=== PATIENT | male | born 1970 | race Caucasian/White ===

== ENCOUNTER 2017-10-13 10:59 | Emergency (ER) | payer MEDICAID, SELFPAY ==
[2017-10-13 10:59] VITALS: BP 132/72; PULSE 47; RESP 15; TEMP 36.8; BMI 32.5
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
[2017-10-13] MEDS: Naproxen 250 MG Tablet 500 MG PO (11:35)
== END 2017-10-13 11:52 | disposition home or self-care (01) ==
LOC: ED 11:39
PROVIDERS: Emergency Provider Emergency Medicine; Family Provider Internal Medicine; PCP Internal Medicine
DX: S09.90XA Unspecified injury of head, initial encounter (principal); W22.8XXA Striking against or struck by other objects, initial encounter; Y93.89 Activity, other specified; Y92.009 Unspecified place in unspecified non-institutional (private) residence as the place of occurrence of the external cause; Z72.0 Tobacco use
CPT/HCPCS: 99281

== ENCOUNTER 2018-04-18 11:22 | Emergency (ER) | payer MEDICAID, SELFPAY ==
[2018-04-18 11:24] VITALS: BP 104/76; PULSE 90; RESP 16; TEMP 36.3; O2SAT 92; BMI 29.8
[2018-04-18 12:11] LABS: Absolute Neutrophil Count 13.9 X10^3/uL (2.0-7.7); Basophil# 0.01 X10^3/uL; Basophil% 0.1 % (0-1); Hemoglobin 16.1 g/dl (13.0-16.5); Lymphocyte % 1.4 % (19-41); Mean Corp Hgb Conc 34.3 g/gl (32-36); Mean Corpuscular Hgb 33.6 pg (27.0-32.0); Mean Corpuscular Volume 98.1 fL (80-94); Mean Platelet Vol. 10.5 fl (6.2-12.0); Monocyte# 0.43 X10^3/uL; Neutrophil # 13.88 X10^3/uL (2.7-7.7); Neutrophil % 95.4 % (47-70); Platelet Count 58 K/mm3 (150-450); RBC Distribution Width CV 13.5 % (11.6-14.6); RBC Distribution Width SD 48.1 fl (35.1-43.9); Red Blood Count 4.79 M/mm3 (4.6-6.2); White Blood Count 14.5 K/mm3 (4.4-11.0)
[2018-04-18 12:14] LABS: Differential Indicated SCAN CRITERIA MET; POSITIVE COUNT NO; POSITIVE DIFFERENTIAL YES; POSITIVE MORPHOLOGY NO
[2018-04-18] MEDS: 0.9% Normal Saline 1,000 ML 1000 ML IV (12:15)
[2018-04-18] MEDS: Morphine 4 MG/ML Syringe IV ×2 (12:15→16:47)
[2018-04-18] MEDS: Ondansetron 4 MG/2 ML Vial IV (12:15)
[2018-04-18] MEDS: Diphth,Pertuss(Acell),Tet Vac 0.5 ML Vial IM (12:17)
[2018-04-18] MEDS: Cefazolin 1 GM/50 ML BAG IV (12:23)
[2018-04-18 12:25] LABS: Anion Gap 12 (5-15); BUN 7 mg/dL (7-18); BUN/Creat Ratio 6.7 RATIO (10-20); Calcium,Total 7.9 mg/dL (8.5-10.1); Chloride 101 mmol/L (98-107); Creatinine, Serum 1.04 mg/dL (0.70-1.30); EST Glomerular Filtration Rate 81 mL/min (>60); Est Glom Filt Rate - Afr Amer 98 mL/min (>60); Estimated Creatinine Clearance 79.24 ml/min; Glucose 283 mg/dL (74-106); Sodium Level 135 mmol/L (136-145)
[2018-04-18 13:04] LABS: Amphetamine Urine VISTA NEGATIVE (<1000 ng/mL); Barbiturate Urine VISTA NEGATIVE (< 200 ng/mL); Benzodiazepine Urine VISTA NEGATIVE (< 200 ng/mL); Cocaine Urine VISTA NEGATIVE (< 300 ng/mL); Ecstacy Urine VISTA NEGATIVE (< 500 ng/mL); Methadone Urine VISTA NEGATIVE (< 300 ng/mL); PCP Urine VISTA NEGATIVE (< 25 ng/mL); THC Urine VISTA POSITIVE (< 50 ng/mL); Vista UDS pH Range 7
--- NOTE | 2018-04-18 14:55 | ED.RN ---
THIS RN TALKED WITH FRIEND JOHN WHO STATES SHE WILL PROVIDE PT A RIDE HOME FROM [place] UPON DISCHARGE. PT MADE AWARE AND AGREES TO TRANSFER
[2018-04-18 14:56] VITALS: BP 138/70; PULSE 78; RESP 18; O2SAT 99
--- NOTE | 2018-04-18 15:07 | NURSING ---
CALLED [facility] FOR TRANSPORT. ETA IS 30 MIN
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
[2018-04-18 15:22] VITALS: BP 138/74; PULSE 80; RESP 18; O2SAT 99
[2018-04-18 16:34] VITALS: BP 113/77; RESP 18; O2SAT 94
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
== END 2018-04-18 16:54 | disposition designated cancer center or children's hospital (05) ==
PROVIDERS: Emergency Provider Emergency Medicine; Family Provider Internal Medicine; PCP Internal Medicine
DX: T21.24XA Burn of second degree of lower back, initial encounter (principal); T21.25XA Burn of second degree of buttock, initial encounter; T22.221A Burn of second degree of right elbow, initial encounter; T31.10 Burns involving 10-19% of body surface with 0% to 9% third degree burns; X08.8XXA Exposure to other specified smoke, fire and flames, initial encounter; Y93.9 Activity, unspecified; Y92.9 Unspecified place or not applicable; Z72.0 Tobacco use; Z72.89 Other problems related to lifestyle
CPT/HCPCS: 80048; 80307; 80320; 85025; 90715; 96374; 96375; 96376; 99284; J7030; A4216; G0480; J2405

== ENCOUNTER 2018-07-01 18:31 | Emergency (ER) | payer MEDICAID, SELFPAY ==
[2018-07-01 18:32] VITALS: BP 120/55; PULSE 74; RESP 18; TEMP 37.3; O2SAT 100; BMI 27.3
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
[2018-07-01] MEDS: LORazepam 1 MG Tablet PO (19:34)
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
== END 2018-07-01 21:08 | disposition home or self-care (01) ==
PROVIDERS: Emergency Provider Emergency Medicine
DX: S01.312A Laceration without foreign body of left ear, initial encounter (principal); W07.XXXA Fall from chair, initial encounter; Y04.8XXA Assault by other bodily force, initial encounter; Y93.89 Activity, other specified; F10.129 Alcohol abuse with intoxication, unspecified; Y90.9 Presence of alcohol in blood, level not specified
CPT/HCPCS: 12011; 70450; 99283

== ENCOUNTER 2019-01-01 19:06 | Emergency (ER) | payer MEDICAID, SELFPAY ==
[2019-01-01 19:06] VITALS: BMI 32.5
[2019-01-01 19:08] VITALS: BP 104/79; PULSE 83; RESP 16; TEMP 36.9; O2SAT 94; BMI 27.1
--- NOTE | 2019-01-01 19:13 | CT_ITS ---
STUDY: CT BRAIN WITHOUT CONTRAST REASON FOR EXAM: Male, 48 years old. Fall with head injury RADIATION DOSAGE (If Supplied By Facility): CTDIvol = ( 44.99 ) mGy, DLP = ( 829.85 ) mGycm TECHNIQUE: Transaxial CT imaging of the brain was performed without administration of intravenous contrast material. Individualized dose optimization techniques were used for this CT. COMPARISON: 07/01/2018 FINDINGS: Small scalp injury overlying the left occiput. Normal calvarium. Normal size ventricles and extra-axial spaces for the patient's age. Normal white matter tracts of the cerebral hemispheres. Normal basal ganglia and thalami. Normal brainstem. Normal cerebellum. There is no intracranial hemorrhage. There are no findings of an acute ischemic infarction. Normal visualized paranasal sinuses. CT/Brain/Head without Contrast IMPRESSION: No acute intracranial pathology. Posterior scalp injury Electronically Signed: David Peraza DO at 20:30 EDT Tel , Service support ,
--- NOTE | 2019-01-01 19:15 | ED.VIS.GEN ---
History of Present Illness Chief Complaint: Fall Informant: Patient Onset: Today Context: Sudden Onset Timing: Continuous Quality: Fall striking back of his head against a pole Location: Drinking establishment Current Severity: - - Unable to determine Maximum Severity: - - Unable to determine Worsened by: Alcohol use Relieved by: Nothing Associated Symptoms: Patient has no complaints Narrative: Patient is a middle-aged male who presents with laceration back of his head. Apparently been drinking this afternoon. He states he drinks minimum 6 beers. He fell. He struck his head on a pole. He said the pole did not give. He does complain of headache. He apparently had loss of conscious. He denies neck pain. He denies paresthesia, anesthesia motors. He denies cardiac respiratory symptoms. No GI symptoms. He has no other complaints. Review of old records reveals patient has history of alcoholism and hepatitis. Tetanus status unknown. Prior similar symptoms: Yes Recent Illness/Hospitalization: No - Past Medical History (1) Alcohol abuse Status: Chronic (2) Malnutrition Status: Chronic (3) Tobacco dependence Status: Chronic Past Medical History - Allergies and Home Meds Allergies/Adverse Reactions: Allergies No Known Allergies Allergy (Verified 01/01/19 19:11) Primary Care Physician: Karrie Vaughan [NON-STAFF] - 10 Day for suture removal Care Physician,No Primary [Primary Care Provider] - Prior records reviewed: Yes Surgical History: noncontributory Lives: Alone Smoking Status: Current every day smoker Alcohol: Heavy Drugs: None - Family History Maternal Family History: Reports: Renal Disease Paternal Family History: Reports: Cancer Review of Systems General: Denies: Chills, Fever, Sweats Eyes: Denies: Visual changes - bilaterally, Blurred Vision - bilaterally, Diplopia ENT: Denies: Rhinorrhea, Sore throat Cardiovascular: Denies: Chest pain, Palpitations Respiratory: Denies: Dyspnea, Cough, Dyspnea on exertion Gastrointestinal: Denies: Abdominal pain, Nausea, Vomiting, Diarrhea, Melena, Hematochezia Genitourinary: Denies: Dysuria, Hematuria, Frequency Musculoskeletal: Denies: Back pain, Extremity Pain Skin: Denies: Rash, Wounds Neurological: Denies: Headache, Weakness, Parasthesia, Numbness Hematologic: Denies: Easy bruising, Easy bleeding Allergy: Denies: Uticaria, Swelling of the mouth Physical Exam Vital Signs/Narrative: Vital Signs Temp Pulse Resp BP Pulse Ox 01/01/19 19:08 98.4 F 83 16 104/79 94 Inital Vital Signs reviewed: Yes General: Well nourished, Well developed, Unkempt, No Acute Distress Head: Normocephalic, Trauma, Tenderness - There is tenderness to palpation over the occiput. There is no palpable depression. There is no clinical findings of basilar skull fracture. Eyes: Perrl, EOMI. Negative for: Pale conjunctiva, Scleral icterus ENT: Moist mucous membranes, No rhinorrhea, TM's clear Neck: Supple, Nontender Cardiovascular: Regular rate, Regular rhythm, No murmurs, Normal S1, Normal S2 Respiratory: No distress, CTA bilaterally, Chest nontender Abdomen: Soft, Nontender, Nondistended, Normal bowel sounds Rectal: Deferred Back: Nontender, Normal Inspection. Negative for: CVA tenderness, Spinal tenderness Extremities: Nontender, No edema Skin: Normal color, No rash, Trauma - Scalp laceration occiput Neurological: Oriented x3, Cranial nerves II-XII grossly intact, Normal Strength, Normal Sensation, Normal DTR - There was no clonus or Babinski sign., - - Patient had difficulty performing finger-nose to finger.. Negative for: Alert Psychological: - - Patient is clinically inebriated. Diagnostic/Tx/Re-eval Impressions Brain CT 01/01/19 19:13 IMPRESSION: No acute intracranial pathology. Posterior scalp injury Electronically Signed: David Peraza DO at 20:30 EDT Tel , Service support , 01/01/19 19:13 Brain/Head without Contrast [CT] Stat Laboratory Results 01/01/19 01/01/19 19:30 19:30 PT 13.8 INR 1.1 Ethyl Alcohol 412.0 H* - Medical Decision Making With history of alcoholism, head trauma and loss of conscious will obtain CT of the head to evaluate for bleed. His laceration will require repair. Please read procedure note. Because he is an alcoholic PT/INR was obtained to assess liver function. Alcohol level was obtained as well. Patient significant other was contacted. She is not willing to get him from the hospital. Patient's been informed since he has an alcohol level greater than 400 he will need to stay in the ER until he is sober or has a reliable person who is willing to get him from the emergency department. Patient has attempted to flee the department more than once. He has been verbally redirected. He states he needs to go to the restroom when he attempts to leave. He was found in the back call. He then stated he did not know where the bathroom was. He was found to be smoking in the bathroom. Patient states he wants to be arrested. Patient was informed because he is intoxicated with staggered gait and concerned that he may fall he did sustain his bed. He is not being cooperative. He is not redirectable. Reluctant and concerned giving him anti-anxiolytics or any medications may cause more problems i.e. depressed respirations and with history of alcoholism concern for seizure if Haldol is given since Haldol is known to decrease his seizure threshold. [employer] police were contacted. Plan is restraints since patient is not redirectable and there is concern for adverse reaction and significant complications if medications are administered. Procedures - Lacerations No standard instances Length: 1.06 in Depth: Sub Q Shape: Irregular laceration with contusion Prep: Sterile Conditions, Damaris Laceration repair: Irrigated, Lidocaine - She Irrigated (ml): 100 Number of Sutures/Cindy: 4 - [place] Comment: Patient tolerated procedure well. ED Disposition - Plan for ED Patient: Disposition: Home or Assisted Living Diagnosis: Head injury, closed, with brief LOC, Alcohol intoxication, Occipital scalp laceration Instructions: ED Concussion, ED Alcohol Intoxication, ED Laceration Scalp Stitch Or Stap Referrals: Care Physician,No Primary [Primary Care Provider] - Karrie Vaughan [NON-STAFF] - 10 Day for suture removal
[2019-01-01] MEDS: Diphth,Pertuss(Acell),Tet Vac 0.5 ML Vial IM (19:34)
[2019-01-01 20:45] LABS: International Normalized Ratio 1.1; Prothrombin Time (Protime)PT. 13.8 SECONDS (11.7-14.9)
--- NOTE | 2019-01-01 22:36 | ED.RN ---
THIS PT WAS BEING UNCOOPERATIVE WITH STAFF, PT RIPPED OUT IV AND RIPPED OFF MONITOR CORDS, PT CONTINUED TO KEEP TRYING TO LEAVE THE UNIT, PT WAS IN RESTROOM FOR APPROX 15 MINS AND WHEN STAFF WOULD KNOCK PT WOULD NOT RESPOND, STAFF THEN PROCEEDED TO UNLOCK AND OPEN THE BATHROOM DOOR. WHEN THE DOOR WAS OPEN THE BATHROOM WAS SMOKEY AND SMELLED LIKE CIGARETTE SMOKE, PT ADMITTED TO SMOKING IN THE BATHROOM AND STATED HE THREW HIS CIGARETTE DOWN THE TOILET. THE PT WAS DIRECTED BACK TO HIS ROOM WHERE HE CONTINUED TO TRY TO LEAVE. PD WAS CALLED TO HELP ASSIST WITH GETTING PT UNDER CONTROL AND DUE TO THE PD OFFICER KNOWING PT AND FAMILY, PD OFFICER TOOK PT HOME.
== END 2019-01-01 22:43 | disposition home or self-care (01) ==
PROVIDERS: Emergency Provider Emergency Medicine
DX: S01.01XA Laceration without foreign body of scalp, initial encounter (principal); W19.XXXA Unspecified fall, initial encounter; Y93.89 Activity, other specified; Y92.9 Unspecified place or not applicable; F10.229 Alcohol dependence with intoxication, unspecified; K70.10 Alcoholic hepatitis without ascites; Y90.8 Blood alcohol level of 240 mg/100 ml or more; F17.200 Nicotine dependence, unspecified, uncomplicated
CPT/HCPCS: 12001; 70450; 80320; 85610; 90715; 99285; A4216; G0480

== ENCOUNTER 2019-01-09 10:11 | Emergency (ER) | payer MEDICAID, SELFPAY ==
[2019-01-09 10:12] VITALS: BP 143/77; PULSE 75; RESP 18; TEMP 36.6; O2SAT 98; BMI 29.0
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
--- NOTE | 2019-01-09 10:34 | ED.DCSUM_ITS ---
History of Present Illness Chief Complaint: Wound Check Informant: Patient Onset: Days - 8 days ago per old records Context: Sudden Onset Timing: Continuous Quality: Scalp laceration Location: Right parietal occipital region Current Severity: None Maximum Severity: None Worsened by: Nothing Relieved by: Nothing Associated Symptoms: No associated symptoms Narrative: Patient was seen in the emergency department 8 days ago. He had a laceration finger to fall. 4 varsha were placed. He presents for removal of the varsha. He denies headache, he denies nausea or vomiting. He denies visual, ocular auditory symptoms. He has no complaints. Prior similar symptoms: Yes Recent Illness/Hospitalization: Yes - Past Medical History (1) Alcohol abuse Status: Chronic (2) Malnutrition Status: Chronic (3) Tobacco dependence Status: Chronic Past Medical History - Allergies and Home Meds Allergies/Adverse Reactions: Allergies No Known Allergies Allergy (Verified 01/09/19 10:14) Primary Care Physician: Care Physician,No Primary [Primary Care Provider] - Prior records reviewed: Yes - Reviewed prior ER visit Surgical History: noncontributory Lives: Alone Smoking Status: Current every day smoker - Family History Maternal Family History: Reports: Renal Disease Paternal Family History: Reports: Cancer Review of Systems General: Denies: Chills, Fever, Sweats Eyes: Denies: Visual changes - bilaterally, Blurred Vision - bilaterally, Diplopia ENT: Denies: Bilateral ear pain, Rhinorrhea, Sore throat Gastrointestinal: Denies: Nausea, Vomiting Skin: Reports: Wounds - Healing scalp laceration. Denies: Rash, Abscess, Abrasions Neurological: Denies: Headache, Weakness, Parasthesia, Numbness, -, - Hematologic: Denies: Easy bruising, Easy bleeding Physical Exam Vital Signs/Narrative: Vital Signs Temp Pulse Resp BP Pulse Ox 01/09/19 10:12 98 F 75 18 143/77 H 98 Inital Vital Signs reviewed: Yes General: Well developed, No Acute Distress. Negative for: Well nourished Head: Normocephalic, Trauma - Varsha in place Eyes: Perrl, EOMI ENT: Moist mucous membranes, No rhinorrhea Cardiovascular: Regular rate, Regular rhythm Skin: Normal color, No rash, Trauma - Well-healed scalp laceration without evidence of infection. Neurological: Alert, Oriented x3, Cranial nerves II-XII grossly intact, Normal Strength, Normal Sensation Psychological: Normal affect, Normal Mood Diagnostic/Tx/Re-eval - Medical Decision Making 4 varsha were reviewed by me. Patient was discharged with appropriate home- going instructions ED Disposition - Plan for ED Patient: Disposition: Home or Assisted Living Diagnosis: Encounter for staple removal, Encounter for evaluation of wound Instructions: ED Wound Check Post Op No Infec Referrals: Care Physician,No Primary [Primary Care Provider] -
== END 2019-01-09 11:25 | disposition home or self-care (01) ==
PROVIDERS: Emergency Provider Emergency Medicine
DX: Z48.02 Encounter for removal of sutures (principal); F10.10 Alcohol abuse, uncomplicated; F17.200 Nicotine dependence, unspecified, uncomplicated
CPT/HCPCS: 99282

== ENCOUNTER 2019-06-04 20:13 | Emergency (ER) | payer MEDICAID, SELFPAY ==
[2019-06-04 20:14] VITALS: BP 148/95; PULSE 64; RESP 18; TEMP 36.2; O2SAT 96; BMI 24.3
--- NOTE | 2019-06-04 23:07 | CT_ITS ---
STUDY: CT BRAIN WITHOUT CONTRAST REASON FOR EXAM: Male, 48 years old. Fall, hematoma. RADIATION DOSAGE (If Supplied By Facility): CTDIvol = ( 44.99 ) mGy, DLP = ( 846.73 ) mGycm TECHNIQUE: Transaxial CT imaging of the brain was performed without administration of intravenous contrast material. Individualized dose optimization techniques were used for this CT. COMPARISON: 01/01/2019. FINDINGS: Normal soft tissue structures. Normal calvarium. There is moderate cerebral atrophy with widening of the extra-axial spaces and ventricular dilatation. There are areas of decreased attenuation within the white matter tracts of the supratentorial brain, consistent with microvascular disease changes. There is no intracranial hemorrhage. There are no findings of an acute ischemic infarction. Normal visualized paranasal sinuses. CT/Brain/Head without Contrast IMPRESSION: 1. No acute findings. 2. Microvascular ischemic changes. Atrophy. Electronically Signed: Ana Laura Schmitz MD at 23:46 EDT Tel , Service support ,
--- NOTE | 2019-06-04 23:08 | RAD_ITS ---
HISTORY: PT STATES HE FELLRIGHT WRIST PAININTOXICATED COMPARISON: None FINDINGS: # of images incl. paperwork: 3 XR Wrist Min 3 Views : No fracture or subluxation. No osseous or soft tissue abnormality. The carpal bones have a normal appearance. The distal radius and ulna are unremarkable. No evidence of radiopaque foreign body. RAD/Wrist min 3 Views IMPRESSION: Normal right wrist. at 0011 Reported and signed by: Cj Murillo MD Electronically Signed: Cj Murillo MD at 0:10 EDT Tel , Service support ,
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
[2019-06-05 00:24] VITALS: RESP 16
== END 2019-06-05 01:07 | disposition home or self-care (01) ==
PROVIDERS: Emergency Provider Emergency Medicine
DX: S09.90XA Unspecified injury of head, initial encounter (principal); S50.11XA Contusion of right forearm, initial encounter; S20.211A Contusion of right front wall of thorax, initial encounter; S80.812A Abrasion, left lower leg, initial encounter; W18.39XA Other fall on same level, initial encounter; Y93.89 Activity, other specified; F10.129 Alcohol abuse with intoxication, unspecified; Y90.9 Presence of alcohol in blood, level not specified; Z72.0 Tobacco use
CPT/HCPCS: 70450; 73090; 73110; 99282

== ENCOUNTER 2019-06-09 13:17 | Inpatient (IN) | payer MEDICAID, SELFPAY ==
[2019-06-09] VITALS (21 sets, daily range): BP systolic 101–132; BP diastolic 64–88; PULSE 69–156; RESP 18–39; TEMP 36.5–37.9; O2SAT 87–97; BMI 32.0; BMI 29.7
--- NOTE | 2019-06-09 13:32 | EKG12_ITS ---
Test Reason : CP Blood Pressure : / mmHG Vent. Rate : 155 BPM Atrial Rate : 155 BPM P-R Int : 112 ms QRS Dur : 080 ms QT Int : 324 ms P-R-T Axes : 000 038 036 degrees QTc Int : 520 ms Sinus tachycardia Low voltage QRS (Limb Leads) Borderline ECG Confirmed by PERNELL BAEZ, TARA ([id number]), material expeditor ANNALISE MARTIN ([id number]) on 06/11/2019 3:09:45 PM Referred By: Roxane Silva Confirmed By:TARA GIMENEZ MD
--- NOTE | 2019-06-09 13:32 | RAD_ITS ---
STUDY: X-RAY CHEST REASON FOR EXAM: Male, 48 years old. Right chest pain. TECHNIQUE: AP upright portable view. COMPARISON: 03/31/2016. FINDINGS: Confluent infiltrates in the right lower lobe and right pleural fluid. No left pleural fluid. Cardiac size is probably normal. Normal mediastinum and maryam. Normal visualized pulmonary arteries. Normal visualized aortic arch and descending thoracic aorta. Normal visualized thoracic spine. Normal visualized ribs, clavicles, and shoulders. There is no demonstrated abnormality of the visualized soft tissue structures of the upper abdomen. RAD/Chest 1 View (Portable) IMPRESSION: Right lower lobe pneumonia and right pleural fluid. Electronically Signed: Victorino Watkins MD at 14:32 EDT , Service support ,
[2019-06-09] MEDS: 0.9% Normal Saline 1,000 ML 999 ML IV ×2 (13:37→18:48)
[2019-06-09] MEDS: Acetaminophen 500 MG Tablet 1000 MG PO (13:39)
[2019-06-09 13:44] LABS: Absolute Lymphocyte Count 0.38 X10^3/uL (0.83-4.51); Absolute Neutrophil Count 8.9 X10^3/uL (2.0-7.7); Basophil# 0.02 X10^3/uL; Basophil% 0.2 % (0-1); Eosinophil# 0.01 X10^3/uL; Eosinophils% 0.1 % (0-5); Hematocrit 41.3 % (40-54); Hemoglobin 14.4 g/dL (13.0-16.5); Lymphocyte # 0.38 X10^3/ul (4.0); Mean Corp Hgb Conc 34.9 g/dL (32-36); Mean Corpuscular Volume 97.4 fL (80-94); Mean Platelet Vol. 10.8 fl (6.2-12.0); Monocyte# 0.22 X10^3/uL; Monocyte% 2.3 % (0-10); NRBC Flagged by Analyzer 0 % (0-5); Neutrophil # 8.92 X10^3/uL (2.7-7.7); Neutrophil % 92.8 % (47-70); POSITIVE DIFFERENTIAL YES; Platelet Count 140 K/mm3 (150-450); RBC Distribution Width SD 46.5 fl (35.1-43.9); Red Blood Count 4.24 M/mm3 (4.6-6.2); White Blood Count 9.6 K/mm3 (4.4-11.0)
[2019-06-09 13:46] LABS: Differential Indicated SCAN CRITERIA MET
[2019-06-09 13:53] LABS: International Normalized Ratio 1.2; Prothrombin Time (Protime)PT. 15.2 SECONDS (11.7-14.9)
[2019-06-09 13:54] LABS: Partial Thromboplast Time 25.2 Seconds (24.1-36.2)
[2019-06-09 14:04] LABS: ALB/GLOB Ratio 0.7 RATIO (0.9-2.4); AST(SGOT) 87 U/L (15-37); Alanine Aminotransfer ALT/SGPT 66 U/L (16-61); Albumin, Serum 3.1 g/dL (3.2-5.0); Alkaline Phosphatase 119 U/L (45-117); Anion Gap 12 (5-15); BUN 10 mg/dL (7-18); BUN/Creat Ratio 14.1 RATIO (10-20); Calcium,Total 8.2 mg/dL (8.5-10.1); Chloride 108 mmol/L (98-107); Creatinine, Serum 0.71 mg/dL (0.70-1.30); EST Glomerular Filtration Rate 126 mL/min (>60); Est Glom Filt Rate - Afr Amer 152 mL/min (>60); Estimated Creatinine Clearance 114.82 ml/min; Globulin 4.3 g/dL (2.2-4.2); Glucose 128 mg/dL (74-106); Potassium 3.5 mmol/L (3.5-5.1); Protein, Total 7.4 g/dL (6.4-8.2); Sodium Level 139 mmol/L (136-145)
[2019-06-09 14:06] LABS: Differential Comment SCANNED
[2019-06-09 14:07] LABS: Lactic Acid 2.9 mmol/L (0.4-2.0)
--- NOTE | 2019-06-09 14:22 | CT_ITS ---
STUDY: CTA CHEST REASON FOR EXAM: Male, 48 years old. Dyspnea. RADIATION DOSAGE (If Supplied By Facility): CTDIvol = ( 15.38 ) mGy, DLP = ( 433.08 ) mGycm TECHNIQUE: The examination was performed with the intravenous administration of IV 100mL [id number]-370 100. Post-processing of the angiographic images was performed, with multiplanar reformation and 3D reconstruction. Individualized dose optimization techniques were used for this CT. COMPARISON: None. FINDINGS: There is dense airspace opacity in the right lower lobe which is consistent with an infiltrate. There is mild patchy opacity in the right upper lobe and right middle lobe which is also likely infectious in etiology. The left lung is clear. There are no pleural effusions. There is no pneumothorax. There is no evidence of pulmonary embolus. There is no evidence of thoracic aortic aneurysm or dissection. The heart is normal in size. There are coronary artery calcifications noted. There is no thoracic lymphadenopathy. There is a small hiatal hernia noted. Images through the upper abdomen demonstrate a cirrhotic liver. There is a moderate compression deformity of the T11 vertebral body which is stable when compared with the abdominal CT dated 12/14/2016. CT/CTA Chest W/WO Contrast IMPRESSION: No evidence of pulmonary embolus. No evidence of thoracic aortic aneurysm or dissection. Right lower lobe infiltrate. Mild patchy opacity in the right middle lobe and right upper lobe, also likely infectious in etiology. Coronary artery disease. Small hiatal hernia. Cirrhosis. Electronically Signed: Jaison Calle, at 15:33 EDT Tel , Service support ,
[2019-06-09] MEDS: Albuterol 2.5 MG/3 ML VIAL.NEB. INHALATION ×2 (14:25→14:27)
--- NOTE | 2019-06-09 14:46 | ED.VISSUMM ---
- ER Visit Summary Date of Service: 06/09/19 Chief Complaint: Shortness of breath History of Present Illness: The patient is a 48 M who tells me that 5 days ago sustained a fall strike his head and his wrist. He was seen in the emergency department the next day had a negative head CT negative wrist x-rays. He also states that he hit his chest. He has developed shortness of breath cough sputum production chills and fever generalized myalgias. He is a long-term smoker. Otherwise he denies significant medical problems. Physical Examination: Febrile 100.2 temporal. EMS reported 102. Heart rate 154 respirations are 38 blood pressure 111/64 pulse ox is 86% on room air Gen: Well-nourished well-developed Head: Normocephalic atraumatic Eyes: Perrl EOMI ENT: TMs clear no rhinorrhea moist mucous membranes Neck: Supple no lymphadenopathy no JVD nontender CVS: Regular rate tachycardic rhythm no murmurs normal S1-S2 Respiratory: Patient is tachypneic. He has rhonchorous lung sounds on the right and they are diminished there. Chest minimally tender anterior chest on the right Abdomen: Soft nontender nondistended normal bowel sounds no masses Back: Nontender Extremity: Nontender no edema Skin: Normal color no rash Neuro: alert orientated ?3 CN II-XII intact normal strength Psych: Anxious Test Results: EKG shows a sinus tachycardia at a rate of 155. Chest x-ray shows infiltrate and possible effusion on the right lower side. White count is normal. Lactic acid elevated 2.9. CTA of the chest demonstrates infiltrates of the right lower lobe but also of the right middle and upper lobes. No pulmonary embolism no pneumothorax. Emergency Department Course and Treatment: She received IV fluids and Tylenol. He also received Rocephin and azithromycin and breathing treatments. His heart rate is improved down into the 120s. His respiratory rate is improved. Patient will require admission to the hospital and we will plan on admitting to ICU. Impression: 1. Multi lobar pneumonia 2. Sepsis This note was generated with [employer] dictation software. It may contain incorrect words, spelling, and punctuation that were not noted in review of the chart prior to signing ED Disposition - Plan for ED Patient: Referrals: Care Physician,No Primary [Primary Care Provider] -
[2019-06-09 14:47] LABS: Bacteria 0 SEEN /hpf (None Seen); Mucous, Urine 0 SEEN /hpf (<or=2+); Red Blood Cells-Urine 0 SEEN /hpf (0-5); Squamous Epithelial Cells - UA 0 SEEN /hpf (0-5); White Blood Cells 0 SEEN /hpf (0-5)
[2019-06-09 14:51] LABS: Color, Urine Yellow (Yellow); Glucose, Dipstick Normal (Normal); Ketone-Dipstick Negative (Negative); Leukocyte Esterase-Dipstick 25 /ul (Negative); Nitrite-Dipstick Negative (Negative); Occult Blood-Urine Negative /ul (Negative); Protein-Dipstick Negative (Negative); Urine Bilirubin Dipstick Negative (Negative); Urine Clarity Clear (Clear); Urine Urobilinogen 4 mg/dl (Normal)
[2019-06-09] MEDS: 0.9% Normal Saline 1,000 ML 150 ML IV ×2 (14:59→23:18)
--- NOTE | 2019-06-09 15:48 | HP.PCM_ITS ---
History of Present Illness Date of Admission: 06/09/19 Chief Complaint: shortness of breath The patient is a 48 year old M with past medical history as listed which includes chronic alcohol and nicotine dependence. He was admitted to the ED on 06/09/2019 with a complaint of worsening shortness of breath for 5 days. Patient states he fell about 5 days ago after he tripped over the stairs and thinks he passed out for about 10 minutes until he came around. He sustained some bruises over his lips and lower extremities which are resolving. However after that patient started having right-sided chest pain which he thought was due to the fall. He started becoming short of breath which gradually worsened and peaked today. He also thinks he had a fever but did not check his temperature at home is chronic to how high it was and he also had chills. He denied any palpitations or dizziness, diarrhea or vomiting. He drinks about a 12 pack daily and also smokes about 1 pack daily. On admission in the ED he was tachypneic and tachycardic with respiratory rate in the 30s and pulse rate going as high as the 150s though at time of review in the ED it was down to about 112. Chemistry showed bicarb of 19 with lactic acid of 2.9 and total bilirubin of 1.4 as well as mildly elevated AST and ALT as well as ALP. Initial troponin was negative. He was saturating around 87% on admission in the ED and required up to 4 L to be saturating in the mid 90s. CBC showed no leukocytosis with white cell count of 9.6 and hemoglobin of 14.4+ platelets of 140. Chest x-ray showed right lower lobe pneumonia and right pleural fluid he had a CTA which showed no evidence of pulmonary embolus but showed a right lower lobe infiltrate and mid to opacity in the right middle lobe and right upper lobe also likely infectious in etiology. He is been admitted to be managed for sepsis due to pneumonia likely aspiration, acute hypoxic respiratory insufficiency and lactic acidosis. [] Past Medical History Past Medical History (Chronic Problems): Chronic Problems Alcohol abuse (Chronic) Insomnia (Chronic) Tobacco dependence (Chronic) Open wound of knee, leg, and ankle, complicated (Chronic) Wound healing, delayed (Chronic) Malnutrition (Chronic) Ulcer of right lower extremity (Chronic) Alcohol intoxication delirium (Chronic) Allergies No Known Allergies Allergy (Verified 06/04/19 22:31) Home Medications: Ambulatory Orders Medication Instructions Recorded NK 07/01/18 Surgical History: noncontributory Psychiatric History: No pertinent psych hx Lives: Friends Smoking Status: Current every day smoker Tobacco Use: Cigarettes Alcohol: Heavy - drinks ~ 12 pack daily Drugs: None - *Family History Maternal History Items: Renal Disease Paternal History Items: Cancer Review of Systems Constitutional: Reports: Chills, Fever, Malaise, Weakness, Fatigue. Denies: Anorexia Eyes: Denies: Blurred vision HEENT: Denies: Head Aches, Sinus Congestion, Sinus Drainage Cardiovascular: Reports: Chest Pain - from mechanical fall. Denies: Chest Pressure, Light Headedness, Orthopnea, Palpitations Respiratory: Reports: Cough, Shortness of Breath, Shortness of breath at rest, Sputum production - yellowish sputum. Denies: Pleuritic Pain, Shortness of breath upon exertion Gastrointestinal: Denies: Abdominal Pain, Nausea, Vomiting Genitourinary: Denies: Dysuria Musculoskeletal: Denies: Joint Pain, Joint Tenderness Skin: Reports: Rash, Skin Changes - healing superficial excoriations on lips and shins Neurological: Denies: Numbness, Tingling, Focal weakness Psychiatric: Denies: Anxiety, Depression, Homicidal Ideations, Suicidal Ideations Hematologic/ Lymphatic: Denies: Easy Bruising, Easy Bleeding VTE Information - Inpt Only VTE Present on Admission: No VTE Pharm Prophylaxis ordered?: Yes - Physical Exam General: Alert, Oriented x3, Cooperative, Lethargic HEENT: Atraumatic, PERRLA, EOMI, Normocephalic Oral: Dry Mucosa Neck: Supple, No JVD, Negative Carotid Bruits Lungs: Tachypneic, - - markedly diminished breath sounds in right lower and mid lung barros; no wheezes or crackles. Cardiovascular: No murmurs, Tachycardic Abdomen: Bowel Sounds Present, Soft, Non Tender Extremities: No edema, Capillary Refill Less than 3 Seconds Skin: No rashes, No breakdown Musculoskeletal: No Tenderness to Palpation of Joints or Extremities Lymphatic: No Cervical, Supraclavicular, or Inguinal Adenopathy Neurological: Cranial nerves II-XII grossly intact, Neuro grossly intact, Motor Exam 5/5 strength throughout Psych/Mental Status: Normal Affect, Appropriate, Alert and oriented to time, place, person, mood and affect Vital Signs Temp Pulse Resp BP Pulse Ox 98.5 F 112 H 33 H 130/75 H 95 06/09/19 15:06 06/09/19 15:06 06/09/19 15:06 06/09/19 15:06 06/09/19 15:06 Oxygen Flow Rate (L/min) 4 Oxygen Delivery Method Nasal Cannula Weight: 198 lb 6.656 oz Body Mass Index (BMI) 32.0 Intake and Output for Last 24 Hours 06/07/19 06/08/19 06/09/19 23:59 23:59 23:59 Intake Total 1000 / 1000 Balance 1000 / 1000 Laboratory Tests Past 24 Hrs 06/09/19 06/09/19 06/09/19 13:20 13:20 13:20 WBC 9.6 RBC 4.24 L Hgb 14.4 Hct 41.3 MCV 97.4 H MCH 34.0 H MCHC 34.9 RDW Std Deviation 46.5 H RDW Coeff of Lesvia 13.0 Plt Count 140 L MPV 10.8 Immature Gran % (Auto) 0.600 Neut % (Auto) 92.8 H Lymph % (Auto) 4.0 L [place] % (Auto) 2.3 Eos % (Auto) 0.1 Baso % (Auto) 0.2 Absolute Neuts (auto) 8.9 H Absolute Lymphs (auto) 0.38 L Nucleated RBC % 0 Differential Comment SCANNED PT 15.2 H INR 1.2 APTT 25.2 Sodium 139 Potassium 3.5 Chloride 108 H Carbon Dioxide 19.0 L Anion Gap 12 BUN 10 Creatinine 0.71 Estim Creat Clear Calc 114.82 Est GFR (MDRD) Af Amer 152 Est GFR (MDRD) Non-Af 126 BUN/Creatinine Ratio 14.1 Glucose 128 H Lactic Acid Calcium 8.2 L Total Bilirubin 1.40 H AST 87 H ALT 66 H Alkaline Phosphatase 119 H Troponin I < 0.015 Total Protein 7.4 Albumin 3.1 L Globulin 4.3 H Albumin/Globulin Ratio 0.7 L Urine Color Urine Clarity Urine pH Ur Specific [place] Urine Protein Urine Glucose (UA) Urine Ketones Urine Occult Blood Urine Nitrite Urine Bilirubin Urine Urobilinogen Ur Leukocyte Esterase Urine RBC Urine WBC Ur Squamous Epith Cells Urine Bacteria Urine Mucus 06/09/19 06/09/19 13:20 14:35 WBC RBC Hgb Hct MCV MCH MCHC RDW Std Deviation RDW Coeff of Lesvia Plt Count MPV Immature Gran % (Auto) Neut % (Auto) Lymph % (Auto) [place] % (Auto) Eos % (Auto) Baso % (Auto) Absolute Neuts (auto) Absolute Lymphs (auto) Nucleated RBC % Differential Comment PT INR APTT Sodium Potassium Chloride Carbon Dioxide Anion Gap BUN Creatinine Estim Creat Clear Calc Est GFR (MDRD) Af Amer Est GFR (MDRD) Non-Af BUN/Creatinine Ratio Glucose Lactic Acid 2.9 H Calcium Total Bilirubin AST ALT Alkaline Phosphatase Troponin I Total Protein Albumin Globulin Albumin/Globulin Ratio Urine Color Yellow Urine Clarity Clear Urine pH 8.0 Ur Specific [place] 1.010 Urine Protein Negative Urine Glucose (UA) Normal Urine Ketones Negative Urine Occult Blood Negative Urine Nitrite Negative Urine Bilirubin Negative Urine Urobilinogen 4 H Ur Leukocyte Esterase 25 H Urine RBC 0 SEEN Urine WBC 0 SEEN Ur Squamous Epith Cells 0 SEEN Urine Bacteria 0 SEEN Urine Mucus 0 SEEN Diagnostic Data Chest X-Ray 06/09/19 13:32 IMPRESSION: Right lower lobe pneumonia and right pleural fluid. Electronically Signed: Victorino Watkins MD at 14:32 EDT , Service support , Chest CTA 06/09/19 14:22 IMPRESSION: No evidence of pulmonary embolus. No evidence of thoracic aortic aneurysm or dissection. Right lower lobe infiltrate. Mild patchy opacity in the right middle lobe and right upper lobe, also likely infectious in etiology. Coronary artery disease. Small hiatal hernia. Cirrhosis. Electronically Signed: Jaison Calle, at 15:33 EDT Tel , Service support , Assessment/Plan All Active Problems Cellulitis and abscess of leg (Resolved) Ulcer of right lower leg (Acute) Ulcer of left lower leg (Acute) 48-year-old male admitted with complaint of shortness of breath 1. Sepsis due to pneumonia, likely aspiration * admit to ICu with telemetry * SIRS criteria- tachypnea and tachycardia * also had a mild fever of 100.2F * patient received IV ceftriaxone and azithromycin in ED; however, considering his history of falling down the stairs, passing out and some episodes of vomiting, as well as history of chronic heavy alcohol abuse,. I think he likely aspirated * will hydrate with IVF per sepsis protocol * IV zosyn; will give one dose of IV vancomycin * blood cultures, sputum cultures, check urine for strep and legionella * Tylenol as needed. * Consult critical care * 2. Lactic acidosis: Likely due to sepsis. Lactic acid was 2.9. Will hydrate with IV fluid per sepsis protocol and repeat lactic acid per sepsis protocol. 3. Acute hypoxic respiratory failure due to aspiration pneumonia * Patient was breathing in the mid 30s and is also very tachycardic with heart rate going as high as the 150s. * EKG showed sinus tachycardia and initial troponin was negative. * BG is requested and results are pending. * Admit to ICU. Currently on 4 L of oxygen. Titrate oxygen to maintain saturation above 90%. If tachypnea persists, will switch to BiPAP. * Breathing treatments as needed * 4. Elevated liver enzymes: * Total bilirubin is 1.4 and AST/ALT of 87/66. ALP is also 119. * This is likely due to chronic alcohol abuse. Will trend enzymes. * 5. Chronic alcohol abuse: At risk of withdrawal. We will put on alcohol withdrawal protocol. 6. Continue dependence: Counseled to quit. Nicotine patch 21 mg daily. DVT prophylaxis: Lovenox CODE STATUS: Full code * Patient counseled extensively about different types of CODE STATUS including full code, DNR CCA and DNR CCA. Patient elects to be full code. Total [id number] time 16 minutes. Code Visit Inpatient E&M: 32241 Init Hosp L3 Procedures: 00533 Critial Care 1st Hr - advance planing first 30 mins- [id number]
--- NOTE | 2019-06-09 15:52 | NURSING ---
ICU ACUTE HYPOXIC RESP FAILURE, SEPSIS CLINT
--- NOTE | 2019-06-09 16:04 | NURSING ---
ICU5
[2019-06-09 16:26] LABS: Allen Test POS; Base Excess -6 mmol/L (-2 to +2); Bicarbonate 17.7 mmol/L (22-26); Blood Gas Specimen Type ART; O2 Delivery Device Nasal Can; PO2 76 mmHG (75-100); SITE R Radial; SO2 96 % (95-99); Time Given 1605; Total Carbon Dioxide 19 mmol/L; pCO2 26.1 mmHg (35-45); pH 7.44 (7.35-7.45)
[2019-06-09 17:36] LABS: Reflex Lactate? Y
[2019-06-09 17:59] LABS: Magnesium 1.3 mg/dL (1.6-2.6)
[2019-06-09 18:21] LABS: Amphetamine Urine VISTA NEGATIVE (<1000 ng/mL); Barbiturate Urine VISTA NEGATIVE (< 200 ng/mL); Benzodiazepine Urine VISTA NEGATIVE (< 200 ng/mL); Cocaine Urine VISTA NEGATIVE (< 300 ng/mL); Ecstacy Urine VISTA NEGATIVE (< 500 ng/mL); Methadone Urine VISTA NEGATIVE (< 300 ng/mL); PCP Urine VISTA NEGATIVE (< 25 ng/mL); THC Urine VISTA NEGATIVE (< 50 ng/mL); Vista UDS pH Range 7
[2019-06-09 18:21] LABS: Lactic Acid 3.2 mmol/L (0.4-2.0)
--- NOTE | 2019-06-09 18:24 | ED.RN ---
LAB CALLED WITH LACTIC ACID 7
--- NOTE | 2019-06-09 18:25 | ED.RN ---
LAB CALLED WITH LACTIC ACID 3.2. PT WAS ADMITTED TO ICU. THIS NURSE CALLED [facility], AND INFORMED OF SAME.
--- NOTE | 2019-06-09 18:35 | PCM.RX.CS ---
Consult Pharmacy has been consulted to manage selected antiobiotic: Vancomycin Type of Consult: New start Suspected Infection: Pneumonia Prior Doses of Antibiotics Received/Current Regimen: None Labs: Sodium 139 mmol/L (136-145) 06/09/19 13:20 Potassium 3.5 mmol/L (3.5-5.1) 06/09/19 13:20 Chloride 108 mmol/L (98-107) H 06/09/19 13:20 Carbon Dioxide 19.0 mmol/L (21.0-32.0) L 06/09/19 13:20 Anion Gap 12 (5-15) 06/09/19 13:20 BUN 10 mg/dL (7-18) 06/09/19 13:20 Creatinine 0.71 mg/dL (0.70-1.30) 06/09/19 13:20 Est GFR (MDRD) Af Amer 152 mL/min (>60) 06/09/19 13:20 Est GFR (MDRD) Non-Af 126 mL/min (>60) 06/09/19 13:20 BUN/Creatinine Ratio 14.1 RATIO (10-20) 06/09/19 13:20 Glucose 128 mg/dL (74-106) H 06/09/19 13:20 Microbiology: Microbiology 06/09/19 14:50 Sputum, Expectorated/Coughed Gram Stain - Final Weight used for dosin kg Estimated Creatinine Clearance: 114ml/min Goal Trough: 15-20 mcg/mL Pharmacy Plan for Drug Dosing: Pt admitted to ICU for Pneumonia and sepsis. Ordered goal trough is 15-20. Pt received a 25mg/kg loading dose (2000mg) of Vancomycin IV x1, which was given 06/09/19. Initial recommendation is for pt to receive Vancomycin 1000mg IV q8h starting 8 hours after the loading dose. Trough will be drawn before the 4th total dose, 06/10/19 at 1730. Pharmacy Service will continue to monitor and adjust dosing as required. Follow-Up Labs: Trough Vancomycin - 06/10/19 at 1730
[2019-06-09] MEDS: Magnesium Sulfate 4gm/100mL 4 GM/100 ML IV.SOLN. IV (21:10)
[2019-06-09] MEDS: LORazepam 2 MG/ML Syringe IV (21:28)
[2019-06-09] MEDS: 0.9% NaCl Peripheral Flush Adult/Peds IV (21:29)
[2019-06-09 21:49] LABS: Lactic Acid 2.5 mmol/L (0.4-2.0)
[2019-06-10] VITALS (18 sets, daily range): BP systolic 101–147; BP diastolic 57–83; PULSE 59–103; RESP 16–35; TEMP 36.6–37.2; O2SAT 94–98
--- NOTE | 2019-06-10 01:00 | NURSING ---
refused a second IV to be placed
[2019-06-10 01:19] LABS: Reflex Lactate? Y
[2019-06-10 02:11] LABS: Lactic Acid 2.1 mmol/L (0.4-2.0)
[2019-06-10] MEDS: Vancomycin IV 1,000 MG/200 ML BAG 200 MG IV ×3 (03:37→17:35)
[2019-06-10 04:09] LABS: Anion Gap 7 (5-15); BUN 7 mg/dL (7-18); BUN/Creat Ratio 10.2 RATIO (10-20); Chloride 106 mmol/L (98-107); Creatinine, Serum 0.68 mg/dL (0.70-1.30); EST Glomerular Filtration Rate 131 mL/min (>60); Est Glom Filt Rate - Afr Amer 159 mL/min (>60); Estimated Creatinine Clearance 119.89 ml/min; Glucose 147 mg/dL (74-106); Potassium 3.2 mmol/L (3.5-5.1); Sodium Level 137 mmol/L (136-145)
[2019-06-10 04:19] LABS: Absolute Lymphocyte Count 1.02 X10^3/uL (0.83-4.51); Absolute Neutrophil Count 10.2 X10^3/uL (2.0-7.7); Basophil# 0.03 X10^3/uL; Basophil% 0.2 % (0-1); Eosinophil# 0.01 X10^3/uL; Eosinophils% 0.1 % (0-5); Hematocrit 36.4 % (40-54); Hemoglobin 12.5 g/dL (13.0-16.5); Lymphocyte # 1.02 X10^3/ul (4.0); Lymphocyte % 8.4 % (19-41); Mean Corp Hgb Conc 34.3 g/dL (32-36); Mean Corpuscular Hgb 33.8 pg (27.0-32.0); Mean Corpuscular Volume 98.4 fL (80-94); Mean Platelet Vol. 11.3 fl (6.2-12.0); Monocyte# 0.78 X10^3/uL; Monocyte% 6.4 % (0-10); NRBC Flagged by Analyzer 0 % (0-5); Neutrophil # 10.19 X10^3/uL (2.7-7.7); Neutrophil % 84.3 % (47-70); Platelet Count 91 K/mm3 (150-450); RBC Distribution Width CV 13.1 % (11.6-14.6); RBC Distribution Width SD 46.7 fl (35.1-43.9); White Blood Count 12.1 K/mm3 (4.4-11.0)
[2019-06-10 05:17] LABS: Differential Comment SCANNED
--- NOTE | 2019-06-10 06:24 | PCM.CON.CC ---
Reason for Consult Date of Consultation: 06/10/19 Reason for Consultation: Sepsis, aspiration pneumonia History of Present Illness: The patient is a 48-year-old male, with a history as outlined below, who presented to the emergency department on June 09 with complaints of shortness of breath. The patient has a history of chronic alcohol and nicotine dependency, drinking on average 12 beers per day and smoking 1 pack of cigarettes. In addition to the aforementioned, the patient also reports the presence of a cough which has been productive of sputum. The patient's last drink was last evening. He does report having gone through alcohol withdrawal with cessation of intake. The patient does not currently utilize supplemental oxygen at his baseline, nor does he utilize any inhalers. On presentation to the emergency department, the patient was noted to be afebrile, tachycardic with heart rates in the 150s and tachypneic. Initial laboratory evaluation revealed no evidence of a leukocytosis. There was evidence of thrombocytopenia with a platelet count of 140,000. Coagulation profile was within normal limits. Chemistry profile was notable for a bicarbonate of 19 with normal creatinine. Lactate was mildly elevated to 2.9. Total bili was increased to 1.4 with an AST of 87 and ALT of 66. Alkaline phosphatase was increased to 119. Troponin was negative. Magnesium was low at 1.3. UA was negative for the presence of infection. Toxicology screen was negative. Serum alcohol level was noted to be 8.0. Plain film chest x-ray revealed findings concerning for a right lower lobe pneumonia. A follow-up CTA chest was obtained which revealed an airspace density in the right lower lobe along with patchy opacity in the right middle and upper lobes. There is no evidence for PE. Limited imaging through the abdomen revealed what appeared to be a cirrhotic liver. The patient received supplemental IV fluids and was started on antimicrobials. He was subsequently admitted to the medical intensive care unit for further management. Overnight, the patient had a T-max noted to be 100.2 ?F. The patient has remained hemodynamically stable and is currently maintaining appropriate oxygen saturations on room air. Potassium is low this morning at 3.2. Past Medical History Past Medical History (Chronic Problems): Chronic Problems Alcohol abuse (Chronic) Insomnia (Chronic) Tobacco dependence (Chronic) Open wound of knee, leg, and ankle, complicated (Chronic) Wound healing, delayed (Chronic) Malnutrition (Chronic) Ulcer of right lower extremity (Chronic) Alcohol intoxication delirium (Chronic) Allergies No Known Allergies Allergy (Verified 06/04/19 22:31) Home Medications: Ambulatory Orders Medication Instructions Recorded NK 07/01/18 Surgical History: noncontributory Psychiatric History: No pertinent psych hx Lives: Friends Smoking Status: Current every day smoker Tobacco Use: Cigarettes Alcohol: Heavy - drinks ~ 12 pack daily Drugs: None - *Family History Maternal History Items: Renal Disease Paternal History Items: Cancer Review of Systems Constitutional: Denies: Chills, Fever Eyes: Denies: Blurred vision, Double vision HEENT: Denies: Head Aches, Sinus Congestion, Sinus Drainage Cardiovascular: Reports: Chest Pain. Denies: Chest Tightness Respiratory: Reports: Cough, Shortness of Breath, Sputum production Gastrointestinal: Denies: Abdominal Pain, Nausea, Vomiting Genitourinary: Denies: Dysuria Musculoskeletal: Denies: Joint Pain, Joint Tenderness Skin: Denies: Rash, Wounds Neurological: Denies: Numbness, Tingling, Focal weakness Psychiatric: Reports: - - Alcohol dependency Hematologic/ Lymphatic: Reports: Anemia Objective: The patient's most recent lab work, culture data and imaging studies have all been personally reviewed. Blood, urine and sputum cultures are pending. Respiratory viral panel is pending. - Physical Exam General: Alert, Cooperative, No apparent distress HEENT: Atraumatic, PERRLA, Normocephalic Oral: No Gingival or Mucosal Lesions/ Ulcerations Neck: Supple, No Nodes, Trachea Midline Lungs: Diminished, - - Rales present in the right lung base Cardiovascular: Regular rate, Regular Rhythm, Normal S1, Normal S2, No murmurs Abdomen: Bowel Sounds Present, Soft, Non Tender, Non-Distended Extremities: No clubbing, No cyanosis, No edema Skin: - - Multiple tattoos. Multiple wounds present over lower extremities in various stages of healing. Musculoskeletal: No Tenderness to Palpation of Joints or Extremities Lymphatic: No Cervical, Supraclavicular, or Inguinal Adenopathy Neurological: - - No focal neurological deficits. Psych/Mental Status: Normal Affect, Appropriate Vital Signs Temp Pulse Resp BP Pulse Ox 98.9 F 96 23 H 127/78 H 95 06/10/19 05:00 06/10/19 05:00 06/10/19 05:00 06/10/19 05:00 06/10/19 05:19 Oxygen Flow Rate (L/min) 3 Oxygen Delivery Method Room Air Weight: 187 lb 13.341 oz Body Mass Index (BMI) 29.7 Intake and Output for Last 24 Hours 06/08/19 06/09/19 06/10/19 23:59 23:59 23:59 Intake Total 4165.00 / 4165.00 1237.5 / 1237.5 Output Total 275 / 275 950 / 950 Balance 3890.00 / 3890.00 287.5 / 287.5 Microbiology Past 72 Hours 06/09/19 14:50 Gram Stain - Final Sputum, Expectorated/Coughed Laboratory Tests Past 24 Hrs 06/09/19 06/09/19 06/09/19 13:20 13:20 13:20 WBC 9.6 RBC 4.24 L Hgb 14.4 Hct 41.3 MCV 97.4 H MCH 34.0 H MCHC 34.9 RDW Std Deviation 46.5 H RDW Coeff of Lesvia 13.0 Plt Count 140 L MPV 10.8 Immature Gran % (Auto) 0.600 Neut % (Auto) 92.8 H Lymph % (Auto) 4.0 L [place] % (Auto) 2.3 Eos % (Auto) 0.1 Baso % (Auto) 0.2 Absolute Neuts (auto) 8.9 H Absolute Lymphs (auto) 0.38 L Nucleated RBC % 0 Differential Comment SCANNED PT 15.2 H INR 1.2 APTT 25.2 Specimen Type Sample Site pH Bicarbonate Actual POC Total CO2 Base Excess O2 Saturation ABG pCO2 ABG pO2 Raphael Test O2 Delivery Device Liter Flow Blood Gas Notified Whom Blood Gas Notified Time Sodium 139 Potassium 3.5 Chloride 108 H Carbon Dioxide 19.0 L Anion Gap 12 BUN 10 Creatinine 0.71 Estim Creat Clear Calc 114.82 Est GFR (MDRD) Af Amer 152 Est GFR (MDRD) Non-Af 126 BUN/Creatinine Ratio 14.1 Glucose 128 H Lactic Acid Calcium 8.2 L Magnesium Total Bilirubin 1.40 H AST 87 H ALT 66 H Alkaline Phosphatase 119 H Troponin I < 0.015 Total Protein 7.4 Albumin 3.1 L Globulin 4.3 H Albumin/Globulin Ratio 0.7 L Urine Color Urine Clarity Urine pH Ur Specific [place] Urine Protein Urine Glucose (UA) Urine Ketones Urine Occult Blood Urine Nitrite Urine Bilirubin Urine Urobilinogen Ur Leukocyte Esterase Urine RBC Urine WBC Ur Squamous Epith Cells Urine Bacteria Urine Mucus Urine Opiates Screen Urine Methadone Screen Ur Barbiturates Screen Ur Phencyclidine Scrn Ur Amphetamines Screen U Methamphetamin-MDMA U Benzodiazepines Scrn Urine Cocaine Screen U Cannabinoids Screen Ur Drug Screen Comment Ethyl Alcohol 06/09/19 06/09/19 06/09/19 13:20 14:35 14:35 WBC RBC Hgb Hct MCV MCH MCHC RDW Std Deviation RDW Coeff of Lesvia Plt Count MPV Immature Gran % (Auto) Neut % (Auto) Lymph % (Auto) [place] % (Auto) Eos % (Auto) Baso % (Auto) Absolute Neuts (auto) Absolute Lymphs (auto) Nucleated RBC % Differential Comment PT INR APTT Specimen Type Sample Site pH Bicarbonate Actual POC Total CO2 Base Excess O2 Saturation ABG pCO2 ABG pO2 Raphael Test O2 Delivery Device Liter Flow Blood Gas Notified Whom Blood Gas Notified Time Sodium Potassium Chloride Carbon Dioxide Anion Gap BUN Creatinine Estim Creat Clear Calc Est GFR (MDRD) Af Amer Est GFR (MDRD) Non-Af BUN/Creatinine Ratio Glucose Lactic Acid 2.9 H Calcium Magnesium Total Bilirubin AST ALT Alkaline Phosphatase Troponin I Total Protein Albumin Globulin Albumin/Globulin Ratio Urine Color Yellow Urine Clarity Clear Urine pH 8.0 Ur Specific [place] 1.010 Urine Protein Negative Urine Glucose (UA) Normal Urine Ketones Negative Urine Occult Blood Negative Urine Nitrite Negative Urine Bilirubin Negative Urine Urobilinogen 4 H Ur Leukocyte Esterase 25 H Urine RBC 0 SEEN Urine WBC 0 SEEN Ur Squamous Epith Cells 0 SEEN Urine Bacteria 0 SEEN Urine Mucus 0 SEEN Urine Opiates Screen NEGATIVE Urine Methadone Screen NEGATIVE Ur Barbiturates Screen NEGATIVE Ur Phencyclidine Scrn NEGATIVE Ur Amphetamines Screen NEGATIVE U Methamphetamin-MDMA NEGATIVE U Benzodiazepines Scrn NEGATIVE Urine Cocaine Screen NEGATIVE U Cannabinoids Screen NEGATIVE Ur Drug Screen Comment Ethyl Alcohol 06/09/19 06/09/19 06/09/19 16:21 17:35 17:35 WBC RBC Hgb Hct MCV MCH MCHC RDW Std Deviation RDW Coeff of Lesvia Plt Count MPV Immature Gran % (Auto) Neut % (Auto) Lymph % (Auto) [place] % (Auto) Eos % (Auto) Baso % (Auto) Absolute Neuts (auto) Absolute Lymphs (auto) Nucleated RBC % Differential Comment PT INR APTT Specimen Type ART Sample Site R Radial pH 7.44 Bicarbonate Actual 17.7 L POC Total CO2 19 Base Excess -6 L O2 Saturation 96 ABG pCO2 26.1 L ABG pO2 76 Raphael Test POS O2 Delivery Device Nasal Can Liter Flow 3.0 Blood Gas Notified Whom ED MD Blood Gas Notified Time 1605 Sodium Potassium Chloride Carbon Dioxide Anion Gap BUN Creatinine Estim Creat Clear Calc Est GFR (MDRD) Af Amer Est GFR (MDRD) Non-Af BUN/Creatinine Ratio Glucose Lactic Acid Calcium Magnesium 1.3 L Total Bilirubin AST ALT Alkaline Phosphatase Troponin I Total Protein Albumin Globulin Albumin/Globulin Ratio Urine Color Urine Clarity Urine pH Ur Specific [place] Urine Protein Urine Glucose (UA) Urine Ketones Urine Occult Blood Urine Nitrite Urine Bilirubin Urine Urobilinogen Ur Leukocyte Esterase Urine RBC Urine WBC Ur Squamous Epith Cells Urine Bacteria Urine Mucus Urine Opiates Screen Urine Methadone Screen Ur Barbiturates Screen Ur Phencyclidine Scrn Ur Amphetamines Screen U Methamphetamin-MDMA U Benzodiazepines Scrn Urine Cocaine Screen U Cannabinoids Screen Ur Drug Screen Comment Ethyl Alcohol 8.0 06/09/19 06/09/19 06/10/19 17:35 21:15 01:30 WBC RBC Hgb Hct MCV MCH MCHC RDW Std Deviation RDW Coeff of Lesvia Plt Count MPV Immature Gran % (Auto) Neut % (Auto) Lymph % (Auto) [place] % (Auto) Eos % (Auto) Baso % (Auto) Absolute Neuts (auto) Absolute Lymphs (auto) Nucleated RBC % Differential Comment PT INR APTT Specimen Type Sample Site pH Bicarbonate Actual POC Total CO2 Base Excess O2 Saturation ABG pCO2 ABG pO2 Raphael Test O2 Delivery Device Liter Flow Blood Gas Notified Whom Blood Gas Notified Time Sodium Potassium Chloride Carbon Dioxide Anion Gap BUN Creatinine Estim Creat Clear Calc Est GFR (MDRD) Af Amer Est GFR (MDRD) Non-Af BUN/Creatinine Ratio Glucose Lactic Acid 3.2 H 2.5 H 2.1 H Calcium Magnesium Total Bilirubin AST ALT Alkaline Phosphatase Troponin I Total Protein Albumin Globulin Albumin/Globulin Ratio Urine Color Urine Clarity Urine pH Ur Specific [place] Urine Protein Urine Glucose (UA) Urine Ketones Urine Occult Blood Urine Nitrite Urine Bilirubin Urine Urobilinogen Ur Leukocyte Esterase Urine RBC Urine WBC Ur Squamous Epith Cells Urine Bacteria Urine Mucus Urine Opiates Screen Urine Methadone Screen Ur Barbiturates Screen Ur Phencyclidine Scrn Ur Amphetamines Screen U Methamphetamin-MDMA U Benzodiazepines Scrn Urine Cocaine Screen U Cannabinoids Screen Ur Drug Screen Comment Ethyl Alcohol 06/10/19 06/10/19 03:40 03:40 WBC 12.1 H RBC 3.70 L Hgb 12.5 L Hct 36.4 L MCV 98.4 H MCH 33.8 H MCHC 34.3 RDW Std Deviation 46.7 H RDW Coeff of Lesvia 13.1 Plt Count 91 L MPV 11.3 Immature Gran % (Auto) 0.600 Neut % (Auto) 84.3 H Lymph % (Auto) 8.4 L [place] % (Auto) 6.4 Eos % (Auto) 0.1 Baso % (Auto) 0.2 Absolute Neuts (auto) 10.2 H Absolute Lymphs (auto) 1.02 Nucleated RBC % 0 Differential Comment SCANNED PT INR APTT Specimen Type Sample Site pH Bicarbonate Actual POC Total CO2 Base Excess O2 Saturation ABG pCO2 ABG pO2 Raphael Test O2 Delivery Device Liter Flow Blood Gas Notified Whom Blood Gas Notified Time Sodium 137 Potassium 3.2 L Chloride 106 Carbon Dioxide 24.0 Anion Gap 7 BUN 7 Creatinine 0.68 L Estim Creat Clear Calc 119.89 Est GFR (MDRD) Af Amer 159 Est GFR (MDRD) Non-Af 131 BUN/Creatinine Ratio 10.2 Glucose 147 H Lactic Acid Calcium 8.0 L Magnesium Total Bilirubin AST ALT Alkaline Phosphatase Troponin I Total Protein Albumin Globulin Albumin/Globulin Ratio Urine Color Urine Clarity Urine pH Ur Specific [place] Urine Protein Urine Glucose (UA) Urine Ketones Urine Occult Blood Urine Nitrite Urine Bilirubin Urine Urobilinogen Ur Leukocyte Esterase Urine RBC Urine WBC Ur Squamous Epith Cells Urine Bacteria Urine Mucus Urine Opiates Screen Urine Methadone Screen Ur Barbiturates Screen Ur Phencyclidine Scrn Ur Amphetamines Screen U Methamphetamin-MDMA U Benzodiazepines Scrn Urine Cocaine Screen U Cannabinoids Screen Ur Drug Screen Comment Ethyl Alcohol Clinical Impression(s) from Imaging Studies Chest X-Ray 06/09/19 13:32 IMPRESSION: Right lower lobe pneumonia and right pleural fluid. Electronically Signed: Victorino Watkins MD at 14:32 EDT , Service support , Chest CTA 06/09/19 14:22 IMPRESSION: No evidence of pulmonary embolus. No evidence of thoracic aortic aneurysm or dissection. Right lower lobe infiltrate. Mild patchy opacity in the right middle lobe and right upper lobe, also likely infectious in etiology. Coronary artery disease. Small hiatal hernia. Cirrhosis. Electronically Signed: Jaison Calle, at 15:33 EDT Tel , Service support , Assessment/Plan RECOMMENDATIONS: 1. Continue broad-spectrum antimicrobial coverage, pending infectious work-up. 2. Check MRSA screen. 3. Encourage incentive spirometer use while in bed. Mobilize patient as tolerated. 4. Start as needed bronchodilators. 5. Check respiratory viral panel. 6. Continue thiamine, folate and as needed Ativan for alcohol withdrawal symptoms. IMPRESSIONS: 1. Acute hypoxemic respiratory insufficiency The patient initially presented to the hospital requiring supplemental oxygen, which is new for him. He does have evidence of a significant right lower lobe pneumonia. Clinical concern for aspiration pneumonia, especially in light of the patient's alcohol dependency. Over the course of the evening, the patient has been weaned to room air. The patient will remain on broad-spectrum antimicrobial coverage, pending infectious work-up. Continue bronchopulmonary hygiene with PEP and incentive spirometer. Mobilize patient as tolerated. I do suspect that the patient may have a component of obstructive lung disease, given his long-standing history of tobacco abuse. As needed aerosol treatments can be utilized. 2. Hypokalemia/hypomagnesemia Electrolyte repletion as indicated. Recheck levels in the morning. 3. History of alcohol and tobacco dependency Continue thiamine and folate along with as needed Ativan for alcohol withdrawal symptoms. Monitoring per CIWA protocol. The patient declined transdermal nicotine replacement therapy. This note was generated with [employer] dictation software. It may contain incorrect words, spelling, and punctuation that were not noted in checking the note before signing. DISPOSITION: The patient is medically stable for transfer out of the intensive care unit. Code Visit Inpatient E&M: 30798 Init Hosp L3
[2019-06-10 08:12] LABS: M R Staph aureus DNA By PCR Negative (Negative); Probe Check PASS; Specimen Processing Control PASS
[2019-06-10] MEDS: Multivitamins,Ther W-Minerals Tablet 1 TABLET PO (09:19)
[2019-06-10] MEDS: Folic Acid 1 MG Tablet PO (09:19)
[2019-06-10] MEDS: Thiamine Hydrochloride 100 MG Tablet PO ×2 (09:19→17:01)
[2019-06-10] MEDS: Potassium Chloride 10mEq/100mL 10 MEQ/100 ML IV.SOLN. 100 MEQ IV BOLUS ×4 (09:20→13:01)
[2019-06-10] MEDS: chlordiazePOXIDE 25 MG Capsule PO ×3 (11:21→22:52)
[2019-06-10] MEDS: Methocarbamol 750 MG Tablet PO ×2 (11:21→21:04)
[2019-06-10] MEDS: Ipratropium/Albuterol Sulfate 3 ML AMPUL.NEB INHALATION ×2 (12:36→19:36)
[2019-06-10] MEDS: LORazepam 1 MG Tablet 2 MG PO ×4 (13:08→22:52)
--- NOTE | 2019-06-10 15:15 | PN_ITS ---
Subjective: Patient was seen and examined today in ICU, he is currently on room air, he does not complain of any fevers or chills. I talked briefly with pulmonary medicine about his care, pulmonary medicine felt he was stable to be moved out to a medical floor. - Physical Exam General: Alert, Oriented x3, Cooperative, No apparent distress, Well developed, Well nourished HEENT: Atraumatic, PERRLA, EOMI, Normocephalic Oral: Moist Mucosa Neck: Supple, No Nuchal Rigidity, Trachea Midline, Thyroid Normal Size and Texture Lungs: Normal air movement, No rhonchi, No wheeze, Rales - Inspiratory rales over the right lower lung field Cardiovascular: Regular rate, Regular Rhythm, Normal S1, Normal S2, No murmurs, PMI Normal, No rub noted, No Gallop Abdomen: Bowel Sounds Present, Soft, Non Tender, Non-Distended Extremities: No clubbing, No cyanosis, No edema, Capillary Refill Less than 3 Seconds Skin: No rashes, No breakdown Musculoskeletal: No Tenderness to Palpation of Joints or Extremities Neurological: Cranial nerves II-XII grossly intact, Neuro grossly intact, S ensory exam intact to light touch and pain, Coordination normal Psych/Mental Status: Normal Affect, Appropriate, Alert and oriented to time, place, person, mood and affect Vital Signs Temp Pulse Resp BP Pulse Ox 97.8 F 103 H 16 101/63 95 06/10/19 13:06 06/10/19 13:06 06/10/19 13:06 06/10/19 13:06 06/10/19 13:06 Oxygen Flow Rate (L/min) 3 Oxygen Delivery Method Room Air Weight: 85.2 kg Body Mass Index (BMI) 29.7 Intake and Output for Last 24 Hours 06/08/19 06/09/19 06/10/19 23:59 23:59 23:59 Intake Total 4165.00 / 4165.00 2692.0 / 2692.0 Output Total 275 / 275 950 / 950 Balance 3890.00 / 3890.00 1742.0 / 1742.0 Microbiology Past 72 Hours 06/09/19 14:50 Gram Stain - Final Sputum, Expectorated/Coughed Respiratory Culture - Preliminary Appears to be normal respiratory bertin. Further studies to follow. 06/09/19 14:35 Urine Culture - Preliminary Urine, Clean Catch Culture exhibits no growth. 06/10/19 07:00 Respiratory Panel (PCR) - Final Mucosa - Nose Laboratory Tests Past 24 Hrs 06/09/19 06/09/19 06/09/19 14:35 16:21 17:35 WBC RBC Hgb Hct MCV MCH MCHC RDW Std Deviation RDW Coeff of Lesvia Plt Count MPV Immature Gran % (Auto) Neut % (Auto) Lymph % (Auto) [place] % (Auto) Eos % (Auto) Baso % (Auto) Absolute Neuts (auto) Absolute Lymphs (auto) Nucleated RBC % Differential Comment Specimen Type ART Sample Site R Radial pH 7.44 Bicarbonate Actual 17.7 L POC Total CO2 19 Base Excess -6 L O2 Saturation 96 ABG pCO2 26.1 L ABG pO2 76 Raphael Test POS O2 Delivery Device Nasal Can Liter Flow 3.0 Blood Gas Notified Whom ED MD Blood Gas Notified Time 1605 Sodium Potassium Chloride Carbon Dioxide Anion Gap BUN Creatinine Estim Creat Clear Calc Est GFR (MDRD) Af Amer Est GFR (MDRD) Non-Af BUN/Creatinine Ratio Glucose Lactic Acid Calcium Magnesium Urine Opiates Screen NEGATIVE Urine Methadone Screen NEGATIVE Ur Barbiturates Screen NEGATIVE Ur Phencyclidine Scrn NEGATIVE Ur Amphetamines Screen NEGATIVE U Methamphetamin-MDMA NEGATIVE U Benzodiazepines Scrn NEGATIVE Urine Cocaine Screen NEGATIVE U Cannabinoids Screen NEGATIVE Ur Drug Screen Comment Ethyl Alcohol 8.0 MRSA (PCR) 06/09/19 06/09/19 06/09/19 17:35 17:35 21:15 WBC RBC Hgb Hct MCV MCH MCHC RDW Std Deviation RDW Coeff of Lesvia Plt Count MPV Immature Gran % (Auto) Neut % (Auto) Lymph % (Auto) [place] % (Auto) Eos % (Auto) Baso % (Auto) Absolute Neuts (auto) Absolute Lymphs (auto) Nucleated RBC % Differential Comment Specimen Type Sample Site pH Bicarbonate Actual POC Total CO2 Base Excess O2 Saturation ABG pCO2 ABG pO2 Raphael Test O2 Delivery Device Liter Flow Blood Gas Notified Whom Blood Gas Notified Time Sodium Potassium Chloride Carbon Dioxide Anion Gap BUN Creatinine Estim Creat Clear Calc Est GFR (MDRD) Af Amer Est GFR (MDRD) Non-Af BUN/Creatinine Ratio Glucose Lactic Acid 3.2 H 2.5 H Calcium Magnesium 1.3 L Urine Opiates Screen Urine Methadone Screen Ur Barbiturates Screen Ur Phencyclidine Scrn Ur Amphetamines Screen U Methamphetamin-MDMA U Benzodiazepines Scrn Urine Cocaine Screen U Cannabinoids Screen Ur Drug Screen Comment Ethyl Alcohol MRSA (PCR) 06/10/19 06/10/19 06/10/19 01:30 03:40 03:40 WBC 12.1 H RBC 3.70 L Hgb 12.5 L Hct 36.4 L MCV 98.4 H MCH 33.8 H MCHC 34.3 RDW Std Deviation 46.7 H RDW Coeff of Lesvia 13.1 Plt Count 91 L MPV 11.3 Immature Gran % (Auto) 0.600 Neut % (Auto) 84.3 H Lymph % (Auto) 8.4 L [place] % (Auto) 6.4 Eos % (Auto) 0.1 Baso % (Auto) 0.2 Absolute Neuts (auto) 10.2 H Absolute Lymphs (auto) 1.02 Nucleated RBC % 0 Differential Comment SCANNED Specimen Type Sample Site pH Bicarbonate Actual POC Total CO2 Base Excess O2 Saturation ABG pCO2 ABG pO2 Raphael Test O2 Delivery Device Liter Flow Blood Gas Notified Whom Blood Gas Notified Time Sodium 137 Potassium 3.2 L Chloride 106 Carbon Dioxide 24.0 Anion Gap 7 BUN 7 Creatinine 0.68 L Estim Creat Clear Calc 119.89 Est GFR (MDRD) Af Amer 159 Est GFR (MDRD) Non-Af 131 BUN/Creatinine Ratio 10.2 Glucose 147 H Lactic Acid 2.1 H Calcium 8.0 L Magnesium Urine Opiates Screen Urine Methadone Screen Ur Barbiturates Screen Ur Phencyclidine Scrn Ur Amphetamines Screen U Methamphetamin-MDMA U Benzodiazepines Scrn Urine Cocaine Screen U Cannabinoids Screen Ur Drug Screen Comment Ethyl Alcohol MRSA (PCR) 06/10/19 06:45 WBC RBC Hgb Hct MCV MCH MCHC RDW Std Deviation RDW Coeff of Lesvia Plt Count MPV Immature Gran % (Auto) Neut % (Auto) Lymph % (Auto) [place] % (Auto) Eos % (Auto) Baso % (Auto) Absolute Neuts (auto) Absolute Lymphs (auto) Nucleated RBC % Differential Comment Specimen Type Sample Site pH Bicarbonate Actual POC Total CO2 Base Excess O2 Saturation ABG pCO2 ABG pO2 Raphael Test O2 Delivery Device Liter Flow Blood Gas Notified Whom Blood Gas Notified Time Sodium Potassium Chloride Carbon Dioxide Anion Gap BUN Creatinine Estim Creat Clear Calc Est GFR (MDRD) Af Amer Est GFR (MDRD) Non-Af BUN/Creatinine Ratio Glucose Lactic Acid Calcium Magnesium Urine Opiates Screen Urine Methadone Screen Ur Barbiturates Screen Ur Phencyclidine Scrn Ur Amphetamines Screen U Methamphetamin-MDMA U Benzodiazepines Scrn Urine Cocaine Screen U Cannabinoids Screen Ur Drug Screen Comment Ethyl Alcohol MRSA (PCR) Negative Medical Necessity - Tobacco Use Smoking Status: Current every day smoker Tobacco Use: Cigarettes Assessment/Plan All Active Problems Cellulitis and abscess of leg (Resolved) Ulcer of right lower leg (Resolved) Ulcer of left lower leg (Resolved) #1 severe sepsis secondary to aspiration pneumonia-patient appears stable for transfer to [facility], I will change the antibiotic coverage to Unasyn, labs will be monitored, patient will receive aerosol treatments #2 acute aspiration pneumonia-again patient is now on Unasyn #3 hypoxia-secondary to aspiration pneumonia-currently patient is on room air #4 chronic alcoholism-patient was placed on a Librium taper, patient states he is not sure he wants to stop drinking-he would not give me a direct answer concerning this today, I believe it is probable the patient will continue to drink ethanol after he is discharged. Code Visit Inpatient E&M: 36569 Subs Hosp L2
[2019-06-10] MEDS: 0.9% NaCl Peripheral Flush Adult/Peds IV (22:52)
[2019-06-11] VITALS (11 sets, daily range): BP systolic 122–145; BP diastolic 74–95; PULSE 54–87; RESP 16–20; TEMP 36.4–37.1; O2SAT 95–100
--- NOTE | 2019-06-11 00:10 | NURSING ---
pt keeps setting off bed exit not using his call light. has been given meds, toileted multiple times, snacks, drinks, unable to remember to call for help. pt moved to [id number] to be closer to nursing station for safety, explained to pt.
[2019-06-11] MEDS: LORazepam 1 MG Tablet 2 MG PO ×4 (02:42→18:03)
[2019-06-11] MEDS: Methocarbamol 750 MG Tablet PO (02:43)
--- NOTE | 2019-06-11 02:52 | NURSING ---
pt set off bed exit rn in to assist pt voiding on floor would not allow rn to assist with urinal. pt finished and returned to bed. cleaned up urine and called housekeeping. new gown and slippers on pt
[2019-06-11] MEDS: chlordiazePOXIDE 25 MG Capsule PO ×3 (04:57→18:41)
[2019-06-11] MEDS: 0.9% NaCl Peripheral Flush Adult/Peds IV ×5 (04:58→21:26)
--- NOTE | 2019-06-11 05:55 | RAD_ITS ---
STUDY: X-RAY CHEST REASON FOR EXAM: Male, 48 years old. Shortness of breath and dyspnea. TECHNIQUE: PA and lateral views of the chest. COMPARISON: Comparison is made with prior study dated June 09, 2013. FINDINGS: Persistent right lower lobe infiltration with a small right pleural effusion. This is unchanged. Normal size heart. Normal mediastinum and maryam. Normal visualized pulmonary arteries. Normal visualized aortic arch and descending thoracic aorta. Normal visualized thoracic spine. Normal visualized ribs, clavicles, and shoulders. There is no demonstrated abnormality of the visualized soft tissue structures of the upper abdomen. RAD/Chest PA and Lateral IMPRESSION: Persistent right lower lobe infiltration and small right pleural effusion. This is essentially unchanged. Electronically Signed: Suleiman Sagastume, at 10:44 EDT , Service support ,
[2019-06-11 06:25] LABS: Anion Gap 8 (5-15); BUN 10 mg/dL (7-18); BUN/Creat Ratio 18.1 RATIO (10-20); Calcium,Total 8.6 mg/dL (8.5-10.1); Chloride 107 mmol/L (98-107); Creatinine, Serum 0.55 mg/dL (0.70-1.30); EST Glomerular Filtration Rate 167 mL/min (>60); Est Glom Filt Rate - Afr Amer 202 mL/min (>60); Estimated Creatinine Clearance 148.22 ml/min; Glucose 96 mg/dL (74-106); Potassium 3.5 mmol/L (3.5-5.1); Sodium Level 137 mmol/L (136-145)
[2019-06-11] MEDS: Ipratropium/Albuterol Sulfate 3 ML AMPUL.NEB INHALATION ×3 (06:49→19:45)
[2019-06-11 06:55] LABS: Absolute Lymphocyte Count 1.32 X10^3/uL (0.83-4.51); Absolute Neutrophil Count 10.7 X10^3/uL (2.0-7.7); Basophil# 0.03 X10^3/uL; Basophil% 0.2 % (0-1); Eosinophil# 0.08 X10^3/uL; Eosinophils% 0.6 % (0-5); Hematocrit 37.9 % (40-54); Hemoglobin 13.1 g/dL (13.0-16.5); Lymphocyte # 1.32 X10^3/ul (4.0); Lymphocyte % 10.1 % (19-41); Mean Corp Hgb Conc 34.6 g/dL (32-36); Mean Corpuscular Hgb 34.3 pg (27.0-32.0); Mean Corpuscular Volume 99.2 fL (80-94); Mean Platelet Vol. 11.3 fl (6.2-12.0); Monocyte# 0.68 X10^3/uL; Monocyte% 5.2 % (0-10); NRBC Flagged by Analyzer 0 % (0-5); Neutrophil # 10.74 X10^3/uL (2.7-7.7); Neutrophil % 82.4 % (47-70); Platelet Count 100 K/mm3 (150-450); RBC Distribution Width CV 12.7 % (11.6-14.6); RBC Distribution Width SD 45.9 fl (35.1-43.9); Red Blood Count 3.82 M/mm3 (4.6-6.2); White Blood Count 13.1 K/mm3 (4.4-11.0)
[2019-06-11] MEDS: Folic Acid 1 MG Tablet PO ×2 (08:09)
[2019-06-11] MEDS: Multivitamins,Ther W-Minerals Tablet 1 TABLET PO (08:09)
[2019-06-11] MEDS: Thiamine Hydrochloride 100 MG Tablet PO ×2 (08:10→15:50)
--- NOTE | 2019-06-11 12:16 | CASEMGMT ---
Social Work assessment Referral Date: 06/11/2019 Date of Assessment: 06/11/2019 Reason for consult: Alcohol abuse Informant: BATSHEVA Personal Status: SW met with pt to complete initial assessment. Pt is sitting in chair and is alert and orientated x3. SW introduced self and role at [facility]. Pt states that he lives with somebody and was previously independent with ADLs. Pt states that his preferred pharmacy is [facility] and states he has a PCP but can't remember the name. Pt states he has good supportive friends and family. Mental Health Hx: Pt denied Substance Abuse Hx: Pt admits to drinking alcohol and smoking cigarettes. Pt states that he drinks a 12 pack couple times a week. Per H+P, pt admitted to drinking a 12 pack daily. Pt also admits to smoking cigarettes and states he smokes close to a pack a day. SW offered to provide resources for pt for alcohol abuse and pt denied. Pt states he plans on returning home at discharge and denied additional needs or concerns at this time. Henna Lai SENIOR PRODUCT DEVELOPMENT SCIENTIST, AIR DIRECTOR
--- NOTE | 2019-06-11 13:56 | PN_ITS ---
Subjective: Patient did okay overnight. No acute issues were reported. Patient feels subjectively unchanged compared to previous. Patient has been on room air throughout the evening. Patient is reporting an achy type sensation at the right base. - Physical Exam General: Alert, Oriented x3, Cooperative, No apparent distress, - - Appears older than stated age. Speaking in full sentences. HEENT: Atraumatic, PERRLA, EOMI, Normocephalic, - - Slight scleral injection without icterus Oral: Moist Mucosa, No Gingival or Mucosal Lesions/ Ulcerations Neck: Supple, No JVD, No Nodes, Trachea Midline Lungs: No wheeze, No rales, Rhonchi - Right base Cardiovascular: Regular rate, Regular Rhythm, Normal S1, Normal S2, No murmurs, No rub noted, No Gallop Abdomen: Bowel Sounds Present, Soft, Non Tender, Non-Distended Extremities: No clubbing, No cyanosis, No edema Skin: No rashes, No breakdown, - - Multiple tattoos and superficial ulcerations at various stages of healing. Musculoskeletal: No Tenderness to Palpation of Joints or Extremities Lymphatic: No Cervical, Supraclavicular, or Inguinal Adenopathy Neurological: Cranial nerves II-XII grossly intact, Neuro grossly intact, Motor Exam 5/5 strength throughout Psych/Mental Status: Flat Affect, Restless Vital Signs Temp Pulse Resp BP Pulse Ox 36.9 C 70 16 136/81 H 97 06/11/19 08:22 06/11/19 13:14 06/11/19 13:14 06/11/19 08:22 06/11/19 08:29 Oxygen Flow Rate (L/min) 3 Oxygen Delivery Method Room Air Weight: 85.2 kg Body Mass Index (BMI) 29.7 Intake and Output for Last 24 Hours 06/09/19 06/10/19 06/11/19 23:59 23:59 23:59 Intake Total 4165.00 / 4165.00 3304.0 / 3304.0 512 / 512 Output Total 275 / 275 2675 / 2675 900 / 900 Balance 3890.00 / 3890.00 629.0 / 629.0 -388 / -388 Microbiology Past 72 Hours 06/09/19 14:50 Gram Stain - Final Sputum, Expectorated/Coughed Respiratory Culture - Preliminary Streptococcus pneumoniae 06/09/19 14:35 Urine Culture - Preliminary Urine, Clean Catch Culture exhibits no growth. 06/10/19 07:00 Respiratory Panel (PCR) - Final Mucosa - Nose Laboratory Tests Past 24 Hrs 06/11/19 06/11/19 05:40 05:40 WBC 13.1 H RBC 3.82 L Hgb 13.1 Hct 37.9 L MCV 99.2 H MCH 34.3 H MCHC 34.6 RDW Std Deviation 45.9 H RDW Coeff of Lesvia 12.7 Plt Count 100 L MPV 11.3 Immature Gran % (Auto) 1.500 H Neut % (Auto) 82.4 H Lymph % (Auto) 10.1 L [place] % (Auto) 5.2 Eos % (Auto) 0.6 Baso % (Auto) 0.2 Absolute Neuts (auto) 10.7 H Absolute Lymphs (auto) 1.32 Nucleated RBC % 0 Sodium 137 Potassium 3.5 Chloride 107 Carbon Dioxide 22.0 Anion Gap 8 BUN 10 Creatinine 0.55 L Estim Creat Clear Calc 148.22 Est GFR (MDRD) Af Amer 202 Est GFR (MDRD) Non-Af 167 BUN/Creatinine Ratio 18.1 Glucose 96 Calcium 8.6 Clinical Impression(s) from Imaging Studies Chest X-Ray 06/11/19 05:55 IMPRESSION: Persistent right lower lobe infiltration and small right pleural effusion. This is essentially unchanged. Electronically Signed: Suleiman Sagastume, at 10:44 EDT , Service support , Medical Necessity - Tobacco Use Smoking Status: Current every day smoker Tobacco Use: Cigarettes Assessment/Plan All Active Problems Cellulitis and abscess of leg (Resolved) Ulcer of right lower leg (Resolved) Ulcer of left lower leg (Resolved) RECOMMENDATIONS: 1. Consider narrowing antibiotic spectrum given pneumococcal pneumonia 2. Courage incentive spirometer and mobilize as tolerated 3. Okay to continue as needed bronchodilators 4. Monitor for signs and symptoms of withdrawal 5. Continue thiamine, folate and as needed Ativan for alcohol withdrawal symptoms. 6. Hemodynamically stable on room air. Will sign off from a pulmonary perspective IMPRESSIONS: 1. Acute hypoxemic respiratory insufficiency Patient's x-ray continues to show right lower lobe pneumonia. Sputum culture is positive for pneumococcal pneumonia. Likely okay to wean antibiotic spectrum from my perspective. Patient will need to be encouraged to continue with pulmonary hygiene. Patient likely has an element of underlying obstructive lung disease I can be evaluated as an outpatient if patient is open for work-up. 2. Hypokalemia/hypomagnesemia Continue to monitor as indicated. No signs or symptoms of complications. 3. History of alcohol and tobacco dependency Continue thiamine and folate along with as needed Ativan for alcohol withdrawal symptoms. Monitoring per [facility] protocol. The patient declined transdermal nicotine replacement therapy. Code Visit Inpatient E&M: 22892 Subs Hosp L2
--- NOTE | 2019-06-11 14:32 | CASEMGMT ---
RN CM Assessment Introduced role of RN CM to patient.? Patient is sitting up in chair, alert, oriented and able?to participate in RN CM Assessment. ?Appeared slightly slow with response and or understanding of questions asked. Care providers, pharmacy, and demographics verified-see issue below. Presentation: Fall, hitting head, wrist and chest-was seen in ED and had neg CT and wrist XR. C/o SOB, Cough, General Myalgias Admit Dx: Acute Hypoxic Respiratory Failure, Sepsis Re-Admit: No Barriers/Issues: Patient appears forgetful or not knowing/forthcoming with information such as address and PCP. Appears with slight flat affect. States that the address listed on demographics is old and that he does not kow his current address, however does confirm he does have a residence that he lives at. States his Aunt just signed him up with a PCP but does not know PCP name or when his first appointment is, PCP list provided to patient. PCP: None-see issue Specialists: None Preferred Pharmacy: [facility] Insurance: [facility] Community Plan GAGE Rx Benefit:?Yes ?LNOK: Friend Candi Mckeon LW/HPOA: States thinks he has both, aware not on file with [facility]. States HPOA Aunt Kristin but does not remember her last name as she got . Denies wanting information or services with LW. Living Arrangements:?Lives with other adults in a 2 story home, Bedroom on upper [address]. 3 steps to enter home. ADL?s: Independent with ambulation and ADLs Transportation: Walks or friends DME: None HHC: None SNF: None Goal: Home and does not think will have any needs. Denies any questions, concerns, or issues with DC planning at this time. Aware CM remains available for any emerging needs. DC PLAN: Home with no anticipated needs identified at this time. JULIEN Holland
--- NOTE | 2019-06-11 15:09 | PCM.PN.HOSP ---
Subjective: Patient is lethargic. He complain of right-sided chest pain mainly on coughing and deep inspiration. Patient has admitted in ICU and transferred to floor. Found to have pneumococcal pneumonia. Seen by cold meat chef. No fever last 24 hours. Admitted with fever 100.2 Fahrenheit. No tachypnea or hypoxia. Vitals/I&O's: Vital Signs Temp Pulse Resp BP Pulse Ox 98.4 F 87 16 122/74 H 96 06/11/19 14:11 06/11/19 14:11 06/11/19 14:11 06/11/19 14:11 06/11/19 14:11 Oxygen Flow Rate (L/min) 3 Oxygen Delivery Method Room Air Weight: 187 lb 13.341 oz Body Mass Index (BMI) 29.7 Intake and Output for Last 24 Hours 06/09/19 06/10/19 06/11/19 23:59 23:59 23:59 Intake Total 4165.00 / 4165.00 3304.0 / 3304.0 512 / 512 Output Total 275 / 275 2675 / 2675 900 / 900 Balance 3890.00 / 3890.00 629.0 / 629.0 -388 / -388 General: Oriented x3, Cooperative, Lethargic HEENT: Atraumatic, PERRLA, EOMI, Normocephalic Neck: Supple, No JVD, Negative Carotid Bruits Lungs: Diminished - Air entry is diminished right lower base., Rhonchi Cardiovascular: Regular rate, Regular Rhythm, Normal S1, Normal S2, No murmurs Abdomen: Bowel Sounds Present, Soft, Non Tender, Non-Distended Extremities: No edema, Capillary Refill Less than 3 Seconds Skin: No rashes, No breakdown Musculoskeletal: No Tenderness to Palpation of Joints or Extremities, Muscle Wasting - Mild muscle wasting of extremities. Chronic alcoholism Lymphatic: No Cervical, Supraclavicular, or Inguinal Adenopathy Neurological: Cranial nerves II-XII grossly intact, Deep Tendon Reflexes 2+/4 and Symmetrical, Neuro grossly intact Psych/Mental Status: Normal Affect, Appropriate Microbiology Past 72 Hours 06/09/19 14:50 Sputum, Expectorated/Coughed Gram Stain - Final 06/09/19 14:50 Sputum, Expectorated/Coughed Respiratory Culture - Preliminary Streptococcus pneumoniae 06/09/19 14:35 Urine, Clean Catch Urine Culture - Preliminary Culture exhibits no growth. 06/10/19 07:00 Mucosa - Nose Respiratory Panel (PCR) - Final Laboratory Results 06/11/19 05:40: WBC 13.1 H, RBC 3.82 L, Hgb 13.1, Hct 37.9 L, MCV 99.2 H, MCH 34.3 H, MCHC 34.6, RDW Std Deviation 45.9 H, RDW Coeff of Lesvia 12.7, Plt Count 100 L, MPV 11.3, Immature Gran % (Auto) 1.500 H, Neut % (Auto) 82.4 H, Lymph % (Auto) 10.1 L, O'Brien % (Auto) 5.2, Eos % (Auto) 0.6, Baso % (Auto) 0.2, Absolute Neuts (auto) 10.7 H, Absolute Lymphs (auto) 1.32, Nucleated RBC % 0 06/11/19 05:40: Sodium 137, Potassium 3.5, Chloride 107, Carbon Dioxide 22.0, Anion Gap 8, BUN 10, Creatinine 0.55 L, Estim Creat Clear Calc 148.22, Est GFR (MDRD) Af Amer 202, Est GFR (MDRD) Non-Af 167, BUN/Creatinine Ratio 18.1, Glucose 96, Calcium 8.6 Current Medications Albuterol Sulfate (Ventolin Aerosols) 2.5 mg INHALATION Q2H PRN PRN PRN Reason: SHORTNESS OF BREATH Albuterol/Ipratropium (Duoneb) 3 ml INHALATION Q6HWA.RT [facility] Last Admin: 06/11/19 13:04 Dose: 3 ml Documented by: Chlordiazepoxide (Librium) 50 mg PO Q8H JACQUELYN; Taper Stop: 06/13/19 12:59 Last Admin: 06/11/19 12:15 Dose: 50 mg Documented by: Folic Acid (Folic Acid) 1 mg PO DAILY@0800 JACQUELYN Stop: 06/12/19 08:01 Last Admin: 06/11/19 08:09 Dose: 1 mg Documented by: Folic Acid (Folic Acid) 1 mg PO DAILYCM JACQUELYN Stop: 06/13/19 08:01 Last Admin: 06/11/19 08:09 Dose: 1 mg Documented by: Glucagon () 1 mg IM .X1 PRN PRN Reason: Hypoglycemia Sodium Chloride () 250 mls @ 15 mls/hr IV .[id number] PRN PRN Reason: SALINE FLUSH Ampicillin Sodium/Sulbactam (Sodium 3 gm/ Sodium Chloride) 112 mls @ 150 mls/hr IV Q8 [facility] Last Admin: 06/11/19 13:59 Dose: 150 mls/hr Documented by: Lorazepam (Ativan) 2 mg PO Q2H PRN PRN; Protocol PRN Reason: CIWA score > 8 but <15 Last Admin: 06/11/19 08:08 Dose: 2 mg Documented by: Lorazepam (Ativan) 2 mg PO UD PRN; Protocol PRN Reason: CIWA score >/=15. Lorazepam (Ativan) 2 mg IV Q2H PRN PRN; Protocol PRN Reason: CIWA score > 8 but <15 Last Admin: 06/09/19 21:28 Dose: 2 mg Documented by: Lorazepam (Ativan) 2 mg IV UD PRN; Protocol PRN Reason: CIWA score >/=15. Methocarbamol (Methocarbamol) 750 mg PO Q6H PRN PRN PRN Reason: Muscle Aches Last Admin: 06/11/19 02:43 Dose: 750 mg Documented by: Multivitamins/Minerals (Multivitamin With Minerals) [facility] Last Admin: 06/11/19 08:09 Dose: 1 tablet Documented by: Ondansetron HCl (Zofran) 4 mg IV Q8H PRN PRN PRN Reason: NAUSEA/VOMITING Sodium Chloride () 10 - 40 ml IV UD PRN PRN Reason: SALINE FLUSH Last Admin: 06/11/19 14:10 Dose: 10 ml Documented by: Thiamine HCl (Vitamin B1) 100 [facility] Stop: 06/12/19 08:01 Last Admin: 06/11/19 08:10 Dose: 100 mg Documented by: Medical Necessity - Tobacco Use Smoking Status: Current every day smoker Tobacco Use: Cigarettes Assessment/Plan All Active Problems Cellulitis and abscess of leg (Resolved) Ulcer of right lower leg (Resolved) Ulcer of left lower leg (Resolved) This is a 48-year-old gentleman with history of chronic alcohol and nicotine dependence was admitted with shortness of breath for 5 days and also tripped over stairs passed out for about 10 minutes about 5 days prior to admission as per H&P has bruise over her lips and lower extremities which are getting better. #1 severe sepsis secondary to pneumococcal pneumonia-chest x-ray shows infiltrate and small right pleural effusion. This is unchanged from previous chest x-ray. Earlier chest CTA on 06/09 shows right lower lobe infiltrate, mild patchy opacity in the right middle lobe and right upper lobe. On IV Unasyn. Seen by cold meat chef. #2 acute right-sided pneumococcal pneumonia-urinary antigen is positive of Streptococcus pneumoniae. Electrolyte imbalance: Mild hypokalemia, hypomagnesemia. Potassium and magnesium being replaced. Check BMP, phosphorus and magnesium tomorrow a.m. #3 acute respiratory insufficiency-secondary to aspiration pneumonia-resolved. Currently patient is on room air. He was on 4 L of oxygen at the time of admission. #4 chronic alcoholism and nicotine dependence and possible COPD-patient denies hallucination, seizures but has tremors. Currently on Librium taper the Ativan as needed. He states that he will continue drinking alcohol after discharge. Patient advised to follow-up with Dr. Velazco for PFT as an outpatient Microbiology Past 72 Hours 06/09/19 14:50 Sputum, Expectorated/Coughed Gram Stain - Final 06/09/19 14:50 Sputum, Expectorated/Coughed Respiratory Culture - Preliminary Streptococcus pneumoniae 06/09/19 14:35 Urine, Clean Catch Urine Culture - Preliminary Culture exhibits no growth. 06/10/19 07:00 Mucosa - Nose Respiratory Panel (PCR) - Final Laboratory Results 06/11/19 05:40: WBC 13.1 H, RBC 3.82 L, Hgb 13.1, Hct 37.9 L, MCV 99.2 H, MCH 34.3 H, MCHC 34.6, RDW Std Deviation 45.9 H, RDW Coeff of Lesvia 12.7, Plt Count 100 L, MPV 11.3, Immature Gran % (Auto) 1.500 H, Neut % (Auto) 82.4 H, Lymph % (Auto) 10.1 L, O'Brien % (Auto) 5.2, Eos % (Auto) 0.6, Baso % (Auto) 0.2, Absolute Neuts (auto) 10.7 H, Absolute Lymphs (auto) 1.32, Nucleated RBC % 0 06/11/19 05:40: Sodium 137, Potassium 3.5, Chloride 107, Carbon Dioxide 22.0, Anion Gap 8, BUN 10, Creatinine 0.55 L, Estim Creat Clear Calc 148.22, Est GFR (MDRD) Af Amer 202, Est GFR (MDRD) Non-Af 167, BUN/Creatinine Ratio 18.1, Glucose 96, Calcium 8.6 Clinical Impression(s) from Imaging Studies Chest X-Ray 06/09/19 13:32 IMPRESSION: Right lower lobe pneumonia and right pleural fluid. Chest CTA 06/09/19 14:22 IMPRESSION: No evidence of pulmonary embolus. No evidence of thoracic aortic aneurysm or dissection. Right lower lobe infiltrate. Mild patchy opacity in the right middle lobe and right upper lobe, also likely infectious in etiology. Coronary artery disease. Small hiatal hernia. Cirrhosis. Chest X-Ray 06/11/19 05:55 IMPRESSION: Persistent right lower lobe infiltration and small right pleural effusion. This is essentially unchanged. Code Visit Inpatient E&M: 40573 Subs Hosp L2
[2019-06-11] MEDS: LORazepam 2 MG/ML Syringe IV ×2 (17:08→19:08)
--- NOTE | 2019-06-11 17:19 | PCA ---
pt bed alarm went off, rn assisted pt to chair w chair alarm, pt up and set off chair alarm at closet trying to get clothes on to leave , primary rn at bedside also. pt unsteady on feet.
--- NOTE | 2019-06-11 17:42 | NURSING ---
INTO ROOM CHAIR ALARM GOING OFF. PT FOUND STANDING AT EDGE OF CHAIR ATTEMPTING TO URINATE INTO HIS FULL WATER PITCHER. THIS NURSE GRABBED GLOVES IN ATTEMPTS TO ASSIST PT, PT FEEL BACK AGAINST IV POLE AND SAT ON ARM OF CHAIR. PT CONFUSED, DIFFICULT TO ORIENT STATING HE WANTS TO GO HOME THAT HE DIDN'T DRINK THAT MUCH. GIN FEEDER TO ROOM, X2 ASSIST INTO BATHROOM WHERE HE RAN HIS FOREHEAD INTO THE DOOR ON HIS WAY INTO THE BATHROOM. PT VERY UNSTEADY.PT'S PRIMARY RN CALLED TO ROOM AND INFORMED OF SITUATION. AWARE PRIMARY TO NOTIFY PHYSICIAN. YARD OPERATOR CALLED TO GET SITTER.
--- NOTE | 2019-06-11 19:51 | CT_ITS ---
STUDY: CT BRAIN WITHOUT CONTRAST REASON FOR EXAM: Male, 48 years old. Fall RADIATION DOSAGE (If Supplied By Facility): DLP = ( 846.73 ) mGycm TECHNIQUE: Transaxial CT imaging of the brain was performed without administration of intravenous contrast material. Individualized dose optimization techniques were used for this CT. COMPARISON: CT head June 04, 2019 FINDINGS: There is no acute bleed or infarct. There are normal white matter tracts. The ventricles are normal in configuration. There is no hydrocephalus. The visualized paranasal sinuses are clear. The mastoid air cells are well aerated. There is no skull fracture. Age indeterminate minimally displaced nasal fractures are present. CT/Brain/Head without Contrast IMPRESSION: No acute intracranial abnormality. Age indeterminate minimally displaced nasal fractures. Electronically Signed: Jose Bernardo, at 20:33 EDT Tel , Service support ,
--- NOTE | 2019-06-11 19:53 | PCM.PN.BLA ---
Progress Note Notified by attending MD that reportedly patient has been confused and fell. Nurse confirms that patient has been confused, got up to bathroom and fell hitting head. Sitter in room. At bedside patient was using nebulized inhaler and could be redirected. Per nurse patient has received ativan IV and Librium. Will do CT scan of head since patient fell and hit head. Ativam 1mg IV enroute to CT so patient can lie still for CT. If patient becomes confused and required excessive ativan on top of his librium patient will be transferred to the ICU and started on precedex drip. Discussed with Patient and nurse.
[2019-06-11] MEDS: LORazepam 2 MG/ML Syringe 1 MG IV (20:04)
[2019-06-12] VITALS (12 sets, daily range): BP systolic 107–136; BP diastolic 78–93; PULSE 62–96; RESP 16–20; TEMP 36.4–37.2; O2SAT 92–100
[2019-06-12] MEDS: Haloperidol Lactate 5 MG/ML Vial 2 MG IM ×2 (02:26→15:25)
[2019-06-12] MEDS: 0.9% NaCl Peripheral Flush Adult/Peds IV ×6 (05:36→22:18)
[2019-06-12] MEDS: LORazepam 2 MG/ML Syringe IV ×3 (05:36→13:48)
[2019-06-12] MEDS: chlordiazePOXIDE 25 MG Capsule PO ×2 (05:36→12:48)
[2019-06-12 05:49] LABS: Anion Gap 8 (5-15); BUN 12 mg/dL (7-18); BUN/Creat Ratio 20.2 RATIO (10-20); Calcium,Total 8.8 mg/dL (8.5-10.1); Chloride 107 mmol/L (98-107); Creatinine, Serum 0.59 mg/dL (0.70-1.30); EST Glomerular Filtration Rate 154 mL/min (>60); Est Glom Filt Rate - Afr Amer 187 mL/min (>60); Estimated Creatinine Clearance 138.17 ml/min; Glucose 84 mg/dL (74-106); Sodium Level 137 mmol/L (136-145)
[2019-06-12] MEDS: 0.9% NaCl IVPB Med Flush (250 mL) 15 ML IV (06:22)
--- NOTE | 2019-06-12 07:38 | PCM.PN.HOSP ---
Subjective: Patient was seen and examined. He fell yesterday was trying to get out of bed. He hit his head. CT scan of the brain was negative for any acute intracranial process. Patient denies any headache or dizziness. Received his last dose of Ativan taper at 1 AM. Vitals/I&O's: Vital Signs Temp Pulse Resp BP Pulse Ox 98.4 F 96 18 110/81 H 92 06/12/19 05:33 06/12/19 05:33 06/12/19 05:33 06/12/19 05:33 06/12/19 05:33 Oxygen Flow Rate (L/min) 3 Oxygen Delivery Method Room Air Weight: 85.2 kg Body Mass Index (BMI) 29.7 Intake and Output for Last 24 Hours 06/10/19 06/11/19 06/12/19 23:59 23:59 23:59 Intake Total 3304.0 / 3304.0 956 / 956 724 / 724 Output Total 2675 / 2675 1300 / 1300 Balance 629.0 / 629.0 -344 / -344 724 / 724 General: Alert, Oriented x3, Cooperative, No apparent distress, - HEENT: Atraumatic, PERRLA, EOMI, Normocephalic Oral: Moist Mucosa Neck: Supple Lungs: Clear to auscultation, Normal air movement Cardiovascular: Regular rate, Regular Rhythm, Normal S1, Normal S2, No murmurs Abdomen: Bowel Sounds Present, Soft, Non Tender, Non-Distended, No Hepato-splenomegaly Extremities: No edema Skin: No rashes Musculoskeletal: No Tenderness to Palpation of Joints or Extremities Lymphatic: No Cervical, Supraclavicular, or Inguinal Adenopathy Neurological: Cranial nerves II-XII grossly intact, Neuro grossly intact Psych/Mental Status: Normal Affect, Appropriate Microbiology Past 72 Hours 06/09/19 13:42 Blood Culture (Wb) - Anticubital Left Blood Culture - Preliminary No growth in 48 hours. 06/09/19 13:20 Blood Culture (Wb) - Anticubital Right Blood Culture - Preliminary No growth in 48 hours. 06/09/19 14:50 Sputum, Expectorated/Coughed Gram Stain - Final 06/09/19 14:50 Sputum, Expectorated/Coughed Respiratory Culture - Preliminary Streptococcus pneumoniae 06/09/19 14:35 Urine, Clean Catch Urine Culture - Preliminary Culture exhibits no growth. 06/10/19 07:00 Mucosa - Nose Respiratory Panel (PCR) - Final Laboratory Results 06/12/19 05:16: Sodium 137, Potassium 4.0, Chloride 107, Carbon Dioxide 22.0, Anion Gap 8, BUN 12, Creatinine 0.59 L, Estim Creat Clear Calc 138.17, Est GFR (MDRD) Af Amer 187, Est GFR (MDRD) Non-Af 154, BUN/Creatinine Ratio 20.2 H, Glucose 84, Calcium 8.8, Phosphorus 4.0, Magnesium 2.0 Current Medications Albuterol Sulfate (Ventolin Aerosols) 2.5 mg INHALATION Q2H PRN PRN PRN Reason: SHORTNESS OF BREATH Albuterol/Ipratropium (Duoneb) 3 ml INHALATION Q6HWA.RT [facility] Last Admin: 06/11/19 19:45 Dose: 3 ml Documented by: Chlordiazepoxide (Librium) 50 mg PO Q8H JACQUELYN; Taper Stop: 06/13/19 12:59 Last Admin: 06/12/19 05:36 Dose: 50 mg Documented by: Folic Acid (Folic Acid) 1 mg PO DAILY@0800 [facility] Stop: 06/12/19 08:01 Last Admin: 06/11/19 08:09 Dose: 1 mg Documented by: Folic Acid (Folic Acid) 1 mg PO DAILYCM JACQUELYN Stop: 06/13/19 08:01 Last Admin: 06/11/19 08:09 Dose: 1 mg Documented by: Glucagon () 1 mg IM .X1 PRN PRN Reason: Hypoglycemia Sodium Chloride () 250 mls @ 15 mls/hr IV .[id number] PRN PRN Reason: SALINE FLUSH Last Infusion: 06/12/19 07:10 Dose: 0 mls/hr Documented by: Ampicillin Sodium/Sulbactam (Sodium 3 gm/ Sodium Chloride) 112 mls @ 150 mls/hr IV Q8 JACQUELYN Last Infusion: 06/12/19 06:22 Dose: Infused Documented by: Lorazepam (Ativan) 2 mg PO Q2H PRN PRN; Protocol PRN Reason: CIWA score > 8 but <15 Last Admin: 06/11/19 18:03 Dose: 2 mg Documented by: Lorazepam (Ativan) 2 mg PO UD PRN; Protocol PRN Reason: CIWA score >/=15. Lorazepam (Ativan) 2 mg IV Q2H PRN PRN; Protocol PRN Reason: CIWA score > 8 but <15 Last Admin: 06/12/19 05:36 Dose: 2 mg Documented by: Lorazepam (Ativan) 2 mg IV UD PRN; Protocol PRN Reason: CIWA score >/=15. Methocarbamol (Methocarbamol) 750 mg PO Q6H PRN PRN PRN Reason: Muscle Aches Last Admin: 06/11/19 02:43 Dose: 750 mg Documented by: Multivitamins/Minerals (Multivitamin With Minerals) [facility] Last Admin: 06/11/19 08:09 Dose: 1 tablet Documented by: Ondansetron HCl (Zofran) 4 mg IV Q8H PRN PRN PRN Reason: NAUSEA/VOMITING Potassium Chloride (K-Dur) 40 meq [facility] Stop: 06/13/19 15:21 Last Admin: 06/11/19 15:47 Dose: 40 meq Documented by: Sodium Chloride () 10 - 40 ml IV UD PRN PRN Reason: SALINE FLUSH Last Admin: 06/12/19 05:36 Dose: 10 ml Documented by: Thiamine HCl (Vitamin B1) 100 mg PO BIDCM [facility] Stop: 06/12/19 08:01 Last Admin: 06/11/19 15:50 Dose: 100 mg Documented by: Medical Necessity - Tobacco Use Smoking Status: Current every day smoker Tobacco Use: Cigarettes Assessment/Plan All Active Problems Cellulitis and abscess of leg (Resolved) Ulcer of right lower leg (Resolved) Ulcer of left lower leg (Resolved) 48 y/o male with PMHx of chronic alcohol use disorder and nicotine dependence admitted with progressive shortness of breath and fall. 1. Severe sepsis secondary to pneumococcal pneumonia, on IV Unasyn, day 4 of antibiotics, will aim for total of 7 days Will switch to oral Augmentin from tomorrow. 2. Hypokalemia/hypomagnesemia, replaced 3. Acute alcohol withdrawal in a chronic alcoholic, on librium taper with prn Ativan withdrawal protocol 4. Nicotine dependence, on nicotine replacement 5. Possible COPD, will follow up in the outpatient with pulmonology 6. DVT Prophylaxis with early ambulation Code Visit Inpatient E&M: 44756 [facility] Hosp L2
[2019-06-12] MEDS: Multivitamins,Ther W-Minerals Tablet 1 TABLET PO (08:52)
[2019-06-12] MEDS: Thiamine Hydrochloride 100 MG Tablet PO (08:53)
[2019-06-12] MEDS: Folic Acid 1 MG Tablet PO (08:55)
[2019-06-12] MEDS: LORazepam 1 MG Tablet 2 MG PO ×2 (11:43→23:30)
--- NOTE | 2019-06-12 13:30 | CASEMGMT ---
Social Work Note BATSHEVA updated that pt likely needs inpatient rehab at discharge due to his alcohol use. BATSHEVA updated staff that pt has to be agreeable to go to inpatient rehab and as of yesterday pt didn't want any help or resources with his alcohol use. Pt does have periods of confusion, fell last night and had to be given haldol. BATSHEVA placed a call to pt's friend Candi that is listed as contact for pt. Candi states that pt was living with her until about a week ago when pt decided to move out. Candi says pt didn't like the rules at her house and decided to move out. Pt state pt moved out and down to friends that pt and she knows and pt's address is [address] [place] [address]. Candi states that pt has been a heavy alcoholic for years and pt first got alcohol when he was [age] years old. Candi states that pt's mother and grandparents would give the pt alcohol in his bottle so he would shut up. Candi states that pt has been living with her for about seven years and promised pt's mother that she would take care of pt. Candi states she is a penitentiary friend of pt and his mother and once pt's mother , which has been about 3 years, she promised pt's mother that she would take care of pt. Pt states that pt has been in and out of detox facilities before and nothing works for pt. Pt states that pt has been in and out of snf and correction and everytime pt does go to detox, it is mandated by the court system due to pt being in snf and correction. Candi states pt has never been willing himself to get treatment. Candi states that pt will fall when he is intoxicated and just recently fell the other night on stairs and that is when pt had problems breathing and came to the ED. Candi states that pt is independent with ADL at home and when pt is sober he is able to comprehend and make good decisions but as soon as pt becomes intoxicated pt is not able to comprehend or make good decisions. Candi states pt gets his check the first of the month every month and will pay his rent and then use the rest of his money to buy alcohol. Candi states pt doesn't eat all that much and just drinks alcohol. Candi asked about to go about getting a payee for pt's income. BATSHEVA encouraged Candi that getting a payee will likely have to go through a court or commercial real estate attorney and encouraged Candi to follow up on that. Candi confirms that pt has an Aunt Kristin and her number is [phone]. BATSHEVA placed a call to pt's Aunt Kristin. Kristin confirms that pt is a long time alcoholic and pt really needs to be detoxed. BATSHEVA informed Kristin that pt is getting medical detox while at [facility] but in regards to after care plans, pt will need to be agreeable to detox on an inpatient or outpatient basis. Kristin states pt will never be agreeable to getting treatment and he will aways continue to drink. Kristin confirms that pt moved out of Candi's house last week and is living with friends. Kristin states that it is a constitution party house. Kristin states that no one will rent to him due to his drinking and pt has been kicked out before of [employer]. Kristin confirms that pt's mother about three years ago and pt never had a father figure in his life. Kristin states pt was exposed to trauma in his childhood. Kristin confirms that pt has been to detox before and that pt always goes back to drinking. Kristin states that law has sent him to detox places, pt does well and tell's people what they need to hear, discharges home and goes back to drinking. BATSHEVA asked Kristin if she or Candi has thought about seeking guardianship for pt. Kristin states that they have tried to get guardianship before through the courts and it never went through. Kristin states she wouldn't be able to be a guardian as she is taking care of pt's bother and she finds out July 13 if she will be permanently blind or not. BATSHEVA informed Kristin that Candi could look into guardianship for pt or if they feel pt needs a guardian then the court could appoint guardianship for pt if no family is willing to be a guardian. Kristin states that pt's brother is the same as pt and they both have alcohol problems. Kristin states that when pt is sober he is a good alvina and is able to comprehend and make decisions but once intoxicated, he makes poor decisions. BATSHEVA met with pt to discuss discharge plans. It should be noted that pt didn't come to [facility] for alcohol detox, instead pt was admitted for acute hypoxic respiratory failure. Pt is sitting up in chair and sitter is present in room. Pt is able to tell this worker that he lives on [facility] and he lives with his two friends Jared and Janiya and a dog. Pt confirms that he was living with Candi and moved out about a week ago. SW asked pt why he decided to move out and pt stated it got old. SW again asked pt about detox/counseling at discharge and informed pt that physician is recommending pt go to inpatient detox at discharge before returning home. Pt states he doesn't want to go to inpatient detox and denied wanting information regarding outpatient counseling. SW asked pt if he has been to detox before and pt state he was at a detox facility last year at a [facility] Pt states that he has been back and forth with detox and it doesn't work for him. Pt confirms that he has a Aunt Kristin and denied having any parents. SW asked pt if he plans on resuming his alcohol consumption at discharge and pt does state he does plan on resuming alcohol use at discharge. SW asked pt if he would think about quitting alcohol and pt states I will quit when I hit rock bottom. SW asked pt what he feels is rock bottom and pt states I don't know, I will know when I get there. SW asked pt if his alcohol use has led to him getting in trouble with the law. Pt confirms that he has been to snf seven times all for the same reason. Pt state she gets intoxicated and then will break in to buildings. Pt states the last time he was in snf was in 2012. Pt states that he does have run ins with the local police department. SW again informed pt that going to inpatient detox at discharge would be beneficial for pt and that is what the physician is recommending. Pt again denied wanting to go to inpatient detox and denied additional issues or concerns at this time. Pt states that he will be going home at discharge. At this time pt is his own person and is able to make his own decisions. This worker can not make pt go to inpatient rehab as pt is not agreeable at this time. Pt was able to confirm details that his friend Candi and Kristin informed this worker of and was able to be alert and oriented during this worker's conversation with pt. Henna Lai TAX COMMISSIONER, SOLAR INSTALLATION HELPER
[2019-06-12] MEDS: Methocarbamol 750 MG Tablet PO (15:08)
[2019-06-12] MEDS: Acetaminophen 325 MG Tablet 650 MG PO (16:53)
[2019-06-12] MEDS: Ipratropium/Albuterol Sulfate 3 ML AMPUL.NEB INHALATION (19:38)
[2019-06-13] MEDS: chlordiazePOXIDE 25 MG Capsule PO (01:25)
[2019-06-13] MEDS: Acetaminophen 325 MG Tablet 650 MG PO (01:25)
[2019-06-13 01:45] VITALS: BP 128/86; PULSE 65; RESP 18; TEMP 36.7; O2SAT 99
[2019-06-13] MEDS: 0.9% NaCl Peripheral Flush Adult/Peds IV (06:08)
[2019-06-13] MEDS: Methocarbamol 750 MG Tablet PO (06:08)
[2019-06-13 07:07] VITALS: PULSE 66; RESP 16; O2SAT 96
[2019-06-13] MEDS: Ipratropium/Albuterol Sulfate 3 ML AMPUL.NEB INHALATION (07:07)
[2019-06-13 08:00] VITALS: BP 119/86; PULSE 78; RESP 16; TEMP 36.4; O2SAT 99
[2019-06-13] MEDS: Multivitamins,Ther W-Minerals Tablet 1 TABLET PO (08:11)
--- NOTE | 2019-06-13 08:38 | PCM.DC ---
- Discharge Diagnoses Reason(s) for Visit for Discharge Instructions: Shortness of breath You will use the following diet at home:: Regular Your food should be the consistency of: Regular Your liquids should be the consistency of: Regular/Thin Discharge Activity: Return to Normal Activity Additional Instructions: Complete your antibiotics. You are strongly advised to quit smoking and drinking. Follow-up with your primary care doctor within 1-2 weeks. Follow-up with your outpatient drug rehab program. You are encouraged to continu to follow-up with AA meetings. Allergies/Adverse Reactions: Allergies No Known Allergies Allergy (Verified 06/04/19 22:31) Medications to take at Discharge Amox/Clavulanate Tablet [Augmentin Tablet] 875 mg PO Q12H #6 tab 06/13/19 Multivitamins,Ther W-Minerals [Multivitamin With Minerals] 1 tab PO DAILYCM #30 tab 06/13/19 Nicotine [Nicoderm Cq] 21 mg TRANSDERM. DAILY #30 patch 06/13/19 The following prescriptions were given: Amox/Clavulanate Tablet [Augmentin Tablet] 875 mg PO Q12H #6 tab Transmission Status: Pending to [facility] Multivitamins,Ther W-Minerals [Multivitamin With Minerals] 1 tab PO DAILYCM #30 tab Transmission Status: Pending to [facility] Nicotine [Nicoderm Cq] 21 mg TRANSDERM. DAILY #30 patch Transmission Status: Pending to [facility] Primary Care Physician: Care Physician,No Primary [Primary Care Provider] - Please follow up with your Primary Care Physician in: within 1-2 weeks Test Results: Test results from this visit will be discussed in further detail at your follow-up appointment, if applicable. Proposed Discharge Date: 06/13/19
--- NOTE | 2019-06-13 08:41 | DS.PCM_ITS ---
Discharge Date and Diagnosis Date of Admission: 06/09/19 Date of Discharge: 06/13/19 - Primary Discharge Diagnosis Severe sepsis Acute pneumococcal pneumonia Hypokalemia Hypomagnesemia Acute alcohol withdrawal with delirium Nicotine dependence - Secondary Discharge Diagnosis Chronic Problems Alcohol abuse (Chronic) Insomnia (Chronic) Tobacco dependence (Chronic) Open wound of knee, leg, and ankle, complicated (Chronic) Wound healing, delayed (Chronic) Malnutrition (Chronic) Ulcer of right lower extremity (Chronic) Alcohol intoxication delirium (Chronic) Hospital Course and Treatment Imaging Results: Clinical Impression(s) from Imaging Studies Chest X-Ray 06/09/19 13:32 IMPRESSION: Right lower lobe pneumonia and right pleural fluid. Electronically Signed: Victorino Watkins MD at 14:32 EDT , Service support , Chest CTA 06/09/19 14:22 IMPRESSION: No evidence of pulmonary embolus. No evidence of thoracic aortic aneurysm or dissection. Right lower lobe infiltrate. Mild patchy opacity in the right middle lobe and right upper lobe, also likely infectious in etiology. Coronary artery disease. Small hiatal hernia. Cirrhosis. Electronically Signed: Jaison Calle, at 15:33 EDT Tel , Service support , Chest X-Ray 06/11/19 05:55 IMPRESSION: Persistent right lower lobe infiltration and small right pleural effusion. This is essentially unchanged. Electronically Signed: Suleiman Sagastume, at 10:44 EDT , Service support , Brain CT 06/11/19 19:51 IMPRESSION: No acute intracranial abnormality. Age indeterminate minimally displaced nasal fractures. Electronically Signed: oJse Bernardo, at 20:33 EDT Tel , Service support , Chiropractic Assistant Operations: None Procedures: None Summary of Care Provided: 48 y/o male with PMHx of chronic alcohol use disorder and nicotine dependence admitted with progressive shortness of breath and fall. Patient drinks about 12 packs of beer every day and smokes about 1 pack of cigarettes a day. He said to have tripped and fallen down the stairs 5 days prior to admission. He passed out for about 10 minutes on 20 he came around. Admitted to fever and chills. He was tachycardic and tachypneic with respiratory rate in the 30s in the emergency department. His admitting lactic acid was 2.9. He also had electrolyte imbalances that were replaced. His management has been that of severe sepsis secondary to pneumonia, likely asp iration pneumonia. He initially was on 4L oxygen, and was eventually weaned off. He was started on IV Unasyn, he received aggressive pulmonary toileting. He went into alcohol withdrawal and was started on the Librium taper as well as Ativan as needed. Patient needed multiple doses of sedatives because he became very agitated. He was reevaluated a day before discharge and on the day of discharge and he was found to be alert oriented x3, and found to have medical decision-making capacity. Patient declined going to an inpatient treatment facility. He was discharged home on 3 more days of Augmentin to complete 1 week of treatment. Subjective: The day of discharge, patient was seen and examined. He denies any new complaints. He appears alert and oriented. He had a good night sleep the night before. - Physical Exam General: Alert, Oriented x3, Cooperative HEENT: PERRLA, EOMI, Normocephalic, - - Old blood around the upper lip close to the anterior nares. Oral: Moist Mucosa Neck: Supple Lungs: Clear to auscultation, Normal air movement Cardiovascular: Regular rate, Regular Rhythm, Normal S1, Normal S2, No murmurs Abdomen: Bowel Sounds Present, Soft, Non Tender, Non-Distended, No Hepato- splenomegaly Extremities: No edema Skin: No rashes, No breakdown Musculoskeletal: No Tenderness to Palpation of Joints or Extremities Lymphatic: No Cervical, Supraclavicular, or Inguinal Adenopathy Neurological: Cranial nerves II-XII grossly intact, Neuro grossly intact Psych/Mental Status: Normal Affect, Appropriate Vital Signs Temp Pulse Resp BP Pulse Ox 97.6 F L 78 16 119/86 H 99 06/13/19 08:00 06/13/19 08:00 06/13/19 08:00 06/13/19 08:00 06/13/19 08:00 Oxygen Flow Rate (L/min) 3 Oxygen Delivery Method Room Air Weight: 85.2 kg Body Mass Index (BMI) 29.7 Intake and Output for Last 24 Hours 06/11/19 06/12/19 06/13/19 23:59 23:59 23:59 Intake Total 956 / 956 1448 / 1448 612 / 612 Output Total 1300 / 1300 Balance -344 / -344 1448 / 1448 612 / 612 Microbiology Past 72 Hours 06/09/19 14:35 Urine Culture - Final Urine, Clean Catch Alpha hemolytic organism 06/09/19 14:50 Gram Stain - Final Sputum, Expectorated/Coughed Respiratory Culture - Final Streptococcus pneumoniae 06/09/19 13:42 Blood Culture - Preliminary Blood Culture (Wb) - Anticubital Left No growth in 48 hours. 06/09/19 13:20 Blood Culture - Preliminary Blood Culture (Wb) - Anticubital Right No growth in 48 hours. 06/10/19 07:00 Respiratory Panel (PCR) - Final Mucosa - Nose Discharge Diet: No Restrictions Discharge Activity: Return to Normal Activity Home Medications: Medications to take at Discharge Amox/Clavulanate Tablet [Augmentin Tablet] 875 mg PO Q12H #6 tab 06/13/19 Multivitamins,Ther W-Minerals [Multivitamin With Minerals] 1 tab PO DAILYCM #30 tab 06/13/19 Nicotine [Nicoderm Cq] 21 mg TRANSDERM. DAILY #30 patch 06/13/19 Following Prescrptions Were Given to Patient: Amox/Clavulanate Tablet [Augmentin Tablet] 875 mg PO Q12H #6 tab Transmission Status: Received by [facility] Multivitamins,Ther W-Minerals [Multivitamin With Minerals] 1 tab PO DAILYCM #30 tab Transmission Status: Received by [facility] Nicotine [Nicoderm Cq] 21 mg TRANSDERM. DAILY #30 patch Transmission Status: Received by [facility] Primary Care Physician: Care Physician,No Primary [Primary Care Provider] - Please follow up with your Primary Care Physician in: within 1-2 weeks Disposition: Home Minutes spent on discharge:: 40 Patient Condition:: Stable Medical Necessity - Tobacco Use Smoking Status: Current every day smoker Tobacco Use: Cigarettes Meaningful Use Info Meaningful Use Diagnoses (Choose all that apply): None applicable Code Visit Inpatient E&M: 40469 Disch Hosp
[2019-06-13] MEDS: Amox/Clavulanate 875 MG Tablet PO (10:03)
--- NOTE | 2019-06-14 14:19 | CASEMGMT ---
MAY[facility] CM Discharge Follow-up Phone Call: FILIBERTO: Marquez Strata: 4 Call Date: 06/14/19 Discharge Date: 06/13/19 Time of Call: 1410 Duration: 8 minutes ? Admitting Diagnosis: Sepsis, Pneumococcal pneumonia, ETOH Discharge follow-up call placed to pt's cell phone. Pt answered and stated he has been doing well since discharge. Denies any increased SOB. States he was able to obtain his antibiotic/medications and has been taking them as prescribed. Asked patient about obtaining a PCP and arranging for follow-up as instructed. Pt handed the phone to his friend Candi. Candi states that pt did see Dr. King at one time but was not sure if pt was still established with him. Candi enquired about a [facility] physician who may accept him as a new patient. Informed Candi of Dr. Cano and Dr. Velasco's practice at which she stated she is a patient of Dr. Velasco and has their number to contact. Candi states she will coordinate with the patient's aunt Kristin and ensure pt is seen by a provider either through the [facility], the [facility], or at the [facility] urgent care. No further issues identified or concerns expressed. Elvin Ruby RN
== END 2019-06-13 10:06 | disposition home or self-care (01) | DRG 720 ==
LOC: ED 14:05 → ICU 16:01 → MS3 06-10 10:17
PROVIDERS: Internal Medicine; Internal Medicine Critical Care Medicine; Admitting Provider Student in an Organized Health Care Education/Training Program; Emergency Provider Emergency Medicine; Referring Provider Student in an Organized Health Care Education/Training Program; Visit Provider Internal Medicine
DX: A41.9 Sepsis, unspecified organism (principal); E87.2 Acidosis; J96.01 Acute respiratory failure with hypoxia; F10.231 Alcohol dependence with withdrawal delirium; E83.42 Hypomagnesemia; E87.6 Hypokalemia; R65.20 Severe sepsis without septic shock; J13 Pneumonia due to Streptococcus pneumoniae; F17.210 Nicotine dependence, cigarettes, uncomplicated; Z91.81 History of falling
CPT/HCPCS: 36415; 36600; 70450; 71045; 71046; 71275; 80048; 80053; 80307; 80320; 81001; 82803; 83605; 83735; 84100; 84484; 85025; 85610; 85730; 87040; 87070; 87077; 87086; 87088; 87186; 87205; 87633; 87641; 93005; 94640; 99285; 99406; J7030; J7040; J7050; Q9967; A4216; G0480; J0295; J0696

== ENCOUNTER 2020-01-12 18:47 | Emergency (ER) | payer MEDICAID, SELFPAY ==
[2019-06-09 16:53] VITALS: BMI 29.7
[2020-01-12 18:48] VITALS: BP 125/82; PULSE 77; RESP 16; TEMP 36.9; O2SAT 96
[2020-01-12 18:49] VITALS: BP 125/82; PULSE 75; RESP 18; TEMP 36.8; O2SAT 95; BMI 29.2
--- NOTE | 2020-01-12 19:13 | CT_ITS ---
STUDY: CT ABDOMEN AND PELVIS WITH CONTRAST REASON FOR EXAM: Male, 49 years old. MULTIPLE FALLS AFTER DRINKING,+ LOC,RIB PAIN -- HX:COPD RADIATION DOSAGE (If Supplied By Facility): CTDIvol = ( 20.46 ) mGy, DLP = ( 1421.01 ) mGycm TECHNIQUE: Transaxial images were obtained from the dome of the diaphragm to the symphysis pubis without oral contrast. ISOVUE 300 100ML was administered. Sagittal and coronal images were reconstructed. Individualized dose optimization techniques were used for this CT. COMPARISON: CT abdomen and pelvis without contrast December 14, 2016 FINDINGS: Pneumonic infiltrate in the right lung base on CTA chest June 09, 2013 has cleared. The heart size is normal. There are atherosclerotic calcifications of the coronary arteries. There is decreased attenuation of the liver consistent with steatosis. There is slight lobulation of the liver contour, concerning for cirrhotic change. The patent portal vein diameter is 13 mm. There are stable short gastric varices. There are calcified stones at the neck of the otherwise normal-appearing gallbladder. The diameter of the common bile duct is 4.5 mm. Normal spleen. Normal pancreas. Normal bilateral adrenal glands. Normal right kidney with stable prominent right renal pelvis. Normal left kidney. No hydronephrosis. There is a stable small to moderate size hiatal hernia. Normal small intestine. There are multiple colonic diverticula consistent with diverticulosis. The appendix is visualized and appears normal. There is stable atherosclerotic calcification of the abdominal aorta and, to a lesser degree, the proximal iliac arteries, without a demonstrated aneurysm. Normal inferior vena cava. Normal retroperitoneum. Normal urinary bladder. Normal visualized prostate gland. There is a stable small umbilical hernia containing fat and the caput medusa terminus of the small caliber, recanalized paraumbilical vein. Stable compression fracture deformities of the T11 and T12 vertebrae. Degenerative changes of the lumbar spine most prominent at L5-S1. There are healing or healed bilateral lower rib fractures. CT/Abdomen/Pelvis WITH Contrast IMPRESSION: 1. Stable compression fracture deformities of the T11 and T12 vertebrae. There are also healing or healed lower bilateral rib fractures. See report of CT chest also done today. 2. No CT sign of acute abdominal/pelvic injury. 3. Pneumonic infiltrate noted previously in the right lung base has cleared. 4. Stable findings of hepatic steatosis and probable cirrhotic change with portal hypertension. There are short gastric varices as well as a recanalized, small caliber paraumbilical vein leading to a caput medusa at the stable, small fat filled umbilical hernia. 5. Stable small to moderate size hiatal hernia. 6. Colonic diverticulosis without acute diverticulitis. No sign of bowel obstruction. The appendix is normal. 7. Gallstones again noted. No CT sign of acute cholecystitis or bile duct obstruction. 8. Atherosclerotic vascular calcifications again noted. No aortic aneurysm. Electronically Signed: Tyson Tran MD at 21:38 EDT , Service support ,
--- NOTE | 2020-01-12 19:13 | CT_ITS ---
STUDY: CT CHEST/THORAX WITHOUT CONTRAST REASON FOR EXAM: Male, 49 years old. MULTIPLE FALLS AFTER DRINKING,+ LOC,RIB PAIN -- HX:COPD RADIATION DOSAGE (If Supplied By Facility): CTDIvol = ( 9.73 ) mGy, DLP = ( 588.15 ) mGycm TECHNIQUE: Transaxial imaging was performed without the administration of intravenous contrast material. Multiplanar coronal and sagittal images were reformatted. Individualized dose optimization techniques were used for this CT. COMPARISON: CTA chest June 09, 2019; AP and lateral chest x-ray June 11, 2019 FINDINGS: The lungs are normal. The pneumonic infiltrate seen previously in the right lung base has cleared. There is no demonstrated pleural abnormality. Normal heart size and pericardium. There are calcifications of the coronary arteries. There is a stable to slightly improved 2.0 x 0.8 x 0.9 cm benign-appearing lymph node interposed between the proximal left common carotid artery and main trunk of the left subclavian artery. A few additional nonspecific subcentimeter low mediastinal lymph nodes are also present, but there is no new adenopathy Normal hilar regions. Normal unenhanced pulmonary arteries. There is stable mild atherosclerotic calcification of the aortic arch. Degenerative changes seen in the lower most cervical spine. There is stable, well-corticated invagination of the superior T1 vertebral endplate. Stable moderately severe compression fracture deformity of the T11 vertebra as well as mild depression of the superior T12 vertebral endplate. There is mild to moderate compression deformity of the T8 vertebra that has worsened since previous study. There are numerous healed or healing fractures of the right 3rd through 10th ribs, as well as old healed fractures of the lateral to posterolateral left 7, 8, and 10th ribs. There is a stable small to moderate-sized hiatal hernia. Some ill-defined stranding is seen in the adjacent herniated fatty tissues, and there is a benign-appearing 1.35 cm lymph node along the left anterior margin of the hernia, posterior to the left atrium. There is diffuse decreased attenuation of the liver parenchyma, consistent with fatty infiltration CT/Chest without Contrast IMPRESSION: 1. Worsened compression fracture deformity of the T8 vertebra, while fractures involving the superior T1, T11, T12 vertebral endplates are unchanged. 2. There are numerous bilateral rib fracture deformities, many of which are healed. There are healing nondisplaced fractures of more than one site in the lateral to anterolateral right 6-9 ribs, indicating a flail chest segment. No pneumothorax. 3. The pneumonic infiltrate noted previously in the right lung base has cleared. No new infiltrate or pleural effusion. 4. Atherosclerotic calcifications of coronary arteries again noted. Heart size is normal. 5. Stable small to moderate size hiatal hernia. 6. Incidental note of fatty infiltration of the liver again seen. Electronically Signed: Tyson Tran MD at 21:29 EDT , Service support ,
--- NOTE | 2020-01-12 19:13 | CT_ITS ---
STUDY: CT CERVICAL SPINE WITHOUT CONTRAST REASON FOR EXAM: Male, 49 years old. MULTIPLE FALLS AFTER DRINKING,+ LOC,RIB PAIN -- HX:COPD -- PT MOVING DURING SCAN-REPEATED X 1 RADIATION DOSAGE (If Supplied By Facility): CTDIvol = ( 23.74 ) mGy, DLP = ( 999.37 ) mGycm TECHNIQUE: High resolution transaxial imaging was performed without contrast material. Sagittal and coronal images were reconstructed. Individualized dose optimization techniques were used for this CT. COMPARISON: CT cervical spine October 18, 2016. FINDINGS: Normal craniovertebral junction. Normal anterior atlantoaxial articulation. There is incomplete ossification of the posterior C1 neural arch. Normal odontoid process. Imaging is degraded by some motion artifact. Normal cervical lordosis. There is a 17 degree dextroscoliosis at C4-5. No acute fracture of the vertebral bodies and posterior osseous elements. C2-3: Right posterolateral endplate spurring. Normal disc height and morphology. Stable hypertrophic degenerative arthropathy and moderately severe narrowing of the left facet articulation. Normal right facet joint. Normal central canal and intervertebral neuroforamina. C3-4: Normal endplates. Mild posterior disc height narrowing. Stable moderate narrowing and some periarticular spurring of the left facet articulation. Normal central canal and intervertebral neuroforamina. C4-5: Normal endplates. Normal disc height and morphology. Normal bilateral facet articulations. Normal central canal and intervertebral neuroforamina. C5-6: There is moderately severe narrowing of the bilateral uncovertebral joints. Mildly worsened circumferential endplate spurring/osteophytes. Stable moderate disc height narrowing with mild vacuum phenomenon in the anterior disc space. Normal bilateral facet articulations. There is spurring encroachment on the anterior central canal and intervertebral neuroforamina. C6-7: There is narrowing of the bilateral uncovertebral joints with stable lateral to posterior endplate spurring. Mild anterior degenerative endplate lipping. Moderate to moderately severe disc height narrowing. Early anterior degenerative narrowing of the right facet joint. Mild spur encroachment on the anterior central canal and intervertebral neuroforamina. C7-T1: Stable well-corticated central depression of the superior T1 vertebral endplate. Normal disc height and morphology. There is stable moderate narrowing of the left facet joint and early anterior periarticular degenerative lipping Normal central canal and intervertebral neuroforamina. Normal visualized prevertebral soft tissue structures. There is stable atherosclerotic calcific plaquing of the bilateral carotid artery bifurcations. CT/Spine Cervical without Contras IMPRESSION: 1. No acute fracture of the cervical spine. 2. Stable multilevel degenerative changes, as described above. 3. Atherosclerotic calcifications again seen at the bilateral carotid arteries. Electronically Signed: Tyson Tran MD at 21:17 EDT , Service support ,
--- NOTE | 2020-01-12 19:13 | CT_ITS ---
STUDY: CT BRAIN WITHOUT CONTRAST REASON FOR EXAM: Male, 49 years old. MULTIPLE FALLS AFTER DRINKING,+ LOC,RIB PAIN -- HX:COPD RADIATION DOSAGE (If Supplied By Facility): CTDIvol = ( 44.99 ) mGy, DLP = ( 846.73 ) mGycm TECHNIQUE: Transaxial CT imaging of the brain was performed without administration of intravenous contrast material. Individualized dose optimization techniques were used for this CT. COMPARISON: Noncontrast CT brain June 11, 2019. FINDINGS: Normal soft tissue structures. There is a depressed fracture of the left zygomatic arch age uncertain, but new since prior study. Previously noted nasal bone fractures have healed with slight residual deformity. Normal calvarium. There is stable mild cerebral atrophy with widening of the extra-axial spaces and ventricular dilatation. Normal white matter tracts of the cerebral hemispheres. Normal basal ganglia and thalami. Normal brainstem. There is stable mild cerebellar atrophy. There is no intracranial hemorrhage. There are no findings of an acute ischemic infarction. Normal visualized paranasal sinuses. CT/Brain/Head without Contrast IMPRESSION: 1. Stable chronic involutional changes of the brain. No acute intracranial injury. 2. Depressed fracture deformity left zygomatic arch, age uncertain, but new since previous exam. Previously noted nasal bone fractures have healed. Electronically Signed: Tyson Tran MD at 21:04 EDT , Service support ,
--- NOTE | 2020-01-12 19:15 | ED.DCSUM_ITS ---
History of Present Illness Chief Complaint: Fall Informant: Patient Occurred: Today Mechanism/Context: - - limited info due to intoxication; I fell off a porch Fall from Height (ft): unk Location: head, chest, abd Quality of Pain: Aching Current Severity: Moderate Maximum Severity: Moderate Associated Symptoms: - - blacking out. Negative for: Parasthesias, Weakness, Loss of function, Inability to ambulate Narrative: Patient presents intoxicated, after some type of fall and injury. He states his ribs and chest hurt everywhere, his abdomen hurts, his head hurts, he states he injured it all. He does not know any details, other than falling off of a porch and blacking out. He admits to being a heavy drinker, every day unless I am out of money. - Past Medical History (1) Malnutrition Status: Chronic Past Medical History - Allergies and Home Meds Allergies/Adverse Reactions: Allergies No Known Allergies Allergy (Verified 01/12/20 18:48) Primary Care Physician: Care Physician,No Primary [Primary Care Provider] - Smoking Status: Current every day smoker Alcohol: Heavy - Family History Maternal Family History: Reports: Renal Disease Paternal Family History: Reports: Cancer Review of Systems ROS: Unable to Obtain - limited due to intoxication Cardiovascular: Reports: Chest pain Respiratory: Reports: Dyspnea. Denies: Cough Gastrointestinal: Reports: Abdominal pain. Denies: Nausea Musculoskeletal: Denies: Neck pain, Back pain, Extremity Pain Skin: Denies: Rash, Abscess Neurological: Reports: Headache. Denies: Weakness, Numbness Physical Exam Vital Signs/Narrative: Vital Signs Temp Pulse Resp BP Pulse Ox 01/12/20 18:49 98.2 F 75 18 125/82 H 95 01/12/20 18:48 98.4 F 77 16 125/82 H 96 Inital Vital Signs reviewed: Yes General: Well nourished, Well developed, - - NAD. grossly intoxicated. Head: Normocephalic, Atraumatic Eyes: Perrl, EOMI, - - hoiz nystagmus ENT: TM's clear, No hemotympanum or drainage, No trauma. Negative for: Nasal trauma Neck: Nontender, Full ROM Cardiovascular: Regular rate, Regular rhythm, No murmurs Respiratory: No distress, CTA bilaterally, Chest tenderness - diffusely, bilat, including sternum. no crepitance. equal BS bilat. no splinting on deep inspiration. Abdomen: Soft, Nontender, Nondistended, Normal bowel sounds Back: Nontender - and can sit up w/o difficulty/pain Extremeties: Old scabs on both shins, with minor abrasion to 1 on the left. Full range of motion throughout all 4 extremities without any apparent difficulty or pain. Nontender joints. Skin: Normal color, No rash, No Trauma - Other than minor abrasion left lower extremity as above Neurological: Alert, Oriented x3, Cranial nerves II-XII grossly intact, Normal Strength, Normal Sensation, - - GCS 15 Psychological: - - Grossly intoxicated Diagnostic/Tx/Re-eval Impressions Abdomen/Pelvis CT 01/12/20 19:13 IMPRESSION: 1. Stable compression fracture deformities of the T11 and T12 vertebrae. There are also healing or healed lower bilateral rib fractures. See report of CT chest also done today. 2. No CT sign of acute abdominal/pelvic injury. 3. Pneumonic infiltrate noted previously in the right lung base has cleared. 4. Stable findings of hepatic steatosis and probable cirrhotic change with portal hypertension. There are short gastric varices as well as a recanalized, small caliber paraumbilical vein leading to a caput medusa at the stable, small fat filled umbilical hernia. 5. Stable small to moderate size hiatal hernia. 6. Colonic diverticulosis without acute diverticulitis. No sign of bowel obstruction. The appendix is normal. 7. Gallstones again noted. No CT sign of acute cholecystitis or bile duct obstruction. 8. Atherosclerotic vascular calcifications again noted. No aortic aneurysm. Electronically Signed: Tyson Tran MD at 21:38 EDT , Service support , Brain CT 01/12/20 19:13 IMPRESSION: 1. Stable chronic involutional changes of the brain. No acute intracranial injury. 2. Depressed fracture deformity left zygomatic arch, age uncertain, but new since previous exam. Previously noted nasal bone fractures have healed. Electronically Signed: Tyson Tran MD at 21:04 EDT , Service support , Cervical Spine CT 01/12/20 19:13 IMPRESSION: 1. No acute fracture of the cervical spine. 2. Stable multilevel degenerative changes, as described above. 3. Atherosclerotic calcifications again seen at the bilateral carotid arteries. Electronically Signed: Tyson Tran MD at 21:17 EDT , Service support , Chest CT 01/12/20 19:13 IMPRESSION: 1. Worsened compression fracture deformity of the T8 vertebra, while fractures involving the superior T1, T11, T12 vertebral endplates are unchanged. 2. There are numerous bilateral rib fracture deformities, many of which are healed. There are healing nondisplaced fractures of more than one site in the lateral to anterolateral right 6-9 ribs, indicating a flail chest segment. No pneumothorax. 3. The pneumonic infiltrate noted previously in the right lung base has cleared. No new infiltrate or pleural effusion. 4. Atherosclerotic calcifications of coronary arteries again noted. Heart size is normal. 5. Stable small to moderate size hiatal hernia. 6. Incidental note of fatty infiltration of the liver again seen. Electronically Signed: Tyson Tran MD at 21:29 EDT , Service support , 01/12/20 19:13 Abdomen/Pelvis WITH Contrast [CT] Stat Brain/Head without Contrast [CT] Stat Chest without Contrast [CT] Stat Spine Cervical without Contras [CT] Stat Laboratory Results 01/12/20 01/12/20 01/12/20 19:20 19:20 19:20 WBC 5.6 RBC 4.11 L Hgb 14.2 Hct 40.8 MCV 99.3 H MCH 34.5 H MCHC 34.8 RDW Std Deviation 46.4 H RDW Coeff of Lesvia 12.9 Plt Count 45 L* MPV 11.8 Immature Gran % (Auto) 0.200 Neut % (Auto) 57.7 Lymph % (Auto) 27.9 [place] % (Auto) 12.4 H Eos % (Auto) 1.4 Baso % (Auto) 0.4 Absolute Neuts (auto) 3.2 Absolute Lymphs (auto) 1.55 Nucleated RBC % 0 Differential Comment SCANNED Diff Path Review May foll Platelet Estimate MKD DEC Sodium 138 Potassium 3.3 L Chloride 105 Carbon Dioxide 25.0 Anion Gap 8 BUN 7 Creatinine 0.57 L Estim Creat Clear Calc 141.47 Est GFR (MDRD) Af Amer 196 Est GFR (MDRD) Non-Af 162 BUN/Creatinine Ratio 12.3 Glucose 101 Calcium 8.6 Urine Color Urine Clarity Urine pH Ur Specific [place] Urine Protein Urine Glucose (UA) Urine Ketones Urine Occult Blood Urine Nitrite Urine Bilirubin Urine Urobilinogen Ur Leukocyte Esterase Urine RBC Urine WBC Ur Squamous Epith Cells Urine Bacteria Urine Mucus Ethyl Alcohol 385.0 H* 01/12/20 19:40 WBC RBC Hgb Hct MCV MCH MCHC RDW Std Deviation RDW Coeff of Lesvia Plt Count MPV Immature Gran % (Auto) Neut % (Auto) Lymph % (Auto) [place] % (Auto) Eos % (Auto) Baso % (Auto) Absolute Neuts (auto) Absolute Lymphs (auto) Nucleated RBC % Differential Comment Diff Path Review Platelet Estimate Sodium Potassium Chloride Carbon Dioxide Anion Gap BUN Creatinine Estim Creat Clear Calc Est GFR (MDRD) Af Amer Est GFR (MDRD) Non-Af BUN/Creatinine Ratio Glucose Calcium Urine Color Yellow Urine Clarity Clear Urine pH 7.0 Ur Specific [place] 1.010 Urine Protein Negative Urine Glucose (UA) Normal Urine Ketones Negative Urine Occult Blood Negative Urine Nitrite Negative Urine Bilirubin Negative Urine Urobilinogen Normal Ur Leukocyte Esterase Negative Urine RBC 0 SEEN Urine WBC 0 SEEN Ur Squamous Epith Cells 0 SEEN Urine Bacteria 0 SEEN Urine Mucus 0 SEEN Ethyl Alcohol - Medical Decision Making Given patient's level of intoxication and pain in many different areas, I thought it was safest to march scan him with trauma scans. Findings are above. I discussed the findings of cirrhosis and gallstones with him. He states he knows about that and wants to know if it is bad, I told him it was pretty serious and that he was probably close to turning jaundiced and having ascites develop. I asked him if he was interested in detox, he said he would think about it but not right now. I advised him to follow-up. He has lots of old fractures of his ribs, he does not clinically have a flail chest, and the left zygomatic arch is nontender and he thinks he fractured it in the past. He was observed here for a little while, remained keenly alert without any complications or dyspnea, and advised that he may call for a ride home which he is fine with. ED Disposition - Plan for ED Patient: Disposition: Home or Assisted Living Diagnosis: Fall, Alcohol intoxication, Contusion of ribs, Blunt injury of abdomen, Hepatic cirrhosis, Cholelithiasis Instructions: ED CONTUSION Rib, ED Cirrhosis, ED INTOXICATION Alcohol Referrals: Care Physician,No Primary [Primary Care Provider] - [facility] [STAFF PHYSICIAN] - Ward Greene MD [STAFF PHYSICIAN] -
[2020-01-12 19:33] LABS: Absolute Lymphocyte Count 1.55 X10^3/uL (0.83-4.51); Absolute Neutrophil Count 3.2 X10^3/uL (2.0-7.7); Basophil# 0.02 X10^3/uL; Basophil% 0.4 % (0-1); Eosinophil# 0.08 X10^3/uL; Eosinophils% 1.4 % (0-5); Hematocrit 40.8 % (40-54); Hemoglobin 14.2 g/dL (13.0-16.5); Lymphocyte # 1.55 X10^3/ul (4.0); Lymphocyte % 27.9 % (19-41); Mean Corp Hgb Conc 34.8 g/dL (32-36); Mean Corpuscular Hgb 34.5 pg (27.0-32.0); Mean Corpuscular Volume 99.3 fL (80-94); Mean Platelet Vol. 11.8 fl (6.2-12.0); Monocyte# 0.69 X10^3/uL; Monocyte% 12.4 % (0-10); NRBC Flagged by Analyzer 0 % (0-5); Neutrophil % 57.7 % (47-70); POSITIVE COUNT YES; RBC Distribution Width CV 12.9 % (11.6-14.6); RBC Distribution Width SD 46.4 fl (35.1-43.9); Red Blood Count 4.11 M/mm3 (4.6-6.2); White Blood Count 5.6 K/mm3 (4.4-11.0)
[2020-01-12 19:44] LABS: Anion Gap 8 (5-15); BUN 7 mg/dL (7-18); BUN/Creat Ratio 12.3 RATIO (10-20); Calcium,Total 8.6 mg/dL (8.5-10.1); Chloride 105 mmol/L (98-107); Creatinine, Serum 0.57 mg/dL (0.70-1.30); EST Glomerular Filtration Rate 162 mL/min (>60); Est Glom Filt Rate - Afr Amer 196 mL/min (>60); Estimated Creatinine Clearance 141.47 ml/min; Glucose 101 mg/dL (74-106); Potassium 3.3 mmol/L (3.5-5.1); Sodium Level 138 mmol/L (136-145)
[2020-01-12 19:50] LABS: Bacteria 0 SEEN /hpf (None Seen); Mucous, Urine 0 SEEN /hpf (<or=2+); Red Blood Cells-Urine 0 SEEN /hpf (0-5); Squamous Epithelial Cells - UA 0 SEEN /hpf (0-5); White Blood Cells 0 SEEN /hpf (0-5)
[2020-01-12 19:52] LABS: Color, Urine Yellow (Yellow); Glucose, Dipstick Normal (Normal); Ketone-Dipstick Negative (Negative); Leukocyte Esterase-Dipstick Negative /ul (Negative); Nitrite-Dipstick Negative (Negative); Occult Blood-Urine Negative /ul (Negative); Protein-Dipstick Negative (Negative); Urine Bilirubin Dipstick Negative (Negative); Urine Clarity Clear (Clear); Urine Urobilinogen Normal (Normal)
[2020-01-12] MEDS: 0.9% Normal Saline 1,000 ML 999 ML IV (19:58)
[2020-01-12] MEDS: traMADol 50 MG Tablet PO (19:58)
[2020-01-12 20:04] LABS: Differential Indicated SCAN CRITERIA MET; Platelet Count 45 K/mm3 (150-450)
[2020-01-12 20:05] LABS: Differential Comment SCANNED; Platelet Estimate MKD DEC (ADEQ)
[2020-01-12 22:13] VITALS: BP 134/80; PULSE 80; RESP 16; O2SAT 98
[2020-01-14 11:15] LABS: Pathologist Review Reviewed
== END 2020-01-12 22:17 | disposition home or self-care (01) ==
PROVIDERS: Emergency Provider Emergency Medicine
DX: F10.129 Alcohol abuse with intoxication, unspecified (principal); S39.91XA Unspecified injury of abdomen, initial encounter; K74.60 Unspecified cirrhosis of liver; K80.20 Calculus of gallbladder without cholecystitis without obstruction; F17.200 Nicotine dependence, unspecified, uncomplicated; W17.89XA Other fall from one level to another, initial encounter
CPT/HCPCS: 70450; 71250; 72125; 74177; 80048; 80320; 81001; 85025; 96360; 96361; 99285; J7030; Q9967; A4216; G0480

== ENCOUNTER 2020-03-04 05:02 | Emergency (ER) | payer MEDICAID, SELFPAY ==
[2020-03-04 05:03] VITALS: BP 123/69; PULSE 82; RESP 16; TEMP 36.4; O2SAT 97; BMI 23.6
--- NOTE | 2020-03-04 05:15 | RAD_ITS ---
STUDY: X-RAY - RIGHT ANKLE REASON FOR EXAM: Male, 49 years old. Evaluation. TECHNIQUE: 3 view(s) of the ankle. COMPARISON: 07/19/2015. FINDINGS: Normal visualized distal tibia and fibula. Normal medial and lateral malleoli. Normal tibiotalar articulation and ankle mortise. Normal visualized talus and calcaneus. The visualized subtalar, talonavicular, calcaneocuboid and tarsal articulations are normal. The soft tissue structures are unremarkable. RAD/Ankle min 3 Views IMPRESSION: No acute findings in the ankle. Electronically Signed: Filemon Nguyen MD at 5:49 EDT , Service support ,
--- NOTE | 2020-03-04 05:15 | RAD_ITS ---
STUDY: X-RAY - RIGHT FOOT CLINICAL: Male, 49 years old. Alcohol use. Fall. TECHNIQUE: 3 view(s) of the foot. COMPARISON: None. FINDINGS: Normal talus, calcaneus, and tarsal bones. Normal visualized subtalar, talonavicular, calcaneocuboid, tarsal and tarsometatarsal articulations. Normal metatarsi. Normal metatarsophalangeal joint of the great toe. Normal tibial and fibular sesamoid bones. Normal interphalangeal joint of the great toe. Normal phalanges of the great toe. Normal second through fifth metatarsophalangeal joints. Normal interphalangeal joints and phalanges of the lesser toes. The soft tissue structures are unremarkable. RAD/Foot min 3 Views IMPRESSION: Normal x-ray examination of the foot. Electronically Signed: Filemon Nguyen MD at 5:50 EDT , Service support ,
--- NOTE | 2020-03-04 05:20 | ED.DCSUM_ITS ---
- ER Visit Summary Date of Service: 03/04/20 Chief Complaint: Right ankle injury History of Present Illness: The patient is a 49 M presenting after right foot and ankle injury. Patient states that he tripped earlier today injuring his right foot and ankle. He denies hitting his head or losing consciousness. Denies other injuries. He was drinking tonight. He continued to have persistent pain in the right foot and ankle and called EMS for evaluation. Physical Examination: Vitals are stable. Patient is afebrile. Alert no acute distress. HEENT exam is unremarkable. Neck is nontender Lungs are clear and equal bilaterally. Heart is regular rate and rhythm. Extremities right lateral ankle tenderness with no deformity. Normal pulses. Mild diffuse right foot tenderness. No proximal fibular tenderness. Skin is warm and dry. No focal neurologic deficit. Remainder of exam is unremarkable. Emergency Department Course and Treatment: Right foot xray shows normal x-ray examination of the foot. Right ankle xray shows no acute findings in the ankle. Patient was given an Aircast. He will be discharged when sober. Advised to follow-up with Dr. [employer] for no doctor. Advised return to the ED for worsening complaints. Disposition: Discharge home Impression: Right ankle sprain, alcohol intoxication This note was generated with [employer] dictation software. It may contain incorrect words, spelling, and punctuation that were not noted in review of the chart prior to signing ED Disposition - Plan for ED Patient: Instructions: ED Sprain Ankle W X Ray Referrals: Garfield Rivera MD [NON-STAFF] -
--- NOTE | 2020-03-04 06:09 | ED.DEP ---
ED Disposition - Plan for ED Patient: Instructions: ED Sprain Ankle W X Ray Referrals: Garfield Rivera MD [NON-STAFF] -
[2020-03-04 09:09] VITALS: RESP 16
--- NOTE | 2020-03-04 09:22 | ED.RN ---
PT SLEEPING, AWAKENED AND ASKED IF HE HAD RIDE HOME. PT STATES HE IS ABLE TO CALL FOR RIDE. PT GIVEN PRIVACY FOR CALL. WHEN ASKING PT FOR UPDATE, PT STATES HE WAS ABLE TO CONTACT FRIEND AND THAT THEY WERE ATTEMPTING TO CONTACT ANOTHER FRIEND FOR POSSIBLE RIDE. INFORMED PT THAT HE WAS DISCHARGED AND WILL NEED TO WAIT IN THE WAITING ROOM FOR RIDE. PT DISCHARGED TO WAITING ROOM PENDING RIDE, PT STATES UNABLE TO AMBULATE. PT TAKEN TO WAITING AREA BY WHEELCHAIR.
== END 2020-03-04 09:25 | disposition home or self-care (01) ==
PROVIDERS: Emergency Provider Emergency Medicine
DX: S93.401A Sprain of unspecified ligament of right ankle, initial encounter (principal); W01.0XXA Fall on same level from slipping, tripping and stumbling without subsequent striking against object, initial encounter; Y93.9 Activity, unspecified; Y92.9 Unspecified place or not applicable; F10.129 Alcohol abuse with intoxication, unspecified; Z72.0 Tobacco use
CPT/HCPCS: 73610; 73630; 99283

== ENCOUNTER 2020-04-07 00:56 | Emergency (ER) | payer MEDICAID, SELFPAY ==
[2020-04-07 00:57] VITALS: BP 132/86; PULSE 82; RESP 16; TEMP 36.6; O2SAT 95; BMI 24.6
--- NOTE | 2020-04-07 01:12 | CT_ITS ---
HISTORY: FALL, HIT HEAD, LAC TO BACK OF HEAD, ETOH Technique:CT Head or Brain W/O Contrast Injection Number of Images including paperwork:255 Comparison: Of the patient's 35 previous radiological exams at this institution, the most recent comparison CT scan of the brain is from January 12, 2020 Findings: CT images of the head were obtained without contrast. Periventricular deep and subcortical white matter disease is present. Central posterior parietal scalp contusion is present Paranasal sinuses are clear. The brain is atrophic. Calcific ASCVD involves intracranial arteries. No acute intracranial edema or hemorrhage. No acute abnormality of orbits. Middle ear cavities and mastoid air cells are well aerated. Skull is normal. CT/Brain/Head without Contrast IMPRESSION: No acute intracranial abnormality. Fairly progressive atrophy for a patient of stated age 49 years. Parietal scalp contusion Chronic changes as above. ASPECT 10. Individualized dose optimization techniques were used for this CT. at 0229 Reported and signed by: Cj Murillo MD Electronically Signed: Cj Murillo MD at 2:28 EDT Tel , Service support ,
--- NOTE | 2020-04-07 01:12 | CT_ITS ---
STUDY: CT CERVICAL SPINE WITHOUT CONTRAST REASON FOR EXAM: Male, 49 years old. Fall hitting head. Laceration to back of head. RADIATION DOSAGE (If Supplied By Facility): CTDIvol = ( 16.3 ) mGy, DLP = ( 535.13 ) mGycm TECHNIQUE: High resolution transaxial imaging was performed without contrast material. Sagittal and coronal images were reconstructed. Individualized dose optimization techniques were used for this CT. COMPARISON: January 12, 2020. FINDINGS: Normal craniovertebral junction. Normal anterior atlantoaxial articulation. Normal odontoid process. Smooth midline defect posterior arch of C1 compatible with a normal variant. Normal cervical lordosis. Mild loss of vertebral body height C7 unchanged. C2-3: Normal endplates. Normal disc height and morphology. Normal central canal and intervertebral neuroforamina. C3-4: Normal endplates. Normal disc height and morphology. Normal central canal and intervertebral neuroforamina. C4-5: Normal endplates. Normal disc height and morphology. Normal central canal and intervertebral neuroforamina. C5-6: Normal endplates. Disc space narrowing. Normal central canal. Left neural foramina narrowing. C6-7: Normal endplates. Disc space narrowing. Normal central canal. Mild bilateral neural foramina narrowing. C7-T1: Normal endplates. Normal disc height and morphology. Normal central canal and intervertebral neuroforamina. Normal visualized soft tissue structures. Carotid calcifications. CT/Spine Cervical without Contras IMPRESSION: Degenerative changes of the cervical spine, no acute fracture. Mild old compression fracture C7. Electronically Signed: Filemon Nguyen MD at 2:51 EDT , Service support ,
--- NOTE | 2020-04-07 01:30 | RAD_ITS ---
STUDY: X-RAY - LEFT WRIST REASON FOR EXAM: Male, 49 years old. Pain after fall. TECHNIQUE: 3view(s) of the wrist were obtained. COMPARISON: None. FINDINGS: Normal visualized distal radius and ulna. Normal radiocarpal articulation. Normal distal radioulnar articulation. Normal carpal bones. Normal carpal articulations. Normal carpometacarpal articulation of the thumb. Normal second through fifth carpometacarpal articulations. Normal visualized metacarpal bones. The soft tissue structures are unremarkable. RAD/Wrist min 3 Views IMPRESSION: Normal x-ray examination of the wrist. Electronically Signed: Filemon Nguyen MD at 2:26 EDT , Service support ,
[2020-04-07] MEDS: Diphth,Pertuss(Acell),Tet Vac 0.5 ML Vial IM (03:35)
--- NOTE | 2020-04-07 03:59 | ED.VISSUMM ---
- ER Visit Summary Date of Service: 04/07/20 Chief Complaint: Fall History of Present Illness: The patient is a [address] Greene. He reports he fell today because I am drunk. He did hit his head. He is unsure whether he had a loss of consciousness. He is not on anticoagulants. He reports that his neck is a little sore. He also complains of left wrist pain. He denies any other complaints. Physical Examination: Vitals: Stable. Afebrile. Head: 5 cm vertical laceration in the occiput with minimal active bleeding. Neck: Mild diffuse vertebral tenderness. Full ROM without difficulty. Back: No vertebral tenderness. General: A&O x 3. NAD. Cardiovascular exam: Regular rate and rhythm, no murmur, rub or gallop. Respiratory exam: Chest nontender. No crepitus. Clear to auscultation bilaterally. No wheezes or stridor. Abdominal exam: Soft, nontender, nondistended, normal bowel sounds. No pain in RUQ or LUQ specifically. No peritoneal signs. Extremity: Mild tenderness palpation over the left wrist. No deformity. No pain with range of motion. Test Results: Alcohol is 461. Clinical Impression(s) from Imaging Studies Brain CT 04/07/20 01:12 IMPRESSION: No acute intracranial abnormality. Fairly progressive atrophy for a patient of stated age 49 years. Parietal scalp contusion Chronic changes as above. ASPECT 10. Individualized dose optimization techniques were used for this CT. at 0229 Reported and signed by: Cj Murillo MD Electronically Signed: Cj Murillo MD at 2:28 EDT Tel , Service support , Cervical Spine CT 04/07/20 01:12 IMPRESSION: Degenerative changes of the cervical spine, no acute fracture. Mild old compression fracture C7. Electronically Signed: Filemon Nguyen MD at 2:51 EDT , Service support , Wrist X-Ray 04/07/20 01:30 IMPRESSION: Normal x-ray examination of the wrist. Electronically Signed: Filemon Nguyen MD at 2:26 EDT , Service support , Emergency Department Course and Treatment: Patient had his wounds anesthetized and repaired. He tolerated this well. He was given a dose of Adacel IM. Patient does not want help with his alcohol abuse. Treatment Plan: Patient will be discharged instructions to follow-up Dr. Greene in 10 days for staple removal. Return to the emergency department for any worsening symptoms. Disposition: To home in improved and stable condition. Impression: 1. Alcohol intoxication. 2. Fall. 3. Scalp laceration, 5 cm, repaired. Procedure note: Wound was cleansed with chlorhexidine soap. Anesthetized with 1% lidocaine without epinephrine. Copiously irrigated with normal saline. Wound was explored there is no foreign material present. It was closed with 6 varsha. The patient tolerated it well. This note was generated with [employer] dictation software. It may contain incorrect words, spelling, and punctuation that were not noted in review of the chart prior to signing ED Disposition - Plan for ED Patient: Instructions: ED Laceration Scalp Sutures or [place] Referrals: Ward Greene MD [STAFF PHYSICIAN] - 10 Day for suture removal
[2020-04-07 05:08] VITALS: BP 94/61; PULSE 75; RESP 14; O2SAT 92
[2020-04-07 09:22] VITALS: BP 139/84; PULSE 104; RESP 16; O2SAT 95
== END 2020-04-07 09:23 | disposition home or self-care (01) ==
PROVIDERS: Emergency Provider Emergency Medicine
DX: F10.129 Alcohol abuse with intoxication, unspecified (principal); S01.01XA Laceration without foreign body of scalp, initial encounter; F17.200 Nicotine dependence, unspecified, uncomplicated; W19.XXXA Unspecified fall, initial encounter
CPT/HCPCS: 12002; 70450; 72125; 73110; 80320; 90715; 96372; 99285; J7030; A4216; G0480

== ENCOUNTER 2020-04-28 13:56 | Emergency (ER) | payer MEDICAID, SELFPAY ==
[2020-04-28 13:57] VITALS: BP 127/85; PULSE 71; RESP 16; TEMP 36.2; O2SAT 98; BMI 29.0
--- NOTE | 2020-04-28 14:13 | ED.VIS.GEN ---
History of Present Illness Chief Complaint: Suture Remv Narrative: Presents with desire for suture removal, these were placed a few weeks ago after head injury. He is a daily drinker. He is lucid and coherent today. He got a ride to the emergency department his friend is driving him home. He has no complaints. Past Medical History - Allergies and Home Meds Allergies/Adverse Reactions: Allergies No Known Allergies Allergy (Verified 04/28/20 13:59) Primary Care Physician: Care Physician,No Primary [Primary Care Provider] - Past Medical History: - - Alcoholism-otherwise reviewed and unremarkable Smoking Status: Current every day smoker - Family History Maternal Family History: Reports: Renal Disease Paternal Family History: Reports: Cancer Review of Systems General: Denies: Fever Skin: Reports: Wounds Neurological: Denies: Headache, Weakness Hematologic: Denies: Easy bruising Physical Exam Vital Signs/Narrative: Vital Signs Temp Pulse Resp BP Pulse Ox 04/28/20 13:57 97.2 F L 71 16 127/85 H 98 General: - - Patient appears chronically ill Head: - - Scalp laceration shows 6 varsha, the wound is intact without any signs of infection ENT: Moist mucous membranes Cardiovascular: Regular rate Skin: Normal color Neurological: Alert, Normal Strength, Normal Sensation Diagnostic/Tx/Re-eval - Medical Decision Making Chapman were removed, he does have smell of alcohol on his breath but is lucid and coherent and is not driving home. I will discharge him with wound care instructions. Procedures Procedure(s): Staple removal. 6 varsha were removed with staple remover. No analgesia was used patient tolerated procedure well. ED Disposition - Plan for ED Patient: Disposition: Home or Assisted Living Diagnosis: Alcohol abuse, Removal of staple Instructions: ED Stitches/Staple Removal No Complication, ED Alcohol Abuse Referrals: Care Physician,No Primary [Primary Care Provider] - 3-5 Days Additional Instructions: Consider detox from alcohol with further rehab.
== END 2020-04-28 14:18 | disposition home or self-care (01) ==
PROVIDERS: Emergency Provider Emergency Medicine
DX: F10.10 Alcohol abuse, uncomplicated (principal); Z48.02 Encounter for removal of sutures; F17.200 Nicotine dependence, unspecified, uncomplicated
CPT/HCPCS: 99282

== ENCOUNTER 2020-10-07 13:47 | Emergency (ER) | payer MEDICAID, SELFPAY ==
[2020-10-07] VITALS (10 sets, daily range): BP systolic 94–130; BP diastolic 50–88; PULSE 60–99; RESP 14–18; TEMP 35.5–36.6; O2SAT 92–98; BMI 28.3
--- NOTE | 2020-10-07 14:07 | RAD_ITS ---
STUDY: X-RAY - LEFT TIBIA AND FIBULA REASON FOR EXAM: Male, 50 years old. Ethanol. Legs gave out. TECHNIQUE: 2 view(s) of the tibia and fibula were obtained on 4 images. COMPARISON: None. FINDINGS: Normal visualized tibia. Normal visualized fibula. The soft tissue structures are unremarkable. RAD/Tibia & Fibula 2 Views IMPRESSION: No abnormality of the left tibia or fibula. Electronically Signed: Aniceto Posada MD at 15:35 EST , Service support ,
--- NOTE | 2020-10-07 14:11 | RAD_ITS ---
STUDY: X-RAY - RIGHT TIBIA AND FIBULA REASON FOR EXAM: Male, 50 years old. Ethanol. Legs gave out. TECHNIQUE: 2 view(s) of the tibia and fibula were obtained on 4 images. COMPARISON: None. FINDINGS: Normal visualized tibia. Normal visualized fibula. The soft tissue structures are unremarkable. RAD/Tibia & Fibula 2 Views IMPRESSION: No abnormality of the right tibia or fibula. Electronically Signed: Aniceto Posada MD at 15:35 EST , Service support ,
--- NOTE | 2020-10-07 14:15 | ED.RN ---
Pt seen on the camera at the nurses station to be sitting on the floor in his room. This RN and 2 other staff go to the bedside to assess patient. Pt states he got up to use the urinal and fell. Denies hitting his head. Pt reminded that he has to use his call light that we gave him. Pt denies any new injuries. Dr Vance notified.
[2020-10-07 15:01] LABS: Anion Gap 6 (5-15); BUN 6 mg/dL (7-18); BUN/Creat Ratio 10.3 RATIO (10-20); Calcium,Total 8.1 mg/dL (8.5-10.1); Chloride 107 mmol/L (98-107); Creatinine, Serum 0.58 mg/dL (0.70-1.30); EST Glomerular Filtration Rate 156 mL/min (>60); Est Glom Filt Rate - Afr Amer 189 mL/min (>60); Estimated Creatinine Clearance 152.37 ml/min; Glucose 101 mg/dL (74-106); Potassium 4.3 mmol/L (3.5-5.1); Sodium Level 142 mmol/L (136-145)
--- NOTE | 2020-10-07 15:10 | RAD_ITS ---
STUDY: X-RAY - PELVIS REASON FOR EXAM: Male, 50 years old. Ethanol. Legs gave out. TECHNIQUE: One view of the pelvis was obtained. COMPARISON: None. FINDINGS: There is a non-specific bowel gas pattern. Normal visualized soft tissue structures. Normal bilateral iliac wings, sacroiliac joints and visualized sacrum. Normal visualized bilateral superior and inferior pubic rami. Normal pubic symphysis. Normal ischial tuberosities. Normal visualized right femoral head. Normal right acetabulum. Normal right hip joint. Normal visualized left femoral head. Normal left acetabulum. Normal left hip joint. RAD/Pelvis 1 or 2 Views IMPRESSION: No abnormality of the pelvis. Electronically Signed: Aniceto Posada MD at 15:38 EST , Service support ,
--- NOTE | 2020-10-07 16:25 | ED.VISSUMM ---
- ER Visit Summary Date of Service: 10/07/20 Chief Complaint: Alcohol intoxication History of Present Illness: The patient is a 50 M found on someone's porch passed out. Patient admits to drinking today. He states his legs frequently go out on him and he falls. He states this has been ongoing for the past year. He states he falls frequently. He denies hitting his head today. Complains of bilateral lower leg pain. Denies other complaints. Physical Examination: Vitals are stable. Patient is afebrile. Alert no acute distress. HEENT exam is unremarkable. Neck is nontender Lungs are clear and equal bilaterally. Heart is regular rate and rhythm. Abdomen is soft nontender nondistended. Extremities nontender, normal distal pulses. Skin is warm and dry. No focal neurologic deficit. Normal strength and sensation. He is able to hold both legs off the bed for over 10 seconds. Remainder of exam is unremarkable. Emergency Department Course and Treatment: Alcohol level 391. Chemistry panel unremarkable. Pelvis x-ray, bilateral tib-fib x-rays are unremarkable. CT head will be obtained and is pending at this time. Patient will be checked out to oncoming physician for reevaluation. Disposition: Pending Impression: Alcohol intoxication This note was generated with [employer] dictation software. It may contain incorrect words, spelling, and punctuation that were not noted in review of the chart prior to signing ED Disposition - Plan for ED Patient: Referrals: Care Physician,No Primary [Primary Care Provider] -
--- NOTE | 2020-10-07 16:28 | CT_ITS ---
STUDY: CT BRAIN WITHOUT CONTRAST REASON FOR EXAM: Male, 50 years old. FALL, FOUND DRUNK ON SOMEONES PORCH RADIATION DOSAGE (If Supplied By Facility): CTDIvol = ( 44.99 ) mGy, DLP = ( 796.11 ) mGycm TECHNIQUE: Transaxial CT imaging of the brain was performed without administration of intravenous contrast material. Individualized dose optimization techniques were used for this CT. COMPARISON: Head CT dated JANUARY 12, 2020 FINDINGS: Normal soft tissue structures. Normal calvarium. No visualized fracture. No visualized hemorrhagic contusions. There is mild cerebral atrophy with widening of the extra-axial spaces and ventricular dilatation. There are areas of decreased attenuation within the white matter tracts of the supratentorial brain, consistent with microvascular disease changes. Normal basal ganglia and thalami. Normal brainstem. Normal cerebellum. There is no intracranial hemorrhage. There are no findings of an acute ischemic infarction. Normal visualized paranasal sinuses. CT/Brain/Head without Contrast IMPRESSION: Chronic involutional changes of the brain. Electronically Signed: Alonso Dunne MD at 17:00 EST , Service support ,
[2020-10-08 01:23] VITALS: BP 139/82; PULSE 95; RESP 20; O2SAT 93
[2020-10-08 02:15] VITALS: BP 160/86; PULSE 82; RESP 16; O2SAT 95
[2020-10-08 03:19] VITALS: BP 123/76; PULSE 81; RESP 18; O2SAT 91
--- NOTE | 2020-10-08 04:13 | ED.DCSUM_ITS ---
- ER Visit Summary Date of Service: 10/08/20 This patient was checked out to me with period of observation for alcohol intoxication pending. He denies any suicidal ideation. He does not want help with his alcohol abuse. Test Results: Clinical Impression(s) from Imaging Studies Tibia/Fibula X-Ray 10/07/20 14:07 IMPRESSION: No abnormality of the left tibia or fibula. Electronically Signed: Aniceto Posada MD at 15:35 EST , Service support , Tibia/Fibula X-Ray 10/07/20 14:11 IMPRESSION: No abnormality of the right tibia or fibula. Electronically Signed: Aniceto Posada MD at 15:35 EST , Service support , Pelvis X-Ray 10/07/20 15:10 IMPRESSION: No abnormality of the pelvis. Electronically Signed: Aniceto Posada MD at 15:38 EST , Service support , Brain CT 10/07/20 16:28 IMPRESSION: Chronic involutional changes of the brain. Electronically Signed: Alonso Dunne MD at 17:00 EST , Service support , Emergency Department Course and Treatment: Patient has slept comfortably throughout his stay in the emergency department. Treatment Plan: Patient be discharged instructions follow-up 180 soon as possible. Return to the emergency department for any worsening symptoms. Disposition: To home in improved and stable condition. Impression: 1. Alcohol intoxication. This note was generated with [employer] software. It may contain incorrect words, spelling, and punctuation that were not noted in review of the chart prior to signing ED Disposition - Plan for ED Patient: Instructions: ED Alcohol Intoxication Referrals: [facility] [STAFF PHYSICIAN] - As soon as possible
[2020-10-08 04:31] VITALS: BP 129/73; PULSE 83; RESP 16; O2SAT 91
[2020-10-08 05:30] VITALS: BP 124/59; PULSE 75; RESP 16; O2SAT 91
[2020-10-08 06:14] VITALS: BP 121/54; PULSE 72; RESP 16; O2SAT 91
--- NOTE | 2020-10-08 08:20 | ED.RN ---
LISTED CONTACT- JOHN- CONTACTED, MESSAGE LEFT TO PICK PATIENT UP.
--- NOTE | 2020-10-08 09:46 | RAD_ITS ---
STUDY: X-RAY - RIGHT FOOT CLINICAL: Male, 50 years old. pain right foot and both legs TECHNIQUE: 3 view(s) of the foot. COMPARISON: 03/04/2020. FINDINGS: No acute fracture, dislocation or osseous destruction. Mild joint space narrowing at the distal interphalangeal joints. Healing/remodeling right fourth proximal phalanx base fracture. Healed/remodeled third proximal phalanx head fracture. No significant soft tissue swelling. RAD/Foot min 3 Views IMPRESSION: Healing/remodeling fourth proximal phalanx base fracture Healed/remodeled third proximal phalanx head fracture Mild DIP joint space narrowing Electronically Signed: Masood Zhu DO at 10:15 EST Tel , Service support ,
--- NOTE | 2020-10-08 10:51 | NURSING ---
HIS RIDE, JOHN CRUMP, [phone] IS HERE
--- NOTE | 2020-10-08 11:06 | ED.RN ---
PT REFUSED CRUTCHES.
--- NOTE | 2020-10-08 11:06 | ED.RN ---
DISCHARGE INSTRUCTIONS GIVEN TO PATIENT, PATIENT TO FAMILY VEHICLE VIA WHEELCHAIR.
== END 2020-10-08 11:06 | disposition home or self-care (01) ==
PROVIDERS: Emergency Medicine; Emergency Provider Emergency Medicine
DX: F10.129 Alcohol abuse with intoxication, unspecified (principal); F17.200 Nicotine dependence, unspecified, uncomplicated
CPT/HCPCS: 70450; 72170; 73590; 73630; 80048; 82077; 99284; A4216

== ENCOUNTER 2020-11-24 23:39 | Emergency (ER) | payer MEDICAID, SELFPAY ==
[2020-10-07 13:50] VITALS: BMI 28.3
[2020-11-24 23:40] VITALS: BP 121/108; PULSE 83; RESP 18; TEMP 36.7; O2SAT 98; BMI 28.9
[2020-11-24 23:44] VITALS: BP 121/108; PULSE 83; RESP 18; TEMP 36.7; O2SAT 98
--- NOTE | 2020-11-24 23:57 | EKG12_ITS ---
Test Reason : DYSRHYTHMIA Blood Pressure : / mmHG Vent. Rate : 063 BPM Atrial Rate : 063 BPM P-R Int : 140 ms QRS Dur : 080 ms QT Int : 430 ms P-R-T Axes : -15 022 038 degrees QTc Int : 440 ms Normal sinus rhythm Low voltage QRS Septal infarct , age undetermined Abnormal ECG Confirmed by WILD BAEZ, MARCELA ([id number]), story editor NEHEMIAH VELAZCO ([id number]) on 11/26/2020 9:34:28 AM Referred By: Confirmed By:MARCELA ROME MD
--- NOTE | 2020-11-24 23:59 | ED.DCSUM_ITS ---
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 Symptoms have been present for several days. Also notes that he is chilled but without fever. There is nothing new tonight compared to the past several days other than the people who his basement I was in told me it was a good idea to get checked out. He states that he has not been drinking today but there is probably some leftover in his system from yesterday. It is 2355 hrs. during my H&P. Patient states that his eyes are bloodshot because he has not been sleeping. States he has frequent falls and is not sure why but that is been going on for years and probably related to his alcohol he states. He denies any fever. He denies shortness of breath or chest pains. No abdominal pain. He denies any history of congestive heart failure. He states he sees a doctor but does not know the name because he has not seen that doctor for several years. - Past Medical History (1) Alcohol abuse Status: Chronic (2) Insomnia Status: Chronic (3) Malnutrition Status: Chronic (4) Tobacco dependence Status: Chronic Past Medical History - Allergies and Home Meds Allergies/Adverse Reactions: Allergies No Known Allergies Allergy (Verified 11/24/20 23:50) Primary Care Physician: Care Physician,No Primary [Primary Care Provider] - Surgical History: noncontributory Lives: Alone Smoking Status: Current every day smoker Alcohol: Heavy Drugs: None - Family History Maternal Family History: Reports: Renal Disease Paternal Family History: Reports: Cancer Review of Systems General: Reports: Malaise. Denies: Chills, Fever, Sweats Eyes: Denies: Visual changes - bilaterally, Diplopia ENT: Denies: Rhinorrhea, Sore throat Cardiovascular: Denies: Chest pain, Palpitations Respiratory: Reports: Cough. Denies: Dyspnea, Dyspnea on exertion Gastrointestinal: Denies: Abdominal pain, Nausea, Vomiting, Diarrhea, Melena, Hematochezia Genitourinary: Denies: Dysuria, Hematuria, Frequency Musculoskeletal: Reports: Swelling. Denies: Back pain, Extremity Pain Skin: Denies: Rash, Wounds Neurological: Denies: Headache, Weakness, Numbness Physical Exam Vital Signs/Narrative: Vital Signs Temp Pulse Resp BP Pulse Ox 11/24/20 23:44 98.0 F 83 18 121/108 H 98 11/24/20 23:40 98.0 F 83 18 121/108 H 98 Inital Vital Signs reviewed: Yes General: Well nourished, Well developed, Unkempt, No Acute Distress Head: Normocephalic, Atraumatic Eyes: Perrl, EOMI, - - Bilateral conjunctival injection without exudate ENT: Moist mucous membranes, No rhinorrhea Neck: Supple, Nontender Cardiovascular: Regular rate, Regular rhythm, No murmurs Respiratory: No distress, CTA bilaterally, Chest nontender Abdomen: Soft, Nontender, Nondistended, Normal bowel sounds Back: Nontender, Normal Inspection Extremities: Nontender, Edema - Mild 1+ lower extremity edema to the level of the mid tibia Skin: Normal color, No rash, Trauma - Patient has multiple sites of contusion of various ages of healing Neurological: Alert, Oriented x3, Cranial nerves II-XII grossly intact, Normal Strength, Normal Sensation Psychological: Normal affect, Normal Mood Diagnostic/Tx/Re-eval Clinical Impression(s) from Imaging Studies Chest X-Ray 11/25/20 00:00 IMPRESSION: COPD. Lungs are clear. Electronically Signed: David Karmen at 0:27 EDT Tel , Service support , Laboratory Last Values WBC 3.9 K/mm3 (4.4-11.0) L 11/25/20 00:30 Corrected WBC Cancelled 11/25/20 00:05 RBC 4.10 M/mm3 (4.6-6.2) L 11/25/20 00:30 Hgb 14.5 g/dL (13.0-16.5) 11/25/20 00:30 Hct 41.7 % (40-54) 11/25/20 00:30 MCV 101.7 fL (80-94) H 11/25/20 00:30 MCH 35.4 pg (27.0-32.0) H 11/25/20 00:30 MCHC 34.8 g/dL (32-36) 11/25/20 00:30 RDW Std Deviation 48.6 fl (35.1-43.9) H 11/25/20 00:30 RDW Coeff of Lesvia 13.0 % (11.6-14.6) 11/25/20 00:30 Plt Count 44 K/mm3 (150-450) L* 11/25/20 00:30 MPV 11.0 fl (6.2-12.0) 11/25/20 00:30 Immature Gran % (Auto) 0.000 % (0.0-0.9) 11/25/20 00:30 Neut % (Auto) 45.9 % (47-70) L 11/25/20 00:30 Lymph % (Auto) 41.1 % (19-41) H 11/25/20 00:30 Real % (Auto) 10.2 % (0-10) H 11/25/20 00:30 Eos % (Auto) 2.3 % (0-5) 11/25/20 00:30 Baso % (Auto) 0.5 % (0-1) 11/25/20 00:30 Absolute Neuts (auto) 1.8 X10^3/uL (2.0-7.7) L 11/25/20 00:30 Absolute Lymphs (auto) 1.61 X10^3/uL (0.83-4.51) 11/25/20 00:30 Total Counted Cancelled 11/25/20 00:05 Neutrophils % (Manual) Cancelled 11/25/20 00:05 Band Neutrophils % Cancelled 11/25/20 00:05 Lymphocytes % (Manual) Cancelled 11/25/20 00:05 Monocytes % (Manual) Cancelled 11/25/20 00:05 Eosinophils % (Manual) Cancelled 11/25/20 00:05 Basophils % (Manual) Cancelled 11/25/20 00:05 Metamyelocytes % Cancelled 11/25/20 00:05 Myelocytes % Cancelled 11/25/20 00:05 Promyelocytes % Cancelled 11/25/20 00:05 Blast Cells % Cancelled 11/25/20 00:05 Plasma Cell % (Manual) Cancelled 11/25/20 00:05 Other Cells % Cancelled 11/25/20 00:05 Nucleated RBC % 0 % (0-5) 11/25/20 00:30 Nucleated RBCs/100 WBC Cancelled 11/25/20 00:05 Differential Comment Cancelled 11/25/20 00:05 Diff Path Review May foll 11/25/20 00:30 Hypersegmented Neuts Cancelled 11/25/20 00:05 Atypical Lymphocytes Cancelled 11/25/20 00:05 Reactive Lymphocytes Cancelled 11/25/20 00:05 Smudge Cells Cancelled 11/25/20 00:05 Toxic Granulation Cancelled 11/25/20 00:05 Toxic Vacuolation Cancelled 11/25/20 00:05 Dohle Bodies Cancelled 11/25/20 00:05 Rashmi Rods Cancelled 11/25/20 00:05 Platelet Estimate Cancelled 11/25/20 00:05 Plt Morphology Comment Cancelled 11/25/20 00:05 RBC Morphology Cancelled 11/25/20 00:05 RBC Morphology Cancelled 11/25/20 00:05 Polychromasia Cancelled 11/25/20 00:05 Hypochromasia Cancelled 11/25/20 00:05 Poikilocytosis Cancelled 11/25/20 00:05 Basophilic Stippling Cancelled 11/25/20 00:05 Anisocytosis Cancelled 11/25/20 00:05 Microcytosis Cancelled 11/25/20 00:05 Macrocytosis Cancelled 11/25/20 00:05 Spherocytes Cancelled 11/25/20 00:05 Sickle Cells Cancelled 11/25/20 00:05 Target Cells Cancelled 11/25/20 00:05 Tear Drop Cells Cancelled 11/25/20 00:05 Ovalocytes Cancelled 11/25/20 00:05 Stomatocytes Cancelled 11/25/20 00:05 Green-Jeannette Bodies Cancelled 11/25/20 00:05 Alfonso Cells Cancelled 11/25/20 00:05 Bite Cells Cancelled 11/25/20 00:05 Crenated Cell Cancelled 11/25/20 00:05 Acanthocytes (Spur) Cancelled 11/25/20 00:05 Rouleaux Cancelled 11/25/20 00:05 Schistocytes Cancelled 11/25/20 00:05 PT 15.0 SECONDS (11.7-14.9) H 11/25/20 00:05 INR 1.2 11/25/20 00:05 APTT 26.4 Seconds (24.1-36.2) 11/25/20 00:05 Sodium 140 mmol/L (136-145) 11/25/20 00:05 Potassium 3.9 mmol/L (3.5-5.1) 11/25/20 00:05 Chloride 107 mmol/L (98-107) 11/25/20 00:05 Carbon Dioxide 26.0 mmol/L (21.0-32.0) 11/25/20 00:05 Anion Gap 7 (5-15) 11/25/20 00:05 BUN 5 mg/dL (7-18) L 11/25/20 00:05 Creatinine 0.51 mg/dL (0.70-1.30) L 11/25/20 00:05 Estim Creat Clear Calc 156.37 ml/min 11/25/20 00:05 Est GFR (MDRD) Af Amer 222 mL/min (>60) 11/25/20 00:05 Est GFR (MDRD) Non-Af 184 mL/min (>60) 11/25/20 00:05 BUN/Creatinine Ratio 9.8 RATIO (10-20) L 11/25/20 00:05 Glucose 83 mg/dL (74-106) 11/25/20 00:05 Calcium 8.4 mg/dL (8.5-10.1) L 11/25/20 00:05 Magnesium 1.9 mg/dL (1.6-2.6) 11/25/20 00:40 Total Bilirubin 1.50 mg/dL (0.20-1.00) H 11/25/20 00:05 Direct Bilirubin 0.55 mg/dL (0.00-0.30) H 11/25/20 00:05 AST 63 U/L (15-37) H 11/25/20 00:05 ALT 29 U/L (16-61) 11/25/20 00:05 Alkaline Phosphatase 234 U/L (45-117) H 11/25/20 00:05 Troponin I < 0.015 ng/mL (<0.045) 11/25/20 00:05 B-Natriuretic Peptide 76.6 pg/mL (0-100) 11/25/20 00:30 Total Protein 7.6 g/dL (6.4-8.2) 11/25/20 00:05 Albumin 2.8 g/dL (3.2-5.0) L 11/25/20 00:05 Globulin 4.8 g/dL (2.2-4.2) H 11/25/20 00:05 Lipase 443 U/L (73-393) H 11/25/20 00:05 Ethyl Alcohol 145.0 mg/dL 11/25/20 00:05 - EKG Initial EKG Interpretation: Sinus Rhythm - EKG demonstrates a normal sinus rhythm at a rate of 63. No concerning features of ACS or ectopy noted. - Medical Decision Making Blood work was discussed with the patient. Changes are consistent with long- term alcohol abuse. Is no thrombocytopenia. Slight elevation of AST and elevated bilirubin. His BMP is normal chest x-ray is clear. Covid influenza is negative. Patient is resting comfortably tolerating p.o. fluids. He has normal vital signs. Patient will be given a prescription for Lasix. He was advised that he has to quit smoking he has to seek help for his alcohol addiction and that his lymphedema may in fact become more of a chronic issue due to his long- term abuses. ED Disposition - Plan for ED Patient: Disposition: Home or Assisted Living Diagnosis: Alcohol abuse, Tobacco dependence, Lymphedema, Thrombocytopenia Instructions: ED Lymphedema Prescriptions: Furosemide [Lasix] 40 mg PO DAILY #5 tab Prescription Printed Referrals: Michelle Samuels MD [STAFF PHYSICIAN] - 1 Week [facility] [STAFF PHYSICIAN] - As soon as possible (for alcohol addiction)
--- NOTE | 2020-11-25 | RAD_ITS ---
STUDY: X-RAY CHEST REASON FOR EXAM: Male, 50 years old. cough TECHNIQUE: Single AP portable view of the chest. COMPARISON: 06/11/2019 FINDINGS: There is hyperinflation of the lungs consistent with chronic obstructive lung disease (COPD). Lungs are clear. There is no demonstrated pleural abnormality. Normal size heart. Normal mediastinum and maryam. Normal visualized pulmonary arteries. Normal visualized aortic arch and descending thoracic aorta. Normal visualized thoracic spine. Normal visualized ribs, clavicles, and shoulders. There is no demonstrated abnormality of the visualized soft tissue structures of the upper abdomen. RAD/Chest 1 View (Portable) IMPRESSION: COPD. Lungs are clear. Electronically Signed: David Peraza DO at 0:27 EDT Tel , Service support ,
[2020-11-25 00:11] VITALS: BP 143/88; PULSE 71; RESP 18; O2SAT 98
[2020-11-25 00:22] LABS: International Normalized Ratio 1.2
[2020-11-25 00:24] LABS: Partial Thromboplast Time 26.4 Seconds (24.1-36.2)
[2020-11-25 00:34] LABS: AST(SGOT) 63 U/L (15-37); Alanine Aminotransfer ALT/SGPT 29 U/L (16-61); Albumin, Serum 2.8 g/dL (3.2-5.0); Alkaline Phosphatase 234 U/L (45-117); Anion Gap 7 (5-15); BUN 5 mg/dL (7-18); BUN/Creat Ratio 9.8 RATIO (10-20); Bilirubin, Direct 0.55 mg/dL (0.00-0.30); Calcium,Total 8.4 mg/dL (8.5-10.1); Chloride 107 mmol/L (98-107); Creatinine, Serum 0.51 mg/dL (0.70-1.30); EST Glomerular Filtration Rate 184 mL/min (>60); Est Glom Filt Rate - Afr Amer 222 mL/min (>60); Estimated Creatinine Clearance 156.37 ml/min; Globulin 4.8 g/dL (2.2-4.2); Glucose 83 mg/dL (74-106); Lipase 443 U/L (73-393); Potassium 3.9 mmol/L (3.5-5.1); Protein, Total 7.6 g/dL (6.4-8.2); Sodium Level 140 mmol/L (136-145)
[2020-11-25 00:38] LABS: Absolute Lymphocyte Count 1.61 X10^3/uL (0.83-4.51); Absolute Neutrophil Count 1.8 X10^3/uL (2.0-7.7); Basophil# 0.02 X10^3/uL; Basophil% 0.5 % (0-1); Eosinophil# 0.09 X10^3/uL; Eosinophils% 2.3 % (0-5); Hematocrit 41.7 % (40-54); Hemoglobin 14.5 g/dL (13.0-16.5); Lymphocyte # 1.61 X10^3/ul (4.0); Lymphocyte % 41.1 % (19-41); Mean Corp Hgb Conc 34.8 g/dL (32-36); Mean Corpuscular Hgb 35.4 pg (27.0-32.0); Mean Corpuscular Volume 101.7 fL (80-94); Monocyte% 10.2 % (0-10); NRBC Flagged by Analyzer 0 % (0-5); Neutrophil % 45.9 % (47-70); POSITIVE COUNT YES; RBC Distribution Width SD 48.6 fl (35.1-43.9); White Blood Count 3.9 K/mm3 (4.4-11.0)
[2020-11-25 00:45] LABS: Differential Indicated SCAN CRITERIA MET; Platelet Count 44 K/mm3 (150-450)
[2020-11-25 00:58] LABS: Magnesium 1.9 mg/dL (1.6-2.6)
[2020-11-25 01:02] VITALS: BP 130/78; PULSE 67; RESP 16; TEMP 36.7; O2SAT 95
[2020-11-25 01:22] LABS: BNP,B-Type NATRIURETIC PEPTIDE 76.6 pg/mL (0-100)
[2020-11-25 02:52] VITALS: BP 137/76; PULSE 80; RESP 16
[2020-11-25 04:36] VITALS: RESP 18
[2020-11-25 05:46] VITALS: RESP 18
[2020-11-25 12:18] LABS: Pathologist Review Reviewed
== END 2020-11-25 07:29 | disposition home or self-care (01) ==
PROVIDERS: Emergency Provider Emergency Medicine
DX: F10.10 Alcohol abuse, uncomplicated (principal); F17.200 Nicotine dependence, unspecified, uncomplicated; I89.0 Lymphedema, not elsewhere classified; D69.6 Thrombocytopenia, unspecified
CPT/HCPCS: 71045; 80048; 80076; 82077; 83690; 83735; 83880; 84484; 85025; 85610; 85730; 87426; 87804; 93005; 99285; A4216

== ENCOUNTER 2021-06-16 17:36 | Inpatient (IN) | payer MEDICAID, SELFPAY ==
[2021-06-16 17:40] VITALS: BP 116/72; PULSE 88; RESP 16; TEMP 37.1; O2SAT 95; BMI 27.2
--- NOTE | 2021-06-16 17:57 | RAD_ITS ---
INDICATION: cough EXAMINATION/TECHNIQUE: X-RAY - XR Chest 1 View COMPARISON: 11/25/2020. FINDINGS: Bibasilar airspace opacities. Tortuous and calcified thoracic aorta. The heart is not enlarged. No pleural effusion or pneumothorax. No acute osseous abnormalities. RAD/Chest 1 View (Portable) IMPRESSION: Bibasilar airspace opacities may represent edema and/or infection. Electronically Signed: Jordan Adam MD at 18:43 EDT Tel , Service support ,
--- NOTE | 2021-06-16 17:58 | EKG12_ITS ---
Test Reason : SOB Blood Pressure : / mmHG Vent. Rate : 076 BPM Atrial Rate : 076 BPM P-R Int : 178 ms QRS Dur : 100 ms QT Int : 432 ms P-R-T Axes : 030 011 029 degrees QTc Int : 486 ms Sinus rhythm with Premature atrial complexes Septal infarct , age undetermined Abnormal ECG Confirmed by MORE BAEZ, TAMIKA ([id number]), videotape editor NEHEMIAH VELAZCO ([id number]) on 06/22/2021 9:46:39 A M Referred By: NATHANAEL Confirmed By:JOHNNA AGUERO MD
--- NOTE | 2021-06-16 17:59 | EDS_ITS ---
HPI History of Present Illness Chief Complaint: Fatigue Detail of Chief Complaint: Fatigue and general weakness Informant: patient and family Narrative Narrative: Patient presents to the emergency department with family member whom the patient is living with currently. Patient apparently been sleeping more and had been sick starting 5 or 6 days ago into the weekend where he was vomiting and at times vomiting blood. Patient has a history of alcohol abuse and cirrhosis of the liver. It is believed he only threw up blood one time and not in the last 3 days. Patient denies any abdominal pain currently. He has not had a drink in several days. Patient has had a cough for last 5 or 6 days but denies fever. He complains of some body aches. He has had the Covid vaccine. Prior similar symptoms: No PFSH PFSH Medical History Tobacco use Home Medications NK 06/16/21 [History Last Taken Unknown] Allergy/AdvReac Type Severity Reaction Status Date / Time No Known Allergies Allergy Verified 06/16/21 17:39 Social History Smoking Status: Current every day smoker tobacco type: cigarettes ROS ROS ED Constitutional Constitutional ED: Reports systems reviewed and no addt'l complaints, except as documented; Denies body ache(s), change in weight or chills Eyes Eyes: Denies acute decrease in peripheral vision, change in vision, double vision or loss of vision ENT ENT ED: Reports none; Denies ear pain, lip swelling, loss taste/smell, neck pain, otalgia or sore throat Cardiovascular Cardiovascular: Reports none; Denies abdominal pain, chest pain with activity, leg edema, lightheadedness, palpitations, rapid heart rate or syncope Respiratory/Chest Respiratory/Chest: Reports none and cough; Denies change in mental status, dry cough, dyspnea, hemoptysis, shortness of breath at rest or shortness of breath with exertion Gastrointestinal Gastrointestinal: Reports none, nausea and vomiting; Denies abdominal pain, change in stool character, diarrhea, hematemesis, hematochezia, melena or rectal bleeding Genitourinary Genitourinary ED: Reports none; Denies abdominal discomfort, anuria, dysuria, genital pain or polyuria Musculoskeletal Musculoskeletal: Reports none; Denies arthralgias, back pain, difficulty walking, extremity pain, muscle weakness or myalgias Integumentary Reports none; Denies abscess or rash Neurologic Neurologic: Reports none; Denies abnormal gait, confusion, focal weakness, f requent falls, headache(s), loss of vision, numbness, paresthesias, radicular pain, vertigo or weakness Psychiatric Psychiatric: Reports systems reviewed and no addt'l complaints, except as documented and none; Denies behavioral changes, confusion, difficulty concentrating, hallucinations, suicidal ideation, tactile hallucinations or visual hallucinations Endocrine Endocrinology: Denies none, cold intolerance, excessive sweating, fatigue or heat intolerance Hematologic/Lymphatic Hematologic/Lymphatic: Reports none; Denies anemia, easy bleeding or easy bruising Allergic/Immunologic Allergic/Immunologic ED: Denies as per HPI, none, lip swelling, mouth swelling, throat swelling, tongue swelling or hives EXAM Physical Exam Const Vital Signs: 06/16/21 17:40 06/16/21 17:43 06/16/21 19:06 Temperature 98.7 F 98.6 F Temperature Source Temporal Oral Pulse Rate 88 74 Respiratory Rate 16 24 H Respiratory Effort Normal Non-Labored Respiratory Pattern Normal Blood Pressure 116/72 126/72 H Blood Pressure Mean 86 90 Pulse Ox 95 97 Oxygen Delivery Method Room Air Room Air Positive well nourished and well developed General Appearance ED: well developed and NAD HEENT Reports TM's clear and moist mucous membranes normocephalic and atraumatic; Negative for trauma or tenderness Tympanic Membrane ED: Yes TM's clear Eyes PERRL and EOMs intact bilaterally General Eye ED: Negative for pale conjunctiva or scleral icterus Neck no lymphadenopathy, supple and no JVD General: Negative for tenderness Chest Wall inspection of chest normal and palpation of chest normal Chest: Negative for tenderness Resp normal respiratory effort and clear to auscultation bilaterally Effort and Inspection: Negative for respiratory distress or pain with movement Auscultation: Negative for rhonchi, wheezes or diminished lung sounds Cardio regular rate, regular rhythm, S1 normal heart sound, S2 normal heart sound and no murmurs Peripheral Pulses: pulses 2+ throughout GI normal to inspection, nondistended, normoactive bowel sounds, soft to palpation, non-tender, non-distended and no masses Back/Spine no CVA tenderness and no thoracic nor lumbar tenderness Extremity normal to inspection General Extremety ED: Negative for edema General Extremity: Negative for edema Neuro oriented x3, CN's II-XII intact bilaterally, no sensory deficits noted and gait normal Sensorium / Orientation: awake, alert, oriented to person, oriented to place and oriented to time Motor Exam: strength 5/5 throughout and strength abnormal Psych mental status grossly normal Skin no rashes or lesions noted and no wounds MDM MDM MDM Narrative Medical decision making narrative: Patient noted to be positive for COVID-19. X-ray consistent with bilateral infiltrates. Patient also has an elevated bilirubin which may be related to the Covid. Case discussed with hospitalist who will evaluate patient for admission Lab Data Attestation: I reviewed the patient's lab results. Labs: Laboratory Results - last 24 hr 06/16/21 06/16/21 06/16/21 18:18 18:18 18:18 WBC 7.0 RBC 3.42 L Hgb 11.9 L Hct 32.9 L MCV 96.2 H MCH 34.8 H MCHC 36.2 H RDW Std Deviation 50.7 H RDW Coeff of Lesvia 14.5 Plt Count 66 L MPV 11.3 Immature Gran % (Auto) 0.400 Neut % (Auto) 61.1 Lymph % (Auto) 15.2 L [place] % (Auto) 22.8 H Eos % (Auto) 0.4 Baso % (Auto) 0.1 Absolute Neuts (auto) 4.3 Absolute Lymphs (auto) 1.06 Nucleated RBC % 0 Platelet Estimate MKD DEC PT 18.7 H INR 1.6 Sodium 130 L Potassium 4.2 Chloride 95 L Carbon Dioxide 27.0 Anion Gap 8 BUN 9 Creatinine 0.76 Estim Creat Clear Calc 104.93 Est GFR (MDRD) Af Amer 139 Est GFR (MDRD) Non-Af 115 BUN/Creatinine Ratio 11.8 Glucose 93 Lactic Acid Calcium 8.0 L Total Bilirubin 7.70 H AST 98 H ALT 35 Alkaline Phosphatase 130 H Ammonia Troponin I High Sens 7 Total Protein 6.5 Albumin 1.6 L Globulin 4.9 H Albumin/Globulin Ratio 0.3 L Lipase 303 Ethyl Alcohol 06/16/21 06/16/21 06/16/21 18:18 18:18 18:18 WBC RBC Hgb Hct MCV MCH MCHC RDW Std Deviation RDW Coeff of Lesvia Plt Count MPV Immature Gran % (Auto) Neut % (Auto) Lymph % (Auto) [place] % (Auto) Eos % (Auto) Baso % (Auto) Absolute Neuts (auto) Absolute Lymphs (auto) Nucleated RBC % Platelet Estimate PT INR Sodium Potassium Chloride Carbon Dioxide Anion Gap BUN Creatinine Estim Creat Clear Calc Est GFR (MDRD) Af Amer Est GFR (MDRD) Non-Af BUN/Creatinine Ratio Glucose Lactic Acid 2.0 Calcium Total Bilirubin AST ALT Alkaline Phosphatase Ammonia 53.0 H Troponin I High Sens Total Protein Albumin Globulin Albumin/Globulin Ratio Lipase Ethyl Alcohol 9.0 Radiography Chest X-Ray - ED: 1 View Diagnostic Testing: Radiology Impression Chest X-Ray 06/16/21 17:57 IMPRESSION: Bibasilar airspace opacities may represent edema and/or infection. Electronically Signed: Jordan Adam MD at 18:43 EDT Tel , Service support , Interpreted by myself as bilateral infiltrates. Radiology in agreement. Discharge Plan Triage Chief Complaint: Fatigue ED Provider: Rocael Scott Dx/Rx/DC Orders Clinical Impression: COVID-19, Hyperbilirubinemia, Hematemesis Prescriptions: No Action NK RF: 0 Primary Care Provider: Care Physician,No Primary Referrals: Care Physician,No Primary [Primary Care Provider] - Disposition Disposition: Acute Care Hospital [facility]
[2021-06-16] MEDS: 0.9% Normal Saline 1,000 ML 150 ML IV (18:23)
[2021-06-16 18:36] LABS: International Normalized Ratio 1.6; Prothrombin Time (Protime)PT. 18.7 SECONDS (11.7-14.9)
[2021-06-16 18:43] LABS: Absolute Lymphocyte Count 1.06 X10^3/uL (0.83-4.51); Absolute Neutrophil Count 4.3 X10^3/uL (2.0-7.7); Basophil# 0.01 X10^3/uL; Basophil% 0.1 % (0-1); Eosinophil# 0.03 X10^3/uL; Eosinophils% 0.4 % (0-5); Hematocrit 32.9 % (40-54); Hemoglobin 11.9 g/dL (13.0-16.5); Lymphocyte # 1.06 X10^3/ul (0.83-4.51); Lymphocyte % 15.2 % (19-41); Mean Corp Hgb Conc 36.2 g/dL (32-36); Mean Corpuscular Hgb 34.8 pg (27.0-32.0); Mean Corpuscular Volume 96.2 fL (80-94); Mean Platelet Vol. 11.3 fl (6.2-12.0); Monocyte# 1.59 X10^3/uL; Monocyte% 22.8 % (0-10); NRBC Flagged by Analyzer 0 % (0-5); Neutrophil # 4.26 X10^3/uL (2.7-7.7); Neutrophil % 61.1 % (47-70); POSITIVE COUNT YES; POSITIVE DIFFERENTIAL YES; Platelet Count 66 K/mm3 (150-450); RBC Distribution Width CV 14.5 % (11.6-14.6); RBC Distribution Width SD 50.7 fl (35.1-43.9); Red Blood Count 3.42 M/mm3 (4.6-6.2)
[2021-06-16 18:45] LABS: Differential Indicated SCAN CRITERIA MET
[2021-06-16 18:52] LABS: ALB/GLOB Ratio 0.3 RATIO (0.9-2.4); AST(SGOT) 98 U/L (15-37); Alanine Aminotransfer ALT/SGPT 35 U/L (16-61); Albumin, Serum 1.6 g/dL (3.2-5.0); Alkaline Phosphatase 130 U/L (45-117); Anion Gap 8 (5-15); BUN 9 mg/dL (7-18); BUN/Creat Ratio 11.8 RATIO (10-20); Chloride 95 mmol/L (98-107); Creatinine, Serum 0.76 mg/dL (0.70-1.30); EST Glomerular Filtration Rate 115 mL/min (>60); Est Glom Filt Rate - Afr Amer 139 mL/min (>60); Estimated Creatinine Clearance 104.93 ml/min; Globulin 4.9 g/dL (2.2-4.2); Glucose 93 mg/dL (74-106); Lipase 303 U/L (73-393); Potassium 4.2 mmol/L (3.5-5.1); Protein, Total 6.5 g/dL (6.4-8.2); Sodium Level 130 mmol/L (136-145); Troponin-I HS 7 pg/mL (3.0-78.0)
[2021-06-16 19:02] LABS: Platelet Estimate MKD DEC (ADEQ)
[2021-06-16 19:06] VITALS: BP 126/72; PULSE 74; RESP 24; TEMP 37; O2SAT 97
[2021-06-16 20:00] VITALS: BP 129/80; PULSE 75; PULSE 82; RESP 24; TEMP 36.9; O2SAT 96; O2SAT 97
--- NOTE | 2021-06-16 20:44 | CT_ITS ---
STUDY: CTA CHEST REASON FOR EXAM: Male, 50 years old. elevated d-dimer RADIATION DOSAGE (If Supplied By Facility): CTDIvol = ( 18.39 ) mGy, DLP = ( 494.34 ) mGycm TECHNIQUE: The examination was performed with the intravenous administration of IV 75mL Isovue-370. Post-processing of the angiographic images was performed, with multiplanar reformation and 3D reconstruction. Individualized dose optimization techniques were used for this CT. COMPARISON: Chest x-ray 06/16/[address] chest 01/12/2020 FINDINGS: Normal enhancement of the main pulmonary artery and right and left pulmonary arteries. Normal enhancement of the bilateral peripheral pulmonary arteries. There is no demonstrated pulmonary embolism. Normal thoracic aorta and visualized great vessels. There is no demonstrated aortic dissection. Calcific coronary artery disease. Gastroesophageal varices. Normal mediastinum. Normal hilar regions. Normal visualized trachea and bronchi. Bilateral groundglass opacities and airspace disease. Normal pulmonary parenchyma. Moderate right pleural effusion. Normal chest wall structures. Impression fractures of T8 and the T11 and T12. T8 fracture appears increased. T11 and T12 are essentially unchanged. Multiple old rib fractures bilaterally. Cholelithiasis. Cirrhosis. Gastrosplenic varices. CT/CTA Chest W/WO Contrast IMPRESSION: Bilateral airspace disease. Moderate right pleural effusion. Coronary artery disease. Cirrhosis, varices. Multiple compression fractures thoracic spine. Electronically Signed: Kevin Ambrosio MD at 22:31 EDT , Service support ,
[2021-06-16 21:02] LABS: Bilirubin, Direct 2.57 mg/dL (0.00-0.30)
--- NOTE | 2021-06-16 22:01 | HP.PCM.HOS_ITS ---
HPI - General HPI Narrative CIARA MARTINEZ, is a 50 M who presented to the emergency department [facility] on 06/16/2021 with a chief complaint of fatigue and general weakness. Patient lives with family members and one of his family members brought him to the emergency department because he has been sleeping more and has been sick for approximately 5 to 6 days. 3 days ago he was vomiting to the point where he had hematemesis. Family reports he is not had any hematemesis proximately 3 days now but he has not taken in much p.o. at this time. He is able to get up and ambulate independently to the bathroom and uses a cane to do so at baseline. The family member states he has a history of heavy alcohol abuse which she still uses and suspected cirrhosis of the liver. Family reports has not had anything to drink in several days and currently is showing no signs of withdrawal. He is currently complaining of some nausea that is mild, fatigue, and some myalgias. He has been vaccinated for Covid. Rapid Covid test was performed and was positive. His vital signs are currently overall unremarkable other than some mild tachypnea but his oxygen saturations are 96 to 97% on room air. He has been afebrile throughout his ED course. His CBC shows a very mild anemia with a hemoglobin of 11.9 and thrombocytopenia which is chronic for him. Current platelet count is 66,000. His white count is normal. His serum sodium is 130 and his chloride is 95 but his electrolytes are otherwise unremarkable. His renal function is normal. He has an elevated AST at 98 with a normal ALT and a mildly elevated alk phos at 130. His ammonia is elevated at 53. His total bilirubin is 7.70. Troponin was obtained and was no rmal at 7. His lactic acid was 2. His D-dimer was greater than 2 and therefore a CTA was performed and shows bilateral airspace disease with a moderate right pleural effusion, cirrhosis, varices and multiple compression fractures of the thoracic spine but no pulmonary embolus. Given his decreased ability to care of himself and his hyperbilirubinemia that appears to be severe with his recent hem atemesis he will be admitted and we will ask GI to evaluate the patient. [facility] Medical History Tobacco use Home Medications NK 06/16/21 [History Last Taken Unknown] Allergy/AdvReac Type Severity Reaction Status Date / Time No Known Allergies Allergy Verified 06/16/21 17:39 Social History (Updated 06/16/21 @ 22:[address] Beth Nunez, DO) Smoking Status: Current every day smoker tobacco type: cigarettes alcohol intake: current substance use type: does not use ROS Constitutional Constitutional: Reports anorexia, chills, fatigue, malaise and weakness; Denies change in weight, fever(s), night sweats or other Eyes Eyes: Denies blurry vision, change in eye color, change in vision, discharge from eye(s), double vision, erythema, eye pain, loss of vision or other ENT HEENT: Denies abnormal hearing, dysphagia, ear pain, epistaxis, headache(s), hearing loss, nasal congestion, nasal discharge, post nasal drip, sinus pressure, sore throat or other Cardiovascular Cardiovascular: Denies chest pain, claudication, dyspnea on exertion, edema, lightheadedness, orthopnea, palpitations, paroxysmal nocturnal dyspnea, rapid heart rate, syncope or other Respiratory/Chest Respiratory/Chest: Reports cough and productive cough; Denies dyspnea, excessive phlegm production, hemoptysis, shortness of breath at rest, shortness of breath with exertion, wheezing or other Gastrointestinal Gastrointestinal: Reports coffee ground emesis, loose stools and nausea Genitourinary Genitourinary: Denies burning urination, difficulty urinating, dysuria, hematuria, nocturia, urinary frequency, urinary hesitancy, urinary incontinence, urinary urgency or other Musculoskeletal Musculoskeletal: Reports myalgias; Denies arthralgias, back pain, joint pain, joint stiffness, joint swelling, neck pain or other Neurologic Neurologic: Reports confusion; Denies abnormal gait, abnormal speech, disequilibrium, dizziness, focal weakness, headache(s), numbness, paresthesias, seizure-like activity, seizures, syncope, tingling, tremor(s) or other Psychiatric Psychiatric: Denies anxiety, depression, homicidal ideation, suicidal ideation or other Endocrine Endocrinology: Denies change in body appearance, cold intolerance, excessive sweating, heat intolerance, polydipsia, polyuria or other Hematologic/Lymphatic Hematologic/Lymphatic: Denies anemia, easy bleeding, easy bruising, lymphadenopathy or other Allergic/Immunologic Allergic/Immunologic: Denies rhinitis, hives, eczemia, asthma or other Vital Signs Vital Signs Vital Signs: 06/16/21 17:40 06/16/21 17:43 06/16/21 19:06 Temperature 98.7 F 98.6 F Temperature Source Temporal Oral Pulse Rate 88 74 Respiratory Rate 16 24 H Respiratory Effort Normal Non-Labored Respiratory Pattern Normal Blood Pressure 116/72 126/72 H Blood Pressure Mean 86 90 Pulse Ox 95 97 Oxygen Delivery Method Room Air Room Air 06/16/21 20:00 Temperature 98.5 F Temperature Source Temporal Pulse Rate 75 Respiratory Rate 24 H Respiratory Effort Respiratory Pattern Blood Pressure 129/80 H Blood Pressure Mean 96 Pulse Ox 96 Oxygen Delivery Method Room Air Weight Weight: 76.5 kg Body Mass Index (BMI) 27.2 Physical Exam Const alert and no apparent distress Constitutional Narrative: Middle-age male who appears much older than stated age lying in bed with family at the bedside, mild confusion patient is alert to self, place, month but not year 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 General Appearance: cooperative HEENT normocephalic, head/scalp atraumatic and hearing grossly normal bilaterally HEENT Narrative: Mucous membranes are dry, Mallampati is 2, no thrush Eyes PERRL, EOMs intact bilaterally and conjunctivae normal Eyes Narrative: Scleral icterus is noted Neck no lymphadenopathy, supple and no JVD Neck Narrative: Trachea midline, no thyroid enlargement Resp normal respiratory effort, no retractions and no use of accessory muscles Resp Narrative: Scattered rhonchi with scattered end expiratory wheeze Auscultation: rhonchi and wheezes; Negative for crackles or rales Cardio regular rate, regular rhythm, S1 normal heart sound, S2 normal heart sound, no murmurs, no rub, no gallops, no clicks and no JVD GI normal to inspection, nondistended, normoactive bowel sounds, soft to palpation, non-tender and non-distended GI Narrative: No ascites noted Extremity no clubbing, cyanosis or edema Peripheral Pulses: Yes pulses 2+ throughout Skin skin turgor normal, no petechiae and no mottling Skin Narrative: Multiple wounds bilateral lower extremities on the shins anteriorly in various stages of healing, spider angiomata noted on chest and face, jaundice Neuro CN's II-XII intact bilaterally, moves all extremities and no focal motor deficits Neuro Narrative: Marked generalized weakness Sensorium / Orientation: awake, alert, oriented to person and oriented to place Speech: speech normal Psych Psych Narrative: Affect is flat Mood & Affect: depressed Results Lab / Micro Data Result Diagrams: 06/16/21 18:18 06/16/21 18:18 Labs: Laboratory Results - last 24 hr 06/16/21 18:16: Total Bilirubin 7.50 H, Direct Bilirubin 2.57 H, Indirect Bilirubin 4.90 H 06/16/21 18:18: WBC 7.0, RBC 3.42 L, Hgb 11.9 L, Hct 32.9 L, MCV 96.2 H, MCH 34.8 H, MCHC 36.2 H, RDW Std Deviation 50.7 H, RDW Coeff of Lesvia 14.5, Plt Count 66 L, MPV 11.3, Immature Gran % (Auto) 0.400, Neut % (Auto) 61.1, Lymph % (Auto) 15.2 L, [place] % (Auto) 22.8 H, Eos % (Auto) 0.4, Baso % (Auto) 0.1, Absolute Neuts (auto) 4.3, Absolute Lymphs (auto) 1.06, Nucleated RBC % 0, Platelet Estimate MKD 06/16/21 18:18: PT 18.7 H, INR 1.6 06/16/21 18:18: Sodium 130 L, Potassium 4.2, Chloride 95 L, Carbon Dioxide 27.0, Anion Gap 8, BUN 9, Creatinine 0.76, Estim Creat Clear Calc 104.93, Est GFR (MDRD) Af Amer 139, Est GFR (MDRD) Non-Af 115, BUN/Creatinine Ratio 11.8, Glucose 93, Calcium 8.0 L, Total Bilirubin 7.70 H, AST 98 H, ALT 35, Alkaline Phosphatase 130 H, Troponin I High Sens 7, Total Protein 6.5, Albumin 1.6 L, Globulin 4.9 H, Albumin/Globulin Ratio 0.3 L, Lipase 303 06/16/21 18:18: Ethyl Alcohol 9.0 06/16/21 18:18: Ammonia 53.0 H 06/16/21 18:18: Lactic Acid 2.0 06/16/21 18:18: D-Dimer Quant (PE/DVT) 2.30 H* Micro: Microbiology 06/16/21 18:18 Nasal Secretion SARS-CoV-2 Antigen (Rapid) - Final SARS-CoV-2 (COVID 19) Radiology Impression Chest X-Ray 06/16/21 17:57 IMPRESSION: Bibasilar airspace opacities may represent edema and/or infection. Electronically Signed: Jordan Adam MD at 18:43 EDT Tel , Service support , Assessment & Plan Assessment/Plan (1) Hyperbilirubinemia: (2) Hematemesis: (3) COVID-19: (4) Elevated d-dimer: (5) Hyponatremia: (6) Hyperammonemia: (7) Alcohol abuse: (8) Severe malnutrition: (9) Tobacco dependence: PLAN: COVID-19 infection -Patient was vaccinated with Pfizer vaccine -Currently no signs of hypoxia -No reason for remdesivir or Decadron at this time -If patient is able to be discharged home and is not requiring supplemental oxygen we could make referral for monoclonal antibodies -Continue to monitor oxygen status -Chest x-ray does show some patchy bilateral infiltrates Elevated D-dimer -CTA is pending -We will utilize Lovenox once daily with thrombocytopenia and recent hematemesis event Hematemesis -Last episode was 3 days ago -Patient would be at high risk for esophageal varices with history of liver disease -Do anticipate the patient has cirrhosis at baseline -Start Protonix IV push twice daily -Consult GI Hyperbilirubinemia -Right upper quadrant ultrasound is pending -Fractionate bilirubin although I do anticipate this is going to be an indirect hyperbilirubinemia -GI consultation Hyperammonemia -We will start lactulose -Mental status is a bit foggy but not horrible -If no improvement with resolution of hyperammonemia discontinue lactulose -I suspect the patient is cirrhotic at baseline Severe malnutrition -We will utilize clear liquid diet right now with hematemesis -N.p.o. after midnight in case EGD needs to be performed -Consult dietitian -Consider supplements once p.o. intake is able to be initiated Bilateral lower extremity wounds -No signs of infection -Consult wound care -Monitor clinically Thrombocytopenia -Chronic and relatively stable -Likely related to bone marrow toxicity and splenic sequestration with cirrhosis -Monitor counts Alcohol abuse -Approximately 3 to 4 days since last drink -No current signs of DTs -Start thiamine and folate -IV fluids with D5 normal saline -Ativan with CIWA -If shows signs of withdrawal consider initiation of phenobarb taper -Patient has had withdrawal issues in the past and has not been amenable to detox therapy Tobacco abuse -Smokes approximately 1 pack of cigarettes per day -Patient currently denying the need for any nicotine replacement therapy -Nicotine patch if patient desires Failure to thrive in the adult -Patient presented from home with fatigue and general weakness -Suspect this is all related to Covid and his underlying medical comorbidities -PT and OT evaluation DVT prophylaxis -Lovenox 40 mg daily CODE STATUS -Full code Charges/Coding Visit Charges Inpatient E&M: 26587 Init Hosp L3
[2021-06-16 22:25] LABS: Reflex Lactate? Y
[2021-06-16 23:00] VITALS: BP 121/67; PULSE 67; RESP 22; RESP 23; TEMP 36.6; O2SAT 94; O2SAT 95
[2021-06-16 23:03] VITALS: BP 115/73; PULSE 65; RESP 24; TEMP 36.8; O2SAT 93
[2021-06-16 23:48] LABS: Lactic Acid 1.7 mmol/L (0.4-1.9)
[2021-06-16 23:50] VITALS: BMI 24.3
--- NOTE | 2021-06-16 23:56 | NURSING ---
Pt reports he got two COVID vaccines, with the 2nd one being fairly recently. He also states he got his flu vaccine this year. Unable to give dates for any of the vaccines.
[2021-06-17] VITALS (12 sets, daily range): BP systolic 112–133; BP diastolic 59–86; PULSE 65–77; RESP 18–20; TEMP 36.5–37.2; O2SAT 88–97
--- NOTE | 2021-06-17 | PCS.PANDOC ---
PANDEMIC DOCUMENTATION INITIATED: Date: 04/27/2021 Time: 190
[2021-06-17] MEDS: Dextrose 5%/0.9% NaCl 1,000 ML 100 ML IV ×3 (00:05→21:47)
[2021-06-17] MEDS: Lactulose 20 GM/30 ML UDC 10 GM PO ×2 (00:15→23:18)
[2021-06-17 06:40] LABS: Absolute Lymphocyte Count 1.03 X10^3/uL (0.83-4.51); Basophil# 0.01 X10^3/uL; Basophil% 0.2 % (0-1); Eosinophil# 0.06 X10^3/uL; Eosinophils% 1.2 % (0-5); Hematocrit 29.2 % (40-54); Hemoglobin 11.1 g/dL (13.0-16.5); Lymphocyte # 1.03 X10^3/ul (0.83-4.51); Lymphocyte % 19.9 % (19-41); Mean Corpuscular Hgb 37.2 pg (27.0-32.0); Mean Platelet Vol. 12.1 fl (6.2-12.0); Monocyte# 1.07 X10^3/uL; Monocyte% 20.7 % (0-10); NRBC Flagged by Analyzer 0 % (0-5); Neutrophil # 2.98 X10^3/uL (2.7-7.7); Neutrophil % 57.6 % (47-70); POSITIVE COUNT YES; Platelet Count 64 K/mm3 (150-450); RBC Distribution Width CV 14.9 % (11.6-14.6); RBC Distribution Width SD 51.8 fl (35.1-43.9); Red Blood Count 2.98 M/mm3 (4.6-6.2); White Blood Count 5.2 K/mm3 (4.4-11.0)
[2021-06-17 06:51] LABS: Differential Indicated SCAN CRITERIA MET
[2021-06-17 07:16] LABS: ALB/GLOB Ratio 0.3 RATIO (0.9-2.4); AST(SGOT) 68 U/L (15-37); Alanine Aminotransfer ALT/SGPT 30 U/L (16-61); Albumin, Serum 1.4 g/dL (3.2-5.0); Alkaline Phosphatase 116 U/L (45-117); Anion Gap 7 (5-15); BUN 9 mg/dL (7-18); BUN/Creat Ratio 18.6 RATIO (10-20); Calcium,Total 7.8 mg/dL (8.5-10.1); Chloride 102 mmol/L (98-107); Creatinine, Serum 0.48 mg/dL (0.70-1.30); EST Glomerular Filtration Rate 194 mL/min (>60); Est Glom Filt Rate - Afr Amer 234 mL/min (>60); Estimated Creatinine Clearance 166.15 ml/min; Globulin 4.4 g/dL (2.2-4.2); Glucose 97 mg/dL (74-106); Potassium 2.7 mmol/L (3.5-5.1); Protein, Total 5.8 g/dL (6.4-8.2); Sodium Level 135 mmol/L (136-145)
[2021-06-17 07:19] LABS: Bilirubin, Direct 3.92 mg/dL (0.00-0.30)
[2021-06-17] MEDS: 0.9% Saline Lock 10 ML Syringe IV (08:38)
--- NOTE | 2021-06-17 11:22 | CASEMGMT ---
Per Isabel RN, pt is drowsy and only alert x2. This RN CM deferring assessment on pt at this time. CM to follow. SStfabian NUNEZ CM
--- NOTE | 2021-06-17 17:08 | PN.HOSP_ITS ---
Subjective Subjective Patient admitted with COVID-19 and failure to thrive. Patient is vaccinated with Pfizer. Patient has history of alcoholic cirrhosis decompensated with varices. Patient has history of chronic alcoholic cirrhosis and drinks 6 bottles of beer every day Objective Data Objective Data Vital Signs: Vital Signs Temp Pulse Resp BP Pulse Ox 98.2 F 73 18 118/72 94 06/17/21 16:00 06/17/21 16:00 06/17/21 16:00 06/17/21 16:00 06/17/21 16:00 Oxygen Flow Rate (L/min) 93 Oxygen Delivery Method Room Air Weight: 151 lb 0.266 oz Body Mass Index (BMI) 24.3 Intake & Output: Intake and Output for Last 24 Hours 06/15/21 06/16/21 06/17/21 23:59 23:59 23:59 Intake Total 1981 / 1981 Output Total 350 / 350 Balance 1632 / 1632 Medical Nutrition Assessment Dietitian: Malnutrition Criteria Met Start: 06/17/21 1 4:14 Freq: Status: Active Protocol: Document 06/17/21 14:14 BW (Rec: 06/17/21 14:15 BW [id number]) Nutrition Malnutrition Evidence of Malnutrition Exists Yes Malnutrition (severe): Acute Illness/Injury Malnutrition (unspecified) Severe pro/alexis Evidenced By Suboptimal Energy Intake ( Severe) Intake Problem Inadequate Oral Intake Etiology related to weakness, fatigue and poor appetite Signs/Symptoms Severe weight loss of 13.1 kg (16%) in 14 months, diagnosis of failure to thrive and reported myalgia Status Active Problem Clinical Problem Unintended Weight Loss Etiology related to hematemesis and >3 days without oral intake Signs/Symptoms Severe weight loss of 13.1 kg (16%) in 14 months and reports of weakness Status Active Problem Recommendation Dietitian Recommendations/Changes Regular diet when oral intake can be resumed. Consider initiating full liquids advancing as tolerated to regular consistency foods & fluids with oral nutrition supplements if tolerated Lab / Micro Data Result Diagrams: 06/17/21 06:27 06/17/21 06:27 Labs: Laboratory Results - last 24 hr 06/16/21 18:16: Total Bilirubin 7.50 H, Direct Bilirubin 2.57 H, Indirect Bilirubin 4.90 H 06/16/21 18:18: WBC 7.0, RBC 3.42 L, Hgb 11.9 L, Hct 32.9 L, MCV 96.2 H, MCH 34 .8 H, MCHC 36.2 H, RDW Std Deviation 50.7 H, RDW Coeff of Lesvia 14.5, Plt Count 66 L, MPV 11.3, Immature Gran % (Auto) 0.400, Neut % (Auto) 61.1, Lymph % (Auto) 15.2 L, [place] % (Auto) 22.8 H, Eos % (Auto) 0.4, Baso % (Auto) 0.1, Absolute Neuts (auto) 4.3, Absolute Lymphs (auto) 1.06, Nucleated RBC % 0, Platelet Estimate MKD 06/16/21 18:18: PT 18.7 H, INR 1.6 06/16/21 18:18: Sodium 130 L, Potassium 4.2, Chloride 95 L, Carbon Dioxide 27.0, Anion Gap 8, BUN 9, Creatinine 0.76, Estim Creat Clear Calc 104.93, Est GFR (MDRD) Af Amer 139, Est GFR (MDRD) Non-Af 115, BUN/Creatinine Ratio 11.8, Glucose 93, Calcium 8.0 L, Total Bilirubin 7.70 H, AST 98 H, ALT 35, Alkaline Phosphatase 130 H, Troponin I High Sens 7, Total Protein 6.5, Albumin 1.6 L, Gl obulin 4.9 H, Albumin/Globulin Ratio 0.3 L, Lipase 303 06/16/21 18:18: Ethyl Alcohol 9.0 06/16/21 18:18: Ammonia 53.0 H 06/16/21 18:18: Lactic Acid 2.0 06/16/21 18:18: D-Dimer Quant (PE/DVT) 2.30 H* 06/16/21 23:18: Lactic Acid 1.7 06/17/21 06:27: WBC 5.2, RBC 2.98 L, Hgb 11.1 L, Hct 29.2 L, MCV 98.0 H, MCH 37.2 H, MCHC 38.0 H, RDW Std Deviation 51.8 H, RDW Coeff of Lesvia 14.9 H, Plt Count 64 L, MPV 12.1 H, Immature Gran % (Auto) 0.400, Neut % (Auto) 57.6, Lymph % (Auto) 19.9, [place] % (Auto) 20.7 H, Eos % (Auto) 1.2, Baso % (Auto) 0.2, Absolute Neuts (auto) 3.0, Absolute Lymphs (auto) 1.03, Nucleated RBC % 0 06/17/21 06:27: Sodium 135 L, Potassium 2.7 L*, Chloride 102, Carbon Dioxide 26.0, Anion Gap 7, BUN 9, Creatinine 0.48 L, Estim Creat Clear Calc 166.15, Est GFR (MDRD) Af Amer 234, Est GFR (MDRD) Non-Af 194, BUN/Creatinine Ratio 18.6, Glucose 97, Calcium 7.8 L, Phosphorus 2.0 L, Magnesium 2.0, Total Bilirubin 6.20 H, Direct Bilirubin Cancelled, Indirect Bilirubin Cancelled, AST 68 H, ALT 30, Alkaline Phosphatase 116, Total Protein 5.8 L, Albumin 1.4 L, Globulin 4.4 H, Albumin/Globulin Ratio 0.3 L 06/17/21 : Total Bilirubin 6.20 H, Direct Bilirubin 3.92 H, Indirect Bilirubin 2.30 H Micro: Microbiology 06/16/21 18:18 Nasal Secretion SARS-CoV-2 Antigen (Rapid) - Final SARS-CoV-2 (COVID 19) Radiography Diagnostic Testing: Radiology Impression Chest X-Ray 06/16/21 17:57 IMPRESSION: Bibasilar airspace opacities may represent edema and/or infection. Electronically Signed: Jordan Adam MD at 18:43 EDT Tel , Service support , Chest CTA 06/16/21 20:44 IMPRESSION: Bilateral airspace disease. Moderate right pleural effusion. Coronary artery disease. Cirrhosis, varices. Multiple compression fractures thoracic spine. Electronically Signed: Kevin Ambrosio MD at 22:31 EDT , Service support , Abdomen Ultrasound 06/17/21 19:46 IMPRESSION: 1. Diffusely heterogeneous and coarsened echo pattern of the liver. May represent infiltrating process such as fatty infiltration, hepatitis or cirrhosis. 2. Hepatomegaly. 3. Abnormal Doppler appearance of the portal vein with suspected partial portal vein thrombosis and mixed direction flow. Electronically Signed: Alessandro Weston MD ([place]) at 12:10 EDT , Service support , Physical Exam Narrative General: Alert, Oriented x3, Cooperative HEENT: Atraumatic, PERRLA, EOMI, Normocephalic Oral: No Gingival or Mucosal Lesions/ Ulcerations Neck: Supple, No JVD, Negative Carotid Bruits Lungs: Air entry diminished in bilateral lung bases. No crepitation/rhonchi Cardiovascular: Regular rate, Regular Rhythm, Normal S1, Normal S2, No murmurs Abdomen: Mild right upper quadrant tenderness. Bowel Sounds Present, Soft, Non-Distended : No renal angle tenderness. No suprapubic tenderness. Extremities: No edema, Capillary Refill Less than 3 Seconds Skin: No rashes, No breakdown Musculoskeletal: No Tenderness to Palpation of Joints or Extremities Neurological: Cranial nerves II-XII grossly intact, DTR 2+/4 and Symmetrical, Neuro grossly intact Psych/Mental Status: Flat affect Assessment & Plan Assessment/Plan (1) Hyperbilirubinemia: (2) Hematemesis: (3) COVID-19: (4) Elevated d-dimer: (5) Hyponatremia: (6) Hyperammonemia: (7) Alcohol abuse: (8) Severe malnutrition: (9) Tobacco dependence: PLAN: COVID-19 infection: Currently patient does not have hypoxia. Not on supplemental oxygen. Chest x-ray shows patchy bilateral infiltrate. CTPA negative for PE. Elevated D-dimer. Hematemesis, last episode 3 days ago: Patient has history of decompensated alcoholic cirrhosis with esophageal varices possible hepatic encephalopathy, chr onic thrombocytopenia. Protonix IV twice daily. GI is consulted. Patient had hyperbilirubinemia. Right upper quadrant sonogram reported possible cirrhosis with partial portal vein thrombosis. Patient is high risk of anticoagulation with history of esophageal lesion and recent hematemesis. On lactulose. Severe malnutrition -We will utilize clear liquid diet right now with hematemesis. GI is consulted in anticipation of possible EGD. -Consult dietitian Bilateral lower extremity chronic wounds with scab: No sign of active infection or indication of antibiotic. Wound care nurse consulted. Chronic alcohol use with dependence: On IV fluid D5 normal sinus. CIWA monitoring with Ativan as needed per protocol. He patient was into withdrawal or signs of early withdrawal we will start phenobarbital protocol. Chronic cigarette smoking with nicotine dependence: Patient smokes a pack of cigarettes daily Tobacco abuse Failure to thrive in the adult due to chronic alcohol use, cirrhosis and smoking: PT and OT. - DVT prophylaxis -Lovenox 40 mg daily CODE STATUS -Full code Clinical Impression(s) from Imaging Studies Chest X-Ray 06/16/21 17:57 IMPRESSION: Bibasilar airspace opacities may represent edema and/or infection. Electronically Signed: Jordan Adam MD at 18:43 EDT Tel , Service support , Chest CTA 06/16/21 20:44 IMPRESSION: Bilateral airspace disease. Moderate right pleural effusion. Coronary artery disease. Cirrhosis, varices. Multiple compression fractures thoracic spine. Abdomen Ultrasound 06/17/21 19:46 IMPRESSION: 1. Diffusely heterogeneous and coarsened echo pattern of the liver. May represent infiltrating process such as fatty infiltration, hepatitis or cirrhosis. 2. Hepatomegaly. 3. Abnormal Doppler appearance of the portal vein with suspected partial portal vein thrombosis and mixed direction flow. Charges/Coding Visit Charges Inpatient E&M: 15235 Subs Hosp L2
--- NOTE | 2021-06-17 19:46 | US_ITS ---
EXAM: US ABDOMEN LIMITED, RIGHT UPPER QUADRANT CLINICAL INDICATION: hyperbilirubinemia TECHNIQUE: Real-time ultrasound of the right upper quadrant with image documentation. This report was created using [employer] report generation technology. COMPARISON: None. FINDINGS: LIMITATIONS: Limited by patient condition and bowel gas. LIVER: Diffusely heterogeneous and coarsened echo pattern of the liver. Liver is enlarged measuring 21 cm. No intrahepatic biliary ductal dilation. GALLBLADDER: Multiple gallstones. No gallbladder wall thickening is demonstrated. No pericholecystic fluid. Negative sonographic Granda''s sign. COMMON BILE DUCT: Unremarkable as visualized. The proximal common bile duct is within normal limits for the patient''s age. PANCREAS: Unremarkable as visualized. No focal abnormality is demonstrated in the pancreas. No pancreatic ductal dilatation. RIGHT KIDNEY: Unremarkable. There is no hydronephrosis. No shadowing calculus. No focal lesion or perinephric collection is demonstrated. OTHER VASCULATURE: Abnormal Doppler appearance of the portal vein with suspected partial portal vein thrombosis and mixed direction flow. US/Abdomen Limited IMPRESSION: 1. Diffusely heterogeneous and coarsened echo pattern of the liver. May represent infiltrating process such as fatty infiltration, hepatitis or cirrhosis. 2. Hepatomegaly. 3. Abnormal Doppler appearance of the portal vein with suspected partial portal vein thrombosis and mixed direction flow. Electronically Signed: Alessandro Weston MD ([place]) at 12:10 EDT , Service support ,
--- NOTE | 2021-06-17 22:28 | CON.PCM.GI_ITS ---
HPI Consult Data Date of Consult: 06/17/21 HPI Narrative HPI Narrative: CIARA MARTINEZ, is a 50 M who presents to the emergency department with family member whom the patient is living with currently. He has a history of alcoholic cirrhosis complicated by esophageal varices, ascites, hepatic encephalopathy and alcoholic hepatitis. He has been admitted multiple times for alcoholic hepatitis and acute decompensated cirrhosis. He is still drinking on a daily basis. He was told to come to the ER by his family. Apparently he has been sleeping more and had been sick starting 5 or 6 days ago into the weekend where he was vomiting and at times vomiting blood. Patient has a history of alcohol abuse and cirrhosis of the liver. It is believed he only threw up blood one time and not in the last 3 days. Patient denies any abdominal pain currently. He has not had a drink in several days. Patient has had a cough for last 5 or 6 days but denies fever. He complains of some body aches.. He had complained of abdominal pain and in the evaluation of his abdominal pain and ultrasound of the liver with Dopplers was performed. It did show a partial portal vein thrombosis. He has no leg swelling or appreciable ascites. He denies any scrotal edema. COUNT INCLUDES [facility] Medical History Cirrhosis Smoker Tobacco use Home Medications NK 06/16/21 [History Last Taken Unknown] Allergy/AdvReac Type Severity Reaction Status Date / Time No Known Allergies Allergy Verified 06/16/21 17:39 Social History (Updated 06/16/21 @ 22:[address] Beth Nunez, DO) Smoking Status: Current every day smoker tobacco type: cigarettes alcohol intake: current substance use type: does not use ROS Review of Systems ROS Unobtainable: other Constitutional Constitutional: Denies fatigue, fever(s), poor appetite, weight gain or weight loss ENT HEENT: Denies mouth lesions Cardiovascular Cardiovascular: Denies abdominal bloating, abdominal edema or abdominal pain Respiratory/Chest Respiratory/Chest: Denies change in mental status, change in phlegm color, chest congestion or chest tightness Gastrointestinal Gastrointestinal: Denies belching, bloating, change in bowel habits, change in stool character, chewing difficulty, coffee ground emesis, constipation, cramping, diarrhea, dyspepsia, dysphagia, early satiety, excessive flatus, fecal incontinence, heartburn, hematemesis, hematochezia, hemorrhoids, loose stools, melena, nausea, odynophagia, rectal bleeding, tenesmus, vomiting or weight changes Genitourinary Genitourinary: Denies abdominal discomfort, burning urination or itching Musculoskeletal Musculoskeletal: Reports as per HPI; Denies muscle weakness or myalgias Integumentary Integumentary: Denies jaundice Neurologic Neurologic: Denies lack of coordination or weakness Psychiatric Psychiatric: Denies confusion, depression, memory loss, mood swings, paranoia or suicidal ideation Endocrine Endocrinology: Denies systems reviewed and no addt'l complaints, except as documented Hematologic/Lymphatic Hematologic/Lymphatic: Denies anemia, easy bleeding, easy bruising or lymphadenopathy Allergic/Immunologic Allergic/Immunologic: Denies systems reviewed and no addt'l complaints, except as documented Physical Exam Const alert General Appearance: cooperative Orientation / Consciousness: oriented to person HEENT hearing grossly normal bilaterally Head and Scalp: normal to inspection Face and Sinus: face symmetric Nose: external nose normal Mouth: oral and palatal mucosa normal Eyes conjunctivae normal General Eye: normal appearance of both eyes Neck full ROM General: normal visual inspection Lymph Lymphatic: no lymphadenopathy noted Chest inspection of chest normal and palpation of chest normal Chest: symmetrical chest wall rise Resp normal respiratory effort Effort and Inspection: able to speak in complete sentences Cardio regular rate GI non-distended Percussion: normal to percussion Rectal Exam: deferred Neuro Speech: speech normal Gait (Neuro): normal gait Medical Records Data Medical Nutrition Assessment Dietitian: Malnutrition Criteria Met Start: 06/17/21 14:14 Freq: Status: Active Protocol: Document 06/17/21 14:14 BW (Rec: 06/17/21 14:15 BW [id number]) Nutrition Malnutrition Evidence of Malnutrition Exists Yes Malnutrition (severe): Acute Illness/Injury Malnutrition (unspecified) Severe pro/alexis Evidenced By Suboptimal Energy Intake ( Severe) Intake Problem Inadequate Oral Intake Etiology related to weakness, fatigue and poor appetite Signs/Symptoms Severe weight loss of 13.1 kg (16%) in 14 months, diagnosis of failure to thrive and reported myalgia Status Active Problem Clinical Problem Unintended Weight Loss Etiology related to hematemesis and >3 days without oral intake Signs/Symptoms Severe weight loss of 13.1 kg (16%) in 14 months and reports of weakness Status Active Problem Recommendation Dietitian Recommendations/Changes Regular diet when oral intake can be resumed. Consider initiating full liquids advancing as tolerated to regular consistency foods & fluids with oral nutrition supplements if tolerated Lab / Micro Data Result Diagrams: 06/17/21 06:27 06/17/21 06:27 Labs: Laboratory Results - last 24 hr 06/16/21 23:18: Lactic Acid 1.7 06/17/21 06:27: WBC 5.2, RBC 2.98 L, Hgb 11.1 L, Hct 29.2 L, MCV 98.0 H, MCH 37.2 H, MCHC 38.0 H, RDW Std Deviation 51.8 H, RDW Coeff of Lesvia 14.9 H, Plt Count 64 L, MPV 12.1 H, Immature Gran % (Auto) 0.400, Neut % (Auto) 57.6, Lymph % (Auto) 19.9, [place] % (Auto) 20.7 H, Eos % (Auto) 1.2, Baso % (Auto) 0.2, Absolute Neuts (auto) 3.0, Absolute Lymphs (auto) 1.03, Nucleated RBC % 0 06/17/21 06:27: Sodium 135 L, Potassium 2.7 L*, Chloride 102, Carbon Dioxide 26.0, Anion Gap 7, BUN 9, Creatinine 0.48 L, Estim Creat Clear Calc 166.15, Est GFR (MDRD) Af Amer 234, Est GFR (MDRD) Non-Af 194, BUN/Creatinine Ratio 18.6, Glucose 97, Calcium 7.8 L, Phosphorus 2.0 L, Magnesium 2.0, Total Bilirubin 6.20 H, Direct Bilirubin Cancelled, Indirect Bilirubin Cancelled, AST 68 H, ALT 30, Alkaline Phosphatase 116, Total Protein 5.8 L, Albumin 1.4 L, Globulin 4.4 H, Albumin/Globulin Ratio 0.3 L 06/17/21 : Total Bilirubin 6.20 H, Direct Bilirubin 3.92 H, Indirect Bilirubin 2.30 H Micro: Microbiology 06/16/21 18:18 Nasal Secretion SARS-CoV-2 Antigen (Rapid) - Final SARS-CoV-2 (COVID 19) Radiology Impression Chest CTA 06/16/21 20:44 IMPRESSION: Bilateral airspace disease. Moderate right pleural effusion. Coronary artery disease. Cirrhosis, varices. Multiple compression fractures thoracic spine. Electronically Signed: Kevin Ambrosio MD at 22:31 EDT , Service support , Abdomen Ultrasound 06/17/21 19:46 IMPRESSION: 1. Diffusely heterogeneous and coarsened echo pattern of the liver. May represent infiltrating process such as fatty infiltration, hepatitis or cirrhosis. 2. Hepatomegaly. 3. Abnormal Doppler appearance of the portal vein with suspected partial portal vein thrombosis and mixed direction flow. Electronically Signed: Alessandro Weston MD ([place]) at 12:10 EDT , Service support , Assessment & Plan Assessment/Plan (1) Cirrhosis: PLAN: Patient has history of child class C alcoholic cirrhosis. He is not a transplant candidate because he is still actively drinking.. I would put him on Xifaxan 550 mg twice a day. (2) Alcoholic hepatitis: PLAN: His Madre score is 32. He is not encephalopathic, therefore he does not need steroids at this time. (3) Portal vein thrombosis: PLAN: Current evidence from case series and observational studies has not provided robust data for the optimal management of PVT in cirrhosis. The main concern with PVT treatment is to balance the bleeding risk against the life- threatening extension of thrombosis. He will have to undergo upper endoscopy to evaluate his upper GI tract before anticoagulation can be considered. This is because he complained of hematemesis prior to coming to the hospital so it is very highly likelihood that he has at least portal hypertension and possibly esophageal, gastric or duodenal varices. Also cirrhosis in itself can decrease Antithrombin III levels and the platelet count. He will need an alpha-fe toprotein as portal vein thrombosis can be a sign of underlying hepatocellular carcinoma. Charges/Coding Visit Charges Inpatient E&M: 43251 Subs Hosp L3
[2021-06-17] MEDS: Acetaminophen 325 MG Tablet 650 MG PO (23:18)
[2021-06-18] VITALS (11 sets, daily range): BP systolic 109–130; BP diastolic 72–83; PULSE 65–89; RESP 18; TEMP 36.7–37.4; O2SAT 94–98; BMI 24.7
[2021-06-18 07:33] LABS: Absolute Lymphocyte Count 1.23 X10^3/uL (0.83-4.51); Absolute Neutrophil Count 2.8 X10^3/uL (2.0-7.7); Basophil# 0.02 X10^3/uL; Basophil% 0.4 % (0-1); Eosinophil# 0.14 X10^3/uL; Eosinophils% 2.6 % (0-5); Hematocrit 28.5 % (40-54); Hemoglobin 10.2 g/dL (13.0-16.5); Lymphocyte # 1.23 X10^3/ul (0.83-4.51); Mean Corp Hgb Conc 35.8 g/dL (32-36); Mean Corpuscular Hgb 34.5 pg (27.0-32.0); Mean Corpuscular Volume 96.3 fL (80-94); Mean Platelet Vol. 11.8 fl (6.2-12.0); Monocyte# 1.12 X10^3/uL; NRBC Flagged by Analyzer 0 % (0-5); Neutrophil # 2.78 X10^3/uL (2.7-7.7); Neutrophil % 52.1 % (47-70); POSITIVE COUNT YES; POSITIVE MORPHOLOGY YES; Platelet Count 64 K/mm3 (150-450); RBC Distribution Width CV 14.7 % (11.6-14.6); Red Blood Count 2.96 M/mm3 (4.6-6.2); White Blood Count 5.3 K/mm3 (4.4-11.0)
[2021-06-18 07:34] LABS: Differential Indicated SCAN CRITERIA MET
[2021-06-18 07:57] LABS: Platelet Estimate MOD DEC (ADEQ); Reactive Lymphocyte RARE
[2021-06-18 08:22] LABS: ALB/GLOB Ratio 0.3 RATIO (0.9-2.4); AST(SGOT) 65 U/L (15-37); Alanine Aminotransfer ALT/SGPT 31 U/L (16-61); Albumin, Serum 1.2 g/dL (3.2-5.0); Alkaline Phosphatase 101 U/L (45-117); Anion Gap 6 (5-15); BUN 8 mg/dL (7-18); BUN/Creat Ratio 18.1 RATIO (10-20); Chloride 108 mmol/L (98-107); Creatinine, Serum 0.44 mg/dL (0.70-1.30); EST Glomerular Filtration Rate 215 mL/min (>60); Est Glom Filt Rate - Afr Amer 260 mL/min (>60); Estimated Creatinine Clearance 181.25 ml/min; Glucose 96 mg/dL (74-106); Potassium 2.7 mmol/L (3.5-5.1); Protein, Total 5.2 g/dL (6.4-8.2); Sodium Level 138 mmol/L (136-145)
[2021-06-18] MEDS: Dextrose 5%/0.9% NaCl 1,000 ML 100 ML IV (08:39)
[2021-06-18] MEDS: 0.9% Saline Lock 10 ML Syringe IV (10:35)
[2021-06-18] MEDS: Lactated Ringers 1,000 ML 100 ML IV ×2 (12:26→18:37)
--- NOTE | 2021-06-18 13:02 | SUR.PREOP ---
AT APPROXIMATELY 12:45 PM, MITUL RN, Fransico SLAUGHTER AND DR WEINBERG NOTIFIED OF PATIENT'S POTASSIUM LEVEL = 2.7 AND PLATELETS = 64,000. DR. WEINBERG REVIEWED THE PATIENT'S CHART AND CANCELLED THE EGD. DR. WEINBERG SPOKE WITH DR. LEGGETT
--- NOTE | 2021-06-18 15:10 | CASEMGMT ---
Assessment- SW called patient's brotherKen to complete assessment as patient is confused. Living situation- Patient lives with his brother in a 2 story home. There are steps to enter the front door, but he usually goes in the back door where there are no steps. PCP: Has one but does not remember who Specialists: None Pharmacy: [facility] DME: cane ADL's/IADL's: Prior to getting sick patient was independent with most activities. His brother and sister in law do help him with bills and medications. Since patient has been sick (last week or so) he has been using a cane. Past SNF/rehab: None Past HH: None LW: None POA: None Plan: Patient's brother said that patient is more than welcome to come back to his home. He is fine with having home health if recommended. However, he said patient may be resistant as he is normally very independent. Patient was not drinking much since he has been sick. He thinks patient detoxed himself at his house while sick. BATSHEVA and RN CM to follow for d/c needs Princess [employer]
[2021-06-18] MEDS: Lactulose 20 GM/30 ML UDC 10 GM PO ×2 (15:14→22:42)
[2021-06-18] MEDS: Folic Acid 1 MG Tablet PO (15:14)
[2021-06-18] MEDS: Multivitamins,Ther W-Minerals Tablet 1 TABLET PO (15:14)
--- NOTE | 2021-06-18 16:40 | PN.HOSP_ITS ---
Subjective Subjective EGD was canceled because of hypokalemia and hypophosphatemia which are getting replaced. Patient sitting in the toilet. Tachycardia and tachypnea. Patient on CIWA protocol Patient is started on phenobarbital protocol. Objective Data Objective Data Vital Signs: Vital Signs Temp Pulse Resp BP Pulse Ox 98.0 F 70 18 116/73 94 06/18/21 15:09 06/18/21 15:09 06/18/21 15:09 06/18/21 15:09 06/18/21 15:09 Oxygen Flow Rate (L/min) 93 Oxygen Delivery Method Room Air Weight: 153 lb 8 oz Body Mass Index (BMI) 24.7 Intake & Output: Intake and Output for Last 24 Hours 06/16/21 06/17/21 06/18/21 23:59 23:59 23:59 Intake Total 2982 / 2982 1620.33 / 1620.33 Output Total 350 / 350 Balance 2632 / 2632 1620.33 / 1620.33 Medical Nutrition Assessment Dietitian: Malnutrition Criteria Met Start: 06/17/21 14:14 Freq: Status: Active Protocol: Document 06/17/21 14:14 BW (Rec: 06/17/21 14:15 BW [id number]) Nutrition Malnutrition Evidence of Malnutrition Exists Yes Malnutrition (severe): Acute Illness/Injury Malnutrition (unspecified) Severe pro/alexis Evidenced By Suboptimal Energy Intake ( Severe) Intake Problem Inadequate Oral Intake Etiology related to weakness, fatigue and poor appetite Signs/Symptoms Severe weight loss of 13.1 kg (16%) in 14 months, diagnosis of failure to thrive and reported myalgia Status Active Problem Clinical Problem Unintended Weight Loss Etiology related to hematemesis and >3 days without oral intake Signs/Symptoms Severe weight loss of 13.1 kg (16%) in 14 months and reports of weakness Status Active Problem Recommendation Dietitian Recommendations/Changes Regular diet when oral intake can be resumed. Consider initiating full liquids advancing as tolerated to regular consistency foods & fluids with oral nutrition supplements if tolerated Lab / Micro Data Result Diagrams: 06/18/21 06:50 06/18/21 06:50 Labs: Laboratory Results - last 24 hr 06/18/21 06:50: WBC 5.3, RBC 2.96 L, Hgb 10.2 L, Hct 28.5 L, MCV 96.3 H, MCH 34.5 H, MCHC 35.8 D, RDW Std Deviation 52.0 H, RDW Coeff of Lesvia 14.7 H, Plt Count 64 L, MPV 11.8, Immature Gran % (Auto) 0.900, Neut % (Auto) 52.1, Lymph % (Auto) 23.0, [place] % (Auto) 21.0 H, Eos % (Auto) 2.6, Baso % (Auto) 0.4, Absolute Neuts (auto) 2.8, Absolute Lymphs (auto) 1.23, Nucleated RBC % 0, Reactive Lymphocytes RARE, Platelet Estimate MOD 06/18/21 06:50: Sodium 138, Potassium 2.7 L*, Chloride 108 H, Carbon Dioxide 24.0, Anion Gap 6, BUN 8, Creatinine 0.44 L, Estim Creat Clear Calc 181.25, Est GFR (MDRD) Af Amer 260, Est GFR (MDRD) Non-Af 215, BUN/Creatinine Ratio 18.1, Glucose 96, Calcium 7.0 L, Total Bilirubin 5.20 H, AST 65 H, ALT 31, Alkaline Phosphatase 101, Total Protein 5.2 L, Albumin 1.2 L, Globulin 4.0, Albumin/Globulin Ratio 0.3 L Micro: Microbiology 06/16/21 18:18 Nasal Secretion SARS-CoV-2 Antigen (Rapid) - Final SARS-CoV-2 (COVID 19) Physical Exam Narrative General: Alert, Oriented x3, Cooperative HEENT: Atraumatic, PERRLA, EOMI, Normocephalic Oral: No Gingival or Mucosal Lesions/ Ulcerations Neck: Supple, No JVD, Negative Carotid Bruits Lungs: Air entry diminished in bilateral lung bases. No crepitation/rhonchi. Tachypneic Cardiovascular: Sinus tachycardia, normal S1, Normal S2, No murmurs Abdomen: Mild right upper quadrant tenderness. Bowel Sounds Present, Soft, Non-Distended : No renal angle tenderness. No suprapubic tenderness. Extremities: No edema, Capillary Refill Less than 3 Seconds Skin: No rashes, No breakdown Musculoskeletal: No Tenderness to Palpation of Joints or Extremities Neurological: Cranial nerves II-XII grossly intact, DTR 2+/4 and Symmetrical, Neuro grossly intact Psych/Mental Status: Restless Assessment & Plan Assessment/Plan (1) Hyperbilirubinemia: (2) Hematemesis: (3) COVID-19: (4) Elevated d-dimer: (5) Hyponatremia: (6) Hyperammonemia: (7) Alcohol abuse: (8) Severe malnutrition: (9) Tobacco dependence: PLAN: COVID-19 infection: Currently patient does not have hypoxia. Not on supplemental oxygen. Chest x-ray shows patchy bilateral infiltrate. CTPA negative for PE. Elevated D-dimer. Hematemesis, last episode 3 days ago: Patient has history of decompensated alcoholic cirrhosis with esophageal varices possible hepatic encephalopathy, chronic thrombocytopenia. Protonix IV twice daily. GI is consulted. Patient had hyperbilirubinemia. Right upper quadrant sonogram reported possible cirrhosis with partial portal vein thrombosis. Patient is high risk of anticoagulation with history of esophageal lesion and recent hematemesis. On lactulose. 06/18: EGD was canceled due to hypokalemia and hypophosphatemia which are getting replaced. Repeat potassium and phosphorus at night and replace accordingly. On clear liquid diet. Severe malnutrition -We will utilize clear liquid diet right now with hematemesis. GI is consulted in anticipation of possible EGD. -Consult dietitian Bilateral lower extremity chronic wounds with scab: No sign of active infection or indication of antibiotic. Wound care nurse consulted. Acute alcohol withdrawal syndrome with chronic alcohol use with dependence: CIWA monitoring with Ativan as needed per protocol. Patient having signs of acute alcohol withdrawal tachycardia, tachypnea, restlessness and anxiety. Started on phenobarbital. IV fluid Ringer lactate as patient seems dehydrated. Chronic cigarette smoking with nicotine dependence: Patient smokes a pack of cigarettes daily Tobacco abuse Severe protein calorie malnutrition failure to thrive in the adult due to chronic alcohol use, cirrhosis and smoking: PT and OT. On Ensure - DVT prophylaxis: Pharmacological probably secondary to severe anemia with possibility of varices and hematemesis. CODE STATUS -Full code Clinical Impression(s) from Imaging Studies Chest X-Ray 06/16/21 17:57 IMPRESSION: Bibasilar airspace opacities may represent edema and/or infection. Electronically Signed: Jordan Adam MD at 18:43 EDT Tel , Service support , Chest CTA 06/16/21 20:44 IMPRESSION: Bilateral airspace disease. Moderate right pleural effusion. Coronary artery disease. Cirrhosis, varices. Multiple compression fractures thoracic spine. Abdomen Ultrasound 06/17/21 19:46 IMPRESSION: 1. Diffusely heterogeneous and coarsened echo pattern of the liver. May represent infiltrating process such as fatty infiltration, hepatitis or cirrhosis. 2. Hepatomegaly. 3. Abnormal Doppler appearance of the portal vein with suspected partial portal vein thrombosis and mixed direction flow. Charges/Coding Visit Charges Inpatient E&M: 90585 Subs Hosp L2
[2021-06-18] MEDS: Phenobarbital 32.4 MG Tablet 64.8 MG PO ×2 (18:36→22:42)
[2021-06-18] MEDS: Ondansetron 8 MG Tablet PO (18:36)
[2021-06-18] MEDS: hydrOXYzine PAM 25 MG Capsule PO ×2 (18:36→22:42)
[2021-06-18] MEDS: Acetaminophen 500 MG Tablet PO (22:42)
[2021-06-19] VITALS (14 sets, daily range): BP systolic 90–139; BP diastolic 56–81; PULSE 74–101; RESP 16–20; TEMP 36.3–37.7; O2SAT 93–97; BMI 24.7
[2021-06-19 02:31] LABS: Phosphorus 3.4 mg/dL (2.5-4.9); Potassium 2.9 mmol/L (3.5-5.1)
[2021-06-19] MEDS: Phenobarbital 32.4 MG Tablet 64.8 MG PO ×5 (02:34→22:22)
[2021-06-19] MEDS: Gabapentin 300 MG Capsule PO ×2 (02:34→23:38)
[2021-06-19] MEDS: Potassium Chloride 10mEq/100mL 10 MEQ/100 ML IV.SOLN. 100 MEQ IV BOLUS ×4 (04:08→08:51)
[2021-06-19 07:28] LABS: Absolute Lymphocyte Count 1.25 X10^3/uL (0.83-4.51); Absolute Neutrophil Count 3.1 X10^3/uL (2.0-7.7); Basophil# 0.04 X10^3/uL; Basophil% 0.7 % (0-1); Eosinophil# 0.17 X10^3/uL; Eosinophils% 2.9 % (0-5); Hematocrit 28.3 % (40-54); Lymphocyte # 1.25 X10^3/ul (0.83-4.51); Lymphocyte % 21.4 % (19-41); Mean Corpuscular Volume 99.3 fL (80-94); Mean Platelet Vol. 11.3 fl (6.2-12.0); Monocyte# 1.19 X10^3/uL; Monocyte% 20.4 % (0-10); NRBC Flagged by Analyzer 0 % (0-5); Neutrophil % 53.1 % (47-70); POSITIVE COUNT YES; POSITIVE MORPHOLOGY YES; Platelet Count 79 K/mm3 (150-450); RBC Distribution Width CV 15.3 % (11.6-14.6); RBC Distribution Width SD 54.1 fl (35.1-43.9); Red Blood Count 2.85 M/mm3 (4.6-6.2); White Blood Count 5.8 K/mm3 (4.4-11.0)
[2021-06-19 07:45] LABS: Hemoglobin 10.4 g/dL (13.0-16.5); Mean Corp Hgb Conc 36.7 g/dL (32-36)
[2021-06-19 07:46] LABS: ALB/GLOB Ratio 0.3 RATIO (0.9-2.4); AST(SGOT) 59 U/L (15-37); Alanine Aminotransfer ALT/SGPT 30 U/L (16-61); Albumin, Serum 1.2 g/dL (3.2-5.0); Alkaline Phosphatase 104 U/L (45-117); Anion Gap 6 (5-15); BUN 7 mg/dL (7-18); BUN/Creat Ratio 13.5 RATIO (10-20); Calcium,Total 7.3 mg/dL (8.5-10.1); Chloride 106 mmol/L (98-107); Creatinine, Serum 0.52 mg/dL (0.70-1.30); EST Glomerular Filtration Rate 179 mL/min (>60); Est Glom Filt Rate - Afr Amer 217 mL/min (>60); Estimated Creatinine Clearance 153.37 ml/min; Globulin 4.3 g/dL (2.2-4.2); Glucose 86 mg/dL (74-106); Magnesium 1.7 mg/dL (1.6-2.6); Phosphorus 3.1 mg/dL (2.5-4.9); Potassium 3.4 mmol/L (3.5-5.1); Protein, Total 5.5 g/dL (6.4-8.2); Sodium Level 136 mmol/L (136-145)
[2021-06-19 07:49] LABS: Differential Indicated SCAN CRITERIA MET; Mean Corpuscular Hgb 36.4 pg (27.0-32.0)
[2021-06-19 08:26] LABS: Platelet Estimate SLT DEC (ADEQ)
--- NOTE | 2021-06-19 12:01 | OP.CCLET_ITS ---
05/13/2022 No Primary Care Physician Re : Upper GI endoscopy procedure for Mika Rhodes Dear Care Physician This procedure was performed on Saturday, June 19, 2021. My impressions and recommendations are as follows: Impressions : - Normal esophagus. - Non-bleeding erosive gastropathy. - Portal hypertensive gastropathy. - One non-bleeding duodenal ulcer with no stigmata of bleeding. - No specimens collected. Recommendations : - Return patient to hospital [facility] for ongoing care. - Resume regular diet today. - Continue present medications. - Use Protonix (pantoprazole) 40 mg PO BID for 8 weeks. My findings are described in the full procedure note, which is enclosed. If I can be of further assistance, please feel free to contact me at . Sincerely, Negro Carey, 06/19/2021 12:00:57 PM This report has been signed electronically.
--- NOTE | 2021-06-19 12:01 | OP.EGD_ITS ---
Patient Name: Mika Rhodes Procedure Date: 06/19/2021 11:09 AM Date of : 1970 Age: 50 Procedure: Upper GI endoscopy Indications: Epigastric abdominal pain Providers: Negro Carey DO Medicines: Monitored Anesthesia Care Patient Profile: This is a 50 year old male. Refer to note in patient chart for documentation of history and physical. Patient has symptoms of acute epigastric abdominal pain. The symptoms first began 03,. Complications: No immediate complications. Procedure: Pre-Anesthesia Assessment: - Prior to the procedure, a History and Physical was performed, and patient medications and allergies were reviewed. The patient is competent. The risks and benefits of the procedure and the sedation options and risks were discussed with the patient. All questions were answered and informed consent was obtained. Patient identification and proposed procedure were verified in the pre-procedure area. Mental Status Examination: alert and oriented. Airway Examination: normal oropharyngeal airway and neck mobility. Respiratory Examination: clear to auscultation. CV Examination: normal. Prophylactic Antibiotics: The patient does not require prophylactic antibiotics. Prior Anticoagulants: The patient has taken no previous anticoagulant or antiplatelet agents. ASA Grade Assessment: II - A patient with mild systemic disease. After reviewing the risks and benefits, the patient was deemed in satisfactory condition to undergo the procedure. The anesthesia plan was to use moderate sedation / analgesia (conscious sedation). Immediately prior to administration of medications, the patient was re-assessed for adequacy to receive sedatives. The heart rate, respiratory rate, oxygen saturations, blood pressure, adequacy of pulmonary ventilation, and response to care were monitored throughout the procedure. The physical status of the patient was re-assessed after the procedure. After obtaining informed consent, the endoscope was passed under direct vision. Throughout the procedure, the patient's blood pressure, pulse, and oxygen saturations were monitored continuously. The Endoscope was introduced through the mouth, and advanced to the second part of duodenum. The upper GI endoscopy was accomplished without difficulty. The patient tolerated the procedure well. Moderate Sedation: Moderate (conscious) sedation was personally administered by an anesthesia professional. The following parameters were monitored: oxygen saturation, heart rate, blood pressure, and response to care. Scope In: 11:41:35 AM Scope Out: 11:45:35 AM Total Procedure Duration Time 0 hours 4 minutes 0 seconds Findings: The examined esophagus was normal. Multiple dispersed, non-bleeding erosions were found in the gastric body. There were no stigmata of recent bleeding. Severe portal hypertensive gastropathy was found in the entire examined stomach. One non-bleeding cratered duodenal ulcer with no stigmata of bleeding was found in the duodenal bulb. Impression: - Normal esophagus. - Non-bleeding erosive gastropathy. - Portal hypertensive gastropathy. - One non-bleeding duodenal ulcer with no stigmata of bleeding. - No specimens collected. Recommendation: - Return patient to hospital [facility] for ongoing care. - Resume regular diet today. - Continue present medications. - Use Protonix (pantoprazole) 40 mg PO BID for 8 weeks. Procedure Code(s): --- Professional --- 86598, Esophagogastroduodenoscopy, flexible, transoral; diagnostic, including collection of specimen(s) by brushing or washing, when performed (separate procedure) CPT copyright 2017 [employer]. All rights reserved. The codes documented in this report are preliminary and upon sealer sander review may be revised to meet current compliance requirements. Negro Carey DO 06/19/2021 12:00:57 PM This report has been signed electronically. Number of Addenda: 1 Note Initiated On: 06/19/2021 11:09 AM Addendum Number: 1 Addendum Date: 05/13/2022 4:26:06 PM MAC was used instead of moderate sedation for this patient. Negro Carey DO 05/13/2022 4:26:14 PM This report has been signed electronically.
[2021-06-19] MEDS: Lactulose 20 GM/30 ML UDC 10 GM PO ×2 (14:39→20:15)
[2021-06-19] MEDS: Multivitamins,Ther W-Minerals Tablet 1 TABLET PO (14:39)
[2021-06-19] MEDS: Folic Acid 1 MG Tablet PO (14:39)
--- NOTE | 2021-06-19 15:05 | CASEMGMT ---
Social Work Attempted to see patient to inquire about interest in substance abuse supports/resources, patient currently sleeping. Will continue to follow as needed. Fransico Logan MSW, FARRUKHS
--- NOTE | 2021-06-19 16:01 | PN.HOSP_ITS ---
Subjective Subjective Denies any further bleeding. Breathing well at present. Objective Data Objective Data Vital Signs: Vital Signs Temp Pulse Resp BP Pulse Ox 36.3 C L 81 16 113/68 96 06/19/21 12:15 06/19/21 12:41 06/19/21 12:41 06/19/21 12:41 06/19/21 12:41 Oxygen Flow Rate (L/min) 2 Oxygen Delivery Method Room Air Weight: 69.626 kg Body Mass Index (BMI) 24.7 Intake & Output: Intake and Output for Last 24 Hours 06/17/21 06/18/21 06/19/21 23:59 23:59 23:59 Intake Total 2982 / 2982 3590.6633 / 3590.6633 1501.67 / 1501.67 Output Total 350 / 350 Balance 2632 / 2632 3590.6633 / 3590.6633 1501.67 / 1501.67 Medical Nutrition Assessment Dietitian: Malnutrition Criteria Met Start: 06/17/21 14:14 Freq: Status: Active Protocol: Document 06/17/21 14:14 BW (Rec: 06/17/21 14:15 BW [id number]) Nutrition Malnutrition Evidence of Malnutrition Exists Yes Malnutrition (severe): Acute Illness/Injury Malnutrition (unspecified) Severe pro/alexis Evidenced By Suboptimal Energy Intake ( Severe) Intake Problem Inadequate Oral Intake Etiology related to weakness, fatigue and poor appetite Signs/Symptoms Severe weight loss of 13.1 kg (16%) in 14 months, diagnosis of failure to thrive and reported myalgia Status Active Problem Clinical Problem Unintended Weight Loss Etiology related to hematemesis and >3 days without oral intake Signs/Symptoms Severe weight loss of 13.1 kg (16%) in 14 months and reports of weakness Status Active Problem Recommendation Dietitian Recommendations/Changes Regular diet when oral intake can be resumed. Consider initiating full liquids advancing as tolerated to regular consistency foods & fluids with oral nutrition supplements if tolerated Lab / Micro Data Result Diagrams: 06/19/21 07:10 06/19/21 07:10 Labs: Laboratory Results - last 24 hr 06/19/21 02:05: Potassium 2.9 L, Phosphorus 3.4 06/19/21 07:10: WBC 5.8, RBC 2.85 L, Hgb 10.4 L, Hct 28.3 L, MCV 99.3 H, MCH 36.4 H, MCHC 36.7 H, RDW Std Deviation 54.1 H, RDW Coeff of Lesvia 15.3 H, Plt Count 79 L, MPV 11.3, Immature Gran % (Auto) 1.500 H, Neut % (Auto) 53.1, Lymph % (Auto) 21.4, [place] % (Auto) 20.4 H, Eos % (Auto) 2.9, Baso % (Auto) 0.7, Absolute Neuts (auto) 3.1, Absolute Lymphs (auto) 1.25, Nucleated RBC % 0, Platelet Estimate SLT 06/19/21 07:10: Sodium 136, Potassium 3.4 L, Chloride 106, Carbon Dioxide 24.0, Anion Gap 6, BUN 7, Creatinine 0.52 L, Estim Creat Clear Calc 153.37, Est GFR (MDRD) Af Amer 217, Est GFR (MDRD) Non-Af 179, BUN/Creatinine Ratio 13.5, Glucose 86, Calcium 7.3 L, Phosphorus 3.1, Magnesium 1.7, Total Bilirubin 5.60 H , AST 59 H, ALT 30, Alkaline Phosphatase 104, Total Protein 5.5 L, Albumin 1.2 L , Globulin 4.3 H, Albumin/Globulin Ratio 0.3 L Micro: Microbiology 06/17/21 06:27 Blood Culture (Wb) - Anticubital Right Blood Culture - Preliminary No growth in 48 hours. 06/16/21 18:18 Blood Culture (Wb) - Anticubital Right Blood Culture - Preliminary No growth in 48 hours. 06/16/21 18:18 Nasal Secretion SARS-CoV-2 Antigen (Rapid) - Final SARS-CoV-2 (COVID 19) Physical Exam Const alert and average body habitus Resp normal respiratory effort, no retractions, no use of accessory muscles and clear to auscultation bilaterally Cardio regular rate, regular rhythm, S1 normal heart sound and S2 normal heart sound GI normal to inspection, nondistended, normoactive bowel sounds, soft to palpation, non-tender and non-distended Extremity normal to inspection Neuro Sensorium / Orientation: awake and alert Assessment & Plan Assessment/Plan (1) Hyperbilirubinemia: (2) Hematemesis: QUALIFIERS: Nausea presence: unspecified Qualified Code(s): K92.0 - Hematemesis (3) COVID-19: (4) Elevated d-dimer: (5) Hyponatremia: (6) Hyperammonemia: (7) Alcohol abuse: (8) Severe malnutrition: (9) Tobacco dependence: PLAN: 1. Acute COVID-19 infection: * Currently patient does not have hypoxia. * Not on supplemental oxygen. * Chest x-ray shows patchy bilateral infiltrate. * CTPA negative for PE. Elevated D-dimer. 2. GI bleed * EGD today showed normal esophagus, nonbleeding erosive gastropathy, portal hypertensive gastropathy, 1 nonbleeding duodenal ulcer with no stigmata of bleeding. * Hematemesis, last episode 3 days ago: Patient has history of decompensated alcoholic cirrhosis with esophageal varices possible hepatic encephalopathy, chronic thrombocytopenia. Protonix IV twice daily. GI is consulted. Patient had hyperbilirubinemia. * Right upper quadrant sonogram reported possible cirrhosis with partial portal vein thrombosis. Patient is high risk of anticoagulation with history of esophageal lesion and recent hematemesis. On lactulose. 3. Severe protein calorie malnutrition * -We will utilize clear liquid diet right now with hematemesis. GI is consulted in anticipation of possible EGD. * -Consult dietitian 4. Bilateral lower extremity chronic wounds with scab: No sign of active infection or indication of antibiotic. Wound care nurse consulted. 5. Acute alcohol withdrawal syndrome with chronic alcohol use with dependence: CIWA monitoring with Ativan as needed per protocol. Patient having signs of acute alcohol withdrawal tachycardia, tachypnea, restlessness and anxiety. Started on phenobarbital. IV fluid Ringer lactate as patient seems dehydrated. 6. Chronic cigarette smoking with nicotine dependence: Patient smokes a pack of cigarettes daily Tobacco abuse 7. DVT prophylaxis: Pharmacological probably secondary to severe anemia with possibility of varices and hematemesis. CODE STATUS -Full code Charges/Coding Visit Charges Inpatient E&M: 82533 Subs Hosp L2
[2021-06-19] MEDS: 0.9% Saline Lock 10 ML Syringe IV (20:16)
[2021-06-20] VITALS (13 sets, daily range): BP systolic 101–133; BP diastolic 70–100; PULSE 72–127; RESP 18–32; TEMP 36.6–37.7; O2SAT 90–99
[2021-06-20] MEDS: traZODone 100 MG Tablet PO (00:48)
[2021-06-20] MEDS: Albuterol 2.5 MG/3 ML VIAL.NEB. INHALATION (00:58)
[2021-06-20] MEDS: LORazepam 1 MG Tablet 2 MG PO (01:41)
--- NOTE | 2021-06-20 02:18 | PCM.HOSP.N ---
Hospitalist Note Patient had oxygen desaturations overnight and had to be placed on 2 L nasal cannula with improvement in his oxygenation to a 94 to 95% oxygen saturation. He is still within the 10-day window from symptom onset and therefore I will initiate Decadron and remdesivir at this time. We will have to keep a close eye on his liver function and his serum creatinine. He is not diabetic at baseline and has no hyperglycemia during this hospitalization. Will watch blood sugars at this time and initiate blood sugar coverage if needed.
[2021-06-20] MEDS: dexAMETHasone 4 MG Tablet 6 MG PO (02:41)
[2021-06-20] MEDS: 0.9% Saline Lock 10 ML Syringe IV ×2 (02:41→23:12)
[2021-06-20] MEDS: Phenobarbital 32.4 MG Tablet 64.8 MG PO ×2 (02:41→23:12)
[2021-06-20 07:10] LABS: Allen Test Positive; Base Excess -3 mmol/L (-2 to +2); Bicarbonate 21.1 mmol/L (22-26); Blood Gas Specimen Type ART; FI02 28; O2 Delivery Device Cannula; PO2 69 mmHG (75-100); SITE R Radial; SO2 94 % (95-99); Total Carbon Dioxide 22 mmol/L; pCO2 30.9 mmHg (35-45); pH 7.44 (7.35-7.45)
[2021-06-20 07:54] LABS: ALB/GLOB Ratio 0.3 RATIO (0.9-2.4); AST(SGOT) 65 U/L (15-37); Absolute Lymphocyte Count 0.88 X10^3/uL (0.83-4.51); Absolute Neutrophil Count 7.8 X10^3/uL (2.0-7.7); Alanine Aminotransfer ALT/SGPT 35 U/L (16-61); Albumin, Serum 1.3 g/dL (3.2-5.0); Alkaline Phosphatase 114 U/L (45-117); Anion Gap 7 (5-15); BUN 10 mg/dL (7-18); BUN/Creat Ratio 14.7 RATIO (10-20); Basophil# 0.05 X10^3/uL; Basophil% 0.5 % (0-1); Calcium,Total 7.6 mg/dL (8.5-10.1); Chloride 105 mmol/L (98-107); Creatinine, Serum 0.68 mg/dL (0.70-1.30); EST Glomerular Filtration Rate 131 mL/min (>60); Eosinophil# 0.03 X10^3/uL; Eosinophils% 0.3 % (0-5); Est Glom Filt Rate - Afr Amer 159 mL/min (>60); Estimated Creatinine Clearance 117.28 ml/min; Globulin 4.5 g/dL (2.2-4.2); Glucose 121 mg/dL (74-106); Hematocrit 33.6 % (40-54); Hemoglobin 12.1 g/dL (13.0-16.5); Lymphocyte # 0.88 X10^3/ul (0.83-4.51); Lymphocyte % 8.6 % (19-41); Mean Corpuscular Hgb 35.4 pg (27.0-32.0); Mean Corpuscular Volume 98.2 fL (80-94); Mean Platelet Vol. 11.6 fl (6.2-12.0); Monocyte# 1.31 X10^3/uL; Monocyte% 12.8 % (0-10); NRBC Flagged by Analyzer 0 % (0-5); Neutrophil # 7.84 X10^3/uL (2.7-7.7); Neutrophil % 76.2 % (47-70); POSITIVE COUNT YES; Platelet Count 104 K/mm3 (150-450); Potassium 4.1 mmol/L (3.5-5.1); Protein, Total 5.8 g/dL (6.4-8.2); RBC Distribution Width CV 15.9 % (11.6-14.6); RBC Distribution Width SD 56.6 fl (35.1-43.9); Red Blood Count 3.42 M/mm3 (4.6-6.2); Sodium Level 133 mmol/L (136-145); White Blood Count 10.3 K/mm3 (4.4-11.0)
--- NOTE | 2021-06-20 08:11 | RAD_ITS ---
STUDY: X-RAY CHEST REASON FOR EXAM: Male, 50 years old. dyspnea TECHNIQUE: Single AP portable view of the chest. COMPARISON: 06/16/2021 FINDINGS: The lungs are clear and expanded. Large right pleural effusion with right lower lobe atelectasis. Normal size heart. Normal mediastinum and maryam. Normal visualized pulmonary arteries. Normal visualized aortic arch and descending thoracic aorta. Normal visualized thoracic spine. Normal visualized ribs, clavicles, and shoulders. There is no demonstrated abnormality of the visualized soft tissue structures of the upper abdomen. RAD/Chest 1 View (Portable) IMPRESSION: Large right pleural effusion with right lower lobe atelectasis. Electronically Signed: Chinmay Suarez MD at 9:33 EDT Tel , Service support ,
--- NOTE | 2021-06-20 10:44 | CT_ITS ---
STUDY: CT BRAIN WITHOUT CONTRAST REASON FOR EXAM: Male, 50 years old. confusion RADIATION DOSAGE (If Supplied By Facility): CTDIvol = ( 44.99 ) mGy, DLP = ( 846.73 ) mGycm TECHNIQUE: Transaxial CT imaging of the brain was performed without administration of intravenous contrast material. Individualized dose optimization techniques were used for this CT. COMPARISON: 10/07/2020 FINDINGS: Normal soft tissue structures. Normal calvarium. There is mild cerebral atrophy with widening of the extra-axial spaces and ventricular dilatation. Normal white matter tracts of the cerebral hemispheres. Normal basal ganglia and thalami. Normal brainstem. Normal cerebellum. There is no intracranial hemorrhage. There are no findings of an acute ischemic infarction. Air-fluid levels in the maxillary sinuses and right sphenoid sinus consistent with sinusitis. CT/Brain/Head without Contrast IMPRESSION: Chronic involutional changes of the brain. Electronically Signed: Chinmay Suarez MD at 11:24 EDT Tel , Service support ,
--- NOTE | 2021-06-20 14:48 | PN.HOSP_ITS ---
Subjective Subjective No to be more confused today. Objective Data Objective Data Vital Signs: Vital Signs Temp Pulse Resp BP Pulse Ox 37.6 C H 84 20 H 109/70 90 06/20/21 14:35 06/20/21 14:35 06/20/21 14:35 06/20/21 14:35 06/20/21 14:35 Oxygen Flow Rate (L/min) 4 Oxygen Delivery Method Nasal Cannula Weight: 69.626 kg Body Mass Index (BMI) 24.7 Intake & Output: Intake and Output for Last 24 Hours 06/18/21 06/19/21 06/20/21 23:59 23:59 23:59 Intake Total 3590.6633 / 3590.6633 3131.2533 / 3131.2533 337.08 / 337.08 Balance 3590.6633 / 3590.6633 3131.2533 / 3131.2533 337.08 / 337.08 Medical Nutrition Assessment Dietitian: Malnutrition Criteria Met Start: 06/17/21 14:14 Freq: Status: Active Protocol: Document 06/17/21 14:14 BW (Rec: 06/17/21 14:15 BW [id number]) Nutrition Malnutrition Evidence of Malnutrition Exists Yes Malnutrition (severe): Acute Illness/Injury Malnutrition (unspecified) Severe pro/alexis Evidenced By Suboptimal Energy Intake ( Severe) Intake Problem Inadequate Oral Intake Etiology related to weakness, fatigue and poor appetite Signs/Symptoms Severe weight loss of 13.1 kg (16%) in 14 months, diagnosis of failure to thrive and reported myalgia Status Active Problem Clinical Problem Unintended Weight Loss Etiology related to hematemesis and >3 days without oral intake Signs/Symptoms Severe weight loss of 13.1 kg (16%) in 14 months and reports of weakness Status Active Problem Recommendation Dietitian Recommendations/Changes Regular diet when oral intake can be resumed. Consider initiating full liquids advancing as tolerated to regular consistency foods & fluids with oral nutrition supplements if tolerated Lab / Micro Data Result Diagrams: 06/20/21 06:40 06/20/21 06:40 Labs: Laboratory Results - last 24 hr 06/20/21 06:40: WBC 10.3, RBC 3.42 L, Hgb 12.1 L, Hct 33.6 L, MCV 98.2 H, MCH 35.4 H, MCHC 36.0, RDW Std Deviation 56.6 H, RDW Coeff of Lesvia 15.9 H, Plt Count 104 L, MPV 11.6, Immature Gran % (Auto) 1.600 H, Neut % (Auto) 76.2 H, Lymph % (Auto) 8.6 L, [place] % (Auto) 12.8 H, Eos % (Auto) 0.3, Baso % (Auto) 0.5, Absolute Neuts (auto) 7.8 H, Absolute Lymphs (auto) 0.88, Nucleated RBC % 0 06/20/21 06:40: Sodium 133 L, Potassium 4.1, Chloride 105, Carbon Dioxide 21.0, Anion Gap 7, BUN 10, Creatinine 0.68 L, Estim Creat Clear Calc 117.28, Est GFR (MDRD) Af Amer 159, Est GFR (MDRD) Non-Af 131, BUN/Creatinine Ratio 14.7, Glucose 121 H, Calcium 7.6 L, Total Bilirubin 4.20 H, AST 65 H, ALT 35, Alkaline Phosphatase 114, Total Protein 5.8 L, Albumin 1.3 L, Globulin 4.5 H, Albumin/Globulin Ratio 0.3 L 06/20/21 11:14: Ammonia 69.0 H Micro: Microbiology 06/17/21 06:27 Blood Culture (Wb) - Anticubital Right Blood Culture - Preliminary No growth in 48 hours. 06/16/21 18:18 Blood Culture (Wb) - Anticubital Right Blood Culture - Preliminary No growth in 48 hours. 06/16/21 18:18 Nasal Secretion SARS-CoV-2 Antigen (Rapid) - Final SARS-CoV-2 (COVID 19) ABG Data ABG results: ABG 06/20/21 07:04 Specimen Type ART Sample Site R Radial pH 7.44 Bicarbonate Actual 21.1 L Total CO2 22 Base Excess -3 L O2 Saturation 94 L O2 % 28 ABG pCO2 30.9 L ABG pO2 69 L Raphael Test Positive O2 Delivery Device Cannula Radiography Diagnostic Testing: Radiology Impression Chest X-Ray 06/20/21 08:11 IMPRESSION: Large right pleural effusion with right lower lobe atelectasis. Electronically Signed: Chinmay Suarez MD at 9:33 EDT Tel , Service support , Brain CT 06/20/21 10:44 IMPRESSION: Chronic involutional changes of the brain. Electronically Signed: Chinmay Suarez MD at 11:24 EDT Tel , Service support , Physical Exam Const Constitutional Narrative: Confused. Audible coarse breath sounds. Does open eyes to voice and is able to say some things incoherently. Resp Resp Narrative: Coarse upper respiratory breath sounds Cardio regular rate, regular rhythm, S1 normal heart sound and S2 normal heart sound GI normal to inspection, nondistended, normoactive bowel sounds GI Narrative: Distended Extremity General Extremity: edema Skin Skin Narrative: Jaundice Assessment & Plan Assessment/Plan (1) Hyperbilirubinemia: (2) Hematemesis: QUALIFIERS: Nausea presence: unspecified Qualified Code(s): K92.0 - Hematemesis (3) COVID-19: (4) Elevated d-dimer: (5) Hyponatremia: (6) Hyperammonemia: (7) Alcohol abuse: (8) Severe malnutrition: (9) Tobacco dependence: (10) Encephalopathy: (11) Acute respiratory failure with hypoxia: (12) Pleural effusion: PLAN: 1. Acute hypoxic respiratory failure * Patient with worsening respiratory status * Chest x-ray performed and shows large right-sided pleural effusion. Patient had effusion present on the fifth * Chest physiotherapy * Wean oxygen as tolerated * Patient has Covid but I will feel his symptoms are primarily Covid but more l ikely related to his large pleural effusion. 2. encephalopathy * worse today * likely multifactorial (hepatic encephalopathy, but also component of medications) * due to hepatic encephalopathy and meds * dc potentiating medications (lorazepam, gabapentin) * no seizure-like activity noted. Consider EEG if persists. * cannot give lactulose given NPO. Consider NG to administer if persists 3. Acute COVID-19 infection: * on dexamethasone * on remdesivir * not candidate for baricitinib given cirrhosis 4. GI bleed * EGD today showed normal esophagus, nonbleeding erosive gastropathy, portal hypertensive gastropathy, 1 nonbleeding duodenal ulcer with no stigmata of bleeding. * Hematemesis, last episode 3 days ago: Patient has history of decompensated alcoholic cirrhosis with esophageal varices possible hepatic encephalopathy, chronic thrombocytopenia. Protonix IV twice daily. GI is consulted. Patient had hyperbilirubinemia. * Right upper quadrant sonogram reported possible cirrhosis with partial portal vein thrombosis. Patient is high risk of anticoagulation with history of esophageal lesion and recent hematemesis. On lactulose * EGD on 06/19: normal esophagus, nonbleeding erosive gastropathy, portal hypertensive gastropathy, 1 nonbleeding duodenal ulcer with no stigmata of bleeding.. 5. Cirrhosis: * alcoholic * MELD 17 * CHILD Sheriff C * 6. Severe protein calorie malnutrition * complicates care and recovery * currently NPO given encephalopathy 6. Bilateral lower extremity chronic wounds with scab: No sign of active infection or indication of antibiotic. Wound care nurse consulted. 7. Acute alcohol withdrawal syndrome with chronic alcohol use with dependence: * dc lorazepam given encephalopathy 8. Chronic cigarette smoking with nicotine dependence: Patient smokes a pack of cigarettes daily Tobacco abuse 9. DVT prophylaxis: Pharmacological probably secondary to severe anemia with possibility of varices and hematemesis. CODE STATUS -Full code Prognosis: guarded to poor. Charges/Coding Visit Charges Inpatient E&M: 20159 Subs Hosp L3
[2021-06-20 15:11] LABS: Allen Test Positive; Base Excess -2 mmol/L (-2 to +2); Bicarbonate 22.2 mmol/L (22-26); Blood Gas Specimen Type ART; FI02 36; O2 Delivery Device Cannula; PO2 61 mmHG (75-100); SITE R Radial; SO2 92 % (95-99); Total Carbon Dioxide 23 mmol/L; pCO2 34.6 mmHg (35-45); pH 7.42 (7.35-7.45)
[2021-06-20] MEDS: Lactulose 20 GM/30 ML UDC 10 GM PO (22:16)
[2021-06-21] VITALS (10 sets, daily range): BP systolic 113–120; BP diastolic 74–81; PULSE 74–105; RESP 18–24; TEMP 36.5–36.9; O2SAT 92–99
[2021-06-21 06:32] LABS: Hematocrit 28.3 % (40-54); Hemoglobin 11.3 g/dL (13.0-16.5); Mean Corp Hgb Conc 39.9 g/dL (32-36); Mean Corpuscular Hgb 40.9 pg (27.0-32.0); Mean Corpuscular Volume 102.5 fL (80-94); Mean Platelet Vol. 11.3 fl (6.2-12.0); POSITIVE COUNT YES; Platelet Count 97 K/mm3 (150-450); RBC Distribution Width CV 16.2 % (11.6-14.6); RBC Distribution Width SD 57.5 fl (35.1-43.9); Red Blood Count 2.76 M/mm3 (4.6-6.2); White Blood Count 13.3 K/mm3 (4.4-11.0)
[2021-06-21 07:57] LABS: ALB/GLOB Ratio 0.2 RATIO (0.9-2.4); AST(SGOT) 38 U/L (15-37); Alanine Aminotransfer ALT/SGPT 27 U/L (16-61); Alkaline Phosphatase 96 U/L (45-117); Anion Gap 7 (5-15); BUN 13 mg/dL (7-18); BUN/Creat Ratio 22.5 RATIO (10-20); Calcium,Total 7.6 mg/dL (8.5-10.1); Chloride 105 mmol/L (98-107); Creatinine, Serum 0.58 mg/dL (0.70-1.30); EST Glomerular Filtration Rate 158 mL/min (>60); Est Glom Filt Rate - Afr Amer 191 mL/min (>60); Globulin 4.7 g/dL (2.2-4.2); Glucose 133 mg/dL (74-106); Potassium 4.5 mmol/L (3.5-5.1); Protein, Total 5.7 g/dL (6.4-8.2); Sodium Level 133 mmol/L (136-145)
[2021-06-21 09:10] LABS: Bilirubin, Direct 2.66 mg/dL (0.00-0.30)
[2021-06-21] MEDS: Furosemide 20 MG/2 ML VIAL IV ×2 (10:08→17:00)
--- NOTE | 2021-06-21 15:39 | PN.HOSP_ITS ---
Subjective Subjective Short of breath and tachypneic in the morning. Lasix 20 mg IV was given. Seen by speech therapy and made n.p.o. Patient lethargic and had trazodone and p.o. Ativan last night. Discussed with GI. Objective Data Objective Data Vital Signs: Vital Signs Temp Pulse Resp BP Pulse Ox 98.3 F 92 18 115/81 H 95 06/21/21 15:02 06/21/21 15:02 06/21/21 15:02 06/21/21 15:02 06/21/21 15:02 Oxygen Flow Rate (L/min) 2 Oxygen Delivery Method Nasal Cannula Weight: 153 lb 8 oz Body Mass Index (BMI) 24.7 Intake & Output: Intake and Output for Last 24 Hours 06/19/21 06/20/21 06/21/21 23:59 23:59 23:59 Intake Total 3131.2533 / 3131.2533 499.08 / 499.08 750 / 750 Output Total 200 / 200 Balance 3131.2533 / 3131.2533 299.08 / 299.08 750 / 750 Medical Nutrition Assessment Dietitian: Malnutrition Criteria Met Start: 06/17/21 14:14 Freq: Status: Active Protocol: Document 06/17/21 14:14 BW (Rec: 06/17/21 14:15 BW [id number]) Nutrition Malnutrition Evidence of Malnutrition Exists Yes Malnutrition (severe): Acute Illness/Injury Malnutrition (unspecified) Severe pro/alexis Evidenced By Suboptimal Energy Intake ( Severe) Intake Problem Inadequate Oral Intake Etiology related to weakness, fatigue and poor appetite Signs/Symptoms Severe weight loss of 13.1 kg (16%) in 14 months, diagnosis of failure to thrive and reported myalgia Status Active Problem Clinical Problem Unintended Weight Loss Etiology related to hematemesis and >3 days without oral intake Signs/Symptoms Severe weight loss of 13.1 kg (16%) in 14 months and reports of weakness Status Active Problem Recommendation Dietitian Recommendations/Changes Regular diet when oral intake can be resumed. Consider initiating full liquids advancing as tolerated to regular consistency foods & fluids with oral nutrition supplements if tolerated Lab / Micro Data Result Diagrams: 06/21/21 06:08 06/21/21 07:24 Labs: Laboratory Results - last 24 hr 06/21/21 06:08: WBC 13.3 H, RBC 2.76 L, Hgb 11.3 L, Hct 28.3 L, MCV 102.5 H, MCH 40.9 H, MCHC 39.9 H D, RDW Std Deviation 57.5 H, RDW Coeff of Lesvia 16.2 H, Plt Count 97 L, MPV 11.3 06/21/21 07:24: Sodium 133 L, Potassium 4.5, Chloride 105, Carbon Dioxide 21.0, Anion Gap 7, BUN 13, Creatinine 0.58 L, Estim Creat Clear Calc 137.50, Est GFR (MDRD) Af Amer 191, Est GFR (MDRD) Non-Af 158, BUN/Creatinine Ratio 22.5 H, Glucose 133 H, Calcium 7.6 L, Total Bilirubin 4.70 H, AST 38 H, ALT 27, Alkaline Phosphatase 96, Total Protein 5.7 L, Albumin 1.0 L, Globulin 4.7 H, Albumin/Globulin Ratio 0.2 L 06/21/21 07:30: Direct Bilirubin 2.66 H Micro: Microbiology 06/17/21 06:27 Blood Culture (Wb) - Anticubital Right Blood Culture - Preliminary No growth in 48 hours. 06/16/21 18:18 Blood Culture (Wb) - Anticubital Right Blood Culture - Preliminary No growth in 48 hours. 06/16/21 18:18 Nasal Secretion SARS-CoV-2 Antigen (Rapid) - Final SARS-CoV-2 (COVID 19) Physical Exam Narrative General: Lethargic, confused and disoriented HEENT: Atraumatic, PERRLA, EOMI, Normocephalic Oral: No Gingival or Mucosal Lesions/ Ulcerations Neck: Supple, No JVD, Negative Carotid Bruits Lungs: Air entry diminished in bilateral lung bases. Cardiovascular: Sinus rhythm, normal S1, Normal S2, No murmurs Abdomen: Mild right upper quadrant tenderness. Bowel Sounds Present, Soft, Non-Distended : No renal angle tenderness. No suprapubic tenderness. Extremities: No edema, Capillary Refill Less than 3 Seconds Skin: No rashes, No breakdown Musculoskeletal: No Tenderness to Palpation of Joints or Extremities Neurological: Cranial nerves II-XII grossly intact, DTR 2+/4 and Symmetrical, Neuro grossly intact Psych/Mental Status: Flat affect Assessment & Plan Assessment/Plan (1) Hyperbilirubinemia: (2) Hematemesis: QUALIFIERS: Nausea presence: unspecified Qualified Code(s): K92.0 - Hematemesis (3) COVID-19: (4) Elevated d-dimer: (5) Hyponatremia: (6) Hyperammonemia: (7) Alcohol abuse: (8) Severe malnutrition: (9) Tobacco dependence: (10) Encephalopathy: (11) Acute respiratory failure with hypoxia: (12) Pleural effusion: PLAN: 1. Acute hypoxic respiratory failure * Patient with worsening respiratory status. Lasix 20 mg IV given. * Chest x-ray performed and shows large right-sided pleural effusion. Patient had effusion on 06/16 * Chest physiotherapy * Wean oxygen as tolerated * Patient has Covid but I will feel his symptoms are primarily Covid but more likely related to his large pleural effusion. 2. Acute encephalopathy probably due to hepatic encephalopathy. Patient has acute alcoholic hepatitis with right upper quadrant tenderness. Patient made n.p.o. Gabapentin and trazodone discontinued. Lorazepam only for severe CIWA score more than 15. 3. Acute COVID-19 infection: On dexamethasone and remdesivir. * not candidate for baricitinib given cirrhosis 4. Acute GI bleed * EGD today showed normal esophagus, nonbleeding erosive gastropathy, portal hypertensive gastropathy, 1 nonbleeding duodenal ulcer with no stigmata of bleeding. * Hematemesis, last episode 3 days ago: Patient has history of decompensated alcoholic cirrhosis with esophageal varices possible hepatic encephalopathy, chronic thrombocytopenia. Protonix IV twice daily. GI is consulted. Patient had hyperbilirubinemia. * Right upper quadrant sonogram reported possible cirrhosis with partial portal vein thrombosis. Patient is high risk of anticoagulation with history of esophageal lesion and recent hematemesis. On lactulose * EGD on 06/19: normal esophagus, nonbleeding erosive gastropathy, portal hypert ensive gastropathy, 1 nonbleeding duodenal ulcer with no stigmata of bleeding.. 5. Alcoholic cirrhosis, decompensated: MELD 17. CHILD Sheriff C 6. Severe protein calorie malnutrition * complicates care and recovery * currently NPO given encephalopathy 6. Bilateral lower extremity chronic wounds with scab: No sign of active infection or indication of antibiotic. Wound care nurse consulted. 7. Acute alcohol withdrawal syndrome with chronic alcohol use with dependence: * dc lorazepam given encephalopathy 8. Chronic cigarette smoking with nicotine dependence: Patient smokes a pack of cigarettes daily Tobacco abuse 9. DVT prophylaxis: Pharmacological probably secondary to severe anemia with possibility of varices and hematemesis. CODE STATUS -Full code Prognosis: guarded to poor. Charges/Coding Visit Charges Inpatient E&M: 52860 Subs Hosp L2
[2021-06-21] MEDS: Dext 5%-0.45% NS 1,000 ML 30 ML IV (17:00)
[2021-06-21] MEDS: Lactulose 20 GM/30 ML UDC 10 GM PO (22:10)
[2021-06-21] MEDS: guaiFENesin 10 ML UDC (200MG/10ML) 20 ML PO (22:18)
[2021-06-21] MEDS: Albuterol 2.5 MG/3 ML VIAL.NEB. INHALATION (23:33)
[2021-06-22] VITALS (28 sets, daily range): BP systolic 100–147; BP diastolic 67–99; PULSE 47–123; RESP 12–34; TEMP 36.4–37.6; O2SAT 86–100
[2021-06-22] MEDS: LORazepam 2 MG/ML Syringe IV ×3 (00:33→06:17)
[2021-06-22] MEDS: 0.9% Saline Lock 10 ML Syringe IV (00:34)
[2021-06-22] MEDS: Furosemide 20 MG/2 ML VIAL IV ×2 (04:35→16:16)
--- NOTE | 2021-06-22 05:10 | RAD_ITS ---
EXAM: XR Chest, 1 View CLINICAL INDICATION: 50 years old, Male; SOB TECHNIQUE: Frontal view of the chest. This report was created using [employer] report generation technology. COMPARISON: Chest x-ray dated 06/16/2021. FINDINGS: Limitations: Patient''s lower face obscures visualization of portions of the lung apex. Lungs and pleural spaces: Large right pleural effusion which is unchanged. Bilateral pulmonary infiltrates which are unchanged. Heart: Unremarkable. Cardiac silhouette not enlarged. Mediastinum: Central airways and mediastinal contour are unremarkable. Bones/joints: Unremarkable. Soft tissues: Unremarkable. RAD/Chest 1 View (Portable) IMPRESSION: 1. Large right pleural effusion which is unchanged. 2. Bilateral pulmonary infiltrates which are unchanged. Electronically Signed: Clifton Sharif MD at 5:40 EDT Tel , Service support ,
[2021-06-22] MEDS: Furosemide 40 MG/4 ML Vial IV (05:14)
[2021-06-22] MEDS: Lactulose 20 GM/30 ML UDC 200 GM RC ×3 (05:16→22:40)
--- NOTE | 2021-06-22 06:39 | NURSING ---
gave chronulac enema, held about 5 mins, had small hard bm with it.
--- NOTE | 2021-06-22 07:00 | NURSING ---
pt is not resting in bed comfortably, bipap mask is on. ativan effective
[2021-06-22 07:59] LABS: Vitamin B12 1269 pg/mL (211-911)
[2021-06-22 07:59] LABS: ALB/GLOB Ratio 0.3 RATIO (0.9-2.4); AST(SGOT) 49 U/L (15-37); Alanine Aminotransfer ALT/SGPT 29 U/L (16-61); Albumin, Serum 1.3 g/dL (3.2-5.0); Alkaline Phosphatase 126 U/L (45-117); Anion Gap 6 (5-15); BUN 15 mg/dL (7-18); BUN/Creat Ratio 23.8 RATIO (10-20); Calcium,Total 7.8 mg/dL (8.5-10.1); Chloride 106 mmol/L (98-107); Creatinine, Serum 0.63 mg/dL (0.70-1.30); EST Glomerular Filtration Rate 143 mL/min (>60); Est Glom Filt Rate - Afr Amer 173 mL/min (>60); Estimated Creatinine Clearance 126.59 ml/min; Globulin 4.9 g/dL (2.2-4.2); Glucose 122 mg/dL (74-106); Magnesium 1.8 mg/dL (1.6-2.6); Potassium 3.5 mmol/L (3.5-5.1); Protein, Total 6.2 g/dL (6.4-8.2); Sodium Level 138 mmol/L (136-145)
[2021-06-22 08:07] LABS: Hematocrit 34.8 % (40-54); Hemoglobin 12.4 g/dL (13.0-16.5); Mean Corp Hgb Conc 35.6 g/dL (32-36); Mean Corpuscular Hgb 35.4 pg (27.0-32.0); Mean Corpuscular Volume 99.4 fL (80-94); Platelet Count 125 K/mm3 (150-450); RBC Distribution Width CV 16.5 % (11.6-14.6); RBC Distribution Width SD 60.1 fl (35.1-43.9); Scan Indicated on CBC? Y/N NO; White Blood Count 15.4 K/mm3 (4.4-11.0)
[2021-06-22 08:09] LABS: Phosphorus 3.4 mg/dL (2.5-4.9)
--- NOTE | 2021-06-22 09:06 | PN.HOSP_ITS ---
Subjective Subjective Overnight clinical update taken from the nurse. Patient was more agitated, restless, tachypneic, tachycardic and had total of 6 mg of IV Ativan between 12 midnight and last to 6 AM. Currently, patient is unconscious, mostly unresponsive, nonverbal on BiPAP. BP 105/35. Respiratory rate 28/min. The nurse said that he might have aspirated. Repeat chest x-ray shows large right- sided pleural effusion with no significant change from 06/20 x-ray. IV twice daily goal blood pressure was tenuous. 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 Yesterday when I saw the patient because of decreased responsiveness was made n.p.o. with speech therapy evaluation and oral medications including phenobarbital discontinued and put on Ativan IV as needed for CIWA score more than 15. ABG stat ordered and patient is being transferred to ICU. Discussed with rod and tube straightener. Objective Data Objective Data Vital Signs: Vital Signs Temp Pulse Resp BP Pulse Ox 97.5 F L 91 28 H 105/85 H 98 06/22/21 08:27 06/22/21 08:27 06/22/21 08:27 06/22/21 08:27 06/22/21 08:27 Oxygen Flow Rate (L/min) 4 Oxygen Delivery Method Bi-pap Weight: 153 lb 8 oz Body Mass Index (BMI) 24.7 Intake & Output: Intake and Output for Last 24 Hours 06/20/21 06/21/21 06/22/21 23:59 23:59 23:59 Intake Total 499.08 / 499.08 912 / 912 250 / 250 Output Total 200 / 200 400 / 400 Balance 299.08 / 299.08 512 / 512 250 / 250 Medical Nutrition Assessment Dietitian: Malnutrition Criteria Met Start: 06/17/21 14:14 Freq: Status: Active Protocol: Document 06/17/21 14:14 BW (Rec: 06/17/21 14:15 BW [id number]) Nutrition Malnutrition Evidence of Malnutrition Exists Yes Malnutrition (severe): Acute Illness/Injury Malnutrition (unspecified) Severe pro/alexis Evidenced By Suboptimal Energy Intake ( Severe) Intake Problem Inadequate Oral Intake Etiology related to weakness, fatigue and poor appetite Signs/Symptoms Severe weight loss of 13.1 kg (16%) in 14 months, diagnosis of failure to thrive and reported myalgia Status Active Problem Clinical Problem Unintended Weight Loss Etiology related to hematemesis and >3 days without oral intake Signs/Symptoms Severe weight loss of 13.1 kg (16%) in 14 months and reports of weakness Status Active Problem Recommendation Dietitian Recommendations/Changes Regular diet when oral intake can be resumed. Consider initiating full liquids advancing as tolerated to regular consistency foods & fluids with oral nutrition supplements if tolerated Lab / Micro Data Result Diagrams: 06/22/21 07:05 06/22/21 07:05 Labs: Laboratory Results - last 24 hr 06/21/21 07:30: Direct Bilirubin 2.66 H 06/21/21 07:30: Vitamin B12 1269 H 06/22/21 07:05: WBC 15.4 H, RBC 3.50 L, Hgb 12.4 L, Hct 34.8 L, MCV 99.4 H, MCH 35.4 H, MCHC 35.6 D, RDW Std Deviation 60.1 H, RDW Coeff of Lesvia 16.5 H, Plt Count 125 L, MPV 11.0 06/22/21 07:05: Sodium 138, Potassium 3.5, Chloride 106, Carbon Dioxide 26.0, Anion Gap 6, BUN 15, Creatinine 0.63 L, Estim Creat Clear Calc 126.59, Est GFR (MDRD) Af Amer 173, Est GFR (MDRD) Non-Af 143, BUN/Creatinine Ratio 23.8 H, Glucose 122 H, Calcium 7.8 L, Magnesium 1.8, Total Bilirubin 4.00 H, AST 49 H, ALT 29, Alkaline Phosphatase 126 H, Total Protein 6.2 L, Albumin 1.3 L, Globulin 4.9 H, Albumin/Globulin Ratio 0.3 L 06/22/21 07:05: Phosphorus 3.4 Micro: Microbiology 06/17/21 06:27 Blood Culture (Wb) - Anticubital Right Blood Culture - Final No growth in 5 days. 06/16/21 18:18 Blood Culture (Wb) - Anticubital Right Blood Culture - Final No growth in 5 days. 06/16/21 18:18 Nasal Secretion SARS-CoV-2 Antigen (Rapid) - Final SARS-CoV-2 (COVID 19) Radiography Diagnostic Testing: Radiology Impression Chest X-Ray 06/22/21 05:10 IMPRESSION: 1. Large right pleural effusion which is unchanged. 2. Bilateral pulmonary infiltrates which are unchanged. Electronically Signed: Clifton Sharif MD at 5:40 EDT Tel , Service support , Physical Exam Narrative General: Unconscious, unresponsive, nonverbal. HEENT: Pupils, 3 mm, bilaterally brisk reactive. Atraumatic,Normocephalic. Mild crust on the right eyelashes Oral: On BiPAP. Neck: Supple, No JVD, Negative Carotid Bruits Lungs: Air entry diminished in bilateral lung bases. Cardiovascular: Sinus tachycardia, normal S1, Normal S2, No murmurs Abdomen: Had RUQ tenderness but currently unresponsive. Bowel Sounds sluggish, Soft, Non-Distended : No renal angle tenderness. No suprapubic tenderness. Extremities: No edema, Capillary Refill Less than 3 Seconds Skin: No rashes, No breakdown Musculoskeletal: No Tenderness to Palpation of Joints or Extremities Neurological: Nonfocal exam. Unresponsive Psych/Mental Status: Unresponsive Assessment & Plan Assessment/Plan (1) Hyperbilirubinemia: (2) Hematemesis: QUALIFIERS: Nausea presence: unspecified Qualified Code(s): K92.0 - Hematemesis (3) COVID-19: (4) Elevated d-dimer: (5) Hyponatremia: (6) Hyperammonemia: (7) Alcohol abuse: (8) Severe malnutrition: (9) Tobacco dependence: (10) Encephalopathy: (11) Acute respiratory failure with hypoxia: (12) Pleural effusion: PLAN: 1. Acute hypoxic respiratory failure most likely due to large pleural effusion with bilateral infiltrates, COVID-19 pneumonia and atelectasis. * Patient with worsening respiratory status. Lasix 20 mg IV given. * Chest x-ray performed and shows large right-sided pleural effusion. Patient had effusion on 06/16. 06/22: With acute change in mental status, alcohol withdrawal and large pleural effusion and respiratory failure patient is transferred to ICU. Discussed with rod and tube straightener. ABG ordered. Chest x-ray reviewed. Plan: Arrange right thoracocentesis probably at bedside. 2. Acute encephalopathy probably due to hepatic encephalopathy. Patient has acute alcoholic hepatitis with right upper quadrant tenderness. Patient made n.p.o. Gabapentin and trazodone discontinued. Lorazepam only for severe CIWA score more than 15. 3. Acute COVID-19 bilateral pneumonia: On dexamethasone and remdesivir.not candidate for baricitinib given cirrhosis 4. Acute GI bleed * EGD on 06/19 showed normal esophagus, nonbleeding erosive gastropathy, portal hypertensive gastropathy, 1 nonbleeding duodenal ulcer with no stigmata of bleeding. * Hematemesis, last episode 3 days ago: Patient has history of decompensated alcoholic cirrhosis with esophageal varices possible hepatic encephalopathy, chronic thrombocytopenia. Protonix IV twice daily. GI is consulted. Patient had hyperbilirubinemia. * Right upper quadrant sonogram reported possible cirrhosis with partial portal vein thrombosis. Patient is high risk of anticoagulation with history of esophageal lesion and recent hematemesis. On lactulose. There is no definitive consensus of treating portal vein thrombosis in cirrhotics as it is very common with high risk and less benefit unless it is causing acute liver failure or infarct which is rare. 5. Alcoholic cirrhosis, decompensated: MELD 17. CHILD Sheriff C 6. Severe protein calorie malnutrition * complicates care and recovery * currently NPO given encephalopathy 6. Bilateral lower extremity chronic wounds with scab: No sign of active infection or indication of antibiotic. Wound care nurse consulted. 7. Acute alcohol withdrawal syndrome with chronic alcohol use with dependence: Discontinue lorazepam given encephalopathy 8. Chronic cigarette smoking with nicotine dependence: Patient smokes a pack of cigarettes daily Tobacco abuse 9. DVT prophylaxis: Pharmacological probably secondary to severe anemia with possibility of varices and hematemesis. CODE STATUS -Full code Prognosis: guarded to poor. Charges/Coding Visit Charges Inpatient E&M: 37839 Subs Hosp L3
--- NOTE | 2021-06-22 09:12 | NURSING ---
a family friend, Candi, called in to patient's room. This RN in room and Candi wanting to talk to patient. Informed Candi that this RN not able to update her on patient due to HIPAA and she is not listed as contact. This RN called Ken and updated on pt status and transferring to ICU. Ken stated that he will relay information to Candi and for us not to give her information.
[2021-06-22 09:36] LABS: Allen Test Positive; Base Excess 2 mmol/L (-2 to +2); Bicarbonate 25.6 mmol/L (22-26); Blood Gas Specimen Type ART; FI02 30; Mode BiLevel; O2 Delivery Device BiPAP; PEEP 8; PO2 61 mmHG (75-100); RR 12; SITE R Radial; SO2 92 % (95-99); Total Carbon Dioxide 27 mmol/L; pCO2 35.9 mmHg (35-45); pH 7.46 (7.35-7.45)
[2021-06-22 10:28] LABS: Lactic Acid 2.6 mmol/L (0.4-1.9)
--- NOTE | 2021-06-22 11:02 | EX.PCM.CONCC ---
Assessment & Plan Assessment/Plan (1) Acute respiratory failure with hypoxia: (2) Pleural effusion: (3) Cirrhosis: (4) Alcohol abuse: (5) Hematemesis: QUALIFIERS: Nausea presence: unspecified Qualified Code(s): K92.0 - Hematemesis (6) Severe malnutrition: PLAN: RECOMMENDATIONS: 1. Discontinue BiPAP therapy. Nasal cannula oxygen as necessary to maintain sats greater than 90% 2. Initiate Precedex drip 3. Ativan per [facility] protocol 4. Not a candidate for baricitinib given liver dysfunction and thrombocytopenia. Consider discontinuation of remdesivir 5. Continue Decadron IMPRESSIONS: 1. Acute hypoxic respiratory failure with large right pleural effusion/COVID-19 pneumonia Patient appears to be doing okay from a respiratory standpoint. Patient with hyperventilation on ABG, likely secondary to BiPAP therapy. This will be discontinued as patient does pose a high risk for aspiration. Oxygen to maintain saturations between 90 and 94%. Patient may need a thoracentesis if condition deteriorates. However, given his acute COVID-19 pneumonia, this will be held off for now. Patient is on Remdesivir and dexamethasone. Unclear onset of symptoms to know if Remdesivir is really helpful. We will need to watch liver function closely. Patient reportedly was immunized and appears to be tolerating nasal cannula at this time. 2. Acute blood loss anemia secondary to acute GI bleed secondary to gastric and duodenal ulcers No active bleeding on recent endoscopy. Patient's hemoglobin is acceptable at this time. Patient did not have report of significant varices. Continue with lactulose. Patient did have hyperbilirubinemia. Gastroenterology is following. Patient with known alcoholic cirrhosis. 3. Severe protein calorie malnutrition/tobacco abuse/poor insight/alcohol withdrawal Complicates care, management, recovery and prognosis. We will keep patient n.p.o. for now given respiratory concerns. Precedex has been initiated. HPI Consult Data Date of Consult: 06/22/21 HPI Narrative HPI Narrative: CIARA MARTINEZ is a 50 M, with past medical history listed below, who presents to [facility] on 06/16/2021 secondary to fatigue and generalized weakness. Patient reportedly has been sleeping a lot more than normal after developing nausea and vomiting. Patient reportedly did have some episodes of hematemesis in the past. Patient does have a history of alcoholic cirrhosis and alcohol abuse. Patient had denied any abdominal pain and stated that he had not had a drink in several days. Patient had had a cough for 5 to 6 days, but was unaware of any fevers. Patient reportedly did have some body aches and has had his Covid vaccination. Patient does smoke on a daily basis. On arrival to the ER, patient was afebrile, but tachypneic at 24 breaths/min. Patient saturating well on room air. Laboratory work-up showed a white blood cell count of 7, hemoglobin of 11.9 and platelet count of 66. INR was slightly elevated at 1.6. Renal function was within normal limits, but bilirubin was elevated at 7.7 with an alk phos of 130. Albumin was low at 1.6. Lactate initially was 2 with an elevated ammonia of 53 and an alcohol level of 9. Chest x-ray showed bibasilar opacities. Patient was noted to be Covid positive. The patient was admitted to the floor for work-up. This did include an EGD completed by GI showing a normal esophagus with multiple erosions of the gastric body and severe portal hypertensive gastropathy. There was also a cratered duodenal ulcer noted. Patient was reportedly placed on Protonix twice daily. Over the course of patient's hospitalization, mental status continue to worsen. Patient was having active withdrawal symptoms and was given 6 mg of Ativan on the day of transfer to the intensive care unit. This morning, there was significant concerns about possible aspiration and decreased mental status. Patient was on BiPAP and there was concern she may have gotten some p.o. Chest x-ray showed some opacification of the right hemithorax, but on arrival to the intensive care unit, this appeared to be relatively stable compared to 06/20/2021. An ABG showed adequate oxygenation and hyperventilation on the BiPAP. The patient was placed on 3 L nasal cannula. The patient was noted to have significant upper airway secretions that were treated with NT suctioning. The patient started to become more difficult to direct, so Precedex was initiated. Patient is not able to provide any additional information at this time secondary to confusion. FOR[facility]LY [facility], [facility] Medical History Cirrhosis Smoker Tobacco use Home Medications NK 06/16/21 [History Last Taken Unknown] Allergy/AdvReac Type Severity Reaction Status Date / Time No Known Allergies Allergy Verified 06/16/21 17:39 Social History (Updated 06/16/21 @ 22:[address] Beth Enrique, DO) Smoking Status: Current every day smoker tobacco type: cigarettes alcohol intake: current substance use type: does not use ROS Review of Systems ROS Unobtainable: due to encephalopathy Physical Exam Const alert General Appearance: uncooperative and appears older than stated age Orientation / Consciousness: oriented to person HEENT hearing grossly normal bilaterally Head and Scalp: normal to inspection Face and Sinus: face symmetric Nose: external nose normal Mouth: oral and palatal mucosa normal Eyes conjunctivae normal General Eye: normal appearance of both eyes Neck full ROM General: normal visual inspection Lymph Lymphatic: no lymphadenopathy noted Chest inspection of chest normal Chest: symmetrical chest wall rise; Negative for crepitus Resp normal respiratory effort Resp Narrative: Transmitted upper airway noises Auscultation: diminished lung sounds; Negative for rales, rhonchi or wheezes Percussion: dullness Mid: right and Lower: right Cardio regular rhythm, S1 normal heart sound, S2 normal heart sound, no murmurs, no rub and no gallops Rate: tachycardic GI soft to palpation, non-tender and non-distended Percussion: normal to percussion Rectal Exam: deferred Extremity normal to inspection General Extremity: Negative for clubbing, cyanosis or edema Skin no rashes or lesions noted Neuro Speech: speech normal Gait (Neuro): normal gait Psych Attitude: uncooperative Medical Records Data Medical Nutrition Assessment Dietitian: Malnutrition Criteria Met Start: 06/17/21 14:14 Freq: Status: Active Protocol: Document 06/17/21 14:14 BW (Rec: 06/17/21 14:15 BW [id number]) Nutrition Malnutrition Evidence of Malnutrition Exists Yes Malnutrition (severe): Acute Illness/Injury Malnutrition (unspecified) Severe pro/alexis Evidenced By Suboptimal Energy Intake ( Severe) Intake Problem Inadequate Oral Intake Etiology related to weakness, fatigue and poor appetite Signs/Symptoms Severe weight loss of 13.1 kg (16%) in 14 months, diagnosis of failure to thrive and reported myalgia Status Active Problem Clinical Problem Unintended Weight Loss Etiology related to hematemesis and >3 days without oral intake Signs/Symptoms Severe weight loss of 13.1 kg (16%) in 14 months and reports of weakness Status Active Problem Recommendation Dietitian Recommendations/Changes Regular diet when oral intake can be resumed. Consider initiating full liquids advancing as tolerated to regular consistency foods & fluids with oral nutrition supplements if tolerated Lab / Micro Data Result Diagrams: 06/22/21 07:05 06/22/21 07:05 Labs: Laboratory Results - last 24 hr 06/21/21 07:30: Vitamin B12 1269 H 06/22/21 07:05: WBC 15.4 H, RBC 3.50 L, Hgb 12.4 L, Hct 34.8 L, MCV 99.4 H, MCH 35.4 H, MCHC 35.6 D, RDW Std Deviation 60.1 H, RDW Coeff of Lesvia 16.5 H, Plt Count 125 L, MPV 11.0 06/22/21 07:05: Sodium 138, Potassium 3.5, Chloride 106, Carbon Dioxide 26.0, Anion Gap 6, BUN 15, Creatinine 0.63 L, Estim Creat Clear Calc 126.59, Est GFR (MDRD) Af Amer 173, Est GFR (MDRD) Non-Af 143, BUN/Creatinine Ratio 23.8 H, Glucose 122 H, Calcium 7.8 L, Magnesium 1.8, Total Bilirubin 4.00 H, AST 49 H, ALT 29, Alkaline Phosphatase 126 H, Total Protein 6.2 L, Albumin 1.3 L, Globulin 4.9 H, Albumin/Globulin Ratio 0.3 L 06/22/21 07:05: Phosphorus 3.4 06/22/21 09:45: Lactic Acid 2.6 H* Micro: Microbiology 06/17/21 06:27 Blood Culture (Wb) - Anticubital Right Blood Culture - Final No growth in 5 days. 06/16/21 18:18 Blood Culture (Wb) - Anticubital Right Blood Culture - Final No growth in 5 days. ABG Data ABG results: ABG 06/22/21 09:24 Specimen Type ART Sample Site R Radial pH 7.46 H Bicarbonate Actual 25.6 Total CO2 27 Base Excess 2 O2 Saturation 92 L O2 % 30 ABG pCO2 35.9 ABG pO2 61 L Raphael Test Positive Respiration Rate 12 O2 Delivery Device BiPAP Vent Mode BiLevel POC PEEP 8 Clinical Comments Radiology Impression Chest X-Ray 06/22/21 05:10 IMPRESSION: 1. Large right pleural effusion which is unchanged. 2. Bilateral pulmonary infiltrates which are unchanged. Electronically Signed: Clifton Sharif MD at 5:40 EDT Tel , Service support , Charges/Coding Visit Charges Inpatient E&M: 62745 Init Hosp L3
[2021-06-22] MEDS: dexAMETHasone 10 MG/ML Vial 6 MG IV (11:32)
--- NOTE | 2021-06-22 11:34 | CASEMGMT ---
Addendum entered by Helena Barbour 06/22/21 12:25: Received call from patient's son, Saeid Marks ([phone]). Saeid reports will be decision maker for patient if needed. Saeid reports will also be point of contact and requests this worker provide cousins, Kristin and Fabiola with his contact information. Call facilitated to patient's nurse to provide update. Call to patient's cousins, Fabiola and Kristin to provide Saeid's contact information. Registration updated with Saeid's contact information. Original Note: SOCIAL WORK Updated by nursing and by Evert Marie family calling in reporting Ken Rhodes listed as patient's brother is NOT patient's brother. Patient's mother, father, and brother-Jeffry Rhodes are . Patient has a son, Saeid who resides in [place] and per patient's cousins, Kristin and Fabiola, patient and son are estranged due to patient's life choices. Gold report would assist with decision making. Fabiola is in the process of reaching out to Saeid via Alex and Ani to update on patient's status and inform of possible needs for decision making. Fabiola to provide Saeid with this worker's contact information. Updated registration on the above and provided with Adryan's contact information. Saeid (son) attempting to obtain contact information. Kristin Faust (cousin) [phone] Fabiola Reyes (cousin) [phone] Corbin Barbour, MEDIA MONITOR, ANIME DESIGNER
[2021-06-22 13:52] LABS: Reflex Lactate? Y
[2021-06-22 13:53] LABS: M R Staph aureus DNA By PCR Negative (Negative); Probe Check PASS; Specimen Processing Control PASS
[2021-06-22 14:42] LABS: Lactic Acid 2.3 mmol/L (0.4-1.9)
[2021-06-23] VITALS (27 sets, daily range): BP systolic 81–127; BP diastolic 59–75; PULSE 38–61; RESP 12–24; TEMP 35.6–37.1; O2SAT 91–100
[2021-06-23] MEDS: 0.9% Saline Lock 10 ML Syringe IV ×5 (03:40→21:50)
[2021-06-23] MEDS: CHLORHEXIDINE GLUC 2% CLOTH 1 EACH TOWELETTE TOPICAL (03:40)
[2021-06-23 04:09] LABS: Hematocrit 34.7 % (40-54); Hemoglobin 12.1 g/dL (13.0-16.5); Mean Corp Hgb Conc 34.9 g/dL (32-36); Mean Corpuscular Hgb 35.1 pg (27.0-32.0); Mean Corpuscular Volume 100.6 fL (80-94); Mean Platelet Vol. 11.5 fl (6.2-12.0); POSITIVE COUNT YES; Platelet Count 100 K/mm3 (150-450); RBC Distribution Width CV 16.6 % (11.6-14.6); RBC Distribution Width SD 60.8 fl (35.1-43.9); Red Blood Count 3.45 M/mm3 (4.6-6.2)
[2021-06-23 04:12] LABS: Scan Indicated on CBC? Y/N YES- FLAGS NOTED
[2021-06-23 04:30] LABS: Differential Comment SCANNED
[2021-06-23 04:53] LABS: ALB/GLOB Ratio 0.3 RATIO (0.9-2.4); AST(SGOT) 50 U/L (15-37); Alanine Aminotransfer ALT/SGPT 27 U/L (16-61); Albumin, Serum 1.2 g/dL (3.2-5.0); Alkaline Phosphatase 98 U/L (45-117); Anion Gap 5 (5-15); BUN 21 mg/dL (7-18); BUN/Creat Ratio 37.5 RATIO (10-20); Calcium,Total 7.8 mg/dL (8.5-10.1); Chloride 108 mmol/L (98-107); Creatinine, Serum 0.56 mg/dL (0.70-1.30); EST Glomerular Filtration Rate 164 mL/min (>60); Est Glom Filt Rate - Afr Amer 198 mL/min (>60); Estimated Creatinine Clearance 142.41 ml/min; Globulin 4.7 g/dL (2.2-4.2); Glucose 159 mg/dL (74-106); Potassium 4.3 mmol/L (3.5-5.1); Protein, Total 5.9 g/dL (6.4-8.2); Sodium Level 141 mmol/L (136-145)
--- NOTE | 2021-06-23 07:47 | PCM.PN.INT ---
Assessment & Plan Assessment/Plan (1) Acute respiratory failure with hypoxia: (2) Pleural effusion: (3) Cirrhosis: (4) Alcohol abuse: (5) Hematemesis: QUALIFIERS: Nausea presence: unspecified Qualified Code(s): K92.0 - Hematemesis (6) Severe malnutrition: PLAN: RECOMMENDATIONS: 1. Discontinue BiPAP therapy. Nasal cannula oxygen as necessary to maintain sats greater than 90% 2. Discontinue Precedex drip 3. Ativan per [facility] protocol 4. Not a candidate for baricitinib given liver dysfunction and thrombocytopenia. Consider discontinuation of remdesivir 5. Continue Decadron 6. Possible transfer out of the intensive care unit later today pending response to Precedex discontinuation IMPRESSIONS: 1. Acute hypoxic respiratory failure with large right pleural effusion/COVID-19 pneumonia Patient appears to be doing okay from a respiratory standpoint. This will be discontinued as patient does pose a high risk for aspiration. Oxygen to maintain saturations between 90 and 94%. Patient may need a thoracentesis if condition deteriorates. However, given his acute COVID-19 pneumonia, this will be held off for now. Patient is on Remdesivir and dexamethasone. Unclear onset of symptoms to know if Remdesivir is really helpful. We will need to watch liver function closely. Patient reportedly was immunized and appears to be tolerating nasal cannula at this time. Clinical suspicion for increased oxygen demands overnight secondary to sedation. Precedex will be discontinued. 2. Acute blood loss anemia secondary to acute GI bleed secondary to gastric and duodenal ulcers No active bleeding on recent endoscopy. Patient's hemoglobin is stable and acceptable at this time. Patient did not have report of significant varices. Continue with lactulose. Patient did have hyperbilirubinemia. Gastroenterology has evaluated. Patient with known alcoholic cirrhosis. 3. Severe protein calorie malnutrition/tobacco abuse/poor insight/alcohol withdrawal Complicates care, management, recovery and prognosis. We will keep patient n.p.o. for now given respiratory concerns. Precedex has been discontinued. Subjective Subjective Patient did okay overnight. Patient has been significantly bradycardic, but normotensive. Patient has been on Precedex throughout the evening. Nursing had noted a left hip bruise, but patient was unable to provide any additional information about a possible fall. No falls have been documented since being in the hospital. Patient was unable to answer any my questions this morning, so Precedex was discontinued. Objective Data Objective Data Vital Signs: Vital Signs Temp Pulse Resp BP Pulse Ox 37.1 C 40 L 16 106/72 95 06/23/21 04:00 06/23/21 07:00 06/23/21 07:00 06/23/21 07:00 06/23/21 07:00 Oxygen Flow Rate (L/min) 15 Oxygen Delivery Method Nasal Cannula Weight: 80.5 kg Body Mass Index (BMI) 24.7 Intake & Output: Intake and Output for Last 24 Hours 06/21/21 06/22/21 06/23/21 23:59 23:59 23:59 Intake Total 912 / 912 1602.24 / 1619.64 408.39 / 408.39 Output Total 400 / 400 550 / 550 Balance 512 / 512 1052.24 / 1069.64 408.39 / 408.39 Medical Nutrition Assessment Dietitian: Malnutrition Criteria Met Start: 06/17/21 14:14 Freq: Status: Active Protocol: Document 06/17/21 14:14 BW (Rec: 06/17/21 14:15 BW [id number]) Nutrition Malnutrition Evidence of Malnutrition Exists Yes Malnutrition (severe): Acute Illness/Injury Malnutrition (unspecified) Severe pro/alexis Evidenced By Suboptimal Energy Intake ( Severe) Intake Problem Inadequate Oral Intake Etiology related to weakness, fatigue and poor appetite Signs/Symptoms Severe weight loss of 13.1 kg (16%) in 14 months, diagnosis of failure to thrive and reported myalgia Status Active Problem Clinical Problem Unintended Weight Loss Etiology related to hematemesis and >3 days without oral intake Signs/Symptoms Severe weight loss of 13.1 kg (16%) in 14 months and reports of weakness Status Active Problem Recommendation Dietitian Recommendations/Changes Regular diet when oral intake can be resumed. Consider initiating full liquids advancing as tolerated to regular consistency foods & fluids with oral nutrition supplements if tolerated Lab / Micro Data Result Diagrams: 06/23/21 03:30 06/23/21 03:30 Labs: Laboratory Results - last 24 hr 06/21/21 07:30: Vitamin B12 1269 H 06/22/21 07:05: WBC 15.4 H, RBC 3.50 L, Hgb 12.4 L, Hct 34.8 L, MCV 99.4 H, MCH 35.4 H, MCHC 35.6 D, RDW Std Deviation 60.1 H, RDW Coeff of Lesvia 16.5 H, Plt Count 125 L, MPV 11.0 06/22/21 07:05: Sodium 138, Potassium 3.5, Chloride 106, Carbon Dioxide 26.0, Anion Gap 6, BUN 15, Creatinine 0.63 L, Estim Creat Clear Calc 126.59, Est GFR (MDRD) Af Amer 173, Est GFR (MDRD) Non-Af 143, BUN/Creatinine Ratio 23.8 H, Glucose 122 H, Calcium 7.8 L, Magnesium 1.8, Total Bilirubin 4.00 H, AST 49 H, ALT 29, Alkaline Phosphatase 126 H, Total Protein 6.2 L, Albumin 1.3 L, Globulin 4.9 H, Albumin/Globulin Ratio 0.3 L 06/22/21 07:05: Phosphorus 3.4 06/22/21 09:45: Lactic Acid 2.6 H* 06/22/21 10:00: MRSA (PCR) Negative 06/22/21 14:05: Lactic Acid 2.3 H* 06/23/21 03:30: WBC 12.0 H, RBC 3.45 L, Hgb 12.1 L, Hct 34.7 L, MCV 100.6 H, MCH 35.1 H, MCHC 34.9, RDW Std Deviation 60.8 H, RDW Coeff of Lesvia 16.6 H, Plt Count 100 L, MPV 11.5, Differential Comment SCANNED 06/23/21 03:30: Sodium 141, Potassium 4.3, Chloride 108 H, Carbon Dioxide 28.0, Anion Gap 5, BUN 21 H, Creatinine 0.56 L, Estim Creat Clear Calc 142.41, Est GFR (MDRD) Af Amer 198, Est GFR (MDRD) Non-Af 164, BUN/Creatinine Ratio 37.5 H, Glucose 159 H, Calcium 7.8 L, Total Bilirubin 3.70 H, AST 50 H, ALT 27, Alkaline Phosphatase 98, Total Protein 5.9 L, Albumin 1.2 L, Globulin 4.7 H, Albumin/Globulin Ratio 0.3 L Micro: Microbiology 06/17/21 06:27 Blood Culture (Wb) - Anticubital Right Blood Culture - Final No growth in 5 days. 06/16/21 18:18 Blood Culture (Wb) - Anticubital Right Blood Culture - Final No growth in 5 days. 06/16/21 18:18 Nasal Secretion SARS-CoV-2 Antigen (Rapid) - Final SARS-CoV-2 (COVID 19) ABG Data ABG results: ABG 06/22/21 09:24 Specimen Type ART Sample Site R Radial pH 7.46 H Bicarbonate Actual 25.6 Total CO2 27 Base Excess 2 O2 Saturation 92 L O2 % 30 ABG pCO2 35.9 ABG pO2 61 L Raphael Test Positive Respiration Rate 12 O2 Delivery Device BiPAP Vent Mode BiLevel POC PEEP 8 Clinical Comments Physical Exam Const Negative for alert General Appearance: uncooperative, lethargic and appears older than stated age Orientation / Consciousness: oriented to person HEENT hearing grossly normal bilaterally Head and Scalp: normal to inspection Face and Sinus: face symmetric Nose: external nose normal Mouth: oral and palatal mucosa normal Eyes conjunctivae normal General Eye: normal appearance of both eyes Neck full ROM General: normal visual inspection Lymph Lymphatic: no lymphadenopathy noted Chest inspection of chest normal Chest: symmetrical chest wall rise; Negative for crepitus Resp normal respiratory effort Resp Narrative: Improved transmitted upper airway noises Auscultation: diminished lung sounds; Negative for rales, rhonchi or wheezes Percussion: dullness Mid: right and Lower: right Cardio regular rhythm, S1 normal heart sound, S2 normal heart sound, no murmurs, no rub and no gallops Rate: tachycardic GI soft to palpation, non-tender and non-distended Percussion: normal to percussion Rectal Exam: deferred Extremity normal to inspection General Extremity: Negative for clubbing, cyanosis or edema Skin Skin Narrative: Bruise noted on the left hip that appears to be older Neuro Speech: speech normal Gait (Neuro): unable to assess gait Psych Attitude: uncooperative Charges/Coding Visit Charges Inpatient E&M: 51382 Subs Hosp L3
--- NOTE | 2021-06-23 08:09 | PN.HOSP_ITS ---
Subjective Subjective Patient is still sedated. On 15 L of oxygen. BP 88/60. Heart rate 138. On Precedex drip. Objective Data Objective Data Vital Signs: Vital Signs Temp Pulse Resp BP Pulse Ox 98.7 F 40 L 16 106/72 95 06/23/21 04:00 06/23/21 07:00 06/23/21 07:00 06/23/21 07:00 06/23/21 07:00 Oxygen Flow Rate (L/min) 15 Oxygen Delivery Method Nasal Cannula Weight: 177 lb 7.554 oz Body Mass Index (BMI) 24.7 Intake & Output: Intake and Output for Last 24 Hours 06/21/21 06/22/21 06/23/21 23:59 23:59 23:59 Intake Total 912 / 912 1602.24 / 1619.64 408.39 / 408.39 Output Total 400 / 400 550 / 550 Balance 512 / 512 1052.24 / 1069.64 408.39 / 408.39 Medical Nutrition Assessment Dietitian: Malnutrition Criteria Met Start: 06/17/21 14:14 Freq: Status: Active Protocol: Document 06/17/21 14:14 BW (Rec: 06/17/21 14:15 BW [id number]) Nutrition Malnutrition Evidence of Malnutrition Exists Yes Malnutrition (severe): Acute Illness/Injury Malnutrition (unspecified) Severe pro/alexis Evidenced By Suboptimal Energy Intake ( Severe) Intake Problem Inadequate Oral Intake Etiology related to weakness, fatigue and poor appetite Signs/Symptoms Severe weight loss of 13.1 kg (16%) in 14 months, diagnosis of failure to thrive and reported myalgia Status Active Problem Clinical Problem Unintended Weight Loss Etiology related to hematemesis and >3 days without oral intake Signs/Symptoms Severe weight loss of 13.1 kg (16%) in 14 months and reports of weakness Status Active Problem Recommendation Dietitian Recommendations/Changes Regular diet when oral intake can be resumed. Consider initiating full liquids advancing as tolerated to regular consistency foods & fluids with oral nutrition supplements if tolerated Lab / Micro Data Result Diagrams: 06/23/21 03:30 06/23/21 03:30 Labs: Laboratory Results - last 24 hr 06/22/21 07:05: Phosphorus 3.4 06/22/21 09:45: Lactic Acid 2.6 H* 06/22/21 10:00: MRSA (PCR) Negative 06/22/21 14:05: Lactic Acid 2.3 H* 06/23/21 03:30: WBC 12.0 H, RBC 3.45 L, Hgb 12.1 L, Hct 34.7 L, MCV 100.6 H, MCH 35.1 H, MCHC 34.9, RDW Std Deviation 60.8 H, RDW Coeff of Lesvia 16.6 H, Plt Count 100 L, MPV 11.5, Differential Comment SCANNED 06/23/21 03:30: Sodium 141, Potassium 4.3, Chloride 108 H, Carbon Dioxide 28.0, Anion Gap 5, BUN 21 H, Creatinine 0.56 L, Estim Creat Clear Calc 142.41, Est GFR (MDRD) Af Amer 198, Est GFR (MDRD) Non-Af 164, BUN/Creatinine Ratio 37.5 H, Glucose 159 H, Calcium 7.8 L, Total Bilirubin 3.70 H, AST 50 H, ALT 27, Alkaline Phosphatase 98, Total Protein 5.9 L, Albumin 1.2 L, Globulin 4.7 H, Albumin/Globulin Ratio 0.3 L Micro: Microbiology 06/17/21 06:27 Blood Culture (Wb) - Anticubital Right Blood Culture - Final No growth in 5 days. 06/16/21 18:18 Blood Culture (Wb) - Anticubital Right Blood Culture - Final No growth in 5 days. 06/16/21 18:18 Nasal Secretion SARS-CoV-2 Antigen (Rapid) - Final SARS-CoV-2 (COVID 19) ABG Data ABG results: ABG 06/22/21 09:24 Specimen Type ART Sample Site R Radial pH 7.46 H Bicarbonate Actual 25.6 Total CO2 27 Base Excess 2 O2 Saturation 92 L O2 % 30 ABG pCO2 35.9 ABG pO2 61 L Raphael Test Positive Respiration Rate 12 O2 Delivery Device BiPAP Vent Mode BiLevel POC PEEP 8 Clinical Comments Physical Exam Narrative General: Unconscious, unresponsive, nonverbal. On Precedex drip. HEENT: Pupils, constricted on Precedex drip. Atraumatic,Normocephalic. Oral: On nonrebreather. Neck: Supple, No JVD, Negative Carotid Bruits Lungs: Air entry diminished in bilateral lung bases. Cardiovascular: Sinus bradycardia, normal S1, Normal S2, No murmurs Abdomen: No tenderness but on sedative. Bowel Sounds sluggish, Soft, Non- Distended : No renal angle tenderness. No suprapubic tenderness. Extremities: No edema, Capillary Refill Less than 3 Seconds Skin: No rashes, No breakdown Musculoskeletal: No Tenderness to Palpation of Joints or Extremities Neurological: Nonfocal exam. Unresponsive Psych/Mental Status: Unresponsive Assessment & Plan Assessment/Plan (1) Hyperbilirubinemia: (2) Hematemesis: QUALIFIERS: Nausea presence: unspecified Qualified Code(s): K92.0 - Hematemesis (3) COVID-19: (4) Elevated d-dimer: (5) Hyponatremia: (6) Hyperammonemia: (7) Alcohol abuse: (8) Severe malnutrition: (9) Tobacco dependence: (10) Encephalopathy: (11) Acute respiratory failure with hypoxia: (12) Pleural effusion: PLAN: 1. Acute hypoxic respiratory failure most likely due to large pleural effusion with bilateral infiltrates, COVID-19 pneumonia and atelectasis. * Patient with worsening respiratory status. Lasix 20 mg IV given. * Chest x-ray performed and shows large right-sided pleural effusion. Patient had effusion on 06/16. 06/22: With acute change in mental status, alcohol withdrawal and large pleural effusion and respiratory failure patient is transferred to ICU. Discussed with jailer chief. ABG showed respiratory alkalosis and patient put on nonrebreather. BiPAP discontinued. Chest x-ray reviewed. Plan: Arrange right thoracocentesis probably at bedside. 06/23: Patient nonrebreather to be canceled. Bradycardia and hypotension probably due to sedative. 2. Acute encephalopathy probably due to hepatic encephalopathy. Patient has acute alcoholic hepatitis with right upper quadrant tenderness. Patient made n.p.o. Gabapentin and trazodone discontinued. Lorazepam only for severe CIWA score more than 15. 3. Acute COVID-19 bilateral pneumonia: On dexamethasone and remdesivir.not candidate for baricitinib given cirrhosis 4. Acute GI bleed * EGD on 06/19 showed normal esophagus, nonbleeding erosive gastropathy, portal hypertensive gastropathy, 1 nonbleeding duodenal ulcer with no stigmata of bleeding. * Hematemesis, last episode 3 days ago: Patient has history of decompensated al coholic cirrhosis with esophageal varices possible hepatic encephalopathy, chronic thrombocytopenia. Protonix IV twice daily. GI is consulted. Patient had hyperbilirubinemia. * Right upper quadrant sonogram reported possible cirrhosis with partial portal vein thrombosis. Patient is high risk of anticoagulation with history of esophageal lesion and recent hematemesis. On lactulose. There is no definitive consensus of treating portal vein thrombosis in cirrhotics as it is very common with high risk and less benefit unless it is causing acute liver failure or infarct which is rare. 5. Alcoholic cirrhosis, decompensated: MELD 17. CHILD Sheriff C 6. Severe protein calorie malnutrition * complicates care and recovery * currently NPO given encephalopathy 6. Bilateral lower extremity chronic wounds with scab: No sign of active infection or indication of antibiotic. Wound care nurse consulted. 7. Acute alcohol withdrawal syndrome with chronic alcohol use with dependence: Discontinue lorazepam given encephalopathy 8. Chronic cigarette smoking with nicotine dependence: Patient smokes a pack of cigarettes daily Tobacco abuse 9. DVT prophylaxis: Pharmacological probably secondary to severe anemia with possibility of varices and hematemesis. CODE STATUS -Full code Prognosis: guarded to poor. Charges/Coding Visit Charges Inpatient E&M: 80495 Subs Hosp L3
[2021-06-23] MEDS: dexAMETHasone 10 MG/ML Vial 6 MG IV (08:12)
[2021-06-23] MEDS: Furosemide 20 MG/2 ML VIAL IV ×2 (08:12→16:18)
--- NOTE | 2021-06-23 10:30 | NURSING ---
Right arm slightly edematous, RAC IV hard to flush, IV removed, elevated on pillow and ice placed, Dr. Velazco aware, awaiting PICC placement.
[2021-06-23 11:01] LABS: Allen Test Positive; Base Excess 4 mmol/L (-2 to +2); Bicarbonate 28.9 mmol/L (22-26); Blood Gas Specimen Type ART; O2 Delivery Device Cannula; PO2 63 mmHG (75-100); SITE R Radial; SO2 92 % (95-99); Total Carbon Dioxide 30 mmol/L; pH 7.41 (7.35-7.45)
--- NOTE | 2021-06-23 11:20 | NURSING ---
unable to advance NG in left nares, nasal trumpet removed from right nares and NG placed, patient tolerated well, air auscultated in stomach, called for X-ray.
--- NOTE | 2021-06-23 11:25 | RAD_ITS ---
STUDY: X-RAY - ABDOMEN/PELVIS REASON FOR EXAM: Male, 50 years old. NG placement TECHNIQUE: Single AP view of the abdomen / pelvis. COMPARISON: None. FINDINGS: The tip of the nasogastric tube is in the distal portion of the body of the stomach. Opacification of the right hemithorax. RAD/Abdomen Single View IMPRESSION: The tip of the nasogastric tube is in the distal portion of the body of the stomach Electronically Signed: Suleiman Sagastume MD at 12:36 EDT , Service support ,
--- NOTE | 2021-06-23 12:20 | NURSING ---
electrical and radio mechanic at bedside to place PICC
[2021-06-23] MEDS: Lactulose 20 GM/30 ML UDC 10 GM PO (13:02)
--- NOTE | 2021-06-23 13:17 | NURSING ---
NG pulled back approximately 4 cm, ausculated air in stomach, meds given, NG flushed and clamped.
[2021-06-23] MEDS: Vital AF 1.2 Cal Liquid 1,000 ML 60 ML GT (16:18)
--- NOTE | 2021-06-23 17:48 | NURSING ---
patient more alert at this time, remains confused, however able to state name and stated he was at [place]. Able to follow direction and following some commands.
[2021-06-23] MEDS: LORazepam 2 MG/ML Syringe IV (19:43)
[2021-06-23] MEDS: Oxymetazoline 0.05% 1 SPRAY SPRAY.BTL 2 SPRAY NASAL (20:05)
[2021-06-23] MEDS: Lidocaine 4% 5 ML Ampul 2 ML INHALATION (20:05)
[2021-06-23] MEDS: Lactulose 20 GM/30 ML UDC 200 GM RC (21:52)
[2021-06-24] VITALS (9 sets, daily range): BP systolic 94–118; BP diastolic 65–98; PULSE 46–110; RESP 18–26; TEMP 36.4–37.3; O2SAT 93–97
[2021-06-24 08:49] LABS: Hematocrit 33.8 % (40-54); Hemoglobin 12.5 g/dL (13.0-16.5); Mean Corpuscular Hgb 37.3 pg (27.0-32.0); Mean Corpuscular Volume 100.9 fL (80-94); Mean Platelet Vol. 10.7 fl (6.2-12.0); Platelet Count 101 K/mm3 (150-450); RBC Distribution Width CV 16.4 % (11.6-14.6); RBC Distribution Width SD 59.4 fl (35.1-43.9); Red Blood Count 3.35 M/mm3 (4.6-6.2); White Blood Count 14.1 K/mm3 (4.4-11.0)
[2021-06-24 09:13] LABS: ALB/GLOB Ratio 0.2 RATIO (0.9-2.4); AST(SGOT) 75 U/L (15-37); Alanine Aminotransfer ALT/SGPT 39 U/L (16-61); Albumin, Serum 1.1 g/dL (3.2-5.0); Alkaline Phosphatase 106 U/L (45-117); Anion Gap 3 (5-15); BUN 29 mg/dL (7-18); BUN/Creat Ratio 50.8 RATIO (10-20); Chloride 112 mmol/L (98-107); Creatinine, Serum 0.57 mg/dL (0.70-1.30); EST Glomerular Filtration Rate 160 mL/min (>60); Est Glom Filt Rate - Afr Amer 194 mL/min (>60); Estimated Creatinine Clearance 139.91 ml/min; Globulin 4.7 g/dL (2.2-4.2); Glucose 126 mg/dL (74-106); Magnesium 2.4 mg/dL (1.6-2.6); Potassium 3.9 mmol/L (3.5-5.1); Protein, Total 5.8 g/dL (6.4-8.2); Sodium Level 144 mmol/L (136-145)
[2021-06-24 09:22] LABS: Phosphorus 3.1 mg/dL (2.5-4.9)
[2021-06-24] MEDS: 0.9% Saline Lock 10 ML Syringe IV ×3 (09:58→21:07)
--- NOTE | 2021-06-24 10:19 | PCM.PN.INT ---
Assessment & Plan Assessment/Plan (1) Acute respiratory failure with hypoxia: (2) Pleural effusion: (3) Cirrhosis: (4) Alcohol abuse: (5) Hematemesis: QUALIFIERS: Nausea presence: unspecified Qualified Code(s): K92.0 - Hematemesis (6) Severe malnutrition: PLAN: Place RECOMMENDATIONS: 1. Nasal cannula oxygen as necessary to maintain sats greater than 90% 2. Aggressive control of metabolic encephalopathy NG if necessary. 3. Ativan per [facility] protocol 4. Not a candidate for baricitinib given liver dysfunction and thrombocytopenia. Consider discontinuation of remdesivir 5. Continue Decadron 6. Hemodynamically stable on minimal nasal cannula. Will sign off from a pulmonary perspective. Call if issues. IMPRESSIONS: 1. Acute hypoxic respiratory failure with large right pleural effusion/COVID-19 pneumonia Patient appears to be doing okay from a respiratory standpoint. This will be discontinued as patient does pose a high risk for aspiration. Oxygen to maintain saturations between 90 and 94%. Patient may need a thoracentesis if condition deteriorates. However, given his acute COVID-19 pneumonia, this will be held off for now. Patient is on Remdesivir and dexamethasone. Unclear onset of symptoms to know if Remdesivir is really helpful. We will need to watch liver function closely. Patient's hypoxia appears to be secondary to encephalopathy more than respiratory mechanics. Recommend continuing with lactulose by mouth. Place NG if necessary. Multiple ABGs have shown good oxygenation and ventilation when encephalopathy is controlled. 2. Acute blood loss anemia secondary to acute GI bleed secondary to gastric and duodenal ulcers No active bleeding on recent endoscopy. Patient's hemoglobin is stable and acceptable at this time. Patient did not have report of significant varices. Continue with lactulose. Patient did have hyperbilirubinemia. Gastroenterology has evaluated. Patient with known alcoholic cirrhosis. 3. Severe protein calorie malnutrition/tobacco abuse/poor insight/alcohol withdrawal Complicates care, management, recovery and prognosis. We will keep patient n.p.o. for now given respiratory concerns. Precedex has been discontinued. Subjective Subjective Patient did okay overnight. No acute issues were reported outside patient pulling NG. Respiratory status improved significantly when given meds by NG as patient was transferred from the intensive care unit on 6 L/min. Objective Data Objective Data Vital Signs: Vital Signs Temp Pulse Resp BP Pulse Ox 36.6 C 110 H 26 H 101/65 96 10/13/21 09:30 06/24/21 09:39 06/24/21 09:30 06/24/21 09:30 06/24/21 09:30 Oxygen Flow Rate (L/min) 5 Oxygen Delivery Method Room Air Weight: 79.923 kg Body Mass Index (BMI) 24.7 Intake & Output: Intake and Output for Last 24 Hours 06/22/21 06/23/21 06/24/21 23:59 23:59 23:59 Intake Total 1602.24 / 1619.64 760.59 / 760.59 250 / 250 Output Total 550 / 550 800 / 800 Balance 1052.24 / 1069.64 -39.41 / -39.41 250 / 250 Medical Nutrition Assessment Dietitian: Malnutrition Criteria Met Start: 06/17/21 14:14 Freq: Status: Active Protocol: Document 06/23/21 13:39 AG (Rec: 06/23/21 13:39 [id number]) Nutrition Malnutrition Evidence of Malnutrition Exists Yes Malnutrition (severe): Chronic Evidenced By Suboptimal Energy Intake ( Severe),Weight Loss (Severe) Intake Problem Inadequate Oral Intake Etiology related to altered mental status Signs/Symptoms as evidenced by estimated PO intake meeting <50% of nutritional needs x 1 week Status Active Problem Clinical Problem Chronic Disease or Condition Related Malnutrition Etiology severe, chronic malnutrition r /t predicted suboptimal energy intake w/ hx of alcohol abuse Signs/Symptoms as evidenced by estimated PO intake meeting <75% of estimated nutritional needs >3 months, unintentional wt loss of 29#/16% 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 Will start at 20mL/ hour and increase by 15mL/hour every 8-12 hours as tolerated until goal rate is achieved. 2) NPO pending PROCUREMENT DIRECTOR evaluation- recommend regular diet when medically appropriate, will provide ONS as appropriate when PO diet advanced. 3) Daily wts, close monitoring of electrolytes d/t refeeding risk. Lab / Micro Data Result Diagrams: 06/24/21 08:30 06/24/21 08:30 Labs: Laboratory Results - last 24 hr 06/24/21 08:30: WBC 14.1 H, RBC 3.35 L, Hgb 12.5 L, Hct 33.8 L, MCV 100.9 H, MCH 37.3 H, MCHC 37.0 H D, RDW Std Deviation 59.4 H, RDW Coeff of Lesvia 16.4 H, Plt Count 101 L, MPV 10.7 06/24/21 08:30: Sodium 144, Potassium 3.9, Chloride 112 H, Carbon Dioxide 29.0, Anion Gap 3 L, BUN 29 H, Creatinine 0.57 L, Estim Creat Clear Calc 139.91, Est GFR (MDRD) Af Amer 194, Est GFR (MDRD) Non-Af 160, BUN/Creatinine Ratio 50.8 H, Glucose 126 H, Calcium 8.0 L, Magnesium 2.4, Total Bilirubin 2.80 H, AST 75 H, ALT 39, Alkaline Phosphatase 106, Total Protein 5.8 L, Albumin 1.1 L, Globulin 4.7 H, Albumin/Globulin Ratio 0.2 L 06/24/21 08:30: Phosphorus 3.1 Micro: Microbiology 06/17/21 06:27 Blood Culture (Wb) - Anticubital Right Blood Culture - Final No growth in 5 days. 06/16/21 18:18 Blood Culture (Wb) - Anticubital Right Blood Culture - Final No growth in 5 days. 06/16/21 18:18 Nasal Secretion SARS-CoV-2 Antigen (Rapid) - Final SARS-CoV-2 (COVID 19) ABG Data ABG results: ABG 06/23/21 10:56 Specimen Type ART Sample Site R Radial pH 7.41 Bicarbonate Actual 28.9 H Total CO2 30 Base Excess 4 H O2 Saturation 92 L ABG pCO2 46.0 H ABG pO2 63 L Raphael Test Positive O2 Delivery Device Cannula Liter Flow 15.0 Radiography Diagnostic Testing: Radiology Impression KUB X-Ray 06/23/21 11:25 IMPRESSION: The tip of the nasogastric tube is in the distal portion of the body of the stomach Electronically Signed: Suleiman Sagastume MD at 12:36 EDT , Service support , Physical Exam Const alert General Appearance: uncooperative and appears older than stated age Orientation / Consciousness: awake and oriented to person HEENT hearing grossly normal bilaterally Head and Scalp: normal to inspection Face and Sinus: face symmetric Nose: external nose normal Mouth: oral and palatal mucosa normal Eyes conjunctivae normal General Eye: normal appearance of both eyes Neck full ROM General: normal visual inspection Lymph Lymphatic: no lymphadenopathy noted Chest inspection of chest normal Chest: symmetrical chest wall rise; Negative for crepitus Resp normal respiratory effort Resp Narrative: Resolved transmitted upper airway noises Auscultation: diminished lung sounds; Negative for rales, rhonchi or wheezes Percussion: dullness Mid: right and Lower: right Cardio regular rhythm, S1 normal heart sound, S2 normal heart sound, no murmurs, no rub and no gallops Rate: tachycardic GI soft to palpation, non-tender and non-distended Percussion: normal to percussion Rectal Exam: deferred Extremity normal to inspection General Extremity: Negative for clubbing, cyanosis or edema Skin Skin Narrative: Bruise noted on the left hip that appears to be older Neuro Speech: speech normal Gait (Neuro): unable to assess gait Psych Attitude: uncooperative Charges/Coding Visit Charges Inpatient E&M: 57960 Subs Hosp L2
[2021-06-24] MEDS: dexAMETHasone 10 MG/ML Vial 6 MG IV (11:54)
--- NOTE | 2021-06-24 11:54 | CASEMGMT ---
Social Work Note SW in to speak with pt regarding possible ETOH use. SW entered room, pt laying on side in bed. Pt states that he is not doing good. SW introduced self and and role at [facility]. Pt is alert and orientated x2 (person, place). SW spoke with pt. Pt states that he lives with a friend named Ken. Pt states that his plan is to return to Ken's home at discharge. SW asked pt about any family. Pt initially denied. SW specifically asked pt if he had a son, pt initially said no. SW specifically asked about his son Cooper. Pt then states he has a son named Cooper but hasn't spoken to Cooper in years. SW asked pt about any cousins, pt states I have lots of them. SW asked pt about ETOH use, pt denied, states he hasn't drank ETOH in months (pt states 6 months). Pt denied additional needs or concerns at this time. BATSHEVA/RN CM To continue to follow for discharge planning. Henna Lai ALTERATIONS TAILOR, CONTRACTS DIRECTOR
--- NOTE | 2021-06-24 15:48 | CASEMGMT ---
Pt's son, Saeid Marks, called in regarding his father. Pt has been moved up to [facility]. SW took his number and left his information for SW on [facility] to call him. YOEL Rider
--- NOTE | 2021-06-24 15:54 | CASEMGMT ---
Addendum entered by Henna Lai 06/24/21 15:57: SW received call from pt's son Saeid Marks. Saeid wanted an update. SW informed Saeid that this worker is just a SW, cannot provide medical update, but can tell Saeid that when this worker spoke with pt earlier he was still pretty tired, groggy, Alert and orientated x2, but didn't really open eyes. SW told Saeid that pt is on 3 Liters of Oxygen. SW informed Saeid that if he wants more specific medical update then he will need to call to the floor to speak to pt's RN. Saeid states understanding, denied additional needs or concerns at this time. Original Note: Social Work Note SW placed a call to pt's son Cooper Mancuso, no answer, SW left message. Henna Lai TRANSMISSION SYSTEMS OPERATOR, SHIATSU THERAPIST
--- NOTE | 2021-06-24 19:23 | PN.HOSP_ITS ---
Subjective Subjective Patient was seen and examined today, he is confused, he has not agitated, he does not complain of any shortness of breath although he is not wearing his oxygen at the time my examination. Objective Data Objective Data Vital Signs: Vital Signs Temp Pulse Resp BP Pulse Ox 99.1 F 102 H 20 H 115/98 H 96 06/24/21 14:12 06/24/21 14:12 06/24/21 14:12 06/24/21 14:12 06/24/21 14:12 Oxygen Flow Rate (L/min) 3 Oxygen Delivery Method Nasal Cannula Weight: 79.923 kg Body Mass Index (BMI) 24.7 Intake & Output: Intake and Output for Last 24 Hours 06/22/21 06/23/21 06/24/21 23:59 23:59 23:59 Intake Total 1602.24 / 1619.64 760.59 / 760.59 451.7 / 451.7 Output Total 550 / 550 800 / 800 Balance 1052.24 / 1069.64 -39.41 / -39.41 451.7 / 451.7 Medical Nutrition Assessment Dietitian: Malnutrition Criteria Met Start: 06/17/21 14:14 Freq: Status: Active Protocol: Document 06/23/21 13:39 AG (Rec: 06/23/21 13:39 AG [id number]) Nutrition Malnutrition Evidence of Malnutrition Exists Yes Malnutrition (severe): Chronic Evidenced By Suboptimal Energy Intake ( Severe),Weight Loss (Severe) Intake Problem Inadequate Oral Intake Etiology related to altered mental status Signs/Symptoms as evidenced by estimated PO intake meeting <50% of nutritional needs x 1 week Status Active Problem Clinical Problem Chronic Disease or Condition Related Malnutrition Etiology severe, chronic malnutrition r /t predicted suboptimal energy intake w/ hx of alcohol abuse Signs/Symptoms as evidenced by estimated PO intake meeting <75% of estimated nutritional needs >3 months, unintentional wt loss of 29#/16% wt loss x 7-9 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 Will start at 20mL/ hour and increase by 15mL/hour every 8-12 hours as tolerated until goal rate is achieved. 2) NPO pending POULTRY VACCINATOR evaluation- recommend regular diet when medically appropriate, will provide ONS as appropriate when PO diet advanced. 3) Daily wts, close monitoring of electrolytes d/t refeeding risk. Lab / Micro Data Result Diagrams: 06/24/21 08:30 06/24/21 08:30 Labs: Laboratory Results - last 24 hr 06/24/21 08:30: WBC 14.1 H, RBC 3.35 L, Hgb 12.5 L, Hct 33.8 L, MCV 100.9 H, MCH 37.3 H, MCHC 37.0 H D, RDW Std Deviation 59.4 H, RDW Coeff of Lesvia 16.4 H, Plt Count 101 L, MPV 10.7 06/24/21 08:30: Sodium 144, Potassium 3.9, Chloride 112 H, Carbon Dioxide 29.0, Anion Gap 3 L, BUN 29 H, Creatinine 0.57 L, Estim Creat Clear Calc 139.91, Est GFR (MDRD) Af Amer 194, Est GFR (MDRD) Non-Af 160, BUN/Creatinine Ratio 50.8 H, Glucose 126 H, Calcium 8.0 L, Magnesium 2.4, Total Bilirubin 2.80 H, AST 75 H, ALT 39, Alkaline Phosphatase 106, Total Protein 5.8 L, Albumin 1.1 L, Globulin 4.7 H, Albumin/Globulin Ratio 0.2 L 06/24/21 08:30: Phosphorus 3.1 Micro: Microbiology 06/17/21 06:27 Blood Culture (Wb) - Anticubital Right Blood Culture - Final No growth in 5 days. 06/16/21 18:18 Blood Culture (Wb) - Anticubital Right Blood Culture - Final No growth in 5 days. 06/16/21 18:18 Nasal Secretion SARS-CoV-2 Antigen (Rapid) - Final SARS-CoV-2 (COVID 19) Physical Exam Const alert and no apparent distress Constitutional Narrative: Patient appears older than his stated age General Appearance: cooperative, well kempt and well developed Orientation / Consciousness: awake, oriented to person, oriented to place and oriented to time HEENT normocephalic, head/scalp atraumatic and moist oral mucous membranes Head and Scalp: normocephalic Eyes PERRL, EOMs intact bilaterally and conjunctivae normal Neck nuchal rigidity, supple, no JVD and thyroid normal General: trachea midline Resp normal respiratory effort, no retractions and no use of accessory muscles Resp Narrative: Breath sounds are distant bilaterally Auscultation: Negative for rales, rhonchi or wheezes Cardio regular rate, regular rhythm, S1 normal heart sound, S2 normal heart sound, no murmurs, no rub and no gallops GI normal to inspection, nondistended, normoactive bowel sounds, soft to palpation, non-tender and non-distended Extremity no clubbing, cyanosis or edema Skin no rashes or lesions noted General Skin Exam: no breakdown Neuro CN's II-XII intact bilaterally, no focal motor deficits and no sensory deficits noted Neuro Narrative: Patient is confused but not agitated Sensorium / Orientation: awake and alert Psych thought process normal Psych Narrative: Patient is confused but not agitated Assessment & Plan Assessment/Plan (1) COVID-19: PLAN: 1. COVID-19 pneumonia-continue present treatment, pulmonary medicine is participating in his care #2 acute hypoxic respiratory failure secondary to #1-pulse ox will be monitored and oxygen will be adjusted as necessary #3 alcohol withdrawal-patient is not agitated today #4 metabolic encephalopathy secondary to alcohol withdrawal and COVID-19 pneumonia, continue to offer supportive care #5 duodenal ulcer-patient's hemoglobin today was 12.5, continue PPI #6 severe protein and caloric malnutrition-severe weight loss of 13.1 kg in 14 months has been documented, nutritional services is seeing patient and has plan of care #7 alcoholic cirrhosis #8 erosive gastritis-again patient is on a PPI Charges/Coding Visit Charges Inpatient E&M: 31947 Subs Hosp L2
[2021-06-25 01:53] VITALS: BP 117/83; PULSE 73; RESP 18; TEMP 36.7; O2SAT 96
[2021-06-25 08:20] VITALS: O2SAT 95
[2021-06-25 09:32] VITALS: BP 123/78; PULSE 80; RESP 18; TEMP 36.7; O2SAT 92
[2021-06-25] MEDS: dexAMETHasone 10 MG/ML Vial 6 MG IV (09:41)
[2021-06-25] MEDS: 0.9% Saline Lock 10 ML Syringe IV ×3 (09:42→21:46)
[2021-06-25 10:31] VITALS: O2SAT 88
--- NOTE | 2021-06-25 14:02 | NURSING ---
Pt called out and and was mumbling and this nurse could not understand what patient needed. this nurse in room to check no patient. patient had gown pulled off. had the phone tubing, IV tubing, pulse ox tubing, and callight tubing all tangled together. patient pulling at attends. attends changed at this time. large amount of urine noted. untangled all tubed and gown reapplied. MAYRA Rubio aware.
[2021-06-25 14:56] VITALS: BP 128/70; PULSE 87; RESP 18; TEMP 36.6; O2SAT 92
--- NOTE | 2021-06-25 17:37 | CASEMGMT ---
Social Work Note Physician is asking about SNF for pt. Pt is still confused, requiring assistance on all ADLs. BATSHEVA placed a call to pt's son Saeid Marks and spoke to Saeid about SNF options. Saeid states he would like to review options and then give this worker a call back. BATSHEVA received call from Saeid Marks stating his choice for SNF is [facility]. BATSHEVA placed a call to [facility] and spoke with Samia in Admissions. BATSHEVA provided referral. BATSHEVA faxed referral to [facility]. BATSHEVA received message from Samia at [facility] stating they are able to accept pt tomorrow. Pt's insurance is waiving pre-certs. BATSHEVA placed a call to Saeid Marks and updated him that pt has been accepted to [facility]. Plan: [facility] skilled tomorrow Henna Lai FORENSIC SCIENCE EXAMINER, DIRECTOR OF DATABASE MARKETING
--- NOTE | 2021-06-25 19:00 | PCM.PN.HOSP ---
Subjective Subjective Patient was seen and examined today, he is currently on room air, he does not appear in any respiratory distress, he remains confused but directable at times. Patient is n.p.o. Objective Data Objective Data Vital Signs: Vital Signs Temp Pulse Resp BP Pulse Ox 97.8 F 87 18 128/70 H 92 06/25/21 14:56 06/25/21 14:56 06/25/21 14:56 06/25/21 14:56 06/25/21 14:56 Oxygen Flow Rate (L/min) 5 Oxygen Delivery Method Room Air Weight: 76 kg Body Mass Index (BMI) 24.7 Intake & Output: Intake and Output for Last 24 Hours 06/23/21 06/24/21 06/25/21 23:59 23:59 23:59 Intake Total 760.59 / 760.59 613.7 / 613.7 410.2 / 410.2 Output Total 800 / 800 Balance -39.41 / -39.41 613.7 / 613.7 410.2 / 410.2 Medical Nutrition Assessment Dietitian: Malnutrition Criteria Met Start: 06/17/21 14:14 Freq: Status: Active Protocol: Document 06/23/21 13:39 AG (Rec: 06/23/21 13:39 AG [id number]) Nutrition Malnutrition Evidence of Malnutrition Exists Yes Malnutrition (severe): Chronic Evidenced By Suboptimal Energy Intake ( Severe),Weight Loss (Severe) Intake Problem Inadequate Oral Intake Etiology related to altered mental status Signs/Symptoms as evidenced by estimated PO intake meeting <50% of nutritional needs x 1 week Status Active Problem Clinical Problem Chronic Disease or Condition Related Malnutrition Etiology severe, chronic malnutrition r /t predicted suboptimal energy intake w/ hx of alcohol abuse Signs/Symptoms as evidenced by estimated PO intake meeting <75% of estimated nutritional needs >3 months, unintentional wt loss of 29#/16% wt loss 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 Will start at 20mL/ hour and increase by 15mL/hour every 8-12 hours as tolerated until goal rate is achieved. 2) NPO pending TRIMMING CUTTER MACHINE evaluation- recommend regular diet when medically appropriate, will provide ONS as appropriate when PO diet advanced. 3) Daily wts, close monitoring of electrolytes d/t refeeding risk. Lab / Micro Data Result Diagrams: 06/24/21 08:30 06/24/21 08:30 Micro: Microbiology 06/17/21 06:27 Blood Culture (Wb) - Anticubital Right Blood Culture - Final No growth in 5 days. 06/16/21 18:18 Blood Culture (Wb) - Anticubital Right Blood Culture - Final No growth in 5 days. 06/16/21 18:18 Nasal Secretion SARS-CoV-2 Antigen (Rapid) - Final SARS-CoV-2 (COVID 19) Physical Exam Const alert and no apparent distress Constitutional Narrative: Patient is confused but directable at time HEENT head/scalp atraumatic and moist oral mucous membranes Head and Scalp: normocephalic Eyes PERRL, EOMs intact bilaterally and conjunctivae normal Neck supple and no JVD Resp normal respiratory effort, no retractions, no use of accessory muscles and clear to auscultation bilaterally Cardio regular rate, regular rhythm, S1 normal heart sound, S2 normal heart sound, no gallops and no clicks GI normal to inspection, nondistended, normoactive bowel sounds, soft to palpation and non-tender Neuro CN's II-XII intact bilaterally Neuro Narrative: Patient is alert but confused, he is directable at times Sensorium / Orientation: awake and alert Psych Psych Narrative: Patient is alert but confused Assessment & Plan Assessment/Plan (1) Acute respiratory failure with hypoxia: (2) COVID-19: PLAN: 1. COVID-19 pneumonia-continue present treatment, pulmonary medicine is participating in his care #2 acute hypoxic respiratory failure secondary to #1-pulse ox will be monitored and oxygen will be adjusted as necessary, patient is currently on room air #3 alcohol withdrawal-patient is not agitated today, he remains confused however #4 metabolic encephalopathy secondary to alcohol withdrawal and COVID-19 pneumonia, continue to offer supportive care #5 duodenal ulcer-continue PPI #6 severe protein and caloric malnutrition-severe weight loss of 13.1 kg in 14 months has been documented, nutritional services is seeing patient and has plan of care #7 alcoholic cirrhosis #8 erosive gastritis-again patient is on a PPI Charges/Coding Visit Charges Inpatient E&M: 80233 Subs Hosp L2
[2021-06-25] MEDS: LORazepam 2 MG/ML Syringe IV ×2 (20:37→21:47)
[2021-06-25 20:43] VITALS: BP 119/82; PULSE 73; RESP 20; TEMP 36.6; O2SAT 92
[2021-06-26] VITALS (7 sets, daily range): BP systolic 132–145; BP diastolic 75–87; PULSE 71–90; RESP 18–22; TEMP 36.6–36.7; O2SAT 86–93
[2021-06-26] MEDS: dexAMETHasone 10 MG/ML Vial 6 MG IV (09:28)
[2021-06-26] MEDS: 0.9% Saline Lock 10 ML Syringe IV (09:28)
--- NOTE | 2021-06-26 14:43 | CASEMGMT ---
Social Work Note SW in to speak with pt. Pt unable to tell this worker orientation questions, when pt does talk he has garbled speech. BATSHEVA informed pt that this worker is working on discharge plans with his son Saeid. BATSHEVA informed pt that at this time pt is requiring assistance with ADLs and will need to go to a SNF. Pt is able to state I ain't going to no fucking long-term. BATSHEVA informed pt that it is not safe for pt to return home at this time, so pt will need to go to a long-term. SW informed pt that this worker will continue to follow pt and see if pt makes improvement enough to return home. At this time pt appears confused and is NPO. BATSHEVA placed a call to Samia at [facility] stating pt is not medically ready for discharge today, maybe over the weekend. Samia states pt is able to discharge this weekend to [facility]. BATSHEVA attempted to call pt's son Saeid twice, no answer, BATSHEVA unable to leave message. BATSHEVA placed Green sheet, transport forms, COVID test on pt's chart. BATSHEVA unable to complete [facility] in [facility] until physician completes Transfer summary. Plan: Discharge to [facility] skilled under convalescent stay when medically cleared Henna Lai HEEL BUFFER, ICE CREAM SHOP ASSOCIATE
--- NOTE | 2021-06-26 15:07 | TREXTCAR_ITS ---
Diet 06/22/21 09:30 Diet: Regular Routine Orders/Code Status O2 Liters per Minute: 2 O2 Frequency: Continuous Keep PO Greater than or Equal to (%): 90 Wound(s) L elbow: Wound Type: Abrasion bilat le: Wound Type: Abrasion head of penis: Wound Type: Abrasion Therapies Weight Bearing: Weight bearing as tolerated Physical Therapy: Eval and Treat Occupational Therapy: Eval and Treat Speech Therapy: Eval and Treat Problem/Diagnosis (1) Acute respiratory failure with hypoxia: Status: Acute (2) COVID-19: Status: Acute (3) Encephalopathy: Status: Acute (4) Cirrhosis: Status: Chronic Allergies/Procedures Done in Hospital Allergies No Known Allergies Allergy (Verified 06/16/21 17:39) Procedures: EGD Type of Care/Length of Stay Estimated LOS: Convalescent Care Less Than 30 days Type of Care Needed: Skilled Rehab Potential: Good Prognosis: Good Additional Orders/Day of Discharge H&P will serve as current which was dated: 06/16/21 Day of Discharge: 06/27/21 Dietary and Speech Recommendations Dietitian Recommendations/Changes: 1) recommend regular diet when medically appropriate, will provide ONS as appropriate when PO diet advanced. 2) Continue daily wts Discharge Plan Admission Admit Date/Time: 06/16/21 19:37 Primary Reason for Your Visit: COVID-19 pneumonia, acute respiratory failure Attending Provider: Mihai Osullivan Primary Care Provider: Care Physician,No Primary Consulting Providers: Marty Velazco ; Des Velasco ; Kayleigh Galeana DELIVERY SUPERVISOR Discharge Orders/Prescriptions Prescriptions: New albuterol sulfate 2.5 mg /3 mL (0.083 %) Solution For Nebulization 2.5 mg inhalation Q2H PRN PRN (Reason: SOB/Wheezing) Qty: 0 RF: 0 Xifaxan 200 mg Tablet 200 mg PO BID Qty: 0 RF: 0 lactulose 20 gram/30 mL Solution 20 g PO BID Qty: 0 RF: 0 dexamethasone 6 mg tablet 6 mg PO DAILY Qty: 5 RF: 0 Referrals / Follow Up: Care Physician,No Primary [Primary Care Provider] - Disposition Disposition (needs filled in before D/C Order can be placed): Shelter Facility
--- NOTE | 2021-06-26 15:42 | CASEMGMT ---
Social Work Note SW completed [facility] in [facility]. SW placed [facility] on pt's chart. Henna Lai INTERN PRODUCT MARKETING MANAGER, FORCE VARIATION EQUIPMENT TENDER
[2021-06-26 18:01] LABS: Allen Test Positive; Base Excess 4 mmol/L (-2 to +2); Bicarbonate 28.3 mmol/L (22-26); Blood Gas Specimen Type ART; O2 Delivery Device Cannula; PO2 52 mmHG (75-100); SITE R Radial; SO2 87 % (95-99); Total Carbon Dioxide 30 mmol/L; pCO2 42.6 mmHg (35-45); pH 7.43 (7.35-7.45)
--- NOTE | 2021-06-26 19:28 | PN.HOSP_ITS ---
Subjective Subjective Patient was seen and examined today, he remains confused but does not appear to be in any distress, I obtained an ammonia level this afternoon on the patient which resulted as 20, I do not think the patient has hepatic encephalopathy at this time, I did an arterial blood gas which showed the patient to be hypoxic at 2 L, I increase the patient's oxygen to 3 L via nasal cannula. Patient does not appear to be safe for oral intake at this time, he will be reevaluated by speech tomorrow. Objective Data Objective Data Vital Signs: Vital Signs Temp Pulse Resp BP Pulse Ox 98.1 F 80 18 145/87 H 92 06/26/21 18:31 06/26/21 18:31 06/26/21 18:31 06/26/21 18:31 06/26/21 18:31 Oxygen Flow Rate (L/min) 2 Oxygen Delivery Method Nasal Cannula Weight: 77.5 kg Body Mass Index (BMI) 24.7 Intake & Output: Intake and Output for Last 24 Hours 06/24/21 06/25/21 06/26/21 23:59 23:59 23:59 Intake Total 613.7 / 613.7 575.7 / 575.7 160.2 / 160.2 Balance 613.7 / 613.7 575.7 / 575.7 160.2 / 160.2 Medical Nutrition Assessment Dietitian: Malnutrition Criteria Met Start: 06/17/21 14:14 Freq: Status: Active Protocol: Document 06/23/21 13:39 AG (Rec: 06/23/21 13:39 AG [id number]) Nutrition Malnutrition Evidence of Malnutrition Exists Yes Malnutrition (severe): Chronic Evidenced By Suboptimal Energy Intake ( Severe),Weight Loss (Severe) Intake Problem Inadequate Oral Intake Etiology related to altered mental status Signs/Symptoms as evidenced by estimated PO intake meeting <50% of nutritional needs x 1 week Status Active Problem Clinical Problem Chronic Disease or Condition Related Malnutrition Etiology severe, chronic malnutrition r /t predicted suboptimal energy intake w/ hx of alcohol abuse Signs/Symptoms as evidenced by estimated PO intake meeting <75% of estimated nutritional needs >3 months, unintentional wt loss of 29#/16% 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 Will start at 20mL/ hour and increase by 15mL/hour every 8-12 hours as tolerated until goal rate is achieved. 2) NPO pending VISUAL EDUCATION DIRECTOR evaluation- recommend regular diet when medically appropriate, will provide ONS as appropriate when PO diet advanced. 3) Daily wts, close monitoring of electrolytes d/t refeeding risk. Lab / Micro Data Result Diagrams: 06/24/21 08:30 06/24/21 08:30 Labs: Laboratory Results - last 24 hr 06/26/21 15:46: Ammonia 20.0 Micro: Microbiology 06/17/21 06:27 Blood Culture (Wb) - Anticubital Right Blood Culture - Final No growth in 5 days. 06/16/21 18:18 Blood Culture (Wb) - Anticubital Right Blood Culture - Final No growth in 5 days. 06/16/21 18:18 Nasal Secretion SARS-CoV-2 Antigen (Rapid) - Final SARS-CoV-2 (COVID 19) ABG Data ABG results: ABG 06/26/21 17:53 Specimen Type ART Sample Site R Radial pH 7.43 Bicarbonate Actual 28.3 H Total CO2 30 Base Excess 4 H O2 Saturation 87 L ABG pCO2 42.6 ABG pO2 52 L Raphael Test Positive O2 Delivery Device Cannula Liter Flow 2.0 Physical Exam Const alert and no apparent distress Constitutional Narrative: Patient appears older than his stated age General Appearance: cooperative, well kempt and well developed Orientation / Consciousness: awake, oriented to person, oriented to place and oriented to time HEENT normocephalic and head/scalp atraumatic Head and Scalp: normocephalic Eyes PERRL, EOMs intact bilaterally and conjunctivae normal Neck nuchal rigidity, supple, no JVD, thyroid normal and no carotid bruits General: trachea midline Resp normal respiratory effort, no retractions, no use of accessory muscles and clear to auscultation bilaterally Auscultation: Negative for rales, rhonchi or wheezes Cardio regular rate, regular rhythm, S1 normal heart sound, S2 normal heart sound, no murmurs, no rub and no gallops GI normal to inspection, nondistended, normoactive bowel sounds, soft to palpation, non-tender and non-distended Extremity no clubbing, cyanosis or edema Skin no rashes or lesions noted General Skin Exam: no breakdown Neuro CN's II-XII intact bilaterally Sensorium / Orientation: awake and alert Psych thought process normal Psych Narrative: Patient is alert but confused, he is somewhat directable Assessment & Plan Assessment/Plan (1) COVID-19: (2) Acute respiratory failure with hypoxia: (3) Encephalopathy: (4) Cirrhosis: PLAN: 1. COVID-19 pneumonia-continue present treatment, pulmonary medicine is participating in his care #2 acute hypoxic respiratory failure secondary to #1-pulse ox will be monitored and oxygen will be adjusted as necessary, patient is currently on room air #3 alcohol withdrawal-patient is not agitated today, he remains confused however #4 metabolic encephalopathy secondary to alcohol withdrawal and COVID-19 pneumonia, continue to offer supportive care, patient is being seen by speech therapy regarding appropriateness of oral intake. #5 duodenal ulcer-continue PPI #6 severe protein and caloric malnutrition-severe weight loss of 13.1 kg in 14 months has been documented, nutritional services is seeing patient and has plan of care #7 alcoholic cirrhosis #8 erosive gastritis-again patient is on a PPI Charges/Coding Visit Charges Inpatient E&M: 97534 Subs Hosp L2
--- NOTE | 2021-06-26 23:19 | NURSING ---
pt moved to room 324 for hospital convenience
[2021-06-27] VITALS (11 sets, daily range): BP systolic 123–150; BP diastolic 78–90; PULSE 58–78; RESP 16–22; TEMP 36.2–36.7; O2SAT 85–97
--- NOTE | 2021-06-27 10:00 | RAD_ITS ---
STUDY: X-RAY CHEST REASON FOR EXAM: Male, 50 years old. Hypoxia TECHNIQUE: Frontal view of the chest COMPARISON: 06/22/21 FINDINGS: There is a right-sided PICC line with its tip in the superior vena cava. There is total opacification of the right hemithorax which is increased when compared with the prior exam. This is likely due to a combination of effusion and infiltrate. The left lung is clear. There is no pneumothorax. The heart is stable in size. The visualized osseous structures are within normal limits. RAD/Chest 1 View (Portable) IMPRESSION: Total opacification of the right hemithorax which is increased when compared with the prior exam. This is likely due to a combination of effusion and infiltrate. Electronically Signed: Jaison Calle MD at 10:20 EDT Tel , Service support ,
[2021-06-27] MEDS: 0.9% Saline Lock 10 ML Syringe IV ×3 (10:49→22:56)
[2021-06-27] MEDS: dexAMETHasone 10 MG/ML Vial 6 MG IV (10:56)
--- NOTE | 2021-06-27 12:13 | NURSING ---
PT HAD TAKEN O2 OFF
--- NOTE | 2021-06-27 18:19 | PCM.PN.HOSP ---
Subjective Subjective Patient was seen and examined today, he appears more alert than yesterday but he is still not able to have oral intake per speech therapy care, speech therapy would like to perform a modified barium swallow on him Tuesday, I communicated by text with the patient's son who is his nearest relative, he would be in favor of a PEG tube placement if necessary to provide nutrition. Objective Data Objective Data Vital Signs: Vital Signs Temp Pulse Resp BP Pulse Ox 97.8 F 78 20 H 123/78 H 90 06/27/21 10:46 06/27/21 10:46 06/27/21 10:46 06/27/21 10:46 06/27/21 16:00 Oxygen Flow Rate (L/min) 4 Oxygen Delivery Method Nasal Cannula Weight: 75.3 kg Body Mass Index (BMI) 24.7 Intake & Output: Intake and Output for Last 24 Hours 06/25/21 06/26/21 06/27/21 23:59 23:59 23:59 Intake Total 575.7 / 575.7 322.2 / 322.2 160.2 / 160.2 Balance 575.7 / 575.7 322.2 / 322.2 160.2 / 160.2 Medical Nutrition Assessment Dietitian: Malnutrition Criteria Met Start: 06/17/21 14:14 Freq: Status: Active Protocol: Document 06/23/21 13:39 AG (Rec: 06/23/21 13:39 [id number]) Nutrition Malnutrition Evidence of Malnutrition Exists Yes Malnutrition (severe): Chronic Evidenced By Suboptimal Energy Intake ( Severe),Weight Loss (Severe) Intake Problem Inadequate Oral Intake Etiology related to altered mental status Signs/Symptoms as evidenced by estimated PO intake meeting <50% of nutritional needs x 1 week Status Active Problem Clinical Problem Chronic Disease or Condition Related Malnutrition Etiology severe, chronic malnutrition r /t predicted suboptimal energy intake w/ hx of alcohol abuse Signs/Symptoms as evidenced by estimated PO intake meeting <75% of estimated nutritional needs >3 months, unintentional wt loss of 29#/16% wt loss x 7-9 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 Will start at 20mL/ hour and increase by 15mL/hour every 8-12 hours as tolerated until goal rate is achieved. 2) NPO pending BATTERBOARD SETTER evaluation- recommend regular diet when medically appropriate, will provide ONS as appropriate when PO diet advanced. 3) Daily wts, close monitoring of electrolytes d/t refeeding risk. Lab / Micro Data Result Diagrams: 06/24/21 08:30 06/24/21 08:30 Micro: Microbiology 06/17/21 06:27 Blood Culture (Wb) - Anticubital Right Blood Culture - Final No growth in 5 days. 06/16/21 18:18 Blood Culture (Wb) - Anticubital Right Blood Culture - Final No growth in 5 days. 06/16/21 18:18 Nasal Secretion SARS-CoV-2 Antigen (Rapid) - Final SARS-CoV-2 (COVID 19) Physical Exam Narrative alert and no apparent distress Constitutional Narrative: Patient appears older than his stated age General Appearance: cooperative, well kempt and well developed Orientation / Consciousness: awake, patient is confused HEENT normocephalic and head/scalp atraumatic Head and Scalp: normocephalic Eyes PERRL, EOMs intact bilaterally and conjunctivae normal Neck nuchal rigidity, supple, no JVD, thyroid normal and no carotid bruits General: trachea midline Resp normal respiratory effort, no retractions, no use of accessory muscles and clear to auscultation bilaterally Auscultation: Negative for rales, rhonchi or wheezes Cardio regular rate, regular rhythm, S1 normal heart sound, S2 normal heart sound, no murmurs, no rub and no gallops GI normal to inspection, nondistended, normoactive bowel sounds, soft to palpation, non-tender and non-distended Extremity no clubbing, cyanosis or edema Skin no rashes or lesions noted General Skin Exam: no breakdown Neuro CN's II-XII intact bilaterally Sensorium / Orientation: awake and alert Psych Psych Narrative: Patient is alert but confused, he is somewhat directable Assessment & Plan Assessment/Plan (1) Encephalopathy: (2) COVID-19: (3) Acute respiratory failure with hypoxia: (4) Cirrhosis: PLAN: 1. COVID-19 pneumonia-continue present treatment, pulmonary medicine is participating in his care, patient remains on dexamethasone #2 acute hypoxic respiratory failure secondary to #1-pulse ox will be monitored and oxygen will be adjusted as necessary, patient is currently on 4 L/min via nasal cannula #3 alcohol withdrawal-patient is not agitated today, he remains confused however #4 metabolic encephalopathy secondary to alcohol withdrawal and COVID-19 pneumonia, continue to offer supportive care, patient is being seen by speech therapy regarding appropriateness of oral intake. #5 duodenal ulcer-continue PPI #6 severe protein and caloric malnutrition-severe weight loss of 13.1 kg in 14 months has been documented, nutritional services is seeing patient and has plan of care, currently is n.p.o. and I do not feel that it would be turner to insert an NG tube or Dobbhoff tube for nutritional support, patient is likely to pull a temporary feeding tube out #7 alcoholic cirrhosis #8 erosive gastritis-again patient is on a PPI Charges/Coding Visit Charges Inpatient E&M: 81950 Subs Hosp L2
[2021-06-27] MEDS: LORazepam 2 MG/ML Syringe IV (19:13)
[2021-06-28] VITALS (11 sets, daily range): BP systolic 94–131; BP diastolic 58–96; PULSE 68–125; RESP 18–23; TEMP 35.9–37.2; O2SAT 91–96
[2021-06-28] MEDS: 0.9% Saline Lock 10 ML Syringe IV ×4 (00:21→17:33)
[2021-06-28] MEDS: LORazepam 2 MG/ML Syringe IV ×3 (00:22→20:08)
[2021-06-28] MEDS: Haloperidol Lactate 5 MG/ML Vial 2 MG IM ×5 (01:42→23:23)
[2021-06-28] MEDS: Haloperidol Lactate 5 MG/ML Vial 4 MG IM (03:54)
[2021-06-28] MEDS: dexAMETHasone 10 MG/ML Vial 6 MG IV (08:30)
[2021-06-28 12:19] LABS: Prothrombin Time (Protime)PT. 21.5 SECONDS (11.7-14.9)
[2021-06-28 12:20] LABS: Partial Thromboplast Time 33.7 Seconds (24.1-36.2)
--- NOTE | 2021-06-28 16:12 | PCM.PN.HOSP ---
Subjective Subjective Patient was seen and examined today, he remains confused but is not combative. Patient has a complete white out of his right hemithorax due to fluid, I have ordered a thoracentesis tomorrow, patient's INR today was 2, I have administered vitamin K 5 mg IV and I have written for fresh frozen plasma to be infused 1 hour before the procedure tomorrow. Patient does not appear to have ascites on his ultrasound of his abdomen that was done several days ago, I talked with gastroenterology by phone today and they confirmed that he does not have ascites. I also texted the patient's son and he gave permission for the thoracentesis as the patient is unable to give permission due to his encephalopathy. Objective Data Objective Data Vital Signs: Vital Signs Temp Pulse Resp BP Pulse Ox 96.7 F L 85 20 H 122/86 H 96 06/28/21 15:00 06/28/21 15:00 06/28/21 15:00 06/28/21 15:00 06/28/21 15:00 Oxygen Flow Rate (L/min) 6 Oxygen Delivery Method Nasal Cannula Weight: 73.5 kg Body Mass Index (BMI) 24.7 Intake & Output: Intake and Output for Last 24 Hours 06/26/21 06/27/21 06/28/21 23:59 23:59 23:59 Intake Total 322.2 / 322.2 322.2 / 322.2 110 / 110 Balance 322.2 / 322.2 322.2 / 322.2 110 / 110 Medical Nutrition Assessment Dietitian: Malnutrition Criteria Met Start: 06/17/21 14:14 Freq: Status: Active Protocol: Document 06/23/21 13:39 (Rec: 06/23/21 13:39 [id number]) Nutrition Malnutrition Evidence of Malnutrition Exists Yes Malnutrition (severe): Chronic Evidenced By Suboptimal Energy Intake ( Severe),Weight Loss (Severe) Intake Problem Inadequate Oral Intake Etiology related to altered mental status Signs/Symptoms as evidenced by estimated PO intake meeting <50% of nutritional needs x 1 week Status Active Problem Clinical Problem Chronic Disease or Condition Related Malnutrition Etiology severe, chronic malnutrition r /t predicted suboptimal energy intake w/ hx of alcohol abuse Signs/Symptoms as evidenced by estimated PO intake meeting <75% of estimated nutritional needs >3 months, unintentional wt loss of 29#/16% wt loss x 7-9 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 Will start at 20mL/ hour and increase by 15mL/hour every 8-12 hours as tolerated until goal rate is achieved. 2) NPO pending EXECUTIVE DIRECTOR evaluation- recommend regular diet when medically appropriate, will provide ONS as appropriate when PO diet advanced. 3) Daily wts, close monitoring of electrolytes d/t refeeding risk. Lab / Micro Data Result Diagrams: 06/24/21 08:30 06/24/21 08:30 Labs: Laboratory Results - last 24 hr 06/28/21 11:48: PT 21.5 H, INR 2.0, APTT 33.7 Micro: Microbiology 06/17/21 06:27 Blood Culture (Wb) - Anticubital Right Blood Culture - Final No growth in 5 days. 06/16/21 18:18 Blood Culture (Wb) - Anticubital Right Blood Culture - Final No growth in 5 days. 06/16/21 18:18 Nasal Secretion SARS-CoV-2 Antigen (Rapid) - Final SARS-CoV-2 (COVID 19) Radiography Diagnostic Testing: Radiology Impression Chest X-Ray 06/27/21 10:00 IMPRESSION: Total opacification of the right hemithorax which is increased when compared with the prior exam. This is likely due to a combination of effusion and infiltrate. Electronically Signed: Jaison Calle MD at 10:20 EDT Tel , Service support , Physical Exam Narrative alert and no apparent distress Constitutional Narrative: Patient appears older than his stated age General Appearance: cooperative, well kempt and well developed Orientation / Consciousness: awake, patient is confused HEENT normocephalic and head/scalp atraumatic Head and Scalp: normocephalic Eyes PERRL, EOMs intact bilaterally and conjunctivae normal Neck nuchal rigidity, supple, no JVD, thyroid normal and no carotid bruits General: trachea midline Resp normal respiratory effort, no retractions, no use of accessory muscles and clear to auscultation bilaterally Auscultation: Negative for rales, rhonchi or wheezes Cardio regular rate, regular rhythm, S1 normal heart sound, S2 normal heart sound, no murmurs, no rub and no gallops GI normal to inspection, nondistended, normoactive bowel sounds, soft to palpation, non-tender and non-distended Extremity no clubbing, cyanosis or edema Skin no rashes or lesions noted General Skin Exam: no breakdown Neuro CN's II-XII intact bilaterally Sensorium / Orientation: awake and alert Psych Psych Narrative: Patient is alert but confused, he is somewhat directable Assessment & Plan Assessment/Plan (1) Acute respiratory failure with hypoxia: (2) Encephalopathy: (3) COVID-19: (4) Cirrhosis: PLAN: 1. COVID-19 pneumonia-continue present treatment, pulmonary medicine is participating in his care, patient remains on dexamethasone #2 acute hypoxic respiratory failure secondary to #1, also secondary to large right pleural effusions -pulse ox will be monitored and oxygen will be adjusted as necessary, patient is currently on 6 L/min via nasal cannula #3 Large right pleural effusion-probably secondary to leak of ascites across the diaphragm, patient will undergo a thoracentesis tomorrow, his INR is elevated today at 2, I have administered 5 mg IV vitamin K and the patient will get fresh frozen plasma tomorrow. Patient does not seem to have any ascites at this time. #4 metabolic encephalopathy secondary to alcohol withdrawal and COVID-19 pneumonia, continue to offer supportive care, patient is being seen by speech therapy regarding appropriateness of oral intake. #5 duodenal ulcer-continue PPI #6 severe protein and caloric malnutrition-severe weight loss of 13.1 kg in 14 months has been documented, nutritional services is seeing patient and has plan of care, currently is n.p.o. and I do not feel that it would be turner to insert an NG tube or Dobbhoff tube for nutritional support, patient is likely to pull a temporary feeding tube out #7 alcoholic cirrhosis #8 erosive gastritis-again patient is on a PPI Charges/Coding Visit Charges Inpatient E&M: 56583 Subs Hosp L2
[2021-06-28] MEDS: Albuterol 2.5 MG/3 ML VIAL.NEB. INHALATION (19:35)
[2021-06-29] VITALS (20 sets, daily range): BP systolic 61–176; BP diastolic 34–140; PULSE 100–138; RESP 12–36; TEMP 35.9–38.2; O2SAT 83–96
--- NOTE | 2021-06-29 00:34 | EKG12_ITS ---
Test Reason : TACHY Blood Pressure : / mmHG Vent. Rate : 136 BPM Atrial Rate : 141 BPM P-R Int : 000 ms QRS Dur : 076 ms QT Int : 322 ms P-R-T Axes : 000 074 047 degrees QTc Int : 484 ms Sinus tachycardia Low voltage QRS Septal infarct (cited on or before 25-NOV-2020) Abnormal ECG Confirmed by WILD BAEZ, MARCELA ([id number]), metropolitan editor NEHEMIAH VELAZCO ([id number]) on 07/01/2021 10:01:36 AM Referred By: SMITH Confirmed By:MARCELA ROME MD
--- NOTE | 2021-06-29 00:42 | NURSING ---
respiratory called at this time for a stat EKG order. pt has been tachy for past hour. see physician notification
[2021-06-29] MEDS: LORazepam 2 MG/ML Syringe IV ×5 (01:39→12:50)
[2021-06-29] MEDS: Furosemide 40 MG/4 ML Vial IV (01:39)
[2021-06-29] MEDS: Acetaminophen 650 MG Suppository RC (02:05)
--- NOTE | 2021-06-29 03:25 | NURSING ---
Called patient's son, Saeid, regarding transfer. No answer, left voicemail to call back.
[2021-06-29] MEDS: Haloperidol Lactate 5 MG/ML Vial 2 MG IM (04:09)
[2021-06-29 04:11] LABS: Absolute Lymphocyte Count 0.23 X10^3/uL (0.83-4.51); Absolute Neutrophil Count 8.3 X10^3/uL (2.0-7.7); Eosinophil# 0.01 X10^3/uL; Eosinophils% 0.1 % (0-5); Hematocrit 39.2 % (40-54); Hemoglobin 13.3 g/dL (13.0-16.5); Lymphocyte # 0.23 X10^3/ul (0.83-4.51); Lymphocyte % 2.6 % (19-41); Mean Corp Hgb Conc 33.9 g/dL (32-36); Mean Corpuscular Hgb 35.7 pg (27.0-32.0); Mean Corpuscular Volume 105.1 fL (80-94); Mean Platelet Vol. 12.4 fl (6.2-12.0); Monocyte% 2.3 % (0-10); NRBC Flagged by Analyzer 2.7 % (0-5); Neutrophil # 8.26 X10^3/uL (2.7-7.7); Neutrophil % 93.3 % (47-70); POSITIVE COUNT YES; POSITIVE DIFFERENTIAL YES; POSITIVE MORPHOLOGY YES; Platelet Count 39 K/mm3 (150-450); RBC Distribution Width CV 18.2 % (11.6-14.6); RBC Distribution Width SD 69.5 fl (35.1-43.9); Red Blood Count 3.73 M/mm3 (4.6-6.2); White Blood Count 8.9 K/mm3 (4.4-11.0)
[2021-06-29] MEDS: 0.9% Saline Lock 10 ML Syringe IV ×5 (04:12→12:50)
[2021-06-29 04:13] LABS: Differential Indicated SCAN CRITERIA MET
--- NOTE | 2021-06-29 04:17 | NURSING ---
Son, Saeid, returned call to this RN. Notified of transfer to ICU.
[2021-06-29 04:25] LABS: ALB/GLOB Ratio 0.3 RATIO (0.9-2.4); AST(SGOT) 60 U/L (15-37); Alanine Aminotransfer ALT/SGPT 47 U/L (16-61); Albumin, Serum 1.2 g/dL (3.2-5.0); Alkaline Phosphatase 125 U/L (45-117); Anion Gap 9 (5-15); BUN 28 mg/dL (7-18); BUN/Creat Ratio 18.5 RATIO (10-20); Calcium,Total 8.5 mg/dL (8.5-10.1); Chloride 122 mmol/L (98-107); Creatinine, Serum 1.51 mg/dL (0.70-1.30); EST Glomerular Filtration Rate 52 mL/min (>60); Est Glom Filt Rate - Afr Amer 63 mL/min (>60); Estimated Creatinine Clearance 52.81 ml/min; Globulin 4.4 g/dL (2.2-4.2); Glucose 59 mg/dL (74-106); Potassium 3.8 mmol/L (3.5-5.1); Protein, Total 5.6 g/dL (6.4-8.2); Sodium Level 156 mmol/L (136-145)
[2021-06-29 04:35] LABS: Prothrombin Time (Protime)PT. 22.1 SECONDS (11.7-14.9)
[2021-06-29 04:36] LABS: Partial Thromboplast Time 31.7 Seconds (24.1-36.2)
[2021-06-29 04:37] LABS: Anisocytosis 1+; Target Cells 1+
[2021-06-29] MEDS: Dextrose 50%-Water 25 GM/50 ML DISP.SYRIN IV (05:21)
[2021-06-29 05:56] LABS: Bedside Glucose 127 mg/dL (70-110)
--- NOTE | 2021-06-29 06:56 | CON.PCM.CC_ITS ---
Assessment & Plan Assessment/Plan (1) Acute respiratory failure with hypoxia: PLAN: RECOMMENDATIONS: 1. Following discussion with the patient's son, CODE STATUS has been updated to DNR CC. 2. Initiate palliative care measures. 3. Initiate hospice care referral. IMPRESSIONS: 1. Septic shock Unclear precipitating etiology. However, aspiration pneumonia, SBP or complication of Covid are all potential possibilities. The patient is s ignificantly volume overloaded for the hospitalization. Therefore, I would recommend that Levophed be continued to maintain hemodynamic stability, if feasible. The patient will remain on antimicrobials, while awaiting infectious work-up. 2. Encephalopathy Likely secondary to hepatic encephalopathy. The patient has remained on lactulose and rifaximin, which will be continued. Recommend obtaining arterial blood gas this morning. In addition, repeat ammonia level will be checked. 3. Acute hypoxemic respiratory failure/COVID-19 pneumonia Potential possibilities include pneumonia with parapneumonic effusion versus hepatic hydrothorax. Although there were initial plans to proceed with thoracentesis, in light of the patient's clinical decompensation and transition to comfort care measures, the procedure will be discontinued. 4. Erosive gastritis Continue PPI therapy as ordered. 5. History of alcohol dependency with underlying liver cirrhosis CODE status: Discussed CODE status at length including difference between FULL code, DNR-CCA and DNR-CC status. Following discussions about the differences in these status, patient's son requested DNR CC CODE STATUS. TIME: 36 minutes of critical care time, independent of procedures, was spent addressing the patient's septic shock, encephalopathy, acute hypoxemic respiratory failure, COVID-19 pneumonia, erosive gastritis, review of all data and collaboration with the care team. ([id number]) HPI Consult Data Date of Consult: 06/30/21 HPI Narrative Reason for Consultation: Acute hypoxemic respiratory failure HPI Narrative: The patient is a 50-year-old male, with a history as outlined below, who was transferred from the medical surgical floor due to worsening respiratory failure and encephalopathy. The patient initially presented to the hospital on June 16 via EMS with fatigue and generalized weakness, along with episodes of hematemesis. The patient has a history of alcoholic cirrhosis, alcoholic hepatitis, hepatic encephalopathy and esophageal varices. The patient was screened and found to be positive for coronavirus on June 16. The patient was seen in consultation by GI and underwent upper endoscopy on June 19, which revealed multiple nonbleeding erosions in the gastric positive gastropathy and one nonbleeding duodenal ulcer. The patient was placed on twice daily PPI therapy. Over the course of his hospitalization, the patient's mental status continued to worsen. He was also treated for alcohol withdrawal. There was concern at one point in time for the development of aspiration pneumonia. The patient was previously in the intensive care unit and treated for alcohol withdrawal with a Precedex infusion. At the present time, the patient is receiving rifaximin and lactulose along with thiamine and folic acid. He has remained on twice daily PPI therapy. The patient has also been continued on Decadron. The patient has continued to receive Ativan, despite being outside of the alcohol withdrawal window. The patient did receive a one-time dose of IV Lasix overnight. The patient is curr ently being maintained on BiPAP with an FiO2 requirement of 70% and pressure support of 12/6 centimeters of water. Arterial blood gas obtained this morning revealed a pH of 7.42 with a PCO2 of 25 and PO2 of 56. Chest x-ray obtained on June 27 revealed complete opacification of the right hemithorax. To date, it does not appear that the patient has received any antimicrobial therapy. The patient is currently documented to be overall net +13.4 L for the hospital admission. After my evaluation of the patient at the bedside this morning, he was noted to be in a great deal of respiratory distress. The patient appeared profoundly encephalopathic and distressed. Therefore, I reached out and personally spoke with the patient's son, Saeid Marks. He was updated on his father's overall clinical state and my concern that he would continue to decompensate clinically and would likely require intubation. However, following a lengthy discussion, the decision was made to transition the patient to DNR comfort care. PFSH Medical History Cirrhosis Smoker Tobacco use Home Medications albuterol sulfate 2.5 mg INHALATION Q2H PRN PRN #0 ml 06/26/21 [Rx Last Taken Unknown] dexamethasone 6 mg PO DAILY #5 tab 06/26/21 [Rx Last Taken Unknown] lactulose 20 g PO BID #0 ml 06/26/21 [Rx Last Taken Unknown] rifaximin [Xifaxan] 200 mg PO BID #0 tab 06/26/21 [Rx Last Taken Unknown] Allergy/AdvReac Type Severity Reaction Status Date / Time No Known Allergies Allergy Verified 06/16/21 17:39 Social History (Updated 06/16/21 @ 22:[address] Beth Nunez, DO) Smoking Status: Current every day smoker tobacco type: cigarettes alcohol intake: current substance use type: does not use ROS Review of Systems ROS Unobtainable: due to encephalopathy Physical Exam Const General Appearance: lethargic and ill appearing Orientation / Consciousness: obtunded Exam Limitations: altered mental status HEENT normocephalic and head/scalp atraumatic HEENT Narrative: Jaundiced in appearance Eyes PERRL Neck supple General: trachea midline Resp Effort and Inspection: tachypneic and labored Auscultation: diminished lung sounds Percussion: dullness Mid: right and Lower: right Cardio S1 normal heart sound and S2 normal heart sound Rate: tachycardic GI soft to palpation and non-tender Extremity no clubbing, cyanosis or edema Skin no rashes or lesions noted Psych Mood & Affect: flat affect Medical Records Data Medical Nutrition Assessment Dietitian: Malnutrition Criteria Met Start: 06/17/21 14:14 Freq: Status: Active Protocol: Document 06/23/21 13:39 (Rec: 06/23/21 13:39 [id number]) Nutrition Malnutrition Evidence of Malnutrition Exists Yes Malnutrition (severe): Chronic Evidenced By Suboptimal Energy Intake ( Severe),Weight Loss (Severe) Intake Problem Inadequate Oral Intake Etiology related to altered mental status Signs/Symptoms as evidenced by estimated PO intake meeting <50% of nutritional needs x 1 week Status Active Problem Clinical Problem Chronic Disease or Condition Related Malnutrition Etiology severe, chronic malnutrition r /t predicted suboptimal energy intake w/ hx of alcohol abuse Signs/Symptoms as evidenced by estimated PO intake meeting <75% of estimated nutritional needs >3 months, unintentional wt loss of 29#/16% wt loss x 7-9 months 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 Will start at 20mL/ hour and increase by 15mL/hour every 8-12 hours as tolerated until goal rate is achieved. 2) NPO pending WINE SALES REPRESENTATIVE evaluation- recommend regular diet when medically appropriate, will provide ONS as appropriate when PO diet advanced. 3) Daily wts, close monitoring of electrolytes d/t refeeding risk. Lab / Micro Data Result Diagrams: 06/29/21 03:55 06/29/21 03:55 Labs: Laboratory Results - last 24 hr 06/28/21 11:48: PT 21.5 H, INR 2.0, APTT 33.7 06/28/21 19:00: Blood Type A POSITIVE 06/29/21 03:55: Sodium 156 H, Potassium 3.8, Chloride 122 H, Carbon Dioxide 25.0, Anion Gap 9, BUN 28 H, Creatinine 1.51 H, Estim Creat Clear Calc 52.81, Est GFR (MDRD) Af Amer 63, Est GFR (MDRD) Non-Af 52 L, BUN/Creatinine Ratio 18.5, Glucose 59 L, Calcium 8.5, Total Bilirubin 4.70 H, AST 60 H, ALT 47, Alkaline Phosphatase 125 H, Total Protein 5.6 L, Albumin 1.2 L, Globulin 4.4 H, Albumin/Globulin Ratio 0.3 L 06/29/21 03:55: WBC 8.9, RBC 3.73 L, Hgb 13.3, Hct 39.2 L, MCV 105.1 H, MCH 35.7 H, MCHC 33.9 D, RDW Std Deviation 69.5 H, RDW Coeff of Lesvia 18.2 H, Plt Count 39 L*, MPV 12.4 H, Immature Gran % (Auto) 1.700 H, Neut % (Auto) 93.3 H, Lymph % (A uto) 2.6 L, [place] % (Auto) 2.3, Eos % (Auto) 0.1, Baso % (Auto) 0.0, Absolute Neuts (auto) 8.3 H, Absolute Lymphs (auto) 0.23 L, Nucleated RBC % 2.7, Diff Path Review May foll, Anisocytosis 1+, Target Cells 1+ 06/29/21 03:55: PT 22.1 H, INR 2.0, APTT 31.7 06/29/21 05:45: POC Glucose 127 H Radiology Impression Chest X-Ray 06/27/21 10:00 IMPRESSION: Total opacification of the right hemithorax which is increased when compared with the prior exam. This is likely due to a combination of effusion and infiltrate. Electronically Signed: Jaison Calle MD at 10:20 EDT Tel , Service support , Charges/Coding Procedures Hospitalists Procedures: [id number] [facility] Hr
[2021-06-29 07:01] LABS: Base Excess -8 mmol/L (-2 to +2); Bicarbonate 16.3 mmol/L (22-26); Blood Gas Specimen Type ART; FI02 70; O2 Delivery Device BiPAP; PEEP 12; PO2 56 mmHG (75-100); PS 6; SITE R Radial; SO2 90 % (95-99); Total Carbon Dioxide 17 mmol/L; pCO2 25.1 mmHg (35-45); pH 7.42 (7.35-7.45)
[2021-06-29] MEDS: Morphine 4 MG/ML Syringe IV ×3 (09:50→12:50)
--- NOTE | 2021-06-29 11:01 | PN.HOSP_ITS ---
Subjective Subjective Patient seen and examined. He was on BIPAP at time of review. Unable to do review of systems as patient was lethargic and on BIPAP. He is due for thoracentesis. today due to a right pleural effusion. He is tachypneic and tachycardic. Critical care on board. Objective Data Objective Data Vital Signs: Vital Signs Temp Pulse Resp BP Pulse Ox 97.7 F L 108 H 35 H 83/59 L 96 06/29/21 08:00 06/29/21 09:15 06/29/21 09:15 06/29/21 09:15 06/29/21 09:15 Oxygen Flow Rate (L/min) 5 Oxygen Delivery Method Bi-pap Weight: 160 lb 4.417 oz Body Mass Index (BMI) 24.7 Intake & Output: Intake and Output for Last 24 Hours 06/27/21 06/28/21 06/29/21 23:59 23:59 23:59 Intake Total 322.2 / 322.2 432.7 / 432.7 22.50 / 22.50 Output Total 1100 / 1100 Balance 322.2 / 322.2 432.7 / 432.7 -1077.50 / -1077.50 Medical Nutrition Assessment Dietitian: Malnutrition Criteria Met Start: 06/17/21 14:14 Freq: Status: Active Protocol: Document 06/23/21 13:39 (Rec: 06/23/21 13:39 AG [id number]) Nutrition Malnutrition Evidence of Malnutrition Exists Yes Malnutrition (severe): Chronic Evidenced By Suboptimal Energy Intake ( Severe),Weight Loss (Severe) Intake Problem Inadequate Oral Intake Etiology related to altered mental status Signs/Symptoms as evidenced by estimated PO intake meeting <50% of nutritional needs x 1 week Status Active Problem Clinical Problem Chronic Disease or Condition Related Malnutrition Etiology severe, chronic malnutrition r /t predicted suboptimal energy intake w/ hx of alcohol abuse Signs/Symptoms as evidenced by estimated PO intake meeting <75% of estimated nutritional needs >3 months, unintentional wt loss of 29#/16% wt loss x 7-9 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 Will start at 20mL/ hour and increase by 15mL/hour every 8-12 hours as tolerated until goal rate is achieved. 2) NPO pending CHROME CLEANER evaluation- recommend regular diet when medically appropriate, will provide ONS as appropriate when PO diet advanced. 3) Daily wts, close monitoring of electrolytes d/t refeeding risk. Lab / Micro Data Result Diagrams: 06/29/21 03:55 06/29/21 03:55 Labs: Laboratory Results - last 24 hr 06/28/21 11:48: PT 21.5 H, INR 2.0, APTT 33.7 06/28/21 19:00: Blood Type A POSITIVE 06/29/21 03:55: Sodium 156 H, Potassium 3.8, Chloride 122 H, Carbon Dioxide 25.0, Anion Gap 9, BUN 28 H, Creatinine 1.51 H, Estim Creat Clear Calc 52.81, Est GFR (MDRD) Af Amer 63, Est GFR (MDRD) Non-Af 52 L, BUN/Creatinine Ratio 18.5, Glucose 59 L, Calcium 8.5, Total Bilirubin 4.70 H, AST 60 H, ALT 47, Alkaline Phosphatase 125 H, Total Protein 5.6 L, Albumin 1.2 L, Globulin 4.4 H, Albumin/Globulin Ratio 0.3 L 06/29/21 03:55: WBC 8.9, RBC 3.73 L, Hgb 13.3, Hct 39.2 L, MCV 105.1 H, MCH 35.7 H, MCHC 33.9 D, RDW Std Deviation 69.5 H, RDW Coeff of Lesvia 18.2 H, Plt Count 39 L*, MPV 12.4 H, Immature Gran % (Auto) 1.700 H, Neut % (Auto) 93.3 H, Lymph % (Auto) 2.6 L, [place] % (Auto) 2.3, Eos % (Auto) 0.1, Baso % (Auto) 0.0, Absolute Neuts (auto) 8.3 H, Absolute Lymphs (auto) 0.23 L, Nucleated RBC % 2.7, Diff Path Review May foll, Anisocytosis 1+, Target Cells 1+ 06/29/21 03:55: PT 22.1 H, INR 2.0, APTT 31.7 06/29/21 05:45: POC Glucose 127 H 06/29/21 08:00: Ammonia 36.0 H Micro: Microbiology 06/17/21 06:27 Blood Culture (Wb) - Anticubital Right Blood Culture - Final No growth in 5 days. 06/16/21 18:18 Blood Culture (Wb) - Anticubital Right Blood Culture - Final No growth in 5 days. 06/16/21 18:18 Nasal Secretion SARS-CoV-2 Antigen (Rapid) - Final SARS-CoV-2 (COVID 19) ABG Data ABG results: ABG 06/29/21 06:54 Specimen Type ART Sample Site R Radial pH 7.42 Bicarbonate Actual 16.3 L Total CO2 17 Base Excess -8 L O2 Saturation 90 L O2 % 70 ABG pCO2 25.1 L ABG pO2 56 L O2 Delivery Device BiPAP POC PEEP 12 POC Pressure Suppt 6 Clinical Comments 12.0000 Physical Exam Const Constitutional Narrative: leghargic, on BIPAP Exam Limitations: altered mental status HEENT Head and Scalp: normocephalic Eyes PERRL and EOMs intact bilaterally Neck no lymphadenopathy Resp Resp Narrative: markedly diminished breath sounds bibasally, no wheezes or crackles. Very diminished breath sounds especially on the right side. on BIPAP. tachypneic. Cardio regular rhythm, S1 normal heart sound and S2 normal heart sound Cardio Narrative: tachycardic GI normal to inspection, nondistended, normoactive bowel sounds, soft to palpation, non-tender and non-distended Extremity normal to inspection, full ROM and no clubbing, cyanosis or edema Peripheral Pulses: Yes pulses 2+ throughout Skin no rashes or lesions noted Neuro Neuro Narrative: lethargic Assessment & Plan Assessment/Plan (1) Pleural effusion: (2) Acute respiratory failure with hypoxia: (3) Encephalopathy: PLAN: #Acute hypoxic respiratory failure due to right pleural effusion * currently on BIPAP, with FiO2 of 70% * critical care on board. Due for thoracentesis today * patient has not received any antibiotics during this admission * on breathing treatment with bronchodilators. Titrate oxygen to maintain sats >90% * will consider initiating antibiotic therapy due to concerns about a possible parapneumonic effusion. * aspiration precautions * #Right pleural effusion: as above #Acute metabolic encephalopathy due to probable alcohol withdrawal and hepatic encephalopathy * on thiamine, folic acid and multivites. * aspiration precautions * alcohol withdrwawl protocol discontinued due to patient's encephalopathy * #COVID 19 infection * this could also be contributing to the respiratory failure * on dexamethasone * critical care on board. * out of window for dexamethasone or remdesivir, as he tested positive on June 19, 2021 #Duodenal ulcer with erosive gastritis * s/p EGD on 06/19/2021 which showed erosive gastritis with positive gastropathy and one nonbleeding duodenal ulcer. On PPI bid. * #SEptic shock * etiology unclear. On levophed which was turned off this morning as code [facility] #History of alcohol abuse * on thiamine, folic acid and multivites * a risk of withdrawal * #History of alcohol liver cirrhosis with hepatic encephalopathy * To follow up with gastroenterology on outpatient basis. * on rivaximin. ALso on lactulose o/a of elevated [place] level of 36 * #Severe protein calorie malnutrition * severe weight loss of ~ 13kg in ~ 14 months; nutrition on board. Currently NPO o/a of being on BIPAP. * #Acute on chronic Thrombocytopenia * platelets are down to 39 today. Platelets dropped precipitously from 101 on 06/24/2021 to 39 today. He has not been on heparin or lovenox due to his chronic thrombocytopenia on admission, as confirmed with pharmacy, so HIT is less of a concern. More likely this is due to his alcohol abuse as well as general medical condition. * will trend. IF it drops some more, will consider hematology consult. * #Hypernatremia * Na is 156. Will start on IV D5W to bring sodium levels down * DVT prophylaxis: SCDs. PRognosis: poor.Family changed code [facility] today. Charges/Coding Visit Charges Inpatient E&M: 67206 Subs Hosp L3
--- NOTE | 2021-06-29 13:15 | NURSING ---
Addendum entered by Amber Landin 06/29/21 13:42: Correction: Time of 1315 Original Note: Noted to be apneic, HR quickly dropping and then asystole. This RN at bedside holding pt's hand. Time of 1515. Verified wMiroslava Vargas RN. Dr. Silva notified
--- NOTE | 2021-06-29 14:15 | PCM.DEATH ---
Preliminary Cause of Preliminary Cause of Preliminary Cause of : acute hypoxic respiratory failure due to parapneumonic effusion and COVID 19 pneumonia Principle Diagnosis Problem List: Active and Suspected Problems (Updated 06/26/21 @ 15:[address] Mihai Osullivan, DO) Pleural effusion (Acute) Acute respiratory failure with hypoxia (Acute) Encephalopathy (Acute) Portal vein thrombosis (Acute) Alcoholic hepatitis (Acute) COVID-19 (Acute) Hyperbilirubinemia (Acute) Hematemesis (Acute) Elevated d-dimer (Acute) Hyponatremia (Acute) Hyperammonemia (Acute) Severe malnutrition (Acute) Hospital Course Patient is a 50-year-old male was admitted via the ED on 06/16/2021 with a complaint of fatigue and generalized weakness. He lives with his family members and one of his family members brought him to the hospital because he had been more lethargic and sick and sleeping too much for about 5 to 6 days prior to admission. He had also had vomiting 3 days prior to admission to the point where he had hematemesis. Patient was very weak and could not get up and ambulate by himself. Patient had a history of heavy alcohol use and also suspected cirrhosis of the liver. On admission, platelets were 66,000 and WBC was normal. Sodium mostly was 130 and electrolytes were unremarkable. AST was mildly elevated at 98 and ammonia was elevated at 53. Total bilirubin was 7.7. Initial troponin was negative and lactic acid was 2. D-dimer was elevated but CTA of the chest showed bilateral airspace disease and moderate right pleural effusion with cirrhosis and varices and multiple compression fractures of the thoracic spine but no evidence of PE. Of note, patient also tested positive for Covid. He was admitted and managed for acute metabolic encephalopathy likely due to hepatic encephalopathy due to severe alcohol use and cirrhosis of the liver as well as hematemesis due to probable bleeding esophageal varices from chronic alcohol abuse. Gastroenterology was consulted. Patient had EGD on June 19, 2021 which showed multiple nonbleeding erosions in the stomach and one nonbleeding duodenal ulcer. He was placed on IV PPI twice daily. His mentation continued to worsen during admission. Hospital course was complicated by concerns for aspiration pneumonia. He was also treated for alcohol withdrawal with Precedex infusion. He was also placed on rifaximin and lactulose as well as thiamine and folic acid. Patient was also placed on Decadron for COVID-19 pneumonia. Patient's respiratory status continued to deteriorate and he was placed on BiPAP requiring 70% FiO2. However he was not improving and chest x-ray showed complete opacification of the right hemithorax. Of note, it did not appear that patient received any antibiotics during this admission. He was emergently transferred to the ICU on account of worsening respiratory status. Patient also went into septic shock and had to be started on Levophed patient's prognosis was discussed with patient's son Saeid Marks he was updated about patient's clinical state. He was educated that patient would likely require intubation as he would likely decompensate clinically. After lengthy discussion, family decided to transition patient to DNR CC CODE STATUS. Care was therefore withdrawn and patient at 1:15 PM on 06/29/2021. Preliminary cause of is acute hypoxic respiratory failure due to pleural effusion and covid 10 pneumonia Visit Charges Inpatient E&M: 60398 Disch Hosp
--- NOTE | 2021-06-29 16:29 | CASEMGMT ---
Social Work Telephone to Marcelino Elmore, referral canceled due to patient expiring. Fransico Logan CUPOLA MELTER, FARRUKHS
[2021-06-30 09:55] LABS: Pathologist Review Reviewed
== END 2021-06-29 14:10 | DRG 137 ==
LOC: ED 19:37 → PCU 23:13 → ICU 06-22 11:36 → PCU 06-23 13:41 → MS3 06-24 02:42 → ICU 06-29 03:48
PROVIDERS: Internal Medicine; Internal Medicine Critical Care Medicine; Internal Medicine Gastroenterology; Admitting Provider Internal Medicine; Emergency Provider Emergency Medicine; Visit Provider Student in an Organized Health Care Education/Training Program
PROC: 0DJ08ZZ Inspection of Upper Intestinal Tract, Via Natural or Artificial Opening Endoscopic (ICD-10-PCS; CPT 43235; principal; 2021-06-19 11:25)
DX: U07.1 COVID-19 (principal); J12.82 Pneumonia due to coronavirus disease 2019; J96.01 Acute respiratory failure with hypoxia; A41.89 Other specified sepsis; F17.210 Nicotine dependence, cigarettes, uncomplicated; K70.30 Alcoholic cirrhosis of liver without ascites; K76.6 Portal hypertension; F10.239 Alcohol dependence with withdrawal, unspecified; K26.4 Chronic or unspecified duodenal ulcer with hemorrhage; E43 Unspecified severe protein-calorie malnutrition; E87.1 Hypo-osmolality and hyponatremia; D69.6 Thrombocytopenia, unspecified; R62.7 Adult failure to thrive; I85.11 Secondary esophageal varices with bleeding; I81 Portal vein thrombosis; E83.39 Other disorders of phosphorus metabolism; E87.6 Hypokalemia; J90 Pleural effusion, not elsewhere classified; R65.21 Severe sepsis with septic shock; E87.0 Hyperosmolality and hypernatremia; K72.90 Hepatic failure, unspecified without coma; D62 Acute posthemorrhagic anemia; G93.41 Metabolic encephalopathy; K29.60 Other gastritis without bleeding; S70.02XA Contusion of left hip, initial encounter; Y90.0 Blood alcohol level of less than 20 mg/100 ml; X58.XXXA Exposure to other specified factors, initial encounter; Y93.9 Activity, unspecified; Y92.9 Unspecified place or not applicable; Y99.9 Unspecified external cause status; Z68.24 Body mass index [BMI] 24.0-24.9, adult; Z66 Do not resuscitate
CPT/HCPCS: 36415; 36569; 36600; 70450; 71045; 71275; 74018; 76705; 80053; 82077; 82140; 82247; 82248; 82607; 82803; 82962; 83605; 83690; 83735; 84100; 84132; 84484; 85025; 85027; 85379; 85610; 85730; 86900; 86901; 87040; 87426; 87641; 92507; 92526; 92610; 93005; 94002; 94640; 94762; 97162; 97166; 97530; 97535; 97802; 97803; 99285; 99406; J7030; J7040; J7050; J7120; Q9967; A4216; J1940; J2405; J3490; J7799